=== PATIENT | female | born 1990 | race Caucasian/White ===

== ENCOUNTER → 2021-01-25 08:11 | Outpatient (CLI) | payer BC, SELFPAY ==
--- NOTE | 2021-01-25 08:16 | XR_ITS ---
PROCEDURE: XR WRIST RT MIN 3V CLINICAL INDICATION: RT wrist pain COMPARISON: No exams were available for comparison FINDINGS: No fracture or dislocation. The joint spaces are well preserved. There is a well-circumscribed 10 x 4 mm cyst within the mid aspect of the scaphoid. The margins are well-circumscribed and somewhat sclerotic. This has a benign appearance. The joint spaces are well-preserved. No significant degenerative/arthritic changes. No erosive changes evident. Other findings:None. IMPRESSION: Benign-appearing cystic lesion of the scaphoid otherwise negative. Dictated by: Inocencio Daugherty MD 01/25/2021 09:49 Inocencio Daugherty MD in [place] 01/25/2021 09:49
== END ==
PROVIDERS: PCP Internal Medicine Adolescent Medicine; Visit Provider Orthopaedic Surgery
DX: M25.531 Pain in right wrist (principal)
CPT/HCPCS: 73110

== ENCOUNTER → 2021-03-18 15:37 | Outpatient (CLI) | payer BC, SELFPAY ==
[2021-03-18 16:11] LABS: Basophils % 0.3 % (0.1-2.0); Eosinophils # 0.2 K/mm3 (0.0-0.4); Eosinophils % 1.9 % (0.1-12.0); Hematocrit 42.1 % (37.0-47.0); Hemoglobin 13.8 g/dL (12.2-16.2); Lymphocytes # 2.7 K/mm3 (0.7-4.5); Lymphocytes % 22.9 % (10-50); Mean Corpuscular HGB Conc 32.7 g/dL (31.8-35.4); Mean Corpuscular Hemoglobin 30.2 pg (27.0-31.2); Mean Corpuscular Volume 92.4 fl (81-99); Mean Platelet Volume 8.6 fl (7.4-10.4); Monocytes # 0.4 K/mm3 (0.1-1.0); Monocytes % 3.6 % (1.7-9.3); Neutrophils # 8.3 K/mm3 (1.8-7.8); Neutrophils % 71.4 % (37.0-80.0); Platelet Count 234 K/mm3 (142-424); Red Blood Count 4.56 M/mm3 (4.20-5.40); White Blood Count 11.7 K/mm3 (4.8-10.8)
[2021-03-18 17:18] LABS: Alanine Aminotransferase 16 U/L (12-78); Albumin Level 4.2 g/dl (3.5-5.0); Albumin/Globulin Ratio 1.6 (1.1-1.8); Alkaline Phosphatase 59 U/L (38-126); Anion Gap 12.3 mEq/L (5-15); Aspartate Amino Transferase 22 U/L (14-36); Bilirubin,Total 0.5 mg/dl (0.2-1.3); Blood Urea Nitrogen 15 mg/dl (7-17); Calcium 9.3 mg/dl (8.4-10.2); Carbon Dioxide 25 mmol/L (22.0-30.0); Chloride 104 mmol/L (98-107); Estimated Glomerular Filt Rate 73 ml/min (>60); GFR (African American) 88 ML/MIN (>60); Globulin 2.6 g/dL (1.3-3.2); Glucose 98 mg/dl (74-100); Potassium 4.3 mmoL/L (3.5-5.1); Sodium 137 mmol/L (136-145); Total Protein,Serum 6.8 g/dl (6.3-8.2)
[2021-03-18 17:20] LABS: HCG Qualitative, Serum Negative (Negative)
== END ==
PROVIDERS: Visit Provider Internal Medicine Adolescent Medicine
DX: R42 Dizziness and giddiness (principal); E03.9 Hypothyroidism, unspecified
CPT/HCPCS: 36415; 80053; 84443; 84703; 85025

== ENCOUNTER → 2021-05-24 10:23 | Outpatient (CLI) | payer BC, SELFPAY ==
[2021-05-24 10:40] LABS: Basophils # 0.1 K/mm3 (0-0.2); Basophils % 0.7 % (0.1-2.0); Eosinophils # 0.2 K/mm3 (0.0-0.4); Eosinophils % 2.4 % (0.1-12.0); Hematocrit 43.1 % (37.0-47.0); Hemoglobin 14.4 g/dL (12.2-16.2); Lymphocytes # 2.8 K/mm3 (0.7-4.5); Lymphocytes % 31.8 % (10-50); Mean Corpuscular HGB Conc 33.3 g/dL (31.8-35.4); Mean Corpuscular Hemoglobin 30.2 pg (27.0-31.2); Mean Corpuscular Volume 90.5 fl (81-99); Monocytes # 0.5 K/mm3 (0.1-1.0); Monocytes % 5.3 % (1.7-9.3); Neutrophils # 5.3 K/mm3 (1.8-7.8); Neutrophils % 59.7 % (37.0-80.0); Platelet Count 224 K/mm3 (142-424); Red Blood Count 4.77 M/mm3 (4.20-5.40); Red Cell Distribution Width 12.7 % (11.5-17.5); White Blood Count 8.8 K/mm3 (4.8-10.8)
[2021-05-24 11:33] LABS: Chloride 103 mmol/L (98-107); Sodium 137 mmol/L (136-145)
[2021-05-24 11:36] LABS: Alanine Aminotransferase 14 U/L (12-78); Albumin Level 4.2 g/dl (3.5-5.0); Albumin/Globulin Ratio 1.6 (1.1-1.8); Alkaline Phosphatase 60 U/L (38-126); Aspartate Amino Transferase 21 U/L (14-36); Bilirubin,Total 0.5 mg/dl (0.2-1.3); Blood Urea Nitrogen 18 mg/dl (7-17); Calcium 9.2 mg/dl (8.4-10.2); Carbon Dioxide 27 mmol/L (22.0-30.0); Estimated Glomerular Filt Rate 84 ml/min (>60); GFR (African American) 101 ML/MIN (>60); Globulin 2.7 g/dL (1.3-3.2); Glucose 102 mg/dl (74-100); Magnesium 1.8 mg/dl (1.6-2.3); Total Protein,Serum 6.9 g/dl (6.3-8.2)
[2021-05-24 12:06] LABS: Thyroid Stimulating Hormone 0.47 uIU/mL (0.465-4.68)
== END ==
PROVIDERS: Visit Provider Internal Medicine Adolescent Medicine
DX: R42 Dizziness and giddiness (principal); E03.9 Hypothyroidism, unspecified
CPT/HCPCS: 36415; 80053; 83735; 84443; 85025

== ENCOUNTER → 2021-10-04 15:10 | Outpatient (CLI) | payer BC, SELFPAY ==
[2021-10-04 16:08] LABS: 25-OH Vitamin D, Total 27.6 ng/mL (30-100)
[2021-10-04 16:43] LABS: Alanine Aminotransferase 21 U/L (12-78); Albumin Level 3.8 g/dl (3.5-5.0); Albumin/Globulin Ratio 1.5 (1.1-1.8); Alkaline Phosphatase 49 U/L (38-126); Anion Gap 10.6 mEq/L (5-15); Aspartate Amino Transferase 40 U/L (14-36); Bilirubin,Total 0.7 mg/dl (0.2-1.3); Blood Urea Nitrogen 9 mg/dl (7-17); Calcium 9.7 mg/dl (8.4-10.2); Carbon Dioxide 27 mmol/L (22.0-30.0); Chloride 100 mmol/L (98-107); Estimated Glomerular Filt Rate 98 ml/min (>60); GFR (African American) 118 ML/MIN (>60); Globulin 2.6 g/dL (1.3-3.2); Glucose 98 mg/dl (74-100); Potassium 4.6 mmoL/L (3.5-5.1); Sodium 133 mmol/L (136-145); Total Protein,Serum 6.4 g/dl (6.3-8.2)
[2021-10-04 17:03] LABS: Free T4 (Free Thyroxine) 1.45 ng/dl (0.78-2.19)
[2021-10-04 17:17] LABS: Thyroid Stimulating Hormone 1.48 uIU/mL (0.465-4.68)
[2021-10-04 17:36] LABS: Vitamin B12 759 pg/mL (239-931)
[2021-10-04 20:27] LABS: Hemoglobin A1C 5.5 % (4.0-6.0)
== END ==
PROVIDERS: Visit Provider Nurse Practitioner Family
DX: E03.9 Hypothyroidism, unspecified (principal); R73.9 Hyperglycemia, unspecified; R53.83 Other fatigue; E55.9 Vitamin D deficiency, unspecified
CPT/HCPCS: 36415; 80053; 82306; 82607; 83036; 84439; 84443

== ENCOUNTER → 2021-10-26 17:17 | Outpatient (CLI) | payer BC, SELFPAY | PROVIDERS: PCP Internal Medicine Adolescent Medicine; Visit Provider Nurse Practitioner | DX: Z20.822 Contact with and (suspected) exposure to COVID-19 (principal) | CPT/HCPCS: C9803; U0003; U0005 ==

== ENCOUNTER 2023-03-18 09:04 | Emergency (ER) | payer OTHER, SELFPAY ==
[2023-03-18] VITALS (9 sets, daily range): BP systolic 81–116; BP diastolic 55–83; PULSE 58–85; RESP 16–19; TEMP 36.7; O2SAT 91–99; BMI 23.8
--- NOTE | 2023-03-18 09:04 | PC.NURSE ---
at the bedside
--- NOTE | 2023-03-18 09:04 | PC.NURSE ---
fsbs on arrival- 84
--- NOTE | 2023-03-18 09:05 | XR_ITS ---
PROCEDURE INFORMATION: Exam: XR Chest Exam date and time: 03/18/2023 9:12 AM Age: 32 years old Clinical indication: Dyspnea and shortness of breath; Additional info: Dyspnea, covid+, cp TECHNIQUE: Imaging protocol: Radiologic exam of the chest. Views: 1 view. COMPARISON: No relevant prior studies available. FINDINGS: Lungs: Unremarkable. No consolidation. Pleural spaces: Unremarkable. No pleural effusion. No pneumothorax. Heart/Mediastinum: Unremarkable. No cardiomegaly. Bones/joints: Unremarkable. IMPRESSION: No acute findings.
--- NOTE | 2023-03-18 09:06 | HMH.EDAMS ---
Discharge Plan Disposition Patient Disposition: Home, Self-Care Prescriptions Prescriptions: No Action levothyroxine 50 mcg tablet 50 mcg PO DAILY 30 Days Qty: 30 bupropion HCl [Wellbutrin SR] 100 mg tablet extended release 12 hr 100 mg PO BID sertraline 50 mg tablet 50 mg PO DAILY Referrals Follow up/Referrals: Provider,Referral, [Primary Care Provider] - See instructions Activity Restrictions/Add. Instructions Additional Instructions/Restrictions: Your work-up in the emergency department today did not reveal any immediately life-threatening or dangerous conditions. Your thyroid level is low. However we just recently started thyroid medication so this result is expected. Your blood glucose is also a little bit on the low side. This can be seen if someone takes medicine to treat diabetes. This is not a sign of diabetes. Your urine drug screen tested positive for amphetamines. There are medications that could cross-react and give this result. However, if you do use street drugs such as amphetamines or if your prescribed medications for attention deficit disorder I would recommend that you stop taking them because today you may have had a seizure. You need to follow-up with your primary care doctor within about 4 to 5 days to have further testing done regarding your glucose and to figure out whether you may have a seizure disorder. Until you have been cleared by a doctor or neurologist to drive, you may not drive due to the possibility of you having seizures. This is state law. Please return to the emergency department immediately if you feel worse in any way. Eat high carbohydrate foods such as rice, bread, potatoes, pasta. Instructions Patient Instructions: DI for Altered Mental Status Discharge ED Provider: Val Brown Altered Mental Status HPI General Chief Complaint: Altered Mental Status Stated Complaint: AMS Time Seen by Provider: 03/18/23 09:04 Mode of Arrival: EMS Source of Information: Patient and Spouse History of Present Illness HPI narrative: The patient presents to the emergency department via ambulance. She is accompanied by her . Her found her in the bathroom unresponsive. She was naked with the bath running and she had defecated and vomited. The patient was initially unresponsive. She denies drug use. She denies a history of seizures. She denies diabetes. When paramedics arrived her blood glucose was 44. She was given D50 intravenously. She denies any injuries or pain. describes her mental status is returning slowly. No history of fevers or recent travel. Related Data Home Medications Medication Instructions Recorded Confirmed bupropion HCl 100 mg tablet,12 hr 100 mg PO BID mood 07/04/18 03/18/23 sustained-release (Wellbutrin SR) levothyroxine 50 mcg tablet 50 mcg PO DAILY thyroid 30 days 07/04/18 03/18/23 #30 tabs sertraline 50 mg tablet 50 mg PO DAILY mood 03/18/23 03/18/23 Allergies Allergy/AdvReac Type Severity Reaction Status Date / Time Penicillins Allergy Intermediate Verified 01/25/21 08:55 Cephalosporins AdvReac Mild Verified 01/25/21 08:55 PFSH [facility] Disclaimer: The information contained in this section may have been updated after the patient was seen, as this information can be updated by other users. Social History Smoking Status: Never smoker alcohol intake: never substance use type: denies use current occupational status: employed Travel in the last 8 weeks: None household members: significant other housing: house ROS Obtained: Yes All systems reviewed & no additional complaints except as documented Physical Exam General General appearance: alert Comment: The patient responds appropriately but slowly. Head Head exam: atraumatic Eye Eye exam: Present normal appearance ENT ENT exam: Present normal exam Neck Neck exam: Present normal inspection and full ROM; Absent tenderness or me
--- NOTE | 2023-03-18 09:08 | CT_ITS ---
PROCEDURE INFORMATION: Exam: CT Head Without Contrast Exam date and time: 03/18/2023 9:50 AM Age: 32 years old Clinical indication: Altered mental status/memory loss; Confusion or disorientation; Additional info: Probable new onset seizure TECHNIQUE: Imaging protocol: Computed tomography of the head without contrast. Radiation optimization: All CT scans at this facility use at least one of these dose optimization techniques: automated exposure control; mA and/or kV adjustment per patient size (includes targeted exams where dose is matched to clinical indication); or iterative reconstruction. REPORTING DATA: Count of CT and Cardiac NM exams in prior 12 months: This patient has received 0 known CTs and 0 known cardiac nuclear medicine studies in the 12 months prior to the current study. COMPARISON: No relevant prior studies available. FINDINGS: Brain: Normal. No hemorrhage. Unremarkable white matter. No mass effect. Cerebral ventricles: No ventriculomegaly. Paranasal sinuses: Visualized sinuses are unremarkable. No fluid levels. Mastoid air cells: Visualized mastoid air cells are well aerated. Bones/joints: Numerous foci of gas are evident at the skull base along the periphery of the foramen magnum, and extending inferiorly, surrounding the cervical canal at C1. Soft tissues: Unremarkable. Vasculature: Foci of gas also noted at the cavernous sinus. May be iatrogenic due to air bolus from IV placement, clinical correlation necessary. IMPRESSION: 1. No acute intracranial hemorrhage. 2. Numerous foci of gas are evident at the skull base along the periphery of the foramen magnum, and extending inferiorly, surrounding the cervical canal at C1. Foci of gas also noted at the cavernous sinus. May be iatrogenic due to air bolus from IV placement, clinical correlation necessary.
--- NOTE | 2023-03-18 09:11 | ECG_ITS ---
APPROVED REPORT Exam: Resting ECG HR:48 bpm ECG Measurements Heart Rate 48 AXES WY 157 P 36 QRSd 97 QRS 81 QT 459 T 30 QTc 427 Conclusion SINUS BRADYCARDIA LOW QRS VOLTAGE IN PRECORDIAL LEADS [QRS DEFLECTION < 1.0 mV IN CHEST LEADS] BORDERLINE ECG UNCONFIRMED REPORT Electronically signed by : Vincent Roberson MD 03/19/2023 09:00:31
[2023-03-18 09:20] LABS: Chloride 97 mmol/L (98-107); Sodium 133 mmol/L (136-145)
[2023-03-18 09:21] LABS: Basophils % 0.4 % (0.1-2.0); Eosinophils # 0.5 K/mm3 (0.0-0.4); Eosinophils % 7.3 % (0.1-12.0); Hematocrit 35.4 % (37.0-47.0); Hemoglobin 11.6 g/dL (12.2-16.2); Lymphocytes # 3.2 K/mm3 (0.7-4.5); Lymphocytes % 49.2 % (10-50); Mean Corpuscular HGB Conc 32.7 g/dL (31.8-35.4); Mean Corpuscular Hemoglobin 30.4 pg (27.0-31.2); Mean Corpuscular Volume 93.1 fl (81-99); Mean Platelet Volume 8.6 fl (7.4-10.4); Monocytes # 0.4 K/mm3 (0.1-1.0); Monocytes % 5.9 % (1.7-9.3); Neutrophils # 2.4 K/mm3 (1.8-7.8); Neutrophils % 37.2 % (37.0-80.0); Platelet Count 170 K/mm3 (142-424); Red Cell Distribution Width 12.6 % (11.5-17.5); White Blood Count 6.5 K/mm3 (4.8-10.8)
[2023-03-18 09:22] LABS: Blood Urea Nitrogen 8 mg/dl (7-17); Creatinine Clearance Estimated 93 mL/min (50-200); Estimated Glomerular Filt Rate 83 ml/min (>60); GFR (African American) 100 ML/MIN (>60)
[2023-03-18 09:23] LABS: Alanine Aminotransferase 20 U/L (12-78); Albumin/Globulin Ratio 1.2 (1.1-1.8); Alkaline Phosphatase 59 U/L (38-126); Anion Gap 14.3 mEq/L (5-15); Aspartate Amino Transferase 42 U/L (14-36); Bilirubin,Total 0.9 mg/dl (0.2-1.3); Calcium 9.5 mg/dl (8.4-10.2); Carbon Dioxide 25 mmol/L (22.0-30.0); Globulin 3.3 g/dL (1.3-3.2); Lipase 186 U/L (23-300); Potassium 3.3 mmoL/L (3.5-5.1); Total Protein,Serum 7.3 g/dl (6.3-8.2)
[2023-03-18 09:25] LABS: Glucose 33 mg/dl (74-100)
--- NOTE | 2023-03-18 09:38 | PC.NURSE ---
in and out cath unsuccessful, bladder scan revealed empty bladder. notified. will hydrate and re-cath
--- NOTE | 2023-03-18 09:43 | PC.NURSE ---
pt given orange juice to drink
[2023-03-18 09:44] LABS: HCG Qualitative, Serum Negative (Negative)
[2023-03-18 09:44] LABS: POC Glucose,Bedside 68 (70-110)
--- NOTE | 2023-03-18 09:44 | PC.NURSE ---
notified of critical glucose result
[2023-03-18 09:57] LABS: Glucose,Random 91 mg/dL (74-100)
[2023-03-18 10:15] LABS: Triiodothryronine (T3) Uptake 24 % (23.5-40.5)
--- NOTE | 2023-03-18 11:49 | PC.NURSE ---
bladder scan performed after 2L bolus, 136 mL
[2023-03-18 12:27] LABS: Microscopic, Urine URINE MICROSCOPIC (MICROSCOPIC)
[2023-03-18 12:28] LABS: Appearance,Urine CLEAR (Clear); Blood, Urine TRACE-I (Negative); Color,Urine YELLOW (Yellow); Glucose,Urine (UA) Negative (Negative); Ketones,Urine 2+ (Negative); Leukocyte Esterase,Urine 1+ (Negative); Nitrate,Urine Negative (Negative); PH,Urine 5.5 (5.0-8.5); Protein,Urine Negative (Negative); Specific Gravity, Urine 1.025 (1.005-1.030); Urobilinogen,Urine 0.2 EU/dl (0.2)
[2023-03-18 12:29] LABS: Bilirubin,Urine Negative (Negative)
[2023-03-18 12:40] LABS: Amphetamine/Metha Screen,Urine Positive ng/ml (<1000)
[2023-03-18 12:41] LABS: Barbiturates Screen,Urine Negative ng/ml (<200); Benzodiazepines Screen,Urine Negative ng/ml (<200)
[2023-03-18 12:42] LABS: Cannabinoid Screen,Urine Negative ng/ml (<50); Cocaine Screen,Urine Negative ng/ml (<300)
[2023-03-18 12:43] LABS: Methadone Screen,Urine Negative ng/ml (<300)
[2023-03-18 12:44] LABS: Opiate Screen,Urine Negative ng/ml (<300); Phencyclidine Screen,Urine Negative ng/ml (<25)
[2023-03-18 12:45] LABS: Bacteria,Urine Trace /lpf
[2023-03-18 13:08] LABS: POC Glucose,Bedside 56 (70-110)
--- NOTE | 2023-03-18 13:35 | PC.NURSE ---
rounded on pt nothing needed at this time, call light at bedside
--- NOTE | 2023-03-18 14:07 | PC.NURSE ---
er at bedside
[2023-03-18 14:09] LABS: POC Glucose,Bedside 74 (70-110)
--- NOTE | 2023-03-18 14:25 | PC.NURSE ---
patient and patients mother very concerned about pt being fired for possibly missing work tomorrow. pt was given work excuse from ED. instructed pt and her mother that pt was given work note for ED visit, advised pt take a few days off to recover. called apolinar with [employer] [facility] and notified her of pt being off tomorrow and of her concerns.
[2023-03-19 09:12] LABS: Free Thyroxine Index 1.5 ug/dL (5.93-13.13); T4 (Thyroxine) 6.4 ug/dl (5.53-11.0)
== END 2023-03-18 14:29 | disposition home or self-care (01) ==
PROVIDERS: Emergency Provider Emergency Medicine
DX: R41.82 Altered mental status, unspecified (principal); R00.1 Bradycardia, unspecified; E03.9 Hypothyroidism, unspecified
CPT/HCPCS: 70450; 71045; 80053; 80305; 81001; 82947; 82962; 83690; 84436; 84443; 84479; 84703; 85025; 87086; 93005; 96360; 96361; 99285

== ENCOUNTER → 2023-03-20 14:56 | Outpatient (CLI) | payer OTHER, SELFPAY | LOC: RT 14:57 | PROVIDERS: PCP Internal Medicine Adolescent Medicine; Visit Provider Internal Medicine Adolescent Medicine | DX: R55 Syncope and collapse (principal); R00.1 Bradycardia, unspecified | CPT/HCPCS: 93225; 93226 ==

== ENCOUNTER → 2023-03-21 09:19 | Outpatient (CLI) | payer OTHER, SELFPAY ==
[2023-03-21 10:20] LABS: Basophils % 0.5 % (0.1-2.0); Eosinophils # 0.3 K/mm3 (0.0-0.4); Eosinophils % 7.6 % (0.1-12.0); Hematocrit 32.7 % (37.0-47.0); Hemoglobin 10.6 g/dL (12.2-16.2); Lymphocytes # 1.8 K/mm3 (0.7-4.5); Lymphocytes % 40.2 % (10-50); Mean Corpuscular HGB Conc 32.4 g/dL (31.8-35.4); Mean Corpuscular Volume 95.7 fl (81-99); Mean Platelet Volume 9.3 fl (7.4-10.4); Monocytes # 0.3 K/mm3 (0.1-1.0); Monocytes % 5.5 % (1.7-9.3); Neutrophils # 2.1 K/mm3 (1.8-7.8); Neutrophils % 46.2 % (37.0-80.0); Platelet Count 178 K/mm3 (142-424); Red Blood Count 3.41 M/mm3 (4.20-5.40); Red Cell Distribution Width 12.6 % (11.5-17.5); White Blood Count 4.6 K/mm3 (4.8-10.8)
[2023-03-21 11:04] LABS: Alanine Aminotransferase 15 U/L (12-78); Albumin Level 3.3 g/dl (3.5-5.0); Albumin/Globulin Ratio 1.2 (1.1-1.8); Alkaline Phosphatase 44 U/L (38-126); Aspartate Amino Transferase 32 U/L (14-36); Bilirubin,Total 0.4 mg/dl (0.2-1.3); Blood Urea Nitrogen 7 mg/dl (7-17); Calcium 8.3 mg/dl (8.4-10.2); Carbon Dioxide 29 mmol/L (22.0-30.0); Chloride 102 mmol/L (98-107); Estimated Glomerular Filt Rate 115 ml/min (>60); GFR (African American) 139 ML/MIN (>60); Globulin 2.7 g/dL (1.3-3.2); Glucose 85 mg/dl (74-100); Magnesium 1.6 mg/dl (1.6-2.3); Sodium 140 mmol/L (136-145)
[2023-03-21 11:38] LABS: Vitamin B12 819 pg/mL (239-931)
[2023-03-22 11:17] LABS: Insulin Level Total 1.6 uIU/mL (2.6-24.9)
[2023-03-22 13:03] LABS: C-Peptide 1.4 ng/mL (1.1-4.4)
[2023-03-24 16:13] LABS: Vitamin C 0.5 mg/dL (0.4-2.0)
== END ==
LOC: LAB 09:21
PROVIDERS: PCP Internal Medicine Adolescent Medicine; Visit Provider Internal Medicine Adolescent Medicine
DX: R01.1 Cardiac murmur, unspecified (principal); R55 Syncope and collapse; R00.1 Bradycardia, unspecified; E16.2 Hypoglycemia, unspecified; E55.9 Vitamin D deficiency, unspecified
CPT/HCPCS: 36415; 80053; 82024; 82180; 82306; 82533; 82607; 83525; 83735; 84681; 85025

== ENCOUNTER → 2023-03-24 08:15 | Outpatient (CLI) | payer OTHER, SELFPAY ==
[2023-04-06 22:51] LABS: Renin Activity, Plasma 1.277 ng/mL/hr (0.167-5.380)
== END ==
LOC: LAB 08:17
PROVIDERS: PCP Internal Medicine Adolescent Medicine; Visit Provider Internal Medicine Adolescent Medicine
DX: E27.40 Unspecified adrenocortical insufficiency (principal)
CPT/HCPCS: 36415; 82024; 82088; 82533; 84244

== ENCOUNTER → 2023-03-28 09:25 | Outpatient (CLI) | payer OTHER, SELFPAY ==
--- NOTE | 2023-03-28 09:32 | MR_ITS ---
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 The midline structures appear intact. There is no evidence of Chiari malformation. On T2 and flair axial images the brain parenchyma is homogeneous. On diffusion-weighted images there is no evidence of restricted diffusion. The visualized paranasal sinuses demonstrate normal signal voids. The seventh and eighth nerve root complexes are intact. The previous CT on March 18 had mentioned intracranial air at the craniocervical junction and the parasellar region, which is no longer present on today's exam. IMPRESSION: Essentially unremarkable nonenhanced brain MRI. Reviewed, Interpreted and Dictated by Morteza Jay MD Transcribed by Fallon Salguero Authenticated and [facility]
== END ==
LOC: RAD 09:26
PROVIDERS: PCP Internal Medicine Adolescent Medicine; Visit Provider Internal Medicine Adolescent Medicine
DX: R55 Syncope and collapse (principal)
CPT/HCPCS: 70551

== ENCOUNTER → 2023-05-23 07:50 | Outpatient (CLI) | payer OTHER, SELFPAY ==
--- NOTE | 2023-05-23 07:56 | MR_ITS ---
FINAL REPORT CLINICAL HISTORY: PRIMARY ADRENAL INSUFFICIENCY. ANASTASIYA'S DISEASE. COMPARISON: None none none FINDINGS: Multiplanar MR imaging of the abdomen was performed without contrast. There are multiple well-circumscribed hepatic masses measuring up to 13 mm. These cannot be accurately characterized without contrast and likely represent cysts or hemangiomas. There is no evidence of biliary ductal dilatation. The gallbladder has an unremarkable appearance. Several small bilateral renal masses are noted. Two of these on the right and one on the left have increased signal on the T1-weighted images. These do not appear to be simple cysts but are favored to represent hemorrhagic cysts. The others likely represents simple cysts. Borderline splenomegaly at 12.8 cm. Right adrenal gland is not well visualized. Left adrenal gland appears small. No adrenal mass or nodule. IMPRESSION: No adrenal mass or nodule identified. Multiple hepatic masses likely represent cysts or hemangiomas. Several small bilateral renal masses, some of which demonstrate increased signal on T1-weighted images and favored to represent hemorrhagic cysts. Borderline splenomegaly. Reviewed, Interpreted and Dictated by Nuno Kaiser III, MD Transcribed by Brittney Rocha Authenticated and . [facility]
== END ==
LOC: RAD 07:51
PROVIDERS: PCP Internal Medicine Adolescent Medicine; Visit Provider Internal Medicine Adolescent Medicine
DX: E27.1 Primary adrenocortical insufficiency (principal)
CPT/HCPCS: 74181

== ENCOUNTER 2023-06-19 19:07 | Emergency (ER) | payer OTHER, SELFPAY ==
[2023-06-19 20:05] VITALS: BP 115/71; PULSE 109; RESP 20; TEMP 36.8; O2SAT 97; BMI 26.9
[2023-06-19 20:21] LABS: UTC Strep Screen (Rapid) Negative (Negative)
--- NOTE | 2023-06-19 20:21 | EXP.UTC ---
Discharge Plan Disposition Patient Disposition: Home, Self-Care Condition: Good Prescriptions Prescriptions: New azithromycin [Zithromax Z-Pepe] 250 mg tablet See Rx Instructions .ROUTE .COMPLEX 5 Days Qty: 6 0RF Rx Instructions: For 250 mg dose pack: take 500 mg today (day 1), then 250 mg for 4 days (days 2-5) No Action levothyroxine 50 mcg tablet 50 mcg PO DAILY 30 Days Qty: 30 bupropion HCl [Wellbutrin SR] 100 mg tablet extended release 12 hr 100 mg PO BID sertraline 50 mg tablet 50 mg PO DAILY Referrals Follow up/Referrals: Vincent Roberson MD [Primary Care Provider] - See instructions Activity Restrictions/Add. Instructions Additional Instructions/Restrictions: *Monitor Temp, Over the counter Motrin or Tylenol as directed/as needed Tylenol every 4 hours and Motrin every 6 hours (as long as your family doctor has told you that you can take it) for fever or pain. and straight to ER if unable to lower temp less than 101.0 after medication given *Warm salt water gargles may help to soothe the throat *Throat Lozenges? *Warm fluids like tea with honey may help to soothe the throat? *Sleep elevated *Humidifier/Vaporizer Your throat swab was sent for culture. Those results are typically sent to your primary care. Be sure to follow up in 2-3 days with your family doctor/primary care physician if no improvement so they can review those result and treat if necessary. If you don?t have a primary care doctor, I recommend you get one but in the mean time, you will have to return to a walk in clinic Follow up IMMEDIATELY for new or worsening symptoms or no Noticeable improvement over the next 48-72 hours. 911 for difficulty breathing or swallowing Clinical Impressions Clinical Impression: Otitis media Qualifiers: Otitis media type: unspecified Laterality: left Qualified Code(s): H66.92 - Otitis media, unspecified, left ear Instructions Patient Instructions: Sore Throat, Middle Ear Infection Discharge ED Provider: Annalee Oates [facility] General Stated complaint: sore throat Mode of Arrival: Ambulatory Source of Information: Patient Limitations: No Limitations Time Seen by Provider: 06/19/23 20:21 Description of Symptoms (Recalled from Triage Doc. by RN): PATIENT C/O SORE THROAT AND BILATERAL EAR PAIN THAT STARTED THIS MORNING HEENT Symptoms (Recalled from RN notes): Yes Resp Symptoms (Recalled from RN notes): No Skin Symptoms (Recalled from RN notes): No MS Symptoms (Recalled from RN notes): No Functional Status (Recalled from RN notes): WNL History of Present Illness Provider Complaint: Patient states that she started this morning with bilateral ear pain and sore throat State that he son recently tested positive for strep throat Related Data Home Medications Medication Instructions Recorded Confirmed bupropion HCl 100 mg tablet,12 hr 100 mg PO BID mood 07/04/18 03/18/23 sustained-release (Wellbutrin SR) levothyroxine 50 mcg tablet 50 mcg PO DAILY thyroid 30 days 07/04/18 03/18/23 #30 tabs sertraline 50 mg tablet 50 mg PO DAILY mood 03/18/23 03/18/23 Previous Rx's Medication Instructions Recorded azithromycin 250 mg tablet See Rx Instructions PO .COMPLEX 5 06/19/23 (Zithromax Z-Pepe) days #6 tabs Allergies Allergy/AdvReac Type Severity Reaction Status Date / Time Penicillins Allergy Intermediate Verified 01/25/21 08:55 amoxicillin Allergy Verified 06/19/23 20:18 Cephalosporins AdvReac Mild Verified 01/25/21 08:55 Worker's Comp Is this a Worker's Comp case?: No [facility] Disclaimer: The information contained in this section may have been updated after the patient was seen, as this information can be updated by other users. Medical History (Updated 06/19/23 @ 20:26 by Annalee Oates APRN) [place] disease Anxiety Asthma Depression History of gastroesophageal reflux (GERD) Thyroid disease Surgical His
[2023-06-19 20:28] VITALS: BP 115/71; PULSE 109; RESP 20; TEMP 36.8; O2SAT 97
== END 2023-06-19 20:33 | disposition home or self-care (01) ==
PROVIDERS: Emergency Provider Nurse Practitioner; PCP Internal Medicine Adolescent Medicine
DX: H66.93 Otitis media, unspecified, bilateral (principal); E27.1 Primary adrenocortical insufficiency; E03.9 Hypothyroidism, unspecified; J45.909 Unspecified asthma, uncomplicated; F41.9 Anxiety disorder, unspecified; F32.A Depression, unspecified
CPT/HCPCS: 87880; 99204; 99212; G0463

== ENCOUNTER 2023-09-02 21:38 | Observation (INO) | payer OTHER, SELFPAY ==
[2023-09-02 21:39] VITALS: BP 118/80; PULSE 130; RESP 18; TEMP 39.6; O2SAT 98; BMI 29.2
--- NOTE | 2023-09-02 21:54 | XR_ITS ---
PROCEDURE INFORMATION: Exam: XR Chest Exam date and time: 09/02/2023 9:59 PM Age: 32 years old Clinical indication: Dyspnea TECHNIQUE: Imaging protocol: Radiologic exam of the chest. Views: 1 view. COMPARISON: CR XR CHEST PORTABLE 03/18/2023 9:12 AM FINDINGS: Lungs: There is coarsening of the bronchovascular markings. Pleural spaces: No evidence of pleural effusion, pneumothorax, or pleural thickening in the visualized pleural spaces. Heart/Mediastinum: Stable cardiac and mediastinal contours. Diaphragm: There is elevation of the right hemidiaphragm. Bones/joints: No evidence of acute osseous abnormalities within the visualized portions of the thoracic spine and ribs. Osseous structures appear appropriate for patient age. IMPRESSION: No dense parenchymal consolidation, pleural effusion, or pneumothorax.
--- NOTE | 2023-09-02 22:00 | HMH.EDGENADL ---
Discharge Plan Disposition Patient Disposition: Admitted Prescriptions Prescriptions: No Action levothyroxine 50 mcg tablet 50 mcg PO DAILY 30 Days Qty: 30 bupropion HCl [Wellbutrin SR] 100 mg tablet extended release 12 hr 100 mg PO BID sertraline 50 mg tablet 50 mg PO DAILY azithromycin [Zithromax Z-Pepe] 250 mg tablet See Rx Instructions .ROUTE .COMPLEX 5 Days Qty: 6 0RF Rx Instructions: For 250 mg dose pack: take 500 mg today (day 1), then 250 mg for 4 days (days 2-5) Referrals Follow up/Referrals: Vincent Roberson MD [Primary Care Provider] - See instructions Clinical Impressions Clinical Impression: Addisonian crisis, Nausea vomiting and diarrhea, Fever Instructions Patient Instructions: DI for Diarrhea and Traveler's Diarrhea -- Adult, DI for Diarrhea and Traveler's Diarrhea -- Child, DI for Nausea -- Adult, DI for Nausea -- Child Discharge ED Provider: Pipe Tamayo General Adult HPI General Chief complaint: Nausea/Vomiting/Diarrhea Stated complaint: vomiting,diarrhea Time Seen by Provider: 09/02/23 21:49 Mode of Arrival: Ambulatory Source of Information: Patient Limitations: No Limitations Description of Symptoms (Recalled from ER Triage Doc. by RN): Patient had and N/V/D since around 6pm today. [place] has fever in ED. Patient states that she has Addisions and unable to keep down her steroids. Patient took 4 mg oral zofran at 7:30 PM. History of Present Illness HPI narrative: Patient is a 32-year-old female with a history of [place]'s disease who presents today with nausea vomiting diarrhea some abdominal discomfort and high fever. She states I feel like I have the bug is going around. She states she has body aches she has had positive contacts to COVID recently. She denies any blood in her vomit or stool. has had a mild cough. Also states that she recently ran out of her steroids and has not been able to take any of her steroids today nor she been able to take any antipyretic medications that she has been unable to keep anything down. Related Data Home Medications Medication Instructions Recorded Confirmed bupropion HCl 100 mg tablet,12 hr 100 mg PO BID mood 07/04/18 03/18/23 sustained-release (Wellbutrin SR) levothyroxine 50 mcg tablet 50 mcg PO DAILY thyroid 30 days 07/04/18 03/18/23 #30 tabs sertraline 50 mg tablet 50 mg PO DAILY mood 03/18/23 03/18/23 Previous Rx's Medication Instructions Recorded azithromycin 250 mg tablet See Rx Instructions PO .COMPLEX 5 06/19/23 (Zithromax Z-Pepe) days #6 tabs Allergies Allergy/AdvReac Type Severity Reaction Status Date / Time Penicillins Allergy Intermediate Verified 01/25/21 08:55 amoxicillin Allergy Verified 06/19/23 20:18 Cephalosporins AdvReac Mild Verified 01/25/21 08:55 PFSH [facility] Disclaimer: The information contained in this section may have been updated after the patient was seen, as this information can be updated by other users. Medical History (Updated 09/02/23 @ 22:57 by Pipe Tamayo MD) [place] disease Anxiety Asthma Depression History of gastroesophageal reflux (GERD) Thyroid disease Surgical History (Updated 06/19/23 @ 20:19 by Amirah Watson RN) History of section History of dilation and curettage History of tonsillectomy History of tympanostomy tube placement Social History Smoking Status: Never smoker alcohol intake: never substance use type: denies use current occupational status: employed Travel in the last 8 weeks: None household members: significant other housing: house ROS Obtained: Yes All systems reviewed & no additional complaints except as documented Physical Exam General General appearance: in distress (Actively vomiting) Respiratory Respiratory exam: Present normal lung sounds bilaterally; Absent respiratory distress, wheezes or stridor Cardiovascular Cardiovascular exam: Present normal rhythm, tachycardia and ot
[2023-09-02 22:10] LABS: Coronavirus 19, PCR Not Detected (NotDetected); Coronavirus 229E Not Detected (NotDetected); Coronavirus NL63 Not Detected (NotDetected); Coronavirus OC43 Not Detected (NotDetected); Coronovirus HKU1,PCR Not Detected (NotDetected); Human Metapneumovirus Not Detected (NotDetected); Influenza A, PCR Not Detected (NotDetected); Influenza AH1, 2009 Not Detected (NotDetected); Influenza AH1, PCR Not Detected (NotDetected); Influenza AH3,PCR Not Detected (NotDetected); Influenza B, PCR Not Detected (NotDetected); Parainfluenza 1, PCR Not Detected (NotDetected); Parainfluenza 2, PCR Not Detected (NotDetected); Parainfluenza 3, PCR Not Detected (NotDetected); Parainfluenza 4, PCR Not Detected (NotDetected); Respiratory Syncytial Virus Not Detected (NotDetected); Rhinovirus/Enterovirus Not Detected (NotDetected)
[2023-09-02 22:31] LABS: Basophils % 0.2 % (0.1-2.0); Eosinophils # 0.1 K/mm3 (0.0-0.4); Eosinophils % 1.9 % (0.1-12.0); Hematocrit 38.5 % (37.0-47.0); Hemoglobin 13.1 g/dL (12.2-16.2); Lymphocytes # 1.1 K/mm3 (0.7-4.5); Lymphocytes % 22.7 % (10-50); Mean Corpuscular HGB Conc 34.1 g/dL (31.8-35.4); Mean Corpuscular Hemoglobin 31.2 pg (27.0-31.2); Mean Corpuscular Volume 91.4 fl (81-99); Mean Platelet Volume 8.9 fl (7.4-10.4); Monocytes # 0.2 K/mm3 (0.1-1.0); Monocytes % 3.2 % (1.7-9.3); Neutrophils # 3.4 K/mm3 (1.8-7.8); Platelet Count 166 K/mm3 (142-424); Red Blood Count 4.21 M/mm3 (4.20-5.40); Red Cell Distribution Width 14.2 % (11.5-17.5); White Blood Count 4.7 K/mm3 (4.8-10.8)
[2023-09-02 22:33] LABS: Chloride 103 mmol/L (98-107); Sodium 140 mmol/L (136-145)
[2023-09-02 22:34] LABS: Potassium 3.6 mmoL/L (3.5-5.1)
[2023-09-02 22:36] LABS: Alanine Aminotransferase 18 U/L (12-78); Albumin Level 4.1 g/dl (3.5-5.0); Albumin/Globulin Ratio 1.3 (1.1-1.8); Alkaline Phosphatase 51 U/L (38-126); Anion Gap 9.6 mEq/L (5-15); Aspartate Amino Transferase 28 U/L (14-36); Bilirubin,Total 0.5 mg/dl (0.2-1.3); Blood Urea Nitrogen 16 mg/dl (7-17); Carbon Dioxide 31 mmol/L (22.0-30.0); Creatinine Clearance Estimated 102 mL/min (50-200); Estimated Glomerular Filt Rate 72 ml/min (>60); GFR (African American) 87 ML/MIN (>60); Globulin 3.2 g/dL (1.3-3.2); Glucose 100 mg/dl (74-100); Lipase 88 U/L (23-300); Total Protein,Serum 7.3 g/dl (6.3-8.2)
[2023-09-02 22:37] LABS: Lactic Acid 1.3 mmol/L (0.7-2.1)
--- NOTE | 2023-09-02 23:26 | PC.NURSE ---
Called report to Dulce TAYLOR
--- NOTE | 2023-09-02 23:27 | EXP.HP ---
History of Present Illness *Admission Date: 09/02/23 *Reason for visit:: nausea, vomiting, fatigue *History of present illness: Mrs. 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 Was at work today and missed her doses of steroids (hydrocortisone 10 mg in the morning and 5 mg in the afternoon). She began to feel bad this afternoon with nausea and upset stomach. Began to have vomiting and diarrhea at home. Took some Zofran at 730 but symptoms have persisted. She presented to the ER because of her abdominal discomfort and fever. Found to have a temperature of 103 on arrival to the ER. States she feels like she has a stomach bug has been going around. Sick contacts include recent exposure to COVID over the past week and a half. Has had minimal cough and congestion. No blood in vomit or stool. Workup in the ER meeting SIRS criteria. Tachycardic and febrile. Normal white cell count and electrolytes. ER initiated IV fluids and stress dose steroids. Comprehensive respiratory panel obtained. Consulted medicine for admission and further management. On evaluation, patient is feeling a little bit better since receiving fluids and steroids. Denies any chest pain or shortness of breath. [facility] Disclaimer: The information contained in this section may have been updated after the patient was seen, as this information can be updated by other users. Medical History (Updated 09/02/23 @ 23:37 by Geoffrey Bhatti MD) [place] disease Anxiety Asthma Depression History of gastroesophageal reflux (GERD) Thyroid disease Surgical History History of section History of dilation and curettage History of tonsillectomy History of tympanostomy tube placement Social History Smoking Status: Never smoker alcohol intake: never substance use type: denies use current occupational status: employed Travel in the last 8 weeks: None household members: significant other housing: house Review of Systems Review of Systems Review of systems (narrative): 14 point review of systems performed, pertinent positives and negatives as per HPI Meds Home Medications and Allergies Home Medications Medication Instructions Recorded Confirmed Type bupropion HCl 100 mg tablet,12 hr 100 mg PO BID mood 07/04/18 03/18/23 History sustained-release (Wellbutrin SR) levothyroxine 50 mcg tablet 50 mcg PO DAILY thyroid 30 days 07/04/18 03/18/23 History #30 tabs sertraline 50 mg tablet 50 mg PO DAILY mood 03/18/23 03/18/23 History azithromycin 250 mg tablet See Rx Instructions PO .COMPLEX 5 06/19/23 Rx (Zithromax Z-Pepe) days #6 tabs New Prescriptions to Start Prescriptions: Allergies Allergy/AdvReac Type Severity Reaction Status Date / Time Penicillins Allergy Intermediate Verified 01/25/21 08:55 amoxicillin Allergy Verified 06/19/23 20:18 Cephalosporins AdvReac Mild Verified 01/25/21 08:55 Exam Data for Last 24 hours Vital signs and Labs for Last 24 Hours: Temp Pulse Resp BP Pulse Ox O2 Del Method 103.2 F H 130 H 18 118/80 98 Room Air 09/02/23 21:39 09/02/23 21:39 09/02/23 21:39 09/02/23 21:39 09/02/23 21:39 09/02/23 21:39 Laboratory Results - last 24 hr 09/02/23 22:07: WBC 4.7 L, RBC 4.21, Hgb 13.1, Hct 38.5, MCV 91.4, MCH 31.2, MCHC 34.1, RDW 14.2, Plt Count 166, MPV 8.9, Neut % (Auto) 72.0, Lymph % (Auto) 22.7, Stone % (Auto) 3.2, Eos % (Auto) 1.9, Baso % (Auto) 0.2, Neut # (Auto) 3.4, Lymph # (Auto) 1.1, Stone # (Auto) 0.2, Eos # (Auto) 0.1, Baso # (Auto) 0.0, Sodium 140, Potassium 3.6, Chloride 103, Carbon Dioxide 31 H, Anion Gap 9.6, BUN 16, Creatinine 0.90, Estimated Creat Clear 102, Estimated GFR 72, Est GFR ( Amer) 87, Glucose 100, Lactate 1.3, Calcium 8.0 L, Total Bilirubin 0.5, AST 28, ALT 18, Alkaline Phosphatase 51, Total Protein 7.3, Albumin 4.1, Globulin 3.
[2023-09-02 23:28] VITALS: TEMP 38.6
[2023-09-02 23:31] VITALS: BP 118/80; PULSE 130; RESP 16; TEMP 38.6; O2SAT 98
--- NOTE | 2023-09-02 23:39 | PC.NURSE ---
5404 RECEIVED PHONE REPORT FROM SUZANNA bernard RN/ED NURSE. PATIENT IS A 32 YO FEMALE WITH ADDISONS CRISIS/N/V/D AND FEVER.
--- NOTE | 2023-09-02 23:40 | PC.NURSE ---
2340 PATIENTT ARRIVED TO THE FLOOR VIA W/C.
--- NOTE | 2023-09-02 23:41 | PC.NURSE ---
pt arrived to floor via wheelchair @3922
[2023-09-03 00:04] VITALS: BP 90/51; PULSE 117; RESP 14; TEMP 37; O2SAT 99; BMI 32.0
[2023-09-03 00:31] LABS: Adenovirus,PCR Detected (NotDetected)
--- NOTE | 2023-09-03 02:15 | PC.NURSE ---
U/A COLLECTED AND SENT TO LAB.
[2023-09-03 02:17] LABS: Microscopic, Urine URINE MICROSCOPIC (MICROSCOPIC)
[2023-09-03 02:19] LABS: Appearance,Urine SL CLOUDY (Clear); Bilirubin,Urine Negative (Negative); Blood, Urine Negative (Negative); Color,Urine YELLOW (Yellow); Glucose,Urine (UA) Negative (Negative); Ketones,Urine Negative (Negative); Leukocyte Esterase,Urine Negative (Negative); Nitrate,Urine Negative (Negative); PH,Urine 5.5 (5.0-8.5); Protein,Urine Negative (Negative); Specific Gravity, Urine 1.025 (1.005-1.030); Urobilinogen,Urine 0.2 EU/dl (0.2)
[2023-09-03 02:46] LABS: Bacteria,Urine 1+ /lpf; Mucus,Urine Trace /lpf
[2023-09-03 04:00] VITALS: BP 82/44; PULSE 109; RESP 16; TEMP 37.4; O2SAT 98; BMI 32.0
--- NOTE | 2023-09-03 04:55 | PC.NURSE ---
0445 PATIENT C/O INDIGESTION. RECEIVED TUMS CHEWABLE 500 MG X 2 TABS. BP 82/44 MANUAL, LR 1000ML INITIATED AND INFUSING AT 100 ML/HR/PUMP ORDERED.
[2023-09-03 06:16] LABS: POC Glucose,Bedside 130 (70-110)
[2023-09-03 07:59] VITALS: BP 105/59; PULSE 90; RESP 18; TEMP 36.9; O2SAT 99
[2023-09-03 08:12] LABS: Basophils % 0.2 % (0.1-2.0); Eosinophils % 0.4 % (0.1-12.0); Hematocrit 33.2 % (37.0-47.0); Lymphocytes # 0.6 K/mm3 (0.7-4.5); Lymphocytes % 8.2 % (10-50); Mean Corpuscular HGB Conc 33.1 g/dL (31.8-35.4); Mean Corpuscular Hemoglobin 30.9 pg (27.0-31.2); Mean Corpuscular Volume 93.2 fl (81-99); Mean Platelet Volume 9.2 fl (7.4-10.4); Monocytes # 0.4 K/mm3 (0.1-1.0); Monocytes % 5.1 % (1.7-9.3); Neutrophils % 86.2 % (37.0-80.0); Platelet Count 172 K/mm3 (142-424); Red Blood Count 3.56 M/mm3 (4.20-5.40); Red Cell Distribution Width 14.3 % (11.5-17.5); White Blood Count 6.9 K/mm3 (4.8-10.8)
[2023-09-03 08:26] LABS: Alanine Aminotransferase 17 U/L (12-78); Albumin/Globulin Ratio 1.1 (1.1-1.8); Alkaline Phosphatase 47 U/L (38-126); Anion Gap 7.6 mEq/L (5-15); Aspartate Amino Transferase 26 U/L (14-36); Bilirubin,Total 0.5 mg/dl (0.2-1.3); Blood Urea Nitrogen 16 mg/dl (7-17); Calcium 7.1 mg/dl (8.4-10.2); Carbon Dioxide 28 mmol/L (22.0-30.0); Chloride 100 mmol/L (98-107); Creatinine Clearance Estimated 111 mL/min (50-200); Estimated Glomerular Filt Rate 72 ml/min (>60); GFR (African American) 87 ML/MIN (>60); Globulin 2.7 g/dL (1.3-3.2); Glucose 113 mg/dl (74-100); Magnesium 1.4 mg/dl (1.6-2.3); Potassium 3.6 mmoL/L (3.5-5.1); Sodium 132 mmol/L (136-145); Total Protein,Serum 5.7 g/dl (6.3-8.2)
[2023-09-03 08:38] LABS: MANUAL DIFFERENTIAL MANUAL DIFFERENTIAL (MANUAL DIFF)
[2023-09-03 09:10] LABS: Hemoglobin 11.1 g/dL (12.2-16.2)
[2023-09-03 09:50] LABS: Eosinophils % 1 % (0-3); Lymphocytes % 11 % (10-50); Monocytes % 2 % (2-9); Neutrophils % 86 % (42-76); Total Cells Counted 100
[2023-09-03 09:51] LABS: Platelet Estimate Normal; RBC Morphology Normal
--- NOTE | 2023-09-03 10:26 | EXP.DC.SUM ---
General Admission date:: 09/02/23 Discharge date: 09/03/23 HPI HPI HPI: Mrs. 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 Was at work today and missed her doses of steroids (hydrocortisone 10 mg in the morning and 5 mg in the afternoon). She began to feel bad this afternoon with nausea and upset stomach. Began to have vomiting and diarrhea at home. Took some Zofran at 730 but symptoms have persisted. She presented to the ER because of her abdominal discomfort and fever. Found to have a temperature of 103 on arrival to the ER. States she feels like she has a stomach bug has been going around. Sick contacts include recent exposure to COVID over the past week and a half. Has had minimal cough and congestion. No blood in vomit or stool. Workup in the ER meeting SIRS criteria. Tachycardic and febrile. Normal white cell count and electrolytes. ER initiated IV fluids and stress dose steroids. Comprehensive respiratory panel obtained. Consulted medicine for admission and further management. On evaluation, patient is feeling a little bit better since receiving fluids and steroids. Denies any chest pain or shortness of breath. 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 Presented to the ER with nausea, vomiting, diarrhea. Discussed case with ER physician, request admission for treatment of addisonian crisis. Patient would benefit from inpatient management with stress to steroids and further monitoring. Medicine agreed to admit for further treatment. Treated with stress dose steroids. Held antibiotics. Patient's symptoms improved by morning with resolution of her diarrhea. Tolerating p.o. intake. White cell count 6.9 the following morning. Electrolytes stable. Meeting criteria for discharge home. Problems addressed as follows: Nacho's disease with crisis Nausea, vomiting, diarrhea -Patient found to be positive for adenovirus on admission. Symptoms consistent with addisonian crisis. Treated with 100 mg IV hydrocortisone x 1. Administered IV fluid bolus in the ER with Zofran and famotidine. Symptoms defervesced over the next few hours. Fever resolved and patient tolerating p.o. intake by morning. Improvement in white cell count. No indication for antibiotics. Patient's normal steroid course includes hydrocortisone 10 mg in the morning and 5 mg in the afternoon. Fludrocortisone 0.1 mg every other day, last dose taken on 09/01. She received fludrocortisone on day of discharge. Recommend stress dosing with triple dose hydrocortisone 30 mg in the morning and 15 mg in the afternoon for 3 days, double dose for 1 day (20 in the morning, 10 at night), followed by resumption of normal dose 10 mg in the morning and 5 in the afternoon thereafter. Stable to discharge home. Close follow-up with PCP for further evaluation. Hypothyroidism: Continue levothyroxine 200 mcg daily Anxiety: Continue home Zoloft 50 mg daily Spent 30 minutes in discharge counseling, documentation, chart review, and direct care with patient. Exam Data for Last 24 hours Vital signs and Labs for Last 24 Hours: Temp Pulse Resp BP Pulse Ox O2 Del Method 98.5 F 90 18 105/59 L 99 Room Air 09/03/23 07:59 09/03/23 07:59 09/03/23 07:59 09/03/23 07:59 09/03/23 07:59 09/03/23 09:00 Laboratory Results - last 24 hr 09/02/23 22:07: WBC 4.7 L, RBC 4.21, Hgb 13.1, Hct 38.5, MCV 91.4, MCH 31.2, MCHC 34.1, RDW 14.2, Plt Count 166, MPV 8.9, Neut % (Auto) 72.0, Lymph % (Auto) 22.7, [place] % (Auto) 3.2, Eos % (Auto) 1.9, Baso % (Auto) 0.2, Neut # (Auto) 3.4, Lymph # (Auto) 1.1, [place] # (Auto) 0.2, Eos # (Auto) 0.1, Baso # (Auto) 0.0, Sodium 140, Potassium 3.6, Chloride 103, Carbon Dioxide 31 H, Anion Gap 9.6, BUN 16, Creatinine 0.90, Estimated Creat Clear 102, Estimated GFR 72, Est GFR ( Amer) 87, Glucose 100, Lactate 1.3, Calcium 8.0 L, Total Bilirubin 0.5, AST 28, ALT 18
[2023-09-03 11:22] LABS: POC Glucose,Bedside 127 (70-110)
--- NOTE | 2023-09-03 14:04 | P.CONPHA_ITS ---
Pharmacy Intervention Comments: DISCHARGE MEDICATION COUNSELING PROVIDED. RELAYED THE STRESS DOSING FOR HER HYDROCORTISONE PER DR. VELIZ (TAKE 30 MG IN THE MORNING AND 15 MG IN THE EVENING FOR 3 DAYS, THEN 20 MG DAILY AND 10 MG IN THE EVENING FOR A DAY, THEN RESTART NORMAL REGIMEN OF 10 MG DAILY AND 5 MG IN THE EVENING THEREAFTER). P ATIENT VERBALIZED UNDERSTANDING AND NO QUESTIONS AT THIS TIME.
--- NOTE | 2023-09-04 17:05 | CARE MANAGER ---
Spoke with patient related to hospital discharge. She states she is feeling better. Denies any questions or concerns and plans on calling to make her follow up appointment tomorrow. CLAUDIA Cifuentes
== END 2023-09-03 14:30 | disposition home or self-care (01) ==
LOC: ER 22:57 → 2ND 23:55
PROVIDERS: Admitting Provider Internal Medicine Adolescent Medicine; Emergency Provider Student in an Organized Health Care Education/Training Program; PCP Internal Medicine Adolescent Medicine; Visit Provider Internal Medicine Adolescent Medicine
DX: E27.2 Addisonian crisis (principal); A08.2 Adenoviral enteritis; E03.9 Hypothyroidism, unspecified; F41.9 Anxiety disorder, unspecified; R11.2 Nausea with vomiting, unspecified; R19.7 Diarrhea, unspecified; Z79.899 Other long term (current) drug therapy
CPT/HCPCS: 71045; 80053; 81001; 82962; 83605; 83690; 83735; 85007; 85025; 87040; 87581; 87632; 87635; 87798; 99291; G0378; J0131; J2405; J3475

== ENCOUNTER 2024-03-16 09:54 | Emergency (ER) | payer OTHER, SELFPAY ==
[2024-03-16 10:10] VITALS: BP 104/70; PULSE 91; RESP 20; TEMP 36.9; O2SAT 97; BMI 29.9
--- NOTE | 2024-03-16 10:22 | EXP.UTC ---
Discharge Plan Disposition Patient Disposition: Home, Self-Care Condition: Good Prescriptions Prescriptions: New azithromycin 250 mg tablet 250 mg PO DIRECTED Qty: 6 0RF Rx Instructions: Take two (2) tablets on day #1, then one (1) tablet day #2 thru #5 No Action levothyroxine 50 mcg tablet 200 mcg PO DAILY 30 Days Qty: 30 sertraline 50 mg tablet 50 mg PO DAILY montelukast 10 mg tablet 10 mg PO DAILY Patient Comments: TAKE 1 TABLET BY MOUTH EVERY DAY fludrocortisone 0.1 mg tablet 0.1 mg PO QODHS Rx Instructions: DUE 09/03/23 hydrocortisone 5 mg tablet 5 mg PO DAILY 30 Days Qty: 40 0RF hydrocortisone 10 mg tablet 10 mg PO AM 30 Days Qty: 40 0RF dextroamphetamine-amphetamine 20 mg capsule,extended release 24hr 20 mg PO DAILY Patient Comments: TAKE 1 CAPSULE BY MOUTH DAILY IN THE MORNING esomeprazole magnesium 20 mg Capsule,Delayed Release(Dr/Ec) 20 mg PO DAILY Referrals Follow up/Referrals: Vincent Roberson MD [Primary Care Provider] - See instructions Activity Restrictions/Add. Instructions Additional Instructions/Restrictions: Start antibiotic patient to take as ordered for a full length of time even if you feel better. Sinus infections do not get better overnight. It may take 2-3 days to notice much improvement so be sure to use conservative measures as discussed for symptoms. Increase fluids Humidifier/vaporizer as needed Tylenol and ibuprofen as needed for fever or pain. If symptoms do not improve or get worse return or be seen in the ER Follow-up with primary care this week Clinical Impressions Clinical Impression: Sinusitis Instructions Patient Instructions: DI for Sinusitis Discharge ED Provider: Juarez ([facility] [facility] [place] General Stated complaint: sore thoat, congestion Mode of Arrival: Ambulatory Source of Information: Patient Limitations: No Limitations Time Seen by Provider: 03/16/24 10:26 Description of Symptoms (Recalled from Triage Doc. by RN): PATIENT C/O SINUS CONGESTION, DRAINAGE, HEADACHE, AND SORE THROAT X 2 WEEKS HEENT Symptoms (Recalled from RN notes): Yes Resp Symptoms (Recalled from RN notes): No Skin Symptoms (Recalled from RN notes): No MS Symptoms (Recalled from RN notes): No Functional Status (Recalled from RN notes): WNL History of Present Illness Provider Complaint: 34 YR OLD FEMALE PRESENTS FOR C/O SINUS CONGESTION,THICK DARK DRAINAGE, HEADACHE, AND SORE THROAT X 2 WEEKS Related Data Home Medications Medication Instructions Recorded Confirmed levothyroxine 50 mcg tablet 200 mcg PO DAILY thyroid 30 days 07/04/18 03/16/24 #30 tabs sertraline 50 mg tablet 50 mg PO DAILY mood 03/18/23 03/16/24 fludrocortisone 0.1 mg tablet 0.1 mg PO QODHS 09/03/23 03/16/24 montelukast 10 mg tablet 10 mg PO DAILY 09/03/23 03/16/24 dextroamphetamine-amphetamine ER 20 mg PO DAILY 03/16/24 03/16/24 20 mg 24hr capsule,extend release esomeprazole magnesium 20 mg 20 mg PO DAILY 03/16/24 03/16/24 capsule,delayed release Previous Rx's Medication Instructions Recorded hydrocortisone 10 mg tablet 10 mg PO AM 30 days #40 tabs 09/03/23 hydrocortisone 5 mg tablet 5 mg PO DAILY 30 days #40 tabs 09/03/23 azithromycin 250 mg tablet 250 mg PO DIRECTED #6 tabs 03/16/24 Allergies Allergy/AdvReac Type Severity Reaction Status Date / Time Penicillins Allergy Intermediate Verified 01/25/21 08:55 amoxicillin Allergy Verified 06/19/23 20:18 Cephalosporins AdvReac Mild Verified 01/25/21 08:55 Worker's Comp Is this a Worker's Comp case?: No [facility] Disclaimer: The information contained in this section may have been updated after the patient was seen, as this information can be updated by other users. Medical History , CARE CONNECTOR) PCOS (polycystic ovarian syndrome) ADHD [place] disease Thyroid disease Depression Anxiety History of gastroesophageal reflux (GERD) Asthma Surgical History , CARE CONNECTOR) History of dilation and curettage History of tympanostomy tube placement History of tonsillectomy History of section Social History , CARE CONNECTOR) Smoking Status: Never smoker alcohol intake: never substance use type: denies use current occupational status: employed Travel in the last 8 weeks: None household members: significant other housing: house ROS Obtained: Yes All systems reviewed & no additional complaints except as documented Constitutional Constitutional: Reports system reviewed and no additional complaints, except as documented Eyes Eyes: Reports system reviewed and no additional complaints, except as documented ENT Ears, Nose, Mouth, and Throat: Reports system reviewed and no additional complaints, except as documented, Reports as per HPI, Reports hoarseness, Reports nasal congestion, Reports nasal discharge, Reports post nasal drip, Reports sinus pain, Reports sinus pressure and Reports sore throat Cardiovascular Cardiovascular: Reports system reviewed and no additional complaints, except as documented Respiratory Respiratory: Reports system reviewed and no additional complaints, except as documented Gastrointestinal Gastrointestingal: Reports system reviewed and no additional complaints, except as documented Musculoskeletal Musculoskeletal: Reports system reviewed and no additional complaints, except as documented Integumentary/Breasts Skin/Breast: Reports system reviewed and no additional complaints, except as documented Neurologic Neurologic: Reports system reviewed and no additional complaints, except as documented Hematologic/Lymphatic Henatologic/Lymphatic: Reports system reviewed and no additional complaints, except as documented Allergic/Immunologic Allergic/Immunologic: Reports system reviewed and no additional complaints, except as documented Physical Exam General General appearance: alert and in no apparent distress Eye Eye exam: Present normal appearance ENT ENT exam: Present mucous membranes moist and TM's normal bilaterally Expanded ENT Exam Nose exam: Present sinus tenderness Respiratory Respiratory exam: Present normal lung sounds bilaterally Cardiovascular Cardiovascular exam: Present regular rate and normal rhythm Extremities Exam Extremities exam: Present normal inspection Neurological Exam Neurological exam: Present alert and oriented X3 Psychiatric Psychiatric exam: Present normal affect Skin Skin exam: Present warm and intact Lymphatic Lymphatic Findings: no adenopathy Medical Decision Making Medical Records Medical records reviewed: Yes I reviewed the patient's medical records. Alejandro Inquiry Pt receiving controlled substance: No Alejandro was queried for this patient: No Vital Signs: 03/16/24 10:10 Temperature 98.5 F Temperature Source Oral Pulse Rate [Left Brachial] 91 H Respiratory Rate 20 Blood Pressure [Left Arm] 104/70 L Blood Pressure Mean [Left Arm] 81 Blood Pressure Source [Left Arm] Automatic Cuff Blood Pressure Position [Left Arm] Sitting 02 Sat by Pulse Oximetry 97 Oxygen Delivery Method Room Air
[2024-03-16 10:34] VITALS: BP 104/70; PULSE 91; RESP 20; TEMP 36.9; O2SAT 97
== END 2024-03-16 10:36 | disposition home or self-care (01) ==
PROVIDERS: Emergency Provider Nurse Practitioner Family; PCP Internal Medicine Adolescent Medicine
DX: J01.90 Acute sinusitis, unspecified (principal); R51.9 Headache, unspecified; R07.0 Pain in throat; R09.81 Nasal congestion
CPT/HCPCS: 99212; 99214; G0463

== ENCOUNTER 2024-04-05 10:17 | Inpatient (IN) | payer OTHER, SELFPAY ==
[2024-04-05] VITALS (13 sets, daily range): BP systolic 81–105; BP diastolic 39–67; PULSE 64–109; RESP 16–18; TEMP 36.5–36.9; O2SAT 95–100; BMI 29.8; BMI 31.1
--- NOTE | 2024-04-05 10:26 | HMH.EDGENADL ---
Discharge Plan Disposition Patient Disposition: Admitted Clinical Impressions Clinical Impression: Mastitis, Fever, Hypotension, Chimacum's disease Discharge ED Provider: Anusha Sweeney General Adult HPI General Chief complaint: Dizziness Stated complaint: referred by Karol Time Seen by Provider: 04/05/24 10:20 History of Present Illness HPI narrative: This patient is a 33-year-old female with a history of hypothyroidism, Chimacum's disease, asthma, GERD, PCOS, and anxiety presenting to the emergency department for evaluation with concern for potential mastitis from outpatient clinic. I had an interactive discussion with the patient's primary care provider, Dr. Roberson, who advised that he thought the patient needed some IV fluids, stress dose steroids, and antibiotics for mastitis with fever, tachycardia, and slightly low blood pressure. He advised that he felt she would be able to be discharged home after a bolus of fluids, 100 mg of IV hydrocortisone, and clindamycin. Patient reports that she has had fever, breast pain and tenderness with red streaking, as well as nausea. No significant cough, congestion, abdominal pain, dysuria, or other concerns to suggest other source of infection. She does note that she has had some nausea as well on review of systems. Related Data Home Medications Medication Instructions Recorded Confirmed sertraline 50 mg tablet 50 mg PO DAILY mood 03/18/23 04/05/24 fludrocortisone 0.1 mg tablet 0.1 mg PO QODHS 09/03/23 04/05/24 dextroamphetamine-amphetamine ER 20 mg PO DAILY 03/16/24 04/05/24 20 mg 24hr capsule,extend release esomeprazole magnesium 20 mg 20 mg PO DAILY 03/16/24 04/05/24 capsule,delayed release levothyroxine 200 mcg tablet 200 mcg PO DAILY 04/05/24 04/05/24 Previous Rx's Medication Instructions Recorded hydrocortisone 10 mg tablet 10 mg PO AM 30 days #40 tabs 09/03/23 hydrocortisone 5 mg tablet 5 mg PO DAILY 30 days #40 tabs 09/03/23 Allergies Allergy/AdvReac Type Severity Reaction Status Date / Time Penicillins Allergy Intermediate Verified 01/25/21 08:55 amoxicillin Allergy Verified 06/19/23 20:18 Cephalosporins AdvReac Mild Verified 01/25/21 08:55 [facility] Disclaimer: The information contained in this section may have been updated after the patient was seen, as this information can be updated by other users. Medical History PCOS (polycystic ovarian syndrome) ADHD Nacho disease Thyroid disease Depression Anxiety History of gastroesophageal reflux (GERD) Asthma Surgical History History of dilation and curettage History of tympanostomy tube placement History of tonsillectomy History of section Social History (Updated 04/05/24 @ 14:53 by Huong Saldivar RN) Smoking Status: Never smoker alcohol intake: never substance use type: denies use current occupational status: employed Travel in the last 8 weeks: None household members: significant other housing: house ROS Obtained: Yes All systems reviewed & no additional complaints except as documented Physical Exam General General appearance: alert and in no apparent distress Head Head exam: atraumatic and normocephalic Eye Eye exam: Present normal appearance, PERRL and EOMI ENT ENT exam: Present normal exam, normal oropharynx, mucous membranes moist and normal external ear exam Neck Neck exam: Present normal inspection, full ROM and trachea midline; Absent tenderness Chest Chest inspection: Present symmetric chest wall rise and tenderness (Left breast erythema, warmth, streaking, and tenderness to palpation with no palpable abscesses or large areas of induration.) Respiratory Respiratory exam: Present normal lung sounds bilaterally; Absent respiratory distress, wheezes, stridor or accessory muscle use Cardiovascular Cardiovascular exam: Present normal rhythm and tachycardia Abdominal Exam Abdominal exam: Present soft; Absent distention, tenderness or guarding Extremities Exam Extremities exam: Present normal inspection, full ROM and normal capillary refill; Absent tenderness or edema Back Exam Back exam: Present normal inspection and full ROM; Absent tenderness Neurological Exam Neurological exam: Present alert, oriented X3, CN II-XII intact and normal gait; Absent motor sensory deficit Psychiatric Psychiatric exam: Present normal affect and normal mood Skin Skin exam: Present warm and dry Medical Decision Making Medical Records Medical records reviewed: Yes I reviewed the patient's medical records. Alejandro Inquiry Pt receiving controlled substance: No Vital Signs: 04/05/24 10:19 04/05/24 11:02 04/05/24 11:04 Temperature 98.4 F Temperature Source Oral Pulse Rate 75 78 Pulse Rate [Left Radial] 109 H Respiratory Rate 17 Blood Pressure 87/53 L 84/52 L Blood Pressure [Right Arm] 105/67 L Blood Pressure Mean Blood Pressure Mean [Right Arm] 79 Blood Pressure Source Blood Pressure Source [Right Arm] Blood Pressure Position Blood Pressure Position [Right Arm] 02 Sat by Pulse Oximetry 95 100 96 Oxygen Delivery Method Room Air Room Air Room Air 04/05/24 11:30 04/05/24 12:00 04/05/24 12:18 Temperature Temperature Source Pulse Rate 69 74 Pulse Rate [Left Radial] Respiratory Rate Blood Pressure 92/51 L 89/39 L 85/50 L Blood Pressure [Right Arm] Blood Pressure Mean 58 Blood Pressure Mean [Right Arm] Blood Pressure Source Manual Cuff/ Auscultation Blood Pressure Source [Right Arm] Blood Pressure Position Sitting Blood Pressure Position [Right Arm] 02 Sat by Pulse Oximetry 99 98 Oxygen Delivery Method Room Air Room Air 04/05/24 12:37 04/05/24 13:00 04/05/24 13:30 Temperature Temperature Source Pulse Rate 78 88 65 Pulse Rate [Left Radial] Respiratory Rate Blood Pressure 95/63 L 88/55 L 81/47 L Blood Pressure [Right Arm] Blood Pressure Mean 62 53 Blood Pressure Mean [Right Arm] Blood Pressure Source Blood Pressure Source [Right Arm] Blood Pressure Position Blood Pressure Position [Right Arm] 02 Sat by Pulse Oximetry 97 97 97 Oxygen Delivery Method Room Air Room Air Room Air 04/05/24 14:16 04/05/24 14:22 Temperature 98.1 F 97.7 F Temperature Source Oral Oral Pulse Rate 87 Pulse Rate [Left Radial] 67 Respiratory Rate 18 16 Blood Pressure 84/52 L Blood Pressure [Right Arm] 84/55 L Blood Pressure Mean Blood Pressure Mean [Right Arm] 64 Blood Pressure Source Automatic Cuff Blood Pressure Source [Right Arm] Automatic Cuff Blood Pressure Position Sitting Blood Pressure Position [Right Arm] Supine 02 Sat by Pulse Oximetry 100 Oxygen Delivery Method Room Air Room Air Lab Data Lab results reviewed: Yes I reviewed the patient's lab results. Lab Results 04/05/24 10:35: WBC 9.5, RBC 4.55, Hgb 13.9, Hct 40.6, MCV 89.3, MCH 30.5, MCHC 34.2, RDW 13.2, Plt Count 200, MPV 9.0, Neut % (Auto) 67.5, Lymph % (Auto) 21.5, [place] % (Auto) 6.3, Eos % (Auto) 3.2, Baso % (Auto) 1.4, Neut # (Auto) 6.4, Lymph # (Auto) 2.1, [place] # (Auto) 0.6, Eos # (Auto) 0.3, Baso # (Auto) 0.1, Sodium 134 L, Potassium 3.7, Chloride 99, Carbon Dioxide 26, Anion Gap 12.7, BUN 10, Creatinine 1.10 H, Estimated Creat Clear 84, Estimated GFR 57 L, Est GFR ( Amer) 69, Glucose 103 H, Lactate 2.0, Calcium 9.1, Total Bilirubin 0.6, AST 36, ALT 24, Alkaline Phosphatase 57, Total Protein 7.0, Albumin 4.0, Globulin 3.0, Albumin/Globulin Ratio 1.3, Procalcitonin 0.097 04/05/24 10:50: SARS-CoV-2 (PCR) Not detected, Influenza A Untype (PCR) Not detected, Influenza Type B (PCR) Not detected 04/05/24 12:15: Urine Color Yellow, Urine Appearance Clear, Urine pH 6.0, Ur Specific [place] 1.010, Urine Protein Negative, Urine Glucose (UA) Negative, Urine Ketones Negative, Urine Blood Negative, Urine Nitrate Negative, Urine Bilirubin Negative, Urine Urobilinogen 0.2, Ur Leukocyte Esterase Negative, Urine RBC None, Urine WBC Occasional, Ur Squamous Epith Cells 3-5, Urine Bacteria Trace 04/05/24 10:35 04/05/24 10:35 Orders (Tests/Meds): ED MEDICATIONS Generic Name Dose Route Start Last Admin Trade Name Freq PRN Reason Stop Dose Admin Acetaminophen 650 mg 04/05/24 13:55 Acetaminophen 325mg Tab PO 05/05/24 13:54 Q4HP PRN Fever or Mild Pain (1-3) Heparin Sodium (Porcine) 5,000 unit 04/05/24 14:00 04/05/24 14:38 Heparin Sodium 5,000 Unit/Ml Vial SQ 05/05/24 13:59 Not Given Q8H TIMUR Sodium Chloride 1,000 mls @ 100 mls/hr 04/05/24 14:00 04/05/24 14:38 Sod Chlor 0.9% 1000ml Bag IV 05/05/24 13:59 100 mls/hr .Q10H TIMUR Administration Ondansetron HCl 4 mg 04/05/24 13:55 Ondansetron 4mg/2ml Vial IV 05/05/24 13:54 Q8HP PRN Nausea Discontinued Medications Generic Name Dose Route Start Last Admin Trade Name Freq PRN Reason Stop Dose Admin Hydrocortisone Sodium Succinate 100 mg 04/05/24 10:20 04/05/24 10:44 Hydrocortisone Sod Succinate 100mg Vial IV 04/05/24 10:21 100 mg ONCE ONE Administration Lactated Ringer's 1,000 mls @ 999 mls/hr 04/05/24 10:20 04/05/24 10:43 Lactated Ringer's 1000 Ml Bag IV 04/05/24 11:20 999 mls/hr .Q1H1M ONE Administration Lactated Ringer's 1,000 mls @ 999 mls/hr 04/05/24 11:05 04/05/24 11:08 Lactated Ringer's 1000 Ml Bag IV 04/05/24 12:05 999 mls/hr .Q1H1M ONE Administration Clindamycin Phosphate 600 mg in 50 mls @ 100 mls/hr 04/05/24 12:00 04/05/24 11:57 Clindamycin 600mg/50ml D5w Premix IV 04/05/24 12:29 100 mls/hr ONCE ONE Administration Ketorolac Tromethamine 15 mg 04/05/24 10:47 04/05/24 10:56 Ketorolac 30mg/Ml Vial IV 04/05/24 10:48 15 mg ONCE ONE Administration ORDERS Category Date Time Status Basic Metabolic Panel AMLAB Lab 04/06/24 06:00 Ordered Basic Metabolic Panel AMLAB Lab 04/07/24 06:00 Ordered Basic Metabolic Panel AMLAB Lab 04/08/24 06:00 Ordered Complete Blood Count Auto Diff AMLAB Lab 04/06/24 06:00 Ordered Complete Blood Count Auto Diff AMLAB Lab 04/07/24 06:00 Ordered Complete Blood Count Auto Diff AMLAB Lab 04/08/24 06:00 Ordered Complete Blood Count Auto Diff Stat Lab 04/05/24 10:35 Completed Comprehensive Metabolic Panel Stat Lab 04/05/24 10:35 Completed Lactic Acid Stat Lab 04/05/24 10:35 Completed Procalcitonin Stat Lab 04/05/24 10:35 Completed Rapid PCR Covid and Flu A/B Stat Lab 06/28/24 10:50 Completed UA [Urinalysis and Microscopic] Stat Lab 04/05/24 12:15 Completed Blood Culture Stat Micro 04/05/24 10:41 Received Medical Decision Narrative: In summary, this patient is a 33-year-old female presenting to the Emergency Department for evaluation of fever, breast pain and tenderness. Differential diagnoses considered include but are not limited to mastitis, sepsis, addisonian crisis. Ruling out the most morbid conditions drove assessment. It should be noted patient's history includes Chim[place]um's disease, hypothyroidism, anxiety, GERD, asthma which may or may not be at goal therapy. This complicates all aspects of care by increasing patient's risk for morbidity. I reviewed patient's past medical records and noted previous diagnosis of adrenal cortical insufficiency as well as prior admission for addisonian crisis. On exam, the patient is sitting upright in bed in no acute distress. She is mildly tachycardic, but otherwise vitals are reassuring. No symptoms or findings on exam to suggest infectious etiology other than mastitis. Workup included CBC, CMP, procalcitonin, lactic acid, and blood culture. Patient was given a bolus of IV fluids as well as stress dose hydrocortisone. She was given IV Toradol for pain. Labs were obtained that demonstrated no significant leukocytosis, normal procalcitonin, and negative lactic acid. Urine is not concerning for infection. While labs are reassuring, her immunocompromised state can mask inflammatory response.. At 1200, patient was placed in ED observation status pending monitoring of her blood pressure after fluid resuscitation to determine whether or not the patient would be appropriate for discharge versus admission. The patient was provided serial reevaluations and cardiac monitoring while awaiting ultimate disposition. On multiple subsequent reassessments, the patient continues to have soft blood pressures with systolics in the 80s after administration of 2 L bolus of IV fluids as well as IV clindamycin. She states overall she feels very bad. She ambulated to the bathroom and had significant lightheadedness with exertion. Given her soft blood pressures and overall poor clinical exam, I feel that she would benefit from admission for close monitoring and stress to steroids as well as IV antibiotics. I had an interactive discussion with her primary care provider as well as the hospitalist. The patient was admitted to the hospitalist in stable condition. Critical Care Critical Care Time Critical Care Time: No
--- NOTE | 2024-04-05 10:42 | PC.NURSE ---
dr nieves at bedside
[2024-04-05] MEDS: LACTATED RINGERS 1000ML 1,000 ML 999 ML IV ×2 (10:43→11:08)
[2024-04-05] MEDS: HYDROCORTISONE SOD SUCCINATE 100MG VIAL 100 MG IV (10:44)
[2024-04-05 10:53] LABS: Coronavirus 19, PCR Not Detected (NotDetected); Influenza A, PCR Not Detected (NotDetected); Influenza B, PCR Not Detected (NotDetected)
[2024-04-05] MEDS: KETOROLAC 30MG/ML VIAL 15 MG IV (10:56)
[2024-04-05 11:03] LABS: Alanine Aminotransferase 24 U/L (12-78); Albumin/Globulin Ratio 1.3 (1.1-1.8); Alkaline Phosphatase 57 U/L (38-126); Anion Gap 12.7 mEq/L (5-15); Aspartate Amino Transferase 36 U/L (14-36); Bilirubin,Total 0.6 mg/dl (0.2-1.3); Blood Urea Nitrogen 10 mg/dl (7-17); Calcium 9.1 mg/dl (8.4-10.2); Carbon Dioxide 26 mmol/L (22.0-30.0); Chloride 99 mmol/L (98-107); Creatinine Clearance Estimated 84 mL/min (50-200); Estimated Glomerular Filt Rate 57 ml/min (>60); GFR (African American) 69 ML/MIN (>60); Glucose 103 mg/dl (74-100); Potassium 3.7 mmoL/L (3.5-5.1); Sodium 134 mmol/L (136-145)
[2024-04-05 11:20] LABS: Procalcitonin 0.097 ng/mL (0.0-2.0)
[2024-04-05 11:41] LABS: Basophils # 0.1 K/mm3 (0-0.2); Basophils % 1.4 % (0.1-2.0); Eosinophils # 0.3 K/mm3 (0.0-0.4); Eosinophils % 3.2 % (0.1-12.0); Hematocrit 40.6 % (37.0-47.0); Hemoglobin 13.9 g/dL (12.2-16.2); Lymphocytes # 2.1 K/mm3 (0.7-4.5); Lymphocytes % 21.5 % (10-50); Mean Corpuscular HGB Conc 34.2 g/dL (31.8-35.4); Mean Corpuscular Hemoglobin 30.5 pg (27.0-31.2); Mean Corpuscular Volume 89.3 fl (81-99); Monocytes # 0.6 K/mm3 (0.1-1.0); Monocytes % 6.3 % (1.7-9.3); Neutrophils # 6.4 K/mm3 (1.8-7.8); Neutrophils % 67.5 % (37.0-80.0); Platelet Count 200 K/mm3 (142-424); Red Blood Count 4.55 M/mm3 (4.20-5.40); Red Cell Distribution Width 13.2 % (11.5-17.5); White Blood Count 9.5 K/mm3 (4.8-10.8)
[2024-04-05] MEDS: CLINDAMYCIN PHOSPHATE/D5W 600 MG/50 ML PIGGYBACK 100 MG IV (11:57)
--- NOTE | 2024-04-05 12:07 | PC.NURSE ---
CONTACTED DR HOLDEN TO CALL ED
--- NOTE | 2024-04-05 12:09 | PC.NURSE ---
DR WOLF SPEAKING WITH DR HOLDEN
--- NOTE | 2024-04-05 12:15 | PC.NURSE ---
DR WOLF AT BEDSIDE TO UPDATE PT AND FAMILY
[2024-04-05 12:20] LABS: Microscopic, Urine URINE MICROSCOPIC (MICROSCOPIC)
[2024-04-05 12:21] LABS: Appearance,Urine CLEAR (Clear); Bilirubin,Urine Negative (Negative); Blood, Urine Negative (Negative); Color,Urine YELLOW (Yellow); Glucose,Urine (UA) Negative (Negative); Ketones,Urine Negative (Negative); Leukocyte Esterase,Urine Negative (Negative); Nitrate,Urine Negative (Negative); Protein,Urine Negative (Negative); Urobilinogen,Urine 0.2 EU/dl (0.2)
[2024-04-05 13:08] LABS: Bacteria,Urine Trace /lpf; WBC,Urine Occasional #/hpf (0-3)
--- NOTE | 2024-04-05 13:53 | PC.NURSE ---
ER ON PHONE WITH HOSPITALIST
--- NOTE | 2024-04-05 14:01 | PC.NURSE ---
ATTEMPTED TO CALL REPORT TO ANNA, PT IS NOT SWITCHED IN COMPUTER TO ROOM 209 OF YET, WILL ATTEMPT AGAIN LATER
--- NOTE | 2024-04-05 14:09 | PC.NURSE ---
Report called to Berna TAYLOR
--- NOTE | 2024-04-05 14:22 | PC.NURSE ---
arrived by w/c from ED
[2024-04-05] MEDS: 0.9 % SODIUM CHLORIDE 1000ML 1,000 ML 100 ML IV (14:38)
[2024-04-05] MEDS: HYDROCORTISONE SOD SUCCINATE 100MG VIAL 50 MG IV ×2 (16:58→22:24)
--- NOTE | 2024-04-05 17:27 | EXP.HP ---
History of Present Illness *Admission Date: 04/05/24 *Reason for visit:: low BP *History of present illness: Patient is a 33-year-old female with past medical history of [place]'s disease, hypothyroidism who presents to the hospital due to generalized weakness fatigue tiredness and low BP. Patient was seen by her primary care physician who recommended inpatient admission for [place]'s disease crisis. Patient mentions she has been having pain in her left breast, she is currently breast-feeding [id number]. Patient mentions she thinks she may have breast abscess, denies noticing purulence. She mentions she has noticed area of redness and pain on her left breast. Patient otherwise denied chest pain shortness of breath nausea vomiting. She has history of chronic diarrhea. [facility] Disclaimer: The information contained in this section may have been updated after the patient was seen, as this information can be updated by other users. Medical History PCOS (polycystic ovarian syndrome) ADHD [place] disease Thyroid disease Depression Anxiety History of gastroesophageal reflux (GERD) Asthma Surgical History History of dilation and curettage History of tympanostomy tube placement History of tonsillectomy History of section Social History (Updated 04/05/24 @ 14:53 by Huong Saldivar RN) Smoking Status: Never smoker alcohol intake: never substance use type: denies use current occupational status: employed Travel in the last 8 weeks: None household members: significant other housing: house Review of Systems Review of Systems Review of systems:: pertinent systems reviewed and negative unless documented below Meds Home Medications and Allergies Home Medications Medication Instructions Recorded Confirmed Type sertraline 50 mg tablet 50 mg PO DAILY mood 03/18/23 04/05/24 History fludrocortisone 0.1 mg tablet 0.1 mg PO QODHS 09/03/23 04/05/24 History hydrocortisone 10 mg tablet 10 mg PO AM 30 days #40 tabs 09/03/23 04/05/24 Rx hydrocortisone 5 mg tablet 5 mg PO DAILY 30 days #40 tabs 09/03/23 04/05/24 Rx dextroamphetamine-amphetamine ER 20 mg PO DAILY 03/16/24 04/05/24 History 20 mg 24hr capsule,extend release esomeprazole magnesium 20 mg 20 mg PO DAILY 03/16/24 04/05/24 History capsule,delayed release levothyroxine 200 mcg tablet 200 mcg PO DAILY 04/05/24 04/05/24 History New Prescriptions to Start Prescriptions: Allergies Allergy/AdvReac Type Severity Reaction Status Date / Time Penicillins Allergy Intermediate Verified 01/25/21 08:55 amoxicillin Allergy Verified 06/19/23 20:18 Cephalosporins AdvReac Mild Verified 01/25/21 08:55 Exam Data for Last 24 hours Vital signs and Labs for Last 24 Hours: Temp Pulse Resp BP Pulse Ox O2 Del Method 97.8 F 64 16 84/43 L 100 Room Air 04/05/24 16:00 04/05/24 16:00 04/05/24 16:00 04/05/24 16:00 04/05/24 16:00 04/05/24 17:17 Laboratory Results - last 24 hr 04/05/24 10:35: WBC 9.5, RBC 4.55, Hgb 13.9, Hct 40.6, MCV 89.3, MCH 30.5, MCHC 34.2, RDW 13.2, Plt Count 200, MPV 9.0, Neut % (Auto) 67.5, Lymph % (Auto) 21.5, [place] % (Auto) 6.3, Eos % (Auto) 3.2, Baso % (Auto) 1.4, Neut # (Auto) 6.4, Lymph # (Auto) 2.1, [place] # (Auto) 0.6, Eos # (Auto) 0.3, Baso # (Auto) 0.1, Sodium 134 L, Potassium 3.7, Chloride 99, Carbon Dioxide 26, Anion Gap 12.7, BUN 10, Creatinine 1.10 H, Estimated Creat Clear 84, Estimated GFR 57 L, Est GFR ( Amer) 69, Glucose 103 H, Lactate 2.0, Calcium 9.1, Total Bilirubin 0.6, AST 36, ALT 24, Alkaline Phosphatase 57, Total Protein 7.0, Albumin 4.0, Globulin 3.0, Albumin/Globulin Ratio 1.3, Procalcitonin 0.097 04/05/24 10:50: SARS-CoV-2 (PCR) Not detected, Influenza A Untype (PCR) Not detected, Influenza Type B (PCR) Not detected 04/05/24 12:15: Urine Color Yellow, Urine Appearance Clear, Urine pH 6.0, Ur Specific [place] 1.010, Urine Protein Negative, Urine Glucose (UA) Negative, Urine Ketones Negative, Urine Blood Negative, Urine Nitrate Negative, Urine Bilirubin Negative, Urine Urobilinogen 0.2, Ur Leukocyte Esterase Negative, Urine RBC None, Urine WBC Occasional, Ur Squamous Epith Cells 3-5, Urine Bacteria Trace I & O for Last 24 hours: Intake & Output 04/02/24 04/03/24 04/04/24 04/05/24 23:59 23:59 23:59 23:59 Weight 76.612 kg Constitutional Constitutional: no acute distress *Routine HEENT Exam Head: Present normocephalic Eye: Present EOMI and PERRL ENT: Present mucous membranes moist *Routine Neck Exam Neck: Present supple; Absent lymphadenopathy *Routine Respiratory Exam Respiratory: Present CTA bilaterally *Routine Cardiovascular Exam Cardiovascular: Present RRR *Routine Abdominal Exam Abdominal: Present soft and normoactive bowel sounds; Absent tenderness *Routine Rectal Exam Rectal:: deferred *Routine Genitalia Exam Genitalia:: deferred *Routine Extremities Exam Extremities: Absent cyanosis, clubbing or edema *Routine Skin Exam Skin: Present warm; Absent rash *Routine Neurological Exam Neurological: Present alert and oriented X3 Assessment and Plan *Assessment and plan (1) Hypotension: Status: Acute Category: Medical Code(s): I95.9 - Hypotension, unspecified (2) Fever: Status: Acute Category: Medical Code(s): R50.9 - Fever, unspecified (3) Mastitis: Status: Acute Category: Medical Code(s): N61.0 - Mastitis without abscess (4) Addisonian crisis: Status: Acute Category: Medical Code(s): E27.2 - Addisonian crisis (5) Hypothyroidism: Status: Chronic Category: Medical Code(s): E03.9 - Hypothyroidism, unspecified Plan Patient is a 33-year-old female with past medical history of Nacho's disease, hypothyroidism who presents to the hospital due to generalized weakness fatigue tiredness and low BP. Patient was seen by her primary care physician who recommended inpatient admission for [place]'s disease crisis. Patient mentions she has been having pain in her left breast, she is currently breast-feeding [id number]. Patient mentions she thinks she may have breast abscess, denies noticing purulence. She mentions she has noticed area of redness and pain on her left breast. Patient otherwise denied chest pain shortness of breath nausea vomiting. She has history of chronic diarrhea. Assessment and plan Hypotension, generalized weakness, fatigue likely secondary to [place]'s disease crisis Start 50 mg IV hydrocortisone every 6 hours, patient has been loaded up with 100 Mg IV hydrocortisone in the ED Continue home fludrocortisone According to patient her baseline BP is around 100s/60s. Monitor and replace electrolytes Mastitis left breast Ultrasound left breast to rule out underlying abscess Started on IV clindamycin History of hypothyroidism Resume home levothyroxine DVT prophylaxis-heparin
--- NOTE | 2024-04-05 17:44 | HMH.ITSTN ---
Spoke to Caity and explained US could not be done until Monday according to US callback form.
[2024-04-05] MEDS: CLINDAMYCIN PHOSPHATE 600 MG in 0.9 % SODIUM CHLORIDE 50 ML 100 MG IV (20:16)
[2024-04-05] MEDS: PANTOPRAZOLE 40MG TABLET 40 MG PO (20:55)
[2024-04-05] MEDS: FLUDROCORTISONE 0.1MG TABLET 0.100000000000000006 MG PO (20:56)
[2024-04-06] MEDS: 0.9 % SODIUM CHLORIDE 1000ML 1,000 ML 100 ML IV ×3 (00:40→20:59)
[2024-04-06 04:00] VITALS: BP 83/42; PULSE 60; RESP 16; TEMP 36.6; O2SAT 98; BMI 34.1
[2024-04-06] MEDS: CLINDAMYCIN PHOSPHATE 600 MG in 0.9 % SODIUM CHLORIDE 50 ML 100 MG IV ×3 (04:25→20:59)
[2024-04-06] MEDS: HYDROCORTISONE SOD SUCCINATE 100MG VIAL 50 MG IV ×4 (04:25→22:02)
--- NOTE | 2024-04-06 05:12 | PC.NURSE ---
PATIENTS BP THIS am IS 83/42. hr 60. ASYMPTOMATIC. YESTERDAY AT 1600 BP WAS 84/43. E FERNANDO LEAL NOTIFIED. NO NEW ORDERS AT THIS TIME. CURRENTLY RECEIVING IVFs NS AT 100 ML/HR/PUMP.
[2024-04-06] MEDS: LEVOTHYROXINE 100MCG (0.1MG) TAB 200 MCG PO (06:24)
[2024-04-06 06:57] LABS: Basophils % 0.4 % (0.1-2.0); Eosinophils % 0.2 % (0.1-12.0); Hematocrit 34.9 % (37.0-47.0); Lymphocytes # 1.7 K/mm3 (0.7-4.5); Mean Corpuscular HGB Conc 32.6 g/dL (31.8-35.4); Mean Corpuscular Hemoglobin 30.2 pg (27.0-31.2); Mean Corpuscular Volume 92.7 fl (81-99); Mean Platelet Volume 9.6 fl (7.4-10.4); Monocytes # 0.3 K/mm3 (0.1-1.0); Monocytes % 3.5 % (1.7-9.3); Neutrophils # 7.2 K/mm3 (1.8-7.8); Platelet Count 186 K/mm3 (142-424); Red Blood Count 3.77 M/mm3 (4.20-5.40); Red Cell Distribution Width 13.6 % (11.5-17.5); White Blood Count 9.2 K/mm3 (4.8-10.8)
[2024-04-06 06:59] LABS: Chloride 110 mmol/L (98-107); Potassium 3.9 mmoL/L (3.5-5.1); Sodium 138 mmol/L (136-145)
[2024-04-06 07:02] LABS: Anion Gap 8.9 mEq/L (5-15); Blood Urea Nitrogen 8 mg/dl (7-17); Calcium 8.2 mg/dl (8.4-10.2); Carbon Dioxide 23 mmol/L (22.0-30.0); Creatinine Clearance Estimated 150 mL/min (50-200); Estimated Glomerular Filt Rate 96 ml/min (>60); GFR (African American) 116 ML/MIN (>60); Glucose 130 mg/dl (74-100)
[2024-04-06 07:16] LABS: Hemoglobin 11.4 g/dL (12.2-16.2)
[2024-04-06 08:00] VITALS: BP 103/55; PULSE 71; RESP 20; TEMP 36.6; O2SAT 90
[2024-04-06] MEDS: SERTRALINE 50MG TABLET 50 MG PO (08:35)
[2024-04-06] MEDS: ACETAMINOPHEN 325MG TAB 650 MG PO (08:39)
--- NOTE | 2024-04-06 14:18 | EXP.PN ---
Subjective *Date: 04/06/24 *Time: 14:18 Interval history: patient is seen at bedside, denied CP, SOB, mentions she feels better, feels tired and exhausted Exam Data for Last 24 hours Vital signs and Labs for Last 24 Hours: Temp Pulse Resp BP Pulse Ox O2 Del Method 97.9 F 71 20 103/55 L 90 L Room Air 04/06/24 08:00 04/06/24 08:00 04/06/24 08:00 04/06/24 08:00 04/06/24 08:00 04/06/24 13:00 Laboratory Results - last 24 hr 04/06/24 06:20: WBC 9.2, RBC 3.77 L, Hgb 11.4 L D, Hct 34.9 L, MCV 92.7, MCH 30.2, MCHC 32.6, RDW 13.6, Plt Count 186, MPV 9.6, Neut % (Auto) 78.0, Lymph % (Auto) 18.0, [place] % (Auto) 3.5, Eos % (Auto) 0.2, Baso % (Auto) 0.4, Neut # (Auto) 7.2, Lymph # (Auto) 1.7, [place] # (Auto) 0.3, Eos # (Auto) 0.0, Baso # (Auto) 0.0, Sodium 138, Potassium 3.9, Chloride 110 H, Carbon Dioxide 23, Anion Gap 8.9, BUN 8, Creatinine 0.70 D, Estimated Creat Clear 150, Estimated GFR 96, Est GFR ( Amer) 116 D, Glucose 130 H D, Calcium 8.2 L I & O for Last 24 hours: Intake & Output 04/03/24 04/04/24 04/05/24 04/06/24 23:59 23:59 23:59 23:59 Intake Total 1230 / 1590 1613 / 1613 Output Total 0 / 0 0 / 0 Balance 1230 / 1590 1613 / 1613 Weight 76.612 kg 84.141 kg Microbiology Reports for the Last 24 Hours: Microbiology 04/05/24 10:41 Blood Blood Culture - Preliminary NO GROWTH AFTER 24 HOURS Constitutional Constitutional: no acute distress *Routine HEENT Exam Head: Present normocephalic Eye: Present EOMI and PERRL ENT: Present mucous membranes moist *Routine Neck Exam Neck: Present supple; Absent lymphadenopathy *Routine Respiratory Exam Respiratory: Present CTA bilaterally *Routine Cardiovascular Exam Cardiovascular: Present RRR *Routine Abdominal Exam Abdominal: Present soft and normoactive bowel sounds; Absent tenderness *Routine Extremities Exam Extremities: Absent cyanosis, clubbing or edema *Routine Skin Exam Skin: Present warm; Absent rash *Routine Neurological Exam Neurological: Present alert and oriented X3 Assessment and Plan *Assessment and plan (1) Hypotension: Status: Acute Category: Medical Code(s): I95.9 - Hypotension, unspecified (2) Fever: Status: Acute Category: Medical Code(s): R50.9 - Fever, unspecified (3) Mastitis: Status: Acute Category: Medical Code(s): N61.0 - Mastitis without abscess (4) Addisonian crisis: Status: Acute Category: Medical Code(s): E27.2 - Addisonian crisis (5) Hypothyroidism: Status: Chronic Category: Medical Code(s): E03.9 - Hypothyroidism, unspecified Plan Patient is a 33-year-old female with past medical history of [place]'s disease, hypothyroidism who presents to the hospital due to generalized weakness fatigue tiredness and low BP. Patient was seen by her primary care physician who recommended inpatient admission for [place]'s disease crisis. Patient mentions she has been having pain in her left breast, she is currently breast-feeding [id number]. Patient mentions she thinks she may have breast abscess, denies noticing purulence. She mentions she has noticed area of redness and pain on her left breast. Patient otherwise denied chest pain shortness of breath nausea vomiting. She has history of chronic diarrhea. Assessment and plan Hypotension, generalized weakness, fatigue likely secondary to [place]'s disease crisis - improving continue 50 mg IV hydrocortisone every 6 hours, was loaded up with 100 Mg IV hydrocortisone in the ED Continue home fludrocortisone According to patient her baseline BP is around 100s/60s. Monitor and replace electrolytes Mastitis left breast Ultrasound left breast to rule out underlying abscess Started on IV clindamycin History of hypothyroidism Resume home levothyroxine DVT prophylaxis-heparin continue IV steroids, likely DC 1-2 days pending clinical improvement
[2024-04-06] MEDS: KETOROLAC 30MG/ML VIAL 15 MG IV (14:27)
[2024-04-06 16:00] VITALS: BP 96/58; PULSE 57; RESP 20; TEMP 36.8; O2SAT 99
--- NOTE | 2024-04-06 17:16 | PC.NURSE ---
A&OX4. TOLERATING RA WELL. UP INDEPENDENTLY IN ROOM. HAS HAD VISITORS T/O SHIFT. PT HAS HAD INTERMITTENT SORENESS TO LEFT BREAST. TX PER MAR-EFFECTIVENESS NOTED. PT STATES SHE FEELS LIKE SHE IS JUST HAS NO ENERGY AND IS VERY TIRED AND RUN DOWN. OTHERWISE, NO NEEDS OR C/O NOTED THUS FAR THIS SHIFT. B/P SOFT, BUT OTHERWISE VSS.
[2024-04-06 20:00] VITALS: BP 102/65; PULSE 65; RESP 20; TEMP 36.9; O2SAT 97
[2024-04-06] MEDS: PANTOPRAZOLE 40MG TABLET 40 MG PO (21:05)
[2024-04-06] MEDS: MELATONIN 5MG TABLET 10 MG PO (22:03)
[2024-04-06] MEDS: TRAZODONE 50MG TABLET 50 MG PO (23:15)
--- NOTE | 2024-04-07 03:48 | PC.NURSE ---
Patient A&O x 4. BP systolic continues to be low. has received 2 rounds of antibiotics. Patient denies pain or discomfort. States that she is wide awake but continues to feel exhausted. Spoke with provider and received v.o. order for Melatonin 10mg - medication unsuccessful. Provider notified and received v.o. for Trazodone 50mg - medication effective. Call light within reach, bed at lowest level for safety.
[2024-04-07 04:00] VITALS: BP 105/55; PULSE 61; RESP 18; TEMP 36.6; O2SAT 98; BMI 34.1
[2024-04-07] MEDS: CLINDAMYCIN PHOSPHATE 600 MG in 0.9 % SODIUM CHLORIDE 50 ML 100 MG IV ×3 (04:06→20:50)
[2024-04-07] MEDS: HYDROCORTISONE SOD SUCCINATE 100MG VIAL 50 MG IV ×2 (05:50→11:14)
[2024-04-07] MEDS: 0.9 % SODIUM CHLORIDE 1000ML 1,000 ML 100 ML IV (06:09)
[2024-04-07] MEDS: LEVOTHYROXINE 100MCG (0.1MG) TAB 200 MCG PO (06:09)
[2024-04-07 07:26] LABS: Chloride 114 mmol/L (98-107); Sodium 141 mmol/L (136-145)
[2024-04-07 07:27] LABS: Potassium 3.4 mmoL/L (3.5-5.1)
[2024-04-07 07:29] LABS: Blood Urea Nitrogen 8 mg/dl (7-17); Creatinine Clearance Estimated 150 mL/min (50-200); Estimated Glomerular Filt Rate 96 ml/min (>60); GFR (African American) 116 ML/MIN (>60)
[2024-04-07 07:30] LABS: Anion Gap 8.4 mEq/L (5-15); Calcium 7.5 mg/dl (8.4-10.2); Carbon Dioxide 22 mmol/L (22.0-30.0); Glucose 104 mg/dl (74-100)
[2024-04-07 07:37] LABS: Basophils # 0.1 K/mm3 (0-0.2); Basophils % 0.7 % (0.1-2.0); Eosinophils # 0.1 K/mm3 (0.0-0.4); Hematocrit 30.3 % (37.0-47.0); Hemoglobin 10.1 g/dL (12.2-16.2); Lymphocytes # 2.3 K/mm3 (0.7-4.5); Lymphocytes % 35.1 % (10-50); Mean Corpuscular HGB Conc 33.4 g/dL (31.8-35.4); Mean Corpuscular Hemoglobin 30.4 pg (27.0-31.2); Mean Platelet Volume 9.5 fl (7.4-10.4); Monocytes # 0.3 K/mm3 (0.1-1.0); Monocytes % 4.2 % (1.7-9.3); Neutrophils # 3.9 K/mm3 (1.8-7.8); Neutrophils % 59.1 % (37.0-80.0); Platelet Count 187 K/mm3 (142-424); Red Blood Count 3.33 M/mm3 (4.20-5.40); Red Cell Distribution Width 13.8 % (11.5-17.5); White Blood Count 6.5 K/mm3 (4.8-10.8)
[2024-04-07 08:00] VITALS: BP 105/63; PULSE 66; RESP 18; TEMP 36.4; O2SAT 99
[2024-04-07] MEDS: SERTRALINE 50MG TABLET 50 MG PO (08:16)
[2024-04-07 14:16] VITALS: BP 112/67
--- NOTE | 2024-04-07 14:22 | P.PN_ITS ---
Subjective *Date: 04/07/24 *Time: 14:22 Interval history: patient is seen at bedside, mentions she feels dizzy while standing up, denied CP, SOB, fevers. no other complains today Exam Data for Last 24 hours Vital signs and Labs for Last 24 Hours: Temp Pulse Resp BP Pulse Ox O2 Del Method 97.5 F L 66 18 112/67 99 Room Air 04/07/24 08:00 04/07/24 08:00 04/07/24 08:00 04/07/24 14:16 04/07/24 08:00 04/07/24 12:49 Laboratory Results - last 24 hr 04/07/24 07:00: WBC 6.5 D, RBC 3.33 L, Hgb 10.1 L, Hct 30.3 L, MCV 91.0, MCH 30.4, MCHC 33.4, RDW 13.8, Plt Count 187, MPV 9.5, Neut % (Auto) 59.1, Lymph % (Auto) 35.1, [place] % (Auto) 4.2, Eos % (Auto) 1.0, Baso % (Auto) 0.7, Neut # (Auto) 3.9, Lymph # (Auto) 2.3, [place] # (Auto) 0.3, Eos # (Auto) 0.1, Baso # (Auto) 0.1, Sodium 141, Potassium 3.4 L, Chloride 114 H, Carbon Dioxide 22, Anion Gap 8.4, BUN 8, Creatinine 0.70, Estimated Creat Clear 150, Estimated GFR 96, Est GFR ( Amer) 116, Glucose 104 H, Calcium 7.5 L I & O for Last 24 hours: Intake & Output 04/04/24 04/05/24 04/06/24 04/07/24 23:59 23:59 23:59 23:59 Intake Total 1230 / 1590 2012 Output Total 0 / 0 0 / 0 0 / 0 Balance 123 1590 2012 Weight 76.612 kg 84.141 kg 84.113 kg Microbiology Reports for the Last 24 Hours: Microbiology 04/05/24 10:41 Blood Blood Culture - Preliminary NO GROWTH AFTER 48 HOURS Constitutional Constitutional: no acute distress *Routine HEENT Exam Head: Present normocephalic Eye: Present EOMI and PERRL ENT: Present mucous membranes moist *Routine Neck Exam Neck: Present supple; Absent lymphadenopathy *Routine Respiratory Exam Respiratory: Present CTA bilaterally *Routine Cardiovascular Exam Cardiovascular: Present RRR *Routine Abdominal Exam Abdominal: Present soft and normoactive bowel sounds; Absent tenderness *Routine Extremities Exam Extremities: Absent cyanosis, clubbing or edema *Routine Skin Exam Skin: Present warm; Absent rash *Routine Neurological Exam Neurological: Present alert and oriented X3 Assessment and Plan *Assessment and plan (1) Hypotension: Status: Acute Category: Medical Code(s): I95.9 - Hypotension, unspecified (2) Fever: Status: Acute Category: Medical Code(s): R50.9 - Fever, unspecified (3) Mastitis: Status: Acute Category: Medical Code(s): N61.0 - Mastitis without abscess (4) Addisonian crisis: Status: Acute Category: Medical Code(s): E27.2 - Addisonian crisis (5) Hypothyroidism: Status: Chronic Category: Medical Code(s): E03.9 - Hypothyroidism, unspecified Plan Patient is a 33-year-old female with past medical history of [place]'s disease, hypothyroidism who presents to the hospital due to generalized weakness fatigue tiredness and low BP. Patient was seen by her primary care physician who recommended inpatient admission for [place]'s disease crisis. Patient mentions she has been having pain in her left breast, she is currently breast-feeding [id number]. Patient mentions she thinks she may have breast abscess, denies noticing purulence. She mentions she has noticed area of redness and pain on her left breast. Patient otherwise denied chest pain shortness of breath nausea vomiting. She has history of chronic diarrhea. Assessment and plan Hypotension, generalized weakness, fatigue likely secondary to Nach[place]'s disease crisis - improving start weaning down IV 50 mg IV hydrocortisone q6hr to 25mg and then to oral likely tomorrow, was loaded up with 100 Mg IV hydrocortisone in the ED on admission Continue home fludrocortisone According to patient her baseline BP is around 100s/60s. patient is maintaining baseline BP Monitor and replace electrolytes Mastitis left breast Ultrasound left breast to rule out underlying abscess, likely to be completed on monday on IV clindamycin, ok to switch to oral at [place], History of hypothyroidism Resume home levothyroxine DVT prophylaxis-heparin continue IV steroids, likely DC tomorrow pending clinical improvement and wean off of IV steroids
[2024-04-07] MEDS: HYDROCORTISONE SOD SUCCINATE 100MG VIAL 25 MG IV ×2 (16:45→22:29)
[2024-04-07] MEDS: POTASSIUM CHLORIDE 20MEQ TAB 20 MEQ PO (16:45)
[2024-04-07 16:46] VITALS: BP 109/67
--- NOTE | 2024-04-07 17:05 | PC.NURSE ---
A&OX4. TOLERATING RA WELL. PT HAS HAD A GOOD DAY AND HAS OVERALL FELT BETTER THAN YESTERDAY. PT HAS BEEN SITTING UP IN BED DOING HOMEWORK, AMBULATING IN ROOM AND IN HALLWAYS. TOLERATES WELL. B/P HAS BEEN BETTER WELL, STEROIDS DECREASED THIS SHIFT. REPLACED POTASSIUM. FAMILY REMAINS AT BEDSIDE. NO OTHER NEEDS OR C/O NOTED THUS FAR THIS SHIFT. VSS.
[2024-04-07 20:00] VITALS: BP 118/78; PULSE 51; RESP 18; TEMP 36.7; O2SAT 100
[2024-04-07] MEDS: TRAZODONE 50MG TABLET 50 MG PO (20:51)
[2024-04-07] MEDS: MELATONIN 5MG TABLET 10 MG PO (20:51)
[2024-04-07] MEDS: PANTOPRAZOLE 40MG TABLET 40 MG PO (20:51)
[2024-04-07] MEDS: FLUDROCORTISONE 0.1MG TABLET 0.100000000000000006 MG PO (20:54)
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
--- NOTE | 2024-04-08 | US_ITS ---
PROCEDURE INFORMATION: Exam: US Left Breast, Complete Exam date and time: 04/08/2024 8:46 AM Age: 33 years old Clinical indication: Initially the patient felt a palpable lump behind the nipple which has now resolved. Currently, the patient describes nipple discharge, however I have no specific information regarding collar of discharge. Also, the patient is actively breast feeding. This examination was requested cystic the insertion abscess or retroareolar mass TECHNIQUE: Imaging protocol: Complete ultrasound of all four quadrants of the left breast and the retroareolar regions, including ultrasound of the axilla when performed. COMPARISON: No relevant prior studies available. FINDINGS: ULTRASOUND: Breast ultrasound findings: Left 4 quadrant and retroareolar ultrasound with left axilla ultrasound Mildly ectatic retroareolar ducts measure 5 mm maximally. No intraluminal mass or debris. This is to be expected with the clinical history of breast feeding Otherwise, only normal glandular structures are present in the left breast No suspicious solid or cystic mass is present. No benign-appearing solid or cystic mass is present. No architectural distortion or shadowing is present. No axillary adenopathy is present. IMPRESSION: No sonographic evidence of malignancy. Annual mammographic screening is recommended unless otherwise clinically indicated. If nipple discharge were to be bloody or clear or for from a single duct, then suspicion should be heightened regarding intraductal pathology including carcinoma. If clinically suspicious, diagnostic mammogram and enhanced breast MRI should be performed ASSESSMENT: BI-RADS category 2: Benign
[2024-04-08 04:00] VITALS: BP 107/72; PULSE 60; RESP 16; TEMP 36.6; O2SAT 97; BMI 34.9
[2024-04-08] MEDS: HYDROCORTISONE SOD SUCCINATE 100MG VIAL 25 MG IV (05:03)
[2024-04-08] MEDS: CLINDAMYCIN PHOSPHATE 600 MG in 0.9 % SODIUM CHLORIDE 50 ML 100 MG IV (05:04)
--- NOTE | 2024-04-08 06:04 | PC.NURSE ---
Patient is alert and oriented and tolerating room air. She has slept the majority of the shift. Patient has been ambulating self to the bathroom as needed. Family member has been at bedside throughout the night. Pt BP has been within normal limits. Patient has no complaints at this time, call light within reach.
[2024-04-08] MEDS: LEVOTHYROXINE 100MCG (0.1MG) TAB 200 MCG PO (06:52)
[2024-04-08 07:05] LABS: Basophils # 0.1 K/mm3 (0-0.2); Basophils % 0.8 % (0.1-2.0); Eosinophils # 0.3 K/mm3 (0.0-0.4); Eosinophils % 4.7 % (0.1-12.0); Hematocrit 32.5 % (37.0-47.0); Hemoglobin 10.5 g/dL (12.2-16.2); Lymphocytes # 2.3 K/mm3 (0.7-4.5); Mean Corpuscular HGB Conc 32.4 g/dL (31.8-35.4); Mean Corpuscular Hemoglobin 30.3 pg (27.0-31.2); Mean Corpuscular Volume 93.3 fl (81-99); Mean Platelet Volume 9.7 fl (7.4-10.4); Monocytes # 0.3 K/mm3 (0.1-1.0); Monocytes % 4.9 % (1.7-9.3); Neutrophils # 3.8 K/mm3 (1.8-7.8); Neutrophils % 55.7 % (37.0-80.0); Platelet Count 228 K/mm3 (142-424); Red Blood Count 3.48 M/mm3 (4.20-5.40); Red Cell Distribution Width 14.1 % (11.5-17.5); White Blood Count 6.9 K/mm3 (4.8-10.8)
[2024-04-08 07:10] LABS: Alanine Aminotransferase 30 U/L (12-78); Albumin Level 2.6 g/dl (3.5-5.0); Alkaline Phosphatase 48 U/L (38-126); Anion Gap 9.2 mEq/L (5-15); Aspartate Amino Transferase 35 U/L (14-36); Bilirubin,Total 0.2 mg/dl (0.2-1.3); Blood Urea Nitrogen 7 mg/dl (7-17); Calcium 7.9 mg/dl (8.4-10.2); Carbon Dioxide 23 mmol/L (22.0-30.0); Chloride 112 mmol/L (98-107); Creatinine Clearance Estimated 134 mL/min (50-200); Estimated Glomerular Filt Rate 82 ml/min (>60); GFR (African American) 99 ML/MIN (>60); Globulin 2.6 g/dL (1.3-3.2); Glucose 99 mg/dl (74-100); Magnesium 1.9 mg/dl (1.6-2.3); Potassium 3.2 mmoL/L (3.5-5.1); Sodium 141 mmol/L (136-145); Total Protein,Serum 5.2 g/dl (6.3-8.2)
[2024-04-08 08:00] VITALS: BP 109/63; PULSE 58; RESP 16; TEMP 36.7; O2SAT 100
[2024-04-08] MEDS: SERTRALINE 50MG TABLET 50 MG PO (08:17)
[2024-04-08 08:38] VITALS: BMI 33.0
--- NOTE | 2024-04-08 10:19 | P.DS_ITS ---
General Admission date:: 04/05/24 Discharge date: 04/08/24 HPI HPI HPI: Patient is a 33-year-old female with past medical history of Nacho's disease, hypothyroidism who presents to the hospital due to generalized weakness fatigue tiredness and low BP. Patient was seen by her primary care physician who recommended inpatient admission for [place]'s disease crisis. Patient mentions she has been having pain in her left breast, she is currently breast-feeding [id number]. Patient mentions she thinks she may have breast abscess, denies noticing purulence. She mentions she has noticed area of redness and pain on her left breast. Patient otherwise denied chest pain shortness of breath nausea vomiting. She has history of chronic diarrhea. Hospital Course Hospital Course Hospital Course: Patient is a 33-year-old female with past medical history of [place]'s disease, hypothyroidism who presents to the hospital due to generalized weakness fatigue tiredness and low BP. Patient was seen by her primary care physician who recommended inpatient admission for [place]'s disease crisis. Patient mentions she has been having pain in her left breast, she is currently breast-feeding her [id number] daughter. Patient mentions she thinks she may have breast abscess vs mastitis. Has been having purulent drainage from her nipple. Was also found to have redness and pain in her left breast. Admitted for IV antibiotics. Showed improvement with IV steroids and antibiotics. Symptoms defervescing. Meeting discharge criteria will transition to oral steroids and antibiotics. Will complete course as an outpatient. Problems addressed as follows: Addisonian crisis -Patient presented with low blood pressure, generalized weakness, fatigue. Denied nausea or vomiting. Bowel movements are normal baseline chronic diarrhea. Started on empiric antibiotics with clindamycin for breast abscess and stress dose steroids with IV hydrocortisone 200 mg daily. Symptoms defervesced and she was weaned on her steroids. Will continue weaning. Plan to continue 50 mg daily of hydrocortisone divided and 25 mg twice daily dosing for 3 days. Will wean thereafter to 15 mg in the morning, 10 mg in the evening for total of 25 mg daily. Up from her baseline 15 mg daily. Continue fludrocortisone 0.1 mg daily. Given patient's increased stress, she would benefit from higher baseline hydrocortisone dosing at this time. Plan for close follow-up with primary care for further monitoring and adjustment of steroid dosing. -Blood pressure returned to baseline. Blood cultures negative to date. Mastitis left breast -Initially having medical with redness and tenderness. Showed improvement with initiation of antibiotics. Was initiated on clindamycin IV. Showed gradual improvement. No tenderness on exam or discharge by day of discharge. Plan to transition to oral antibiotics to complete 7 days total of clindamycin with 450 mg 3 times a day. Ultrasound obtained, formal read still pending. No obvious abscess on preliminary review. History of hypothyroidism: Resume home levothyroxine regimen 200 mcg daily. Total time spent on discharge 35 minutes in counseling, documentation, chart review, and direct care with patient. Exam Data for Last 24 hours Vital signs and Labs for Last 24 Hours: Temp Pulse Resp BP Pulse Ox O2 Del Method 98.1 F 58 L 16 109/63 L 100 Room Air 04/08/24 08:00 04/08/24 08:00 04/08/24 08:00 04/08/24 08:00 04/08/24 08:00 04/08/24 09:00 Laboratory Results - last 24 hr 04/08/24 06:09: WBC 6.9, RBC 3.48 L, Hgb 10.5 L, Hct 32.5 L, MCV 93.3, MCH 30.3, MCHC 32.4, RDW 14.1, Plt Count 228, MPV 9.7, Neut % (Auto) 55.7, Lymph % (Auto) 34.0, [place] % (Auto) 4.9, Eos % (Auto) 4.7, Baso % (Auto) 0.8, Neut # (Auto) 3.8, Lymph # (Auto) 2.3, [place] # (Auto) 0.3, Eos # (Auto) 0.3, Baso # (Auto) 0.1, Sodium 141, Potassium 3.2 L, Chloride 112 H, Carbon Dioxide 23, Anion Gap 9.2, BUN 7, Creatinine 0.80, Estimated Creat Clear 134, Estimated GFR 82, Est GFR ( Amer) 99, Glucose 99, Calcium 7.9 L, Magnesium 1.9, Total Bilirubin 0.2, AST 35, ALT 30, Alkaline Phosphatase 48, Total Protein 5.2 L D, Albumin 2.6 L, Globulin 2.6, Albumin/Globulin Ratio 1.0 L I & O for Last 24 hours: Intake & Output 06/04/06/24 04/07/24 04/08/24 23:59 23:59 23:59 23:59 Intake Total 1230 / 1590 20120 / 2340 240 / 240 Output Total 0 / 0 0 / 0 0 / 0 0 / 0 Balance 1230 / 1590 20120 / 2340 240 / 240 Weight 76.612 kg 84.141 kg 84.113 kg 81.335 kg Microbiology Reports for the Last 24 Hours: Microbiology 04/05/24 10:41 Blood Blood Culture - Preliminary NO GROWTH AFTER 48 HOURS Constitutional Constitutional: no acute distress *Routine HEENT Exam Head: Present normocephalic Eye: Present EOMI and PERRL ENT: Present mucous membranes moist *Routine Neck Exam Neck: Present supple; Absent lymphadenopathy Routine Chest/Breast/Axilla Exam Chest wall: Absent tenderness Breast: Absent tenderness *Routine Respiratory Exam Respiratory: Present CTA bilaterally; Absent rhonchi, wheezes or crackles *Routine Cardiovascular Exam Cardiovascular: Present RRR *Routine Abdominal Exam Abdominal: Present soft and normoactive bowel sounds; Absent tenderness *Routine Rectal Exam Patient deferred: visual exam *Routine Exam Patient deferred: external exam *Routine Extremities Exam Extremities: Absent cyanosis, clubbing or edema *Routine Skin Exam Skin: Present intact and warm; Absent rash *Routine Neurological Exam Neurological: Present alert, oriented X3 and moving all extremities; Absent altered mental status Results Data Completed and Pending Labs on day of discharge: Labs from last 24 hours 04/08/24 06:09 WBC 6.9 RBC 3.48 L Hgb 10.5 L Hct 32.5 L MCV 93.3 MCH 30.3 MCHC 32.4 RDW 14.1 Plt Count 228 MPV 9.7 Neut % (Auto) 55.7 Lymph % (Auto) 34.0 [place] % (Auto) 4.9 Eos % (Auto) 4.7 Baso % (Auto) 0.8 Neut # (Auto) 3.8 Lymph # (Auto) 2.3 [place] # (Auto) 0.3 Eos # (Auto) 0.3 Baso # (Auto) 0.1 Sodium 141 Potassium 3.2 L Chloride 112 H Carbon Dioxide 23 Anion Gap 9.2 BUN 7 Creatinine 0.80 Estimated Creat Clear 134 Estimated GFR 82 Est GFR ( Amer) 99 Glucose 99 Calcium 7.9 L Magnesium 1.9 Total Bilirubin 0.2 AST 35 ALT 30 Alkaline Phosphatase 48 Total Protein 5.2 L D Albumin 2.6 L Globulin 2.6 Albumin/Globulin Ratio 1.0 L Preliminary micro results at discharge 04/05/24 10:41 Blood Culture - Preliminary Blood NO GROWTH AFTER 48 HOURS DS: Diagnosis Discharge Diagnosis (1) Addisonian crisis: Status: Acute Code(s): E27.2 - Addisonian crisis (2) Mastitis: Status: Acute Code(s): N61.0 - Mastitis without abscess (3) Hypotension: Status: Acute Code(s): I95.9 - Hypotension, unspecified (4) Fever: Status: Acute Code(s): R50.9 - Fever, unspecified (5) Hypothyroidism: Status: Chronic Code(s): E03.9 - Hypothyroidism, unspecified Meds Home Medications and Allergies Home Medications Medication Instructions Recorded Confirmed Type sertraline 50 mg tablet 50 mg PO DAILY 03/18/23 04/05/24 History fludrocortisone 0.1 mg tablet 0.1 mg PO QODHS 09/03/23 04/05/24 History hydrocortisone 10 mg tablet 10 mg PO AM 30 days #40 tabs 09/03/23 04/05/24 Rx hydrocortisone 5 mg tablet 5 mg PO DAILY 30 days #40 tabs 09/03/23 04/05/24 Rx dextroamphetamine-amphetamine ER 20 mg PO DAILY 03/16/24 04/05/24 History 20 mg 24hr capsule,extend release esomeprazole magnesium 20 mg 20 mg PO DAILY 03/16/24 04/06/24 History capsule,delayed release levothyroxine 200 mcg tablet 200 mcg PO DAILYDM 04/05/24 04/06/24 History clindamycin HCl 150 mg capsule 450 mg (3 x 150 mg) PO TID 4 days 04/08/24 Rx #30 caps hydrocortisone 10 mg tablet See Rx Instructions .Route 04/08/24 Rx .COMPLEX #83 tabs New Prescriptions to Start Prescriptions: clindamycin HCl Geoffrey Bhatti hydrocortisone Geoffrey Bhatti Allergies Allergy/AdvReac Type Severity Reaction Status Date / Time Penicillins Allergy Intermediate Verified 01/25/21 08:55 amoxicillin Allergy Verified 06/19/23 20:18 Cephalosporins AdvReac Mild Verified 01/25/21 08:55 Discharge Plan Disposition Patient Disposition: Home, Self-Care Condition: Fair Discharge Order Discharge Orders: Discharge Order (Routine); Ordered 04/08/24 Ordered By: Geoffrey Bhatti Follow up Plan Follow up with: Vincent Roberson MD [Primary Care Provider] - 04/15/24 2:45 pm Prescriptions/Medication Reconciliation: New hydrocortisone 10 mg tablet See Rx Instructions .ROUTE .COMPLEX Qty: 83 0RF Rx Instructions: 25 mg twice daily for 3 days then decrease to 25 mg daily divided 15 mg in the morning, 10 mg at night. clindamycin HCl 150 mg capsule 450 mg PO TID 4 Days Qty: 30 0RF Continued sertraline 50 mg tablet 50 mg PO DAILY levothyroxine 200 mcg Tablet 200 mcg PO DAILYDM fludrocortisone 0.1 mg tablet 0.1 mg PO QODHS dextroamphetamine-amphetamine 20 mg capsule,extended release 24hr 20 mg PO DAILY esomeprazole magnesium 20 mg Capsule,Delayed Release(Dr/Ec) 20 mg PO DAILY Held hydrocortisone 5 mg tablet 5 mg PO DAILY 30 Days Qty: 40 0RF Hold Instructions: Pending follow-up with PCP and dose adjustment hydrocortisone 10 mg tablet 10 mg PO AM 30 Days Qty: 40 0RF Hold Instructions: Pending follow-up with PCP and dose adjustment Problem Reconciliation Problems Reviewed?: Yes Patient Discharge Instructions ACTIVITY: Continue current activity DIET: continue same diet Stand Alone Forms: [facility] School Release Patient Instructions: DI for Hypotension Providers Primary Care Provider: Vincent Roberson Admit Provider: Aleksey Page Attending Provider: Aleksey Page
[2024-04-08] MEDS: POTASSIUM CHLORIDE 20MEQ TAB 40 MEQ PO (12:25)
--- NOTE | 2024-04-10 13:12 | CARE MANAGER ---
Spoke with patient related to hospital discharge. She is not feeling much better, but some better. She is aware of follow up appointment and medication changes. CLAUDIA Cifuentes
== END 2024-04-08 12:32 | disposition home or self-care (01) | DRG 645 ==
LOC: ER 10:36 → 2ND 14:11
PROVIDERS: Internal Medicine Adolescent Medicine; Admitting Provider Internal Medicine; Emergency Provider Emergency Medicine; PCP Internal Medicine Adolescent Medicine; Visit Provider Internal Medicine
DX: E27.1 Primary adrenocortical insufficiency (principal); I95.9 Hypotension, unspecified; N61.0 Mastitis without abscess; K21.9 Gastro-esophageal reflux disease without esophagitis; F41.9 Anxiety disorder, unspecified
CPT/HCPCS: 36415; 76641; 80048; 80053; 81001; 83605; 83735; 84145; 85025; 87040; 87636; 99285; J1885; J7120

== ENCOUNTER 2024-07-27 20:03 | Emergency (ER) | payer OTHER, SELFPAY ==
--- NOTE | 2024-07-27 20:10 | HMH.EDGENADL ---
Discharge Plan Disposition Patient Disposition: Home, Self-Care Condition: Good Prescriptions Prescriptions: No Action sertraline 50 mg tablet 50 mg PO DAILY levothyroxine 200 mcg Tablet 200 mcg PO DAILYDM hydrocortisone 10 mg tablet See Rx Instructions .ROUTE .COMPLEX Qty: 83 0RF Rx Instructions: 25 mg twice daily for 3 days then decrease to 25 mg daily divided 15 mg in the morning, 10 mg at night. clindamycin HCl 150 mg capsule 450 mg PO TID 4 Days Qty: 30 0RF fludrocortisone 0.1 mg tablet 0.1 mg PO QODHS hydrocortisone 5 mg tablet 5 mg PO DAILY 30 Days Qty: 40 0RF hydrocortisone 10 mg tablet 10 mg PO AM 30 Days Qty: 40 0RF dextroamphetamine-amphetamine 20 mg capsule,extended release 24hr 20 mg PO DAILY esomeprazole magnesium 20 mg Capsule,Delayed Release(Dr/Ec) 20 mg PO DAILY Referrals Follow up/Referrals: Vincent Roberson MD [Primary Care Provider] - See instructions Activity Restrictions/Add. Instructions Additional Instructions/Restrictions: Follow-up with your primary care physician at the beginning of next week. If you develop any new or worsening symptoms, or if you become concerned for your health for any reason, return to the emergency department for evaluation Clinical Impressions Clinical Impression: Fatigue, Headache, Back pain Print Language Print Language: Romanian Discharge ED Provider: Gene Aaron Adult HPI General Chief complaint: Headache Stated complaint: attitude crisis Time Seen by Provider: 07/27/24 20:10 History of Present Illness HPI narrative: Lindsay Ferrari is a 33F with a past medical history of Nacho's disease, thyroid disease, presenting to the emergency department for complaints of low blood pressure, back pain and fatigue. Patient states that she and multiple members of her family have been dealing with a viral illness that includes a cough over the past week. She states that today, her symptoms acutely worsened and she started to develop back pain and checked her blood pressure and was initially 108 systolic but then dropped into the 90s, which is low for her. She was reporting a mild headache as well. She reports that her temperature was 99.4 degrees at home, however this was 30 minutes after she took Tylenol and ibuprofen. 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 She states that she is follows with Dr. Roberson. She states that her cough is nonproductive and was evaluated for this at Dr. Roberson's office and was told she has bronchitis. She denies any chest pain, shortness of breath, abdominal pain, dysuria or hematuria. She has been taking stress dose hydrocortisone all week. Related Data Home Medications ?Medication ?Instructions ?Recorded ?Confirmed sertraline 50 mg tablet 50 mg PO DAILY 03/18/23 04/05/24 fludrocortisone 0.1 mg tablet 0.1 mg PO QODHS 09/03/23 04/05/24 dextroamphetamine-amphetamine ER 20 mg PO DAILY 03/16/24 04/05/24 20 mg 24hr capsule,extend release esomeprazole magnesium 20 mg 20 mg PO DAILY 03/16/24 04/06/24 capsule,delayed release levothyroxine 200 mcg tablet 200 mcg PO DAILYDM 04/05/24 04/06/24 Previous Rx's ?Medication ?Instructions ?Recorded hydrocortisone 10 mg tablet 10 mg PO AM 30 days #40 tabs 09/03/23 hydrocortisone 5 mg tablet 5 mg PO DAILY 30 days #40 tabs 09/03/23 clindamycin HCl 150 mg capsule 450 mg (3 x 150 mg) PO TID 4 days 04/08/24 #30 caps hydrocortisone 10 mg tablet See Rx Instructions .Route 04/08/24 .COMPLEX #83 tabs Allergies Allergy/AdvReac Type Severity Reaction Status Date / Time Penicillins Allergy Intermediate Verified 01/25/21 08:55 amoxicillin Allergy Verified 06/19/23 20:18 Cephalosporins AdvReac Mild Verified 01/25/21 08:55 [facility] Disclaimer: The information contained in this section may have been updated after the patient was seen, as this information can be updated by other users. Medical History PCOS (polycystic ovarian syndrome) ADHD [place] disease Thyroid disease Depression Anxiety History of gastroesophageal reflux (GERD) Asthma Surgical History History of dilation and curettage History of tympanostomy tube placement History of tonsillectomy History of section Social History (Updated 04/05/24 @ 14:53 by Huong Saldivar RN) Smoking Status: Never smoker alcohol intake: never substance use type: denies use current occupational status: employed Travel in the last 8 weeks: None household members: significant other housing: house Other Medical History Have you received the Flu Vaccine for this season: No Have you received the Pneumonia Vaccine: No ROS Obtained: Yes Systems reviewed as appropriate & no additional complaints except as documented Physical Exam General General appearance: alert and in no apparent distress Head Head exam: atraumatic Eye Eye exam: Present normal appearance ENT ENT exam: Present normal external ear exam Neck Neck exam: Present full ROM Chest Chest inspection: Present symmetric chest wall rise Respiratory Respiratory exam: Present normal lung sounds bilaterally; Absent respiratory distress, wheezes or stridor Cardiovascular Cardiovascular exam: Present regular rate and normal rhythm Abdominal Exam Abdominal exam: Present soft; Absent tenderness or guarding Extremities Exam Extremities exam: Present normal inspection Back Exam Back exam: Present normal inspection Neurological Exam Neurological exam: Present alert and oriented X3 Psychiatric Psychiatric exam: Present normal affect Skin Skin exam: Present warm and dry Medical Decision Making Medical Records Screening: Per USPSTF and CDC recommendations, given the prevalence of disease in our region, it is our hospital?s policy to screen for HIV and viral Hepatitis for all patients aged 18 and over and those with ongoing risk factors. Alejandro Inquiry Pt receiving controlled substance: No Vital Signs: 07/27/24 20:18 07/27/24 21:30 07/27/24 22:32 Temperature 98.2 F 98.2 F Temperature Source Oral Oral Pulse Rate 65 60 Pulse Rate [Left Radial] 99 H Respiratory Rate 18 18 Blood Pressure 102/65 L 99/65 L Blood Pressure [Right Arm] 110/78 Blood Pressure Mean 75 Blood Pressure Mean [Right Arm] 88 Blood Pressure Source Automatic Cuff Blood Pressure Source [Right Arm] Automatic Cuff Blood Pressure Position Sitting 02 Sat by Pulse Oximetry 97 100 Oxygen Delivery Method Room Air Room Air Lab Data Lab Results 07/27/24 20:27: WBC 12.1 H, RBC 4.68, Hgb 13.6, Hct 39.4, MCV 84.1, MCH 29.1, MCHC 34.6, RDW 13.9, Plt Count 250, MPV 9.3, Neut % (Auto) 67.2, Lymph % (Auto) 27.6, [place] % (Auto) 4.0, Eos % (Auto) 0.5, Baso % (Auto) 0.8, Neut # (Auto) 8.1 H, Lymph # (Auto) 3.3, [place] # (Auto) 0.5, Eos # (Auto) 0.1, Baso # (Auto) 0.1, Sodium 137, Potassium 4.3, Chloride 109 H, Carbon Dioxide 21 L, Anion Gap 11.3, BUN 13, Creatinine 0.70, Estimated Creat Clear 137, Estimated GFR 96, Est GFR ( Amer) 116, Glucose 106 H, Calcium 8.9, Procalcitonin 0.038, TSH < 0.02 L 07/27/24 20:38: Urine Color Yellow, Urine Appearance Clear, Urine pH 6.0, Ur Specific [place] 1.025, Urine Protein Negative, Urine Glucose (UA) Negative, Urine Ketones Negative, Urine Blood Negative, Urine Nitrate Negative, Urine Bilirubin Negative, Urine Urobilinogen 0.2, Ur Leukocyte Esterase 1+ A, Urine RBC Occasional, Urine WBC 3-5, Ur Squamous Epith Cells 5-10, Urine Bacteria Trace 07/27/24 20:27 07/27/24 20:27 Orders (Tests/Meds): ED MEDICATIONS Discontinued Medications Generic Name Dose Route Start Last Admin Trade Name Freq PRN Reason Stop Dose Admin Hydrocortisone Sodium Succinate 100 mg 07/27/24 20:24 07/27/24 20:32 Hydrocortisone Sod Succinate 100mg Vial IV 07/27/24 20:25 100 mg ONCE ONE Administration Lactated Ringer's 1,000 mls @ 999 mls/hr 07/27/24 20:24 07/27/24 20:33 Lactated Ringer's 1000 Ml Bag IV 07/27/24 21:24 999 mls/hr .Q1H1M ONE Administration ORDERS Category Date Time Status CXR 2 view (NOT portable) [XR chest 2V] Stat Exams 07/27/24 20:24 Completed BMP [Basic Metabolic Panel] Stat Lab 07/27/24 20:27 Completed CBC w/Auto Diff [Complete Blood Count Auto Diff] Stat Lab 07/27/24 20:27 Completed HIV (1&2) Antibody Rapid Stat Lab 07/27/24 20:27 Received Hep C Ab with Reflex to RNA Stat Lab 07/27/24 20:27 Received Procalcitonin Stat Lab 07/27/24 20:27 Completed TSH [Thyroid Stimulating Hormone] Stat Lab 07/27/24 20:27 Completed Urinalysis and Microscopic Stat Lab 07/27/24 20:38 Completed Blood Culture Stat Micro 07/27/24 20:29 Received Urine Culture Stat Micro 07/27/24 20:38 Received Medical Decision Narrative: Lindsay Ferrari is a 33 female with a past medical history of [place]'s disease, thyroid disease who presents to the emergency department for complaints of possible [place]'s crisis. Patient states that she has been dealing with a respiratory illness that includes cough over the past week and was told that she has bronchitis. She states that today, her symptoms acutely worsen with worsening fatigue, headache, back pain and hypotension at home and possible fever. She states that these are symptoms typical of her adrenal crises, so she came to the emergency department. She has been taking stress dose steroids over the past week. On arrival, patient blood pressure is 110/78, heart rate 99 bpm, breathing comfortably on room air no acute respiratory distress. She does have a mild cough. Afebrile. Physical exam, as stated above, revealed no abnormal lung sounds, abdomen soft, nontender nondistended. She appears well-hydrated. No other significant findings on physical exam. Differential diagnosis includes: Adrenal crisis, hypothyroidism, sepsis, UTI, pneumonia Workup included: CBC, BMP, procalcitonin, urinalysis, two-view chest x-ray, blood culture x 2. Patient was given 1 L of lactated ringer as well as 100 mg of IV hydrocortisone Patient's workup was interpreted by me personally. Mild leukocytosis of 12.1, BMP unremarkable and nonactionable, procalcitonin within normal limits, TSH low at 0.02, however patient states that this is expected for her and she is currently on levothyroxine. Urine without evidence of infection (only 1+ leukocyte Estrace, negative nitrate, 3-5 white blood cells, trace bacteria). Throughout the patient's ED visit, she reported no worsening of her symptoms. Her blood pressure remained stable. Given this, is felt that she is appropriate for discharge at this time with plan to follow-up with her primary care physician at the beginning of next week. Strict return precautions were given. All questions were answered. She demonstrated understanding and was in agreement with this plan. She was then discharged from the emergency department in stable condition. Critical Care Critical Care Time Critical Care Time: Yes Attestation: On 07/27/24, the high probability of a clinically significant, sudden or life threatening deterioration of the following system(s) required my full and direct attention, intervention and personal management. The time I documented below is in addition to time spent performing reported procedures but includes the following listed in this critical care notation. Total Time Total Critical Care Time: 35
[2024-07-27 20:18] VITALS: BP 110/78; PULSE 99; RESP 18; TEMP 36.8; O2SAT 97; BMI 30.9
--- NOTE | 2024-07-27 20:24 | XR_ITS ---
PROCEDURE INFORMATION: Exam: XR Chest Exam date and time: 07/27/2024 8:39 PM Age: 33 years old Clinical indication: Cough and shortness of breath; Additional info: Cough, possible pneumonia TECHNIQUE: Imaging protocol: Radiologic exam of the chest. Views: 2 views. COMPARISON: CR XR CHEST PORTABLE 09/02/2023 9:59 PM FINDINGS: Lungs: No evidence of acute pulmonary disease or infiltrates Pleural spaces: No large effusion or pneumothorax. Heart/Mediastinum: No evidence of mediastinal widening or cardiac silhouette enlargement; the mediastinum and heart appear within normal limits for contour and size. Bones/joints: No evidence of acute osseous abnormalities within the visualized portions of the thoracic spine and ribs. Osseous structures appear appropriate for patient age. IMPRESSION: No dense parenchymal consolidation, pleural effusion, or pneumothorax.
[2024-07-27] MEDS: HYDROCORTISONE SOD SUCCINATE 100MG VIAL 100 MG IV (20:32)
[2024-07-27] MEDS: LACTATED RINGERS 1000ML 1,000 ML 999 ML IV (20:33)
[2024-07-27 20:37] LABS: Basophils # 0.1 K/mm3 (0-0.2); Basophils % 0.8 % (0.1-2.0); Eosinophils # 0.1 K/mm3 (0.0-0.4); Eosinophils % 0.5 % (0.1-12.0); Hematocrit 39.4 % (37.0-47.0); Hemoglobin 13.6 g/dL (12.2-16.2); Lymphocytes # 3.3 K/mm3 (0.7-4.5); Lymphocytes % 27.6 % (10-50); Mean Corpuscular HGB Conc 34.6 g/dL (31.8-35.4); Mean Corpuscular Hemoglobin 29.1 pg (27.0-31.2); Mean Corpuscular Volume 84.1 fl (81-99); Mean Platelet Volume 9.3 fl (7.4-10.4); Monocytes # 0.5 K/mm3 (0.1-1.0); Neutrophils # 8.1 K/mm3 (1.8-7.8); Neutrophils % 67.2 % (37.0-80.0); Platelet Count 250 K/mm3 (142-424); Red Blood Count 4.68 M/mm3 (4.20-5.40); Red Cell Distribution Width 13.9 % (11.5-17.5); White Blood Count 12.1 K/mm3 (4.8-10.8)
[2024-07-27 20:41] LABS: Microscopic, Urine URINE MICROSCOPIC (MICROSCOPIC)
[2024-07-27 20:43] LABS: Appearance,Urine CLEAR (Clear); Bilirubin,Urine Negative (Negative); Blood, Urine Negative (Negative); Color,Urine YELLOW (Yellow); Glucose,Urine (UA) Negative (Negative); Ketones,Urine Negative (Negative); Leukocyte Esterase,Urine 1+ (Negative); Nitrate,Urine Negative (Negative); Protein,Urine Negative (Negative); Specific Gravity, Urine 1.025 (1.005-1.030); Urobilinogen,Urine 0.2 EU/dl (0.2)
[2024-07-27 20:44] LABS: Anion Gap 11.3 mEq/L (5-15); Blood Urea Nitrogen 13 mg/dl (7-17); Calcium 8.9 mg/dl (8.4-10.2); Carbon Dioxide 21 mmol/L (22.0-30.0); Chloride 109 mmol/L (98-107); Creatinine Clearance Estimated 137 mL/min (50-200); Estimated Glomerular Filt Rate 96 ml/min (>60); GFR (African American) 116 ML/MIN (>60); Glucose 106 mg/dl (74-100); Potassium 4.3 mmoL/L (3.5-5.1); Sodium 137 mmol/L (136-145)
[2024-07-27 20:49] LABS: Bacteria,Urine Trace /lpf; RBC,Urine Occasional #/hpf (0-3)
[2024-07-27 21:01] LABS: Procalcitonin 0.038 ng/mL (0.0-2.0)
[2024-07-27 21:15] LABS: Thyroid Stimulating Hormone < 0.02 uIU/mL (0.465-4.68)
[2024-07-27 21:30] VITALS: BP 102/65; PULSE 65; O2SAT 100
[2024-07-27 22:32] VITALS: BP 99/65; PULSE 60; RESP 18; TEMP 36.8; O2SAT 99
[2024-07-28 02:47] LABS: HIV (1&2) Antibody Rapid NONREACTIVE (NONREACTIVE)
[2024-07-30 05:16] LABS: HCV Ab Non Reactive (Non Reactive)
== END 2024-07-27 22:39 | disposition home or self-care (01) ==
PROVIDERS: Emergency Provider Student in an Organized Health Care Education/Training Program; PCP Internal Medicine Adolescent Medicine
DX: I95.9 Hypotension, unspecified (principal); M54.9 Dorsalgia, unspecified; R53.83 Other fatigue; R05.9 Cough, unspecified; R50.9 Fever, unspecified
CPT/HCPCS: 71046; 80048; 81001; 84145; 84443; 85025; 86803; 87040; 87086; 87389; 96361; 96374; 99291; J7120

== ENCOUNTER 2024-07-31 14:12 | Emergency (ER) | payer SELFPAY ==
[2024-07-31 14:14] VITALS: BP 111/78; PULSE 80; RESP 20; TEMP 36.9; O2SAT 98; BMI 30.2
--- NOTE | 2024-07-31 14:17 | ED_ITS ---
<Statement entered by Anusha Sweeney DO - 07/31/24 14:56> I was consulted by the CORY, and we discussed the complexity of the problems being addressed. I approved the treatment and management plan for this patient's care in the emergency department, thus performing a substantive portion of the medical decision making. Anusha Sweeney DO Discharge Plan Disposition Patient Disposition: Home, Self-Care Condition: Good Prescriptions Prescriptions: No Action sertraline 50 mg tablet 50 mg PO DAILY levothyroxine 200 mcg Tablet 200 mcg PO DAILYDM hydrocortisone 10 mg tablet See Rx Instructions .ROUTE .COMPLEX Qty: 83 0RF Rx Instructions: 25 mg twice daily for 3 days then decrease to 25 mg daily divided 15 mg in the morning, 10 mg at night. clindamycin HCl 150 mg capsule 450 mg PO TID 4 Days Qty: 30 0RF fludrocortisone 0.1 mg tablet 0.1 mg PO QODHS hydrocortisone 5 mg tablet 5 mg PO DAILY 30 Days Qty: 40 0RF hydrocortisone 10 mg tablet 10 mg PO AM 30 Days Qty: 40 0RF dextroamphetamine-amphetamine 20 mg capsule,extended release 24hr 20 mg PO DAILY esomeprazole magnesium 20 mg Capsule,Delayed Release(Dr/Ec) 20 mg PO DAILY Referrals Follow up/Referrals: Vincent Roberson MD [Primary Care Provider] - See instructions Activity Restrictions/Add. Instructions Additional Instructions/Restrictions: Follow-up with employee health per protocol Clinical Impressions Clinical Impression: Exposure to blood or body fluid Print Language Print Language: Algerian Discharge ED Provider: Anusha Sweeney General Adult HPI General Chief complaint: Recheck/Abnormal Lab/Rx Stated complaint: WC-Blood exp to eye Time Seen by Provider: 07/31/24 14:16 History of Present Illness HPI narrative: Patient presents for evaluation of body fluid exposure. Patient reports that she was discontinuing patient's IV and felt something hit her eye. She did not see any blood or body fluid. Patient immediately irrigated her eye with normal saline. She is up-to-date on all her vaccinations. Patient presents per protocol for evaluation Related Data Home Medications ?Medication ?Instructions ?Recorded ?Confirmed sertraline 50 mg tablet 50 mg PO DAILY 03/18/23 04/05/24 fludrocortisone 0.1 mg tablet 0.1 mg PO QODHS 09/03/23 04/05/24 dextroamphetamine-amphetamine ER 20 mg PO DAILY 03/16/24 04/05/24 20 mg 24hr capsule,extend release esomeprazole magnesium 20 mg 20 mg PO DAILY 03/16/24 04/06/24 capsule,delayed release levothyroxine 200 mcg tablet 200 mcg PO DAILYDM 04/05/24 04/06/24 Previous Rx's ?Medication ?Instructions ?Recorded hydrocortisone 10 mg tablet 10 mg PO AM 30 days #40 tabs 09/03/23 hydrocortisone 5 mg tablet 5 mg PO DAILY 30 days #40 tabs 09/03/23 clindamycin HCl 150 mg capsule 450 mg (3 x 150 mg) PO TID 4 days 04/08/24 #30 caps hydrocortisone 10 mg tablet See Rx Instructions .Route 04/08/24 .COMPLEX #83 tabs Allergies Allergy/AdvReac Type Severity Reaction Status Date / Time Penicillins Allergy Intermediate Verified 01/25/21 08:55 amoxicillin Allergy Verified 06/19/23 20:18 Cephalosporins AdvReac Mild Verified 01/25/21 08:55 [facility] Disclaimer: The information contained in this section may have been updated after the patient was seen, as this information can be updated by other users. Medical History PCOS (polycystic ovarian syndrome) ADHD [place] disease Thyroid disease Depression Anxiety History of gastroesophageal reflux (GERD) Asthma Surgical History History of dilation and curettage History of tympanostomy tube placement History of tonsillectomy History of section Social History (Updated 04/05/24 @ 14:53 by Huong Saldivar RN) Smoking Status: Never smoker alcohol intake: never substance use type: denies use current occupational status: employed Travel in the last 8 weeks: None household members: significant other housing: house Other Medical History Have you received the Flu Vaccine for this season: No Have you received the Pneumonia Vaccine: No ROS Obtained: Yes Systems reviewed as appropriate & no additional complaints except as documented Physical Exam General General appearance: alert and in no apparent distress Respiratory Respiratory exam: Present normal lung sounds bilaterally Cardiovascular Cardiovascular exam: Present regular rate Neurological Exam Neurological exam: Present alert and oriented X3 Medical Decision Making Medical Records Screening: Per USPSTF and CDC recommendations, given the prevalence of disease in our region, it is our hospital?s policy to screen for HIV and viral Hepatitis for all patients aged 18 and over and those with ongoing risk factors. Alejandro Inquiry Pt receiving controlled substance: No Vital Signs: 07/31/24 14:14 07/31/24 14:51 Temperature 98.5 F 98.2 F Temperature Source Oral Pulse Rate 78 Pulse Rate [Left Radial] 80 Respiratory Rate 20 20 Blood Pressure 128/80 Blood Pressure [Right Arm] 111/78 Blood Pressure Mean [Right Arm] 89 02 Sat by Pulse Oximetry 98 Oxygen Delivery Method Room Air Room Air Orders (Tests/Meds): ORDERS Category Date Time Status Complete Blood Count Auto Diff Stat Lab 07/31/24 14:45 Received HBsAg Screen Stat Lab 07/31/24 14:45 Received Hepatitis B Surf Ab Quant Stat Lab 07/31/24 14:45 Received Hepatitis C Antibody Stat Lab 07/31/24 14:45 Received Liver Panel Stat Lab 07/31/24 14:45 Received PT/PTT Stat Lab 07/31/24 14:45 Received Medical Decision Narrative: In summary patient is a 33-year-old female who presents to the emergency department for evaluation of body fluid exposure. Patient is hemodynamically stable upon arrival, afebrile. Physical exam is unremarkable and nonfocal including no evidence of body fluid on the patient currently no conjunctival erythema injection or drainage. Patient is a contact lens wear. Differential diagnosis includes body fluid exposure intact skin versus conjunctival. Initial workup will be conducted per postexposure protocol. Initial interventions were considered however patient has already performed irrigation with normal saline thus no further intervention is required. Given that patient is current on all vaccines postexposure prophylaxis will be driven by hospital policy though to be clear as she has had low risk exposure and not known if true blood-borne or body fluid I do not believe it is indicated. Patient is appropriate for discharge with follow-up per hospital policy. Critical Care Critical Care Time Critical Care Time: No
[2024-07-31 14:28] VITALS: BMI 24.5
[2024-07-31 14:51] VITALS: BP 128/80; PULSE 78; RESP 20; TEMP 36.8; O2SAT 99
[2024-07-31 14:57] LABS: Basophils # 0.1 K/mm3 (0-0.2); Eosinophils # 0.2 K/mm3 (0.0-0.4); Eosinophils % 2.4 % (0.1-12.0); Hematocrit 35.8 % (37.0-47.0); Hemoglobin 12.5 g/dL (12.2-16.2); Lymphocytes % 32.6 % (10-50); Mean Corpuscular HGB Conc 34.9 g/dL (31.8-35.4); Mean Corpuscular Hemoglobin 29.7 pg (27.0-31.2); Mean Corpuscular Volume 85.3 fl (81-99); Mean Platelet Volume 8.9 fl (7.4-10.4); Monocytes # 0.3 K/mm3 (0.1-1.0); Monocytes % 3.6 % (1.7-9.3); Neutrophils # 5.5 K/mm3 (1.8-7.8); Neutrophils % 60.5 % (37.0-80.0); Platelet Count 232 K/mm3 (142-424); Red Cell Distribution Width 13.6 % (11.5-17.5); White Blood Count 9.1 K/mm3 (4.8-10.8)
[2024-07-31 15:21] LABS: Activated Partial Thrombo Time 24.9 seconds (22.8-30.6); INR 0.91 (0.9-1.1); Prothrombin Time 10.3 seconds (10.1-12.5)
[2024-07-31 15:45] LABS: Alanine Aminotransferase 13 U/L (12-78); Albumin Level 3.4 g/dl (3.5-5.0); Alkaline Phosphatase 39 U/L (38-126); Aspartate Amino Transferase 23 U/L (14-36); Bilirubin,Direct 0.3 mg/dl (0.0-0.4); Bilirubin,Indirect 0.1 mg/dL (0.0-0.9); Bilirubin,Total 0.4 mg/dl (0.2-1.3); Bilirubin,Unconjugated 0.1 mg/dL (0.0-1.1); Total Protein,Serum 6.3 g/dl (6.3-8.2)
[2024-08-01 09:33] LABS: Hepatitis B Surface Antigen Negative (Negative)
== END 2024-07-31 14:54 | disposition home or self-care (01) ==
PROVIDERS: Emergency Provider Emergency Medicine; PCP Internal Medicine Adolescent Medicine
DX: Z77.21 Contact with and (suspected) exposure to potentially hazardous body fluids (principal)
CPT/HCPCS: 80076; 85025; 85610; 85730; 86706; 99282

== ENCOUNTER 2024-09-30 09:44 | Emergency (ER) | payer OTHER, SELFPAY ==
[2024-09-30] VITALS (11 sets, daily range): BP systolic 95–134; BP diastolic 67–81; PULSE 67–129; RESP 18; TEMP 36.4–36.7; O2SAT 95–100; BMI 30.2
[2024-09-30 10:30] LABS: Basophils # 0.1 K/mm3 (0-0.2); Basophils % 0.9 % (0.1-2.0); Eosinophils # 0.3 K/mm3 (0.0-0.4); Eosinophils % 2.9 % (0.1-12.0); Hematocrit 39.2 % (37.0-47.0); Hemoglobin 13.1 g/dL (12.2-16.2); Lymphocytes % 20.9 % (10-50); Mean Corpuscular HGB Conc 33.4 g/dL (31.8-35.4); Mean Corpuscular Hemoglobin 29.6 pg (27.0-31.2); Mean Corpuscular Volume 88.7 fl (81-99); Mean Platelet Volume 11.1 fl (7.4-10.4); Monocytes # 0.7 K/mm3 (0.1-1.0); Monocytes % 7.9 % (1.7-9.3); Neutrophils # 6.3 K/mm3 (1.8-7.8); Neutrophils % 67.2 % (37.0-80.0); Platelet Count 212 K/mm3 (142-424); Red Blood Count 4.42 M/mm3 (4.20-5.40); Red Cell Distribution Width 13.1 % (11.5-17.5); White Blood Count 9.3 K/mm3 (4.8-10.8)
[2024-09-30 10:41] LABS: Chloride 105 mmol/L (98-107); Potassium 3.7 mmoL/L (3.5-5.1); Sodium 134 mmol/L (136-145)
[2024-09-30 10:44] LABS: Alanine Aminotransferase 28 U/L (12-78); Albumin/Globulin Ratio 1.4 (1.1-1.8); Alkaline Phosphatase 44 U/L (38-126); Anion Gap 1.7 mEq/L (5-15); Aspartate Amino Transferase 37 U/L (14-36); Bilirubin,Total 0.7 mg/dl (0.2-1.3); Blood Urea Nitrogen 13 mg/dl (7-17); Carbon Dioxide 31 mmol/L (22.0-30.0); Creatinine Clearance Estimated 117 mL/min (50-200); Estimated Glomerular Filt Rate 82 ml/min (>60); GFR (African American) 99 ML/MIN (>60); Globulin 2.9 g/dL (1.3-3.2); Total Protein,Serum 6.9 g/dl (6.3-8.2)
[2024-09-30 10:45] LABS: Calcium 9.1 mg/dl (8.4-10.2); Glucose 104 mg/dl (74-100)
--- NOTE | 2024-09-30 11:26 | PC.NURSE ---
er at bedside
[2024-09-30] MEDS: LACTATED RINGERS 1000ML 1,000 ML 999 ML IV (11:43)
[2024-09-30] MEDS: HYDROCORTISONE SOD SUCCINATE 100MG VIAL 100 MG IV (11:43)
[2024-09-30] MEDS: KETOROLAC 30MG/ML VIAL 15 MG IV (11:43)
--- NOTE | 2024-09-30 12:16 | HMH.EDGENADL ---
Discharge Plan Disposition Patient Disposition: Home, Self-Care Condition: Fair Prescriptions Prescriptions: No Action sertraline 50 mg tablet 50 mg PO DAILY levothyroxine 200 mcg Tablet 200 mcg PO DAILYDM hydrocortisone 10 mg tablet See Rx Instructions .ROUTE .COMPLEX Qty: 83 0RF Rx Instructions: 25 mg twice daily for 3 days then decrease to 25 mg daily divided 15 mg in the morning, 10 mg at night. clindamycin HCl 150 mg capsule 450 mg PO TID 4 Days Qty: 30 0RF fludrocortisone 0.1 mg tablet 0.1 mg PO QODHS hydrocortisone 5 mg tablet 5 mg PO DAILY 30 Days Qty: 40 0RF hydrocortisone 10 mg tablet 10 mg PO AM 30 Days Qty: 40 0RF dextroamphetamine-amphetamine 20 mg capsule,extended release 24hr 20 mg PO DAILY esomeprazole magnesium 20 mg Capsule,Delayed Release(Dr/Ec) 20 mg PO DAILY Referrals Follow up/Referrals: Vincent Roberson MD [Primary Care Provider] - See instructions Activity Restrictions/Add. Instructions Additional Instructions/Restrictions: You were evaluated in the ER and are appropriate for discharge at this time. Continue your stress dose steroids and taper them as previously directed. Please make an appoint with your primary care doctor as well as with endocrinology for immediate reevaluation. Continue taking Zofran if needed for nausea and vomiting. Drink plenty of fluids, you can also drink electrolyte drinks such as Gatorade or Powerade to maintain good hydration. Return to the ER with new, worsening, or otherwise concerning symptoms Clinical Impressions Clinical Impression: [place] disease, Back pain Instructions Patient Instructions: DI for Nausea -- Adult Print Language Print Language: Syriac Discharge ED Provider: Rosalina Hayes Adult [facility] General Chief complaint: Nausea/Vomiting/Diarrhea Stated complaint: addisons crisis Time Seen by Provider: 09/30/24 10:51 Mode of Arrival: Ambulatory Source of Information: Patient Limitations: No Limitations Description of Symptoms (Recalled from ER Triage Doc. by RN): pt presents to the er for nausea, vomiting, and diarrhea since yesterday, states she has vomited 5 times since 8:30am, and has had diarrhea 3-4 times since last night, took 4 of zofran prior to arrival, also reports lower abd pain since this am, she has been sick since monday with congestion, runny nose, hx ben's disease, increased stress lately with the holidays History of Present Illness HPI narrative: 33-year-old female with a history of Ben disease that was triggered by presents to the ER for concerns of possible [place]'s crisis in the setting of recent cold/flulike symptoms and development of nausea, vomiting, diarrhea. Patient reports she has been self dosing with stress dose steroids, she typically takes 15 mg daily and had increased to 20 mg, today when she developed the nausea, vomiting, diarrhea she increased to 30 mg. She states her symptoms concerning for [place] crisis and are back pain and just generally feeling unwell. She states the last time she had to be admitted in the setting of an Ben crisis was March. She states she was able to get IV steroids and be discharged in July. She does not have a fevers, chills, headache, dizziness, she has generalized malaise, no chest pain or difficulty breathing but she does have cough and congestion, she developed nausea, vomiting, diarrhea today stating that illnesses of both upper respiratory and GI symptoms have been going through her house. She believes increase stress of being ill and the holidays is pushing her into a crisis. Related Data Home Medications ?Medication ?Instructions ?Recorded ?Confirmed sertraline 50 mg tablet 50 mg PO DAILY 03/18/23 04/05/24 fludrocortisone 0.1 mg tablet 0.1 mg PO QODHS 09/03/23 04/05/24 dextroamphetamine-amphetamine ER 20 mg PO DAILY 03/16/24 04/05/24 20 mg 24hr capsule,extend release esomeprazole magnesium 20 mg 20 mg PO DAILY 03/16/24 04/06/24 capsule,delayed release levothyroxine 200 mcg tablet 200 mcg PO DAILYDM 04/05/24 04/06/24 Previous Rx's ?Medication ?Instructions ?Recorded hydrocortisone 10 mg tablet 10 mg PO AM 30 days #40 tabs 09/03/23 hydrocortisone 5 mg tablet 5 mg PO DAILY 30 days #40 tabs 09/03/23 clindamycin HCl 150 mg capsule 450 mg (3 x 150 mg) PO TID 4 days 04/08/24 #30 caps hydrocortisone 10 mg tablet See Rx Instructions .Route 04/08/24 .COMPLEX #83 tabs Allergies Allergy/AdvReac Type Severity Reaction Status Date / Time Penicillins Allergy Intermediate Other Verified 09/30/24 10:10 amoxicillin Allergy Other Verified 09/30/24 10:10 Cephalosporins AdvReac Mild Other Verified 09/30/24 10:10 [facility] Disclaimer: The information contained in this section may have been updated after the patient was seen, as this information can be updated by other users. Medical History PCOS (polycystic ovarian syndrome) ADHD [place] disease Thyroid disease Depression Anxiety History of gastroesophageal reflux (GERD) Asthma Surgical History History of dilation and curettage History of tympanostomy tube placement History of tonsillectomy History of section Social History (Updated 04/05/24 @ 14:53 by Huong Saldivar RN) Smoking Status: Never smoker alcohol intake: never substance use type: denies use current occupational status: employed Travel in the last 8 weeks: None household members: significant other housing: house Have you lived/traveled outside [place] in past 30 days?: No Contact w/someone who lives/traveled outside US past 30 days?: No Exposure to someone with infectious disease in past 14 days?: No Do you have a fever (greater than 100.4 F or 38 C)?: No Have you tested positive for COVID-19: No Exposed to someone with COVID-19 in past 14 days?: No Do you have a sore throat?: No Do you have a cough?: No Do you have any weakness?: No Do you have any diarrhea?: No Are you experiencing any unusual bleeding?: No Do you have any muscle aches/pain?: No Do you have any abdominal pain?: No Are you experiencing loss of taste or smell?: No Other Medical History Have you received the Flu Vaccine for this season: No Have you received the Pneumonia Vaccine: No ROS Obtained: Yes Systems reviewed as appropriate & no additional complaints except as documented Per HPI Physical Exam General General appearance: alert and in no apparent distress Head Head exam: atraumatic and normocephalic Eye Eye exam: Present PERRL and EOMI ENT ENT exam: Present mucous membranes moist Neck Neck exam: Present normal inspection and full ROM Chest Chest inspection: Present symmetric chest wall rise Respiratory Respiratory exam: Absent respiratory distress or stridor Cardiovascular Cardiovascular exam: Present regular rate and normal rhythm Abdominal Exam Abdominal exam: Present soft; Absent distention, tenderness, guarding or rebound Extremities Exam Extremities exam: Present full ROM; Absent edema Back Exam Back exam: Absent tenderness, CVA tenderness (R) or CVA tenderness (L) Neurological Exam Neurological exam: Present alert and oriented X3; Absent motor sensory deficit Psychiatric Psychiatric exam: Present normal affect and normal mood Skin Skin exam: Present warm and dry Medical Decision Making Medical Records Medical records reviewed: Yes I reviewed the patient's medical records. Screening: Per USPSTF and CDC recommendations, given the prevalence of disease in our region, it is our hospital?s policy to screen for HIV and viral Hepatitis for all patients aged 18 and over and those with ongoing risk factors. MR Comment: Admission in March was for concern of [place] crisis in the setting of hypotension, mastitis, concerns of sepsis. Alejandro Inquiry Pt receiving controlled substance: No Vital Signs: 09/30/24 09:44 09/30/24 09:47 09/30/24 10:00 Temperature 98.1 F Temperature Source Oral Pulse Rate 112 H 111 H Pulse Rate [Left Radial] 129 H Respiratory Rate 18 Blood Pressure 134/81 131/81 Blood Pressure [Right Arm] 134/81 Blood Pressure Mean 102 97 Blood Pressure Mean [Right Arm] 98 Blood Pressure Source [Right Arm] Automatic Cuff Blood Pressure Position [Right Arm] Sitting 02 Sat by Pulse Oximetry 99 100 100 Oxygen Delivery Method Room Air 09/30/24 10:13 09/30/24 10:30 09/30/24 11:00 Temperature Temperature Source Pulse Rate 115 H 106 H 101 H Pulse Rate [Left Radial] Respiratory Rate Blood Pressure 99/75 L 108/69 L 106/69 L Blood Pressure [Right Arm] Blood Pressure Mean 83 Blood Pressure Mean [Right Arm] Blood Pressure Source [Right Arm] Blood Pressure Position [Right Arm] 02 Sat by Pulse Oximetry 95 99 98 Oxygen Delivery Method Room Air Room Air 09/30/24 11:30 09/30/24 11:53 09/30/24 12:00 Temperature Temperature Source Pulse Rate 101 H 67 91 H Pulse Rate [Left Radial] Respiratory Rate Blood Pressure 120/70 103/70 L 95/69 L Blood Pressure [Right Arm] Blood Pressure Mean Blood Pressure Mean [Right Arm] Blood Pressure Source [Right Arm] Blood Pressure Position [Right Arm] 02 Sat by Pulse Oximetry 100 98 99 Oxygen Delivery Method Room Air Room Air Room Air 09/30/24 12:25 Temperature Temperature Source Pulse Rate 91 H Pulse Rate [Left Radial] Respiratory Rate Blood Pressure 114/67 Blood Pressure [Right Arm] Blood Pressure Mean Blood Pressure Mean [Right Arm] Blood Pressure Source [Right Arm] Blood Pressure Position [Right Arm] 02 Sat by Pulse Oximetry 99 Oxygen Delivery Method Room Air Lab Data Lab Results 09/30/24 10:11: WBC 9.3, RBC 4.42, Hgb 13.1, Hct 39.2, MCV 88.7, MCH 29.6, MCHC 33.4, RDW 13.1, Plt Count 212, MPV 11.1 H, Neut % (Auto) 67.2, Lymph % (Auto) 20.9, [place] % (Auto) 7.9, Eos % (Auto) 2.9, Baso % (Auto) 0.9, Neut # (Auto) 6.3, Lymph # (Auto) 2.0, [place] # (Auto) 0.7, Eos # (Auto) 0.3, Baso # (Auto) 0.1, Sodium 134 L, Potassium 3.7, Chloride 105, Carbon Dioxide 31 H, Anion Gap 1.7 L, BUN 13, Creatinine 0.80, Estimated Creat Clear 117, Estimated GFR 82, Est GFR ( Amer) 99, Glucose 104 H, Calcium 9.1, Total Bilirubin 0.7, AST 37 H, ALT 28, Alkaline Phosphatase 44, Total Protein 6.9, Albumin 4.0, Globulin 2.9, Albumin/Globulin Ratio 1.4, TSH 0.12 L 09/30/24 10:11 09/30/24 10:11 Orders (Tests/Meds): ED MEDICATIONS Discontinued Medications Generic Name Dose Route Start Last Admin Trade Name Freq PRN Reason Stop Dose Admin Hydrocortisone Sodium Succinate 100 mg 09/30/24 11:35 09/30/24 11:43 Hydrocortisone Sod Succinate 100mg Vial IV 09/30/24 11:36 100 mg ONCE ONE Administration Lactated Ringer's 1,000 mls @ 999 mls/hr 09/30/24 11:35 09/30/24 11:43 Lactated Ringer's 1000 Ml Bag IV 09/30/24 12:35 999 mls/hr .Q1H1M ONE Administration Ketorolac Tromethamine 15 mg 09/30/24 11:35 09/30/24 11:43 Ketorolac 30mg/Ml Vial IV 09/30/24 11:36 15 mg ONCE ONE Administration ORDERS Category Date Time Status CMP [Comprehensive Metabolic Panel] Stat Lab 09/30/24 10:11 Completed Complete Blood Count Auto Diff Stat Lab 09/30/24 10:11 Completed Thyroid Stimulating Hormone Stat Lab 09/30/24 10:11 Completed Medical Decision Narrative: In summary, this 33-year-old female with comorbidities described in HPI presents to the emergency department today with nausea, vomiting, diarrhea, concern of Ben crisis. On initial evaluation patient is hemodynamically stable, afebrile, she is borderline tachycardic, however she is normotensive with systolic 120s during my exam. She is resting more comfortably after she reports taking Zofran at home. Differential diagnosis includes but is not limited to [place] crisis, electrolyte abnormality, thyroid abnormality, viral syndrome, dehydration, among others. Based on these concerns, I ordered basic serum labs. Patient received IV fluids, IV hydrocortisone for treatment. Labs personally reviewed demonstrate unremarkable CBC which could be due to patient's baseline immunosuppression potentially masking findings of inflammation/infection, CMP with trace hyponatremia, otherwise overall unremarkable, slight elevation in AST is nonspecific and nonactionable at this time. TSH low at 0.12, patient already takes levothyroxine, this is not abnormal for her. Patient does not require any imaging at this time. On reassessment she continues to be stable, tolerating oral intake, and I believe appropriate for discharge at this time. I gave her instructions to continue stress dosing steroids at home and to taper her steroids as well as have close follow-up with her primary care doctor. She also follows with endocrinology but their appointments are quite a ways out. Patient was given instructions on symptomatic management, follow up instructions, and return precautions for the emergency department. Patient indicated understanding and was discharged in stable condition. Critical Care Critical Care Time Critical Care Time: No
[2024-09-30 12:22] LABS: Thyroid Stimulating Hormone 0.12 uIU/mL (0.465-4.68)
== END 2024-09-30 13:14 | disposition home or self-care (01) ==
PROVIDERS: Emergency Provider Emergency Medicine; PCP Internal Medicine Adolescent Medicine
DX: E27.1 Primary adrenocortical insufficiency (principal); M54.9 Dorsalgia, unspecified; R11.2 Nausea with vomiting, unspecified; R19.7 Diarrhea, unspecified; R10.30 Lower abdominal pain, unspecified; R53.81 Other malaise; R05.9 Cough, unspecified; R09.81 Nasal congestion
CPT/HCPCS: 80050; 80053; 84443; 85025; 96361; 96374; 96375; 99283; J1885; J7120

== ENCOUNTER 2024-10-13 11:56 | Emergency (ER) | payer OTHER, SELFPAY ==
[2024-10-13 12:25] VITALS: BP 113/74; PULSE 92; RESP 18; TEMP 37.3; O2SAT 96; BMI 31.1
--- NOTE | 2024-10-13 12:35 | ED_ITS ---
Discharge Plan Disposition Patient Disposition: Home, Self-Care Condition: Good Prescriptions Prescriptions: New oseltamivir [Tamiflu] 75 mg capsule 75 mg PO BID 5 Days Qty: 10 0RF ondansetron 4 mg tablet,disintegrating 4 mg PO Q8H PRN (Reason: nausea and vomiting) Qty: 10 0RF No Action levothyroxine 200 mcg Tablet 200 mcg PO DAILYDM levocetirizine [Xyzal] 5 mg Tablet 5 mg PO DAILY fludrocortisone 0.1 mg tablet 0.1 mg PO QODHS hydrocortisone 5 mg tablet 5 mg PO DAILY 30 Days Qty: 40 0RF hydrocortisone 10 mg tablet 10 mg PO AM 30 Days Qty: 40 0RF dextroamphetamine-amphetamine 20 mg capsule,extended release 24hr 20 mg PO DAILY esomeprazole magnesium 20 mg Capsule,Delayed Release(Dr/Ec) 20 mg PO DAILY Referrals Follow up/Referrals: Vincent Roberson MD [Primary Care Provider] - See instructions Activity Restrictions/Add. Instructions Additional Instructions/Restrictions: * Lots of rest * Increase Fluids water, Gatorade, powerade, pedialyte,if /toddler/child * Alternate Tylenol and / or ibuprofen as discussed for fever, aches, chills Follow up IMMEDIATELY with your family doctor for new or worsening Symptoms OR no noticeable improvement over the next 48-72 hours, 911 for difficulty or breathing * You or your child area contagious until no fever, aches, chills for 24 hours with medication for symptoms * Help Prevent the spread of influenza: * ?Wash your hands often. Use soap and water. Wash your hands after you use the bathroom, change a child's diapers, or sneeze. Wash your hands before you prepare or eat food. Use gel hand cleanser that has 60% alcohol, when soap and water are not available. Do not touch your eyes, nose, or mouth unless you have washed your hands first. * Cover your mouth when you sneeze or cough. Cough into a tissue or the bend of your arm. If you use a tissue, throw it away immediately and wash your hands. * Clean shared items with a germ-killing septic cleaner. Clean table surfaces, doorknobs, and light switches. Do not share towels, silverware, and dishes with people who are sick. Wash bed sheets, towels, silverware, and dishes with soap and water. * Wear a mask over your mouth and nose if you are sick. The face mask may help protect others from becoming infected with the flu. Wear the mask when in common areas of your home or if you seek care with a healthcare provider. * Stay away from others if you are sick. Stay at home until 24 hours after your fever and symptoms are gone. Clinical Impressions Clinical Impression: Flu-like symptoms, Exposure to influenza Instructions Patient Instructions: DI for Influenza -- Adult, Oseltamivir Print Language Print Language: Kosovan Discharge ED Provider: Annalee Oates [facility] General Stated complaint: cough, headache, nausea Mode of Arrival: Ambulatory Source of Information: Patient Limitations: No Limitations Time Seen by Provider: 10/13/24 12:35 Description of Symptoms (Recalled from Triage Doc. by RN): PATIENT C/O CONGESTION, COUGH AND BODY ACHES SINCE YESTERDAY HEENT Symptoms (Recalled from RN notes): Yes Resp Symptoms (Recalled from RN notes): Yes Skin Symptoms (Recalled from RN notes): No MS Symptoms (Recalled from RN notes): No Functional Status (Recalled from RN notes): WNL History of Present Illness Provider Complaint: Patient states that she thinks she may have the flu States that she started yesterday with body aches, chills, cough and nasal congestion States that she came in wanting to get checked for the flu Related Data Home Medications ?Medication ?Instructions ?Recorded ?Confirmed fludrocortisone 0.1 mg tablet 0.1 mg PO QODHS 09/03/23 10/13/24 dextroamphetamine-amphetamine ER 20 mg PO DAILY 03/16/24 10/13/24 20 mg 24hr capsule,extend release esomeprazole magnesium 20 mg 20 mg PO DAILY 03/16/24 10/13/24 capsule,delayed release levothyroxine 200 mcg tablet 200 mcg PO DAILYDM 04/05/24 10/13/24 levocetirizine 5 mg tablet (Xyzal) 5 mg PO DAILY 10/13/24 10/13/24 Previous Rx's ?Medication ?Instructions ?Recorded hydrocortisone 10 mg tablet 10 mg PO AM 30 days #40 tabs 09/03/23 hydrocortisone 5 mg tablet 5 mg PO DAILY 30 days #40 tabs 09/03/23 ondansetron 4 mg disintegrating 4 mg PO Q8H PRN nausea and 10/13/24 tablet vomiting #10 tabs oseltamivir 75 mg capsule (Tamiflu) 75 mg PO BID 5 days #10 caps 10/13/24 Allergies Allergy/AdvReac Type Severity Reaction Status Date / Time Penicillins Allergy Intermediate Rash Verified 10/13/24 12:35 amoxicillin Allergy Rash Verified 10/13/24 12:35 Cephalosporins AdvReac Mild Rash Verified 10/13/24 12:35 Worker's Comp Is this a Worker's Comp case?: No [facility] Disclaimer: The information contained in this section may have been updated after the patient was seen, as this information can be updated by other users. Medical History PCOS (polycystic ovarian syndrome) ADHD Nacho disease Thyroid disease Depression Anxiety History of gastroesophageal reflux (GERD) Asthma Surgical History History of dilation and curettage History of tympanostomy tube placement History of tonsillectomy History of section Social History (Updated 04/05/24 @ 14:53 by Huong Saldivar RN) Smoking Status: Never smoker alcohol intake: never substance use type: denies use current occupational status: employed Travel in the last 8 weeks: None household members: significant other housing: house Have you lived/traveled outside US in past 30 days?: No Contact w/someone who lives/traveled outside US past 30 days?: No Exposure to someone with infectious disease in past 14 days?: No Do you have a fever (greater than 100.4 F or 38 C)?: No Have you tested positive for COVID-19: No Exposed to someone with COVID-19 in past 14 days?: No Do you have a sore throat?: No Do you have a cough?: No Do you have any weakness?: Yes Do you have any diarrhea?: Yes Are you experiencing any unusual bleeding?: No Do you have any muscle aches/pain?: No Do you have any abdominal pain?: No Are you experiencing loss of taste or smell?: No ROS Obtained: Yes All systems reviewed & no additional complaints except as documented and Yes Systems reviewed as appropriate & no additional complaints except as documented Constitutional Constitutional: Reports system reviewed and no additional complaints, except as documented, Reports as per HPI, Reports body ache, Reports chills, Reports fever(s) and Reports headache(s) ENT Ears, Nose, Mouth, and Throat: Reports system reviewed and no additional complaints, except as documented, Reports as per HPI, Reports headache(s), Reports nasal congestion and Reports nasal discharge Cardiovascular Cardiovascular: Reports system reviewed and no additional complaints, except as documented and Reports as per HPI Respiratory Respiratory: Reports system reviewed and no additional complaints, except as documented, Reports as per HPI, Denies shortness of breath, Denies chest congestion and Reports cough Gastrointestinal Gastrointestingal: Reports system reviewed and no additional complaints, except as documented, as per HPI and nausea Neurologic Neurologic: Reports headache(s) Physical Exam General General appearance: alert and in no apparent distress ENT ENT exam: Present normal exam, normal oropharynx, mucous membranes moist and TM's normal bilaterally Expanded ENT Exam Nose exam: Present other (clear drainage from nose); Absent sinus tenderness Throat exam: Present normal inspection Respiratory Respiratory exam: Present normal lung sounds bilaterally; Absent respiratory distress or wheezes Cardiovascular Cardiovascular exam: Present regular rate, normal rhythm and normal heart sounds Abdominal Exam Abdominal exam: Present soft and normal bowel sounds; Absent distention or tenderness Neurological Exam Neurological exam: Present alert, oriented X3 and normal gait Medical Decision Making Medical Records Screening: Per USPSTF and CDC recommendations, given the prevalence of disease in our region, it is our hospital?s policy to screen for HIV and viral Hepatitis for all patients aged 18 and over and those with ongoing risk factors. Alejandro Inquiry Pt receiving controlled substance: No Alejandro was queried for this patient: No Vital Signs: 10/13/24 12:25 Temperature 99.2 F Temperature Source Oral Pulse Rate [Left Brachial] 92 H Respiratory Rate 18 Blood Pressure [Left Arm] 113/74 Blood Pressure Mean [Left Arm] 87 Blood Pressure Source [Left Arm] Automatic Cuff Blood Pressure Position [Left Arm] Sitting 02 Sat by Pulse Oximetry 96 Oxygen Delivery Method Room Air Lab Data Lab results reviewed: Yes I reviewed the patient's lab results.
[2024-10-13 12:46] LABS: UTC Influenza A Antigen Negative (Negative); UTC Influenza B Antigen Negative (Negative)
[2024-10-13 12:55] VITALS: BP 113/74; PULSE 92; RESP 18; TEMP 37.3; O2SAT 96
== END 2024-10-13 13:03 | disposition home or self-care (01) ==
PROVIDERS: Emergency Provider Nurse Practitioner; PCP Internal Medicine Adolescent Medicine
DX: J10.1 Influenza due to other identified influenza virus with other respiratory manifestations (principal)
CPT/HCPCS: 87804; 99213; G0381

== ENCOUNTER 2024-11-25 08:23 | Emergency (ER) | payer OTHER, SELFPAY ==
[2024-11-25 08:24] VITALS: BP 120/90; PULSE 84; RESP 14; TEMP 36.8; O2SAT 99; BMI 32.9
--- NOTE | 2024-11-25 08:56 | ECG_ITS ---
APPROVED REPORT Exam: Resting ECG HR:52 bpm ECG Measurements Heart Rate 52 AXES VA 155 P 49 QRSd 77 QRS 72 QT 402 T 60 QTc 383 Conclusion SINUS BRADYCARDIA No STEMI Electronically signed by : KAREN WOLF, 11/25/2024 15:10:41
[2024-11-25 09:00] VITALS: BP 131/97; PULSE 81; RESP 12; O2SAT 99
--- NOTE | 2024-11-25 09:00 | PC.NURSE ---
DR WOLF AT BEDSIDE
--- NOTE | 2024-11-25 09:08 | HMH.EDGENADL ---
Discharge Plan Disposition Patient Disposition: Home, Self-Care Condition: Good Prescriptions Prescriptions: New metoclopramide HCl [Reglan] 10 mg tablet 10 mg PO Q6H PRN (Reason: nausea and vomiting) Qty: 10 0RF No Action lisdexamfetamine [Vyvanse] 40 mg capsule 40 mg PO DAILY Qty: 30 0RF methylphenidate HCl [Concerta] 27 mg tablet extended release 24hr 27 mg PO DAILY Qty: 30 0RF levothyroxine 200 mcg Tablet 200 mcg PO DAILYDM levocetirizine [Xyzal] 5 mg Tablet 5 mg PO DAILY ondansetron 4 mg tablet,disintegrating 4 mg PO Q8H PRN (Reason: nausea and vomiting) Qty: 10 0RF fludrocortisone 0.1 mg tablet 0.1 mg PO QODHS hydrocortisone 5 mg tablet 5 mg PO DAILY 30 Days Qty: 40 0RF hydrocortisone 10 mg tablet 10 mg PO AM 30 Days Qty: 40 0RF esomeprazole magnesium 20 mg Capsule,Delayed Release(Dr/Ec) 20 mg PO DAILY Referrals Follow up/Referrals: Vincent Roberson MD [Primary Care Provider] - See instructions Activity Restrictions/Add. Instructions Additional Instructions/Restrictions: You were evaluated in the emergency department today. Continue with increased stress dose steroids for 48 hours or until symptoms have resolved. 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 Return to the emergency department for new or worsening symptoms. Clinical Impressions Clinical Impression: Nausea & vomiting, [place] disease Stand Alone Forms Stand Alone Forms: Work/School Release Instructions Patient Instructions: DI for Addisons Disease, DI for Nausea -- Adult Print Language Print Language: Icelandic Discharge ED Provider: Anusha Sweeney General Adult HPI General Chief complaint: Abdominal Pain Stated complaint: ben's crisis, GI upset Time Seen by Provider: 11/25/24 08:27 Mode of Arrival: Ambulatory Source of Information: Patient and Parent(s) Limitations: No Limitations Description of Symptoms (Recalled from ER Triage Doc. by RN): pt is here bc she has had gi upset since yesterday, n/v/d, took zofran and has helped, pt has adddisons disease, pt is concerned that she has gastroperiese bc she started ozempic a week ago History of Present Illness HPI narrative: This patient is a 34-year-old female with a history of [place]'s disease presenting to the emergency department for evaluation with concern for nausea, vomiting, and generally feeling unwell. Patient states that she started Ozempic 6 days ago to lose weight, and initially done okay until yesterday she developed nausea and vomiting. She states that she took Zofran with some improvement, but she continues to have significant nausea. This morning, she felt very lightheaded, so she was concerned that she could be in an [place]'s crisis. She also complains of heartburn. No localizable abdominal pain, changes in bowel movements, or other concerns. She did triple her hydrocortisone dose this morning, but is still feeling very bad. Regimen: 10mg hydrocortisone AM, 5 mg hydrocortisone PM fludricortisone: 0.1 mg daily Related Data Home Medications ?Medication ?Instructions ?Recorded ?Confirmed fludrocortisone 0.1 mg tablet 0.1 mg PO QODHS 09/03/23 10/13/24 esomeprazole magnesium 20 mg 20 mg PO DAILY 03/16/24 10/13/24 capsule,delayed release levothyroxine 200 mcg tablet 200 mcg PO DAILYDM 04/05/24 10/13/24 levocetirizine 5 mg tablet (Xyzal) 5 mg PO DAILY 10/13/24 10/13/24 Previous Rx's ?Medication ?Instructions ?Recorded hydrocortisone 10 mg tablet 10 mg PO AM 30 days #40 tabs 09/03/23 hydrocortisone 5 mg tablet 5 mg PO DAILY 30 days #40 tabs 09/03/23 ondansetron 4 mg disintegrating 4 mg PO Q8H PRN nausea and 10/13/24 tablet vomiting #10 tabs lisdexamfetamine 40 mg capsule 40 mg PO DAILY #30 caps 11/20/24 (Vyvanse) methylphenidate HCl 27 mg 27 mg PO DAILY #30 tabs 11/21/24 tablet,extended release 24 hr (Concerta) metoclopramide HCl 10 mg tablet 10 mg PO Q6H PRN nausea and 11/25/24 (Reglan) vomiting #10 tabs Allergies Allergy/AdvReac Type Severity Reaction Status Date / Time Penicillins Allergy Intermediate Rash Verified 10/13/24 12:35 amoxicillin Allergy Rash Verified 10/13/24 12:35 Cephalosporins AdvReac Mild Rash Verified 10/13/24 12:35 PFSH PFS Disclaimer: The information contained in this section may have been updated after the patient was seen, as this information can be updated by other users. Medical History PCOS (polycystic ovarian syndrome) ADHD Ben disease Thyroid disease Depression Anxiety History of gastroesophageal reflux (GERD) Asthma Surgical History History of dilation and curettage History of tympanostomy tube placement History of tonsillectomy History of section Social History Smoking Status: Never smoker alcohol intake: never substance use type: denies use current occupational status: employed Travel in the last 8 weeks: None household members: significant other housing: house Have you lived/traveled outside US in past 30 days?: No Contact w/someone who lives/traveled outside US past 30 days?: No Exposure to someone with infectious disease in past 14 days?: No Do you have a fever (greater than 100.4 F or 38 C)?: No Have you tested positive for COVID-19: No Exposed to someone with COVID-19 in past 14 days?: No Do you have a sore throat?: No Do you have a cough?: No Do you have any weakness?: No Do you have any diarrhea?: No Are you experiencing any unusual bleeding?: No Do you have any muscle aches/pain?: No Do you have any abdominal pain?: No Are you experiencing loss of taste or smell?: No Other Medical History Have you received the Flu Vaccine for this season: No Have you received the Pneumonia Vaccine: No ROS Obtained: Yes All systems reviewed & no additional complaints except as documented Physical Exam General General appearance: alert and in no apparent distress Head Head exam: atraumatic and normocephalic Eye Eye exam: Present normal appearance, PERRL and EOMI ENT ENT exam: Present normal exam, normal oropharynx, mucous membranes moist and normal external ear exam Neck Neck exam: Present normal inspection, full ROM and trachea midline; Absent tenderness Chest Chest inspection: Present normal inspection and symmetric chest wall rise; Absent tenderness Respiratory Respiratory exam: Present normal lung sounds bilaterally; Absent respiratory distress, wheezes, stridor or accessory muscle use Cardiovascular Cardiovascular exam: Present regular rate and normal rhythm Abdominal Exam Abdominal exam: Present soft; Absent distention, tenderness or guarding Extremities Exam Extremities exam: Present normal inspection, full ROM and normal capillary refill; Absent tenderness or edema Back Exam Back exam: Present normal inspection and full ROM; Absent tenderness Neurological Exam Neurological exam: Present alert, oriented X3, CN II-XII intact and normal gait; Absent motor sensory deficit Psychiatric Psychiatric exam: Present normal affect and normal mood Skin Skin exam: Present warm and dry Medical Decision Making Medical Records Medical records reviewed: Yes I reviewed the patient's medical records. Screening: Per USPSTF and CDC recommendations, given the prevalence of disease in our region, it is our hospital?s policy to screen for HIV and viral Hepatitis for all patients aged 18 and over and those with ongoing risk factors. Alejandro Inquiry Pt receiving controlled substance: No Vital Signs: 11/25/24 08:24 11/25/24 09:00 11/25/24 10:01 Temperature 98.2 F Temperature Source Oral Pulse Rate 81 74 Pulse Rate [Right Radial] 84 Respiratory Rate 14 12 13 Blood Pressure 131/97 H 95/61 L Blood Pressure [Right Arm] 120/90 Blood Pressure Mean [Right Arm] 100 Blood Pressure Source 02 Sat by Pulse Oximetry 99 99 100 Oxygen Delivery Method Room Air Room Air Room Air 11/25/24 11:26 Temperature 98.2 F Temperature Source Oral Pulse Rate 80 Pulse Rate [Right Radial] Respiratory Rate 16 Blood Pressure 131/80 Blood Pressure [Right Arm] Blood Pressure Mean [Right Arm] Blood Pressure Source Automatic Cuff 02 Sat by Pulse Oximetry Oxygen Delivery Method Room Air Lab Data Lab results reviewed: Yes I reviewed the patient's lab results. Lab Results 11/25/24 09:04: WBC 12.1 H, RBC 4.64, Hgb 14.0, Hct 41.0, MCV 88.4, MCH 30.2, MCHC 34.1, RDW 12.1, Plt Count 257, MPV 11.4 H, Neut % (Auto) 68.4, Lymph % (Auto) 23.4, Greene % (Auto) 4.8, Eos % (Auto) 2.5, Baso % (Auto) 0.7, Neut # (Auto) 8.3 H, Lymph # (Auto) 2.8, Greene # (Auto) 0.6, Eos # (Auto) 0.3, Baso # (Auto) 0.1, Sodium 135 L, Potassium 4.1, Chloride 98, Carbon Dioxide 30, Anion Gap 11.1, BUN 17, Creatinine 0.90, Estimated Creat Clear 112, Estimated GFR 71, Est GFR ( Amer) 86, Glucose 94, Calcium 9.8, Total Bilirubin 0.6, AST 27, ALT 19, Alkaline Phosphatase 53, Total Protein 7.8, Albumin 4.7, Globulin 3.1, Albumin/Globulin Ratio 1.5, Lipase 68, Serum HCG, Qual Negative 11/25/24 09:08: SARS-CoV-2 (PCR) Not detected, Influenza A Untype (PCR) Not detected, Influenza Type B (PCR) Not detected 11/25/24 10:30: Urine Color Yellow, Urine Appearance Clear, Urine pH 6.0, Ur Specific [place] 1.015, Urine Protein Negative, Urine Glucose (UA) Negative, Urine Ketones Negative, Urine Blood Negative, Urine Nitrate Negative, Urine Bilirubin Negative, Urine Urobilinogen 0.2, Ur Leukocyte Esterase Negative, Urine RBC None, Urine WBC None, Ur Squamous Epith Cells 3-5, Urine Bacteria Trace 11/25/24 09:04 11/25/24 09:04 Orders (Tests/Meds): ED MEDICATIONS Discontinued Medications Generic Name Dose Route Start Last Admin Trade Name Freq PRN Reason Stop Dose Admin Famotidine 20 mg 11/25/24 09:06 11/25/24 09:25 Famotidine 20mg/2ml Vial IV 11/25/24 09:07 20 mg ONCE ONE Administration Hydrocortisone Sodium Succinate 100 mg 11/25/24 09:06 11/25/24 09:25 Hydrocortisone Sod Succinate 100mg Vial IV 11/25/24 09:07 100 mg ONCE ONE Administration Lactated Ringer's 1,000 mls @ 999 mls/hr 11/25/24 09:06 11/25/24 09:26 Lactated Ringer's 1000 Ml Bag IV 11/25/24 10:06 999 mls/hr .Q1H1M ONE Administration Ondansetron HCl 4 mg 11/25/24 09:06 11/25/24 09:26 Ondansetron 4mg/2ml Vial IV 11/25/24 09:07 4 mg ONCE ONE Administration Sodium Chloride 8 ml 11/25/24 09:06 Sodium Chloride 0.9% 10ml Vial IV 12/25/24 09:05 NEEDED PRN dilute pepcid ORDERS Category Date Time Status Complete Blood Count Auto Diff Stat Lab 11/25/24 09:04 Completed Comprehensive Metabolic Panel Stat Lab 11/25/24 09:04 Completed Lipase Stat Lab 11/25/24 09:04 Completed Rapid PCR Covid and Flu A/B Stat Lab 11/25/24 09:08 Completed Serum [HCG Qualitative, Serum] Stat Lab 11/25/24 09:04 Completed UA [Urinalysis and Microscopic] Stat Lab 11/25/24 10:30 Completed ECG Data Tracing #1: I reviewed this ECG and interpreted as documented below: Sinus bradycardia with a ventricular to [address] changes concerning for ischemia. Normal intervals. QTc 383 ms ECG initial impression date: 11/25/24 ECG initial impression time: 09:07 Medical Decision Narrative: In summary, this patient is a 34-year-old female presenting to the Emergency Department for evaluation of nausea, vomiting, lightheadedness. Differential diagnoses considered include but are not limited to gastroparesis, pancreatitis, dehydration, electrolyte derangements, adrenal crisis. Ruling out the most morbid conditions drove assessment. It should be noted patient's history includes [place]'s disease which may or may not be at goal therapy. This complicates all aspects of care by increasing patient's risk for morbidity. On exam, the patient is lying in bed in no acute distress with normal vital signs and cardiac telemetry. Abdominal exam is benign, and she has no localizable abdominal pain. Workup included CBC, CMP, magnesium, lipase, urinalysis. Patient was given a bolus of IV fluids, IV hydrocortisone, IV Zofran, and IV Pepcid for symptomatic improvement. I considered obtaining abdominal imaging such as CT scan of the abdomen and pelvis, however based on reassuring exam and history, I do not feel that imaging is indicated as I do not feel the patient likely has surgical intra-abdominal pathology. EKG obtained is reassuring with sinus bradycardia. On reassessment, the patient had improvement after administration of IV fluids and Zofran and is feeling better. Vitals are normal on cardiac telemetry, abdominal exam is benign. Labs demonstrate very mild leukocytosis. Sodium is at the lower end of normal at 135, but labs are not consistent with adrenal crisis. Overall, I feel she has a benign cause of nausea and vomiting and is appropriate for discharge back home with prescription for Reglan to have as needed on hand if Zofran is not helping, and instructions for stress dose steroids until her symptoms have resolved. I also advised that she follow-up very closely with primary care as well as with her sas programmer. Very strict return precautions were given and she was discharged after all questions were answered. Critical Care Critical Care Time Critical Care Time: No
[2024-11-25 09:15] LABS: Coronavirus 19, PCR Not Detected (NotDetected); Influenza A, PCR Not Detected (NotDetected); Influenza B, PCR Not Detected (NotDetected)
[2024-11-25 09:16] LABS: Basophils # 0.1 K/mm3 (0-0.2); Basophils % 0.7 % (0.1-2.0); Eosinophils # 0.3 K/mm3 (0.0-0.4); Eosinophils % 2.5 % (0.1-12.0); Lymphocytes # 2.8 K/mm3 (0.7-4.5); Lymphocytes % 23.4 % (10-50); Mean Corpuscular HGB Conc 34.1 g/dL (31.8-35.4); Mean Corpuscular Hemoglobin 30.2 pg (27.0-31.2); Mean Corpuscular Volume 88.4 fl (81-99); Mean Platelet Volume 11.4 fl (7.4-10.4); Monocytes # 0.6 K/mm3 (0.1-1.0); Monocytes % 4.8 % (1.7-9.3); Neutrophils # 8.3 K/mm3 (1.8-7.8); Neutrophils % 68.4 % (37.0-80.0); Platelet Count 257 K/mm3 (142-424); Red Blood Count 4.64 M/mm3 (4.20-5.40); Red Cell Distribution Width 12.1 % (11.5-17.5); White Blood Count 12.1 K/mm3 (4.8-10.8)
[2024-11-25 09:25] LABS: Albumin Level 4.7 g/dl (3.5-5.0); Chloride 98 mmol/L (98-107); Potassium 4.1 mmoL/L (3.5-5.1); Sodium 135 mmol/L (136-145)
[2024-11-25] MEDS: FAMOTIDINE 20MG/2ML VIAL 20 MG IV (09:25)
[2024-11-25] MEDS: HYDROCORTISONE SOD SUCCINATE 100MG VIAL 100 MG IV (09:25)
[2024-11-25] MEDS: ONDANSETRON 4MG/2ML VIAL 4 MG IV (09:26)
[2024-11-25] MEDS: LACTATED RINGERS 1000ML 1,000 ML 999 ML IV (09:26)
[2024-11-25 09:28] LABS: Alanine Aminotransferase 19 U/L (12-78); Albumin/Globulin Ratio 1.5 (1.1-1.8); Alkaline Phosphatase 53 U/L (38-126); Anion Gap 11.1 mEq/L (5-15); Aspartate Amino Transferase 27 U/L (14-36); Bilirubin,Total 0.6 mg/dl (0.2-1.3); Blood Urea Nitrogen 17 mg/dl (7-17); Calcium 9.8 mg/dl (8.4-10.2); Carbon Dioxide 30 mmol/L (22.0-30.0); Creatinine Clearance Estimated 112 mL/min (50-200); Estimated Glomerular Filt Rate 71 ml/min (>60); GFR (African American) 86 ML/MIN (>60); Globulin 3.1 g/dL (1.3-3.2); Glucose 94 mg/dl (74-100); Lipase 68 U/L (23-300); Total Protein,Serum 7.8 g/dl (6.3-8.2)
[2024-11-25 09:42] LABS: HCG Qualitative, Serum Negative (Negative)
[2024-11-25 10:01] VITALS: BP 95/61; PULSE 74; RESP 13; O2SAT 100
--- NOTE | 2024-11-25 10:34 | PC.NURSE ---
pt drinking for her PO challenge. Urine sent to lab
[2024-11-25 10:36] LABS: Microscopic, Urine URINE MICROSCOPIC (MICROSCOPIC)
[2024-11-25 10:39] LABS: Appearance,Urine CLEAR (Clear); Bilirubin,Urine Negative (Negative); Blood, Urine Negative (Negative); Color,Urine YELLOW (Yellow); Glucose,Urine (UA) Negative (Negative); Ketones,Urine Negative (Negative); Leukocyte Esterase,Urine Negative (Negative); Nitrate,Urine Negative (Negative); Protein,Urine Negative (Negative); Specific Gravity, Urine 1.015 (1.005-1.030); Urobilinogen,Urine 0.2 EU/dl (0.2)
[2024-11-25 11:08] LABS: Bacteria,Urine Trace /lpf
[2024-11-25 11:26] VITALS: BP 131/80; PULSE 80; RESP 16; TEMP 36.8; O2SAT 98
== END 2024-11-25 11:29 | disposition home or self-care (01) ==
PROVIDERS: Emergency Provider Emergency Medicine; PCP Internal Medicine Adolescent Medicine
DX: R11.2 Nausea with vomiting, unspecified (principal); R19.7 Diarrhea, unspecified; E27.1 Primary adrenocortical insufficiency
CPT/HCPCS: 80053; 81001; 83690; 84703; 85025; 87636; 93005; 96365; 96374; 96375; 99283; J2405; J7120; S0028

== ENCOUNTER 2024-12-15 06:10 | Emergency (ER) | payer OTHER, SELFPAY ==
[2024-12-15] VITALS (13 sets, daily range): BP systolic 86–153; BP diastolic 57–93; PULSE 75–105; RESP 16–18; TEMP 36.9; O2SAT 98–100; BMI 31.1
--- NOTE | 2024-12-15 06:23 | XR_ITS ---
PROCEDURE INFORMATION: Exam: XR Chest Exam date and time: 12/15/2024 6:39 AM Age: 34 years old Clinical indication: Fever TECHNIQUE: Imaging protocol: Radiologic exam of the chest. Views: 1 view. COMPARISON: CR XR CHEST 2V 07/27/2024 8:39 PM FINDINGS: Lungs: Unremarkable. No consolidation. Pleural spaces: Unremarkable. No pleural effusion. No pneumothorax. Heart/Mediastinum: Unremarkable. No cardiomegaly. Bones/joints: Unremarkable. IMPRESSION: No acute findings.
--- NOTE | 2024-12-15 06:25 | HMH.EDGENADL ---
Discharge Plan Disposition Patient Disposition: Home, Self-Care Condition: Good Prescriptions Prescriptions: No Action lisdexamfetamine [Vyvanse] 40 mg capsule 40 mg PO DAILY Qty: 30 0RF methylphenidate HCl [Concerta] 27 mg tablet extended release 24hr 27 mg PO DAILY Qty: 30 0RF levothyroxine 200 mcg Tablet 200 mcg PO DAILYDM levocetirizine [Xyzal] 5 mg Tablet 5 mg PO DAILY ondansetron 4 mg tablet,disintegrating 4 mg PO Q8H PRN (Reason: nausea and vomiting) Qty: 10 0RF metoclopramide HCl [Reglan] 10 mg tablet 10 mg PO Q6H PRN (Reason: nausea and vomiting) Qty: 10 0RF fludrocortisone 0.1 mg tablet 0.1 mg PO QODHS hydrocortisone 5 mg tablet 5 mg PO DAILY 30 Days Qty: 40 0RF hydrocortisone 10 mg tablet 10 mg PO AM 30 Days Qty: 40 0RF esomeprazole magnesium 20 mg Capsule,Delayed Release(Dr/Ec) 20 mg PO DAILY Referrals Follow up/Referrals: Vincent Roberson MD [Primary Care Provider] - See instructions Activity Restrictions/Add. Instructions Additional Instructions/Restrictions: You were evaluated in the emergency department today. Please take stress dose steroids at home per your protocol. Take Tylenol and ibuprofen as needed for pain/fever. Follow-up closely with your primary care provider. Return to the emergency department for new or worsening symptoms. Clinical Impressions Clinical Impression: Influenza A, Izard's disease Stand Alone Forms Stand Alone Forms: Work/School Release Instructions Patient Instructions: DI for Viral Syndrome Print Language Print Language: [place] Discharge ED Provider: Anusha Sweeney General Adult HPI <Jamarcus Charles MD - Last Filed: 12/15/24 07:08> General Chief complaint: Recheck/Abnormal Lab/Rx Stated complaint: LBP Time Seen by Provider: 12/15/24 06:15 Mode of Arrival: Ambulatory Source of Information: Patient Description of Symptoms (Recalled from ER Triage Doc. by RN): Patient reports low blood pressure at home, and feeling unwell. States she has addisons disease and being sick puts her at a higher risk of addisonian crisis. States she was diagnosed with strep on monday. 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 She reports she was diagnosed with strep 2 days ago and is on clindamycin for treatment. Despite this she continues to have a fever and tachycardia at home. She felt dizzy and had some back pain (these are red flag signs for her of being in a crisis). When she checked her blood pressure at home her blood pressure was too low to read so she came into the ER. On initial arrival patient's blood pressure is normotensive. She denies any urinary symptoms, significant shortness of breath or other infectious symptoms. Related Data Home Medications ?Medication ?Instructions ?Recorded ?Confirmed fludrocortisone 0.1 mg tablet 0.1 mg PO QODHS 09/03/23 12/15/24 esomeprazole magnesium 20 mg 20 mg PO DAILY 03/16/24 12/15/24 capsule,delayed release levothyroxine 200 mcg tablet 200 mcg PO DAILYDM 04/05/24 12/15/24 levocetirizine 5 mg tablet (Xyzal) 5 mg PO DAILY 10/13/24 12/15/24 Previous Rx's ?Medication ?Instructions ?Recorded hydrocortisone 10 mg tablet 10 mg PO AM 30 days #40 tabs 09/03/23 hydrocortisone 5 mg tablet 5 mg PO DAILY 30 days #40 tabs 09/03/23 ondansetron 4 mg disintegrating 4 mg PO Q8H PRN nausea and 10/13/24 tablet vomiting #10 tabs lisdexamfetamine 40 mg capsule 40 mg PO DAILY #30 caps 11/20/24 (Vyvanse) methylphenidate HCl 27 mg 27 mg PO DAILY #30 tabs 11/21/24 tablet,extended release 24 hr (Concerta) metoclopramide HCl 10 mg tablet 10 mg PO Q6H PRN nausea and 11/25/24 (Reglan) vomiting #10 tabs Allergies Allergy/AdvReac Type Severity Reaction Status Date / Time Penicillins Allergy Intermediate Rash Verified 10/13/24 12:35 amoxicillin Allergy Rash Verified 10/13/24 12:35 Cephalosporins AdvReac Mild Rash Verified 10/13/24 12:35 COUNT INCLUDES THE [facility] <Jamarcus Charles MD - Last Filed: 12/15/24 07:08> COUNT INCLUDES THE [facility] Disclaimer: The information contained in this section may have been updated after the patient was seen, as this information can be updated by other users. Medical History PCOS (polycystic ovarian syndrome) ADHD Nacho disease Thyroid disease Depression Anxiety History of gastroesophageal reflux (GERD) Asthma Surgical History History of dilation and curettage History of tympanostomy tube placement History of tonsillectomy History of section Social History (Updated 12/12/24 @ 08:53 by Annika Ortega APRN) Smoking Status: Never smoker second hand exposure: No alcohol intake: never counseling given: No substance use type: denies use counseling given: No current occupational status: employed Travel in the last 8 weeks: None adopted: No caregiver/support person: Yes foster care: No household members: spouse housing: house lives independently: Yes marital status: number of children: 2 education level: master's degree Hx Recent Travel: No sexually active: Yes caffeine: Yes physical activity: none tangela/jain: Confucianism special tangela needs: No working smoke detector in home: Yes fire extinguisher in home: Yes carbon monox detector in home: Yes firearms in home: Yes firearms unloaded and locked: Yes do you feel safe at home: Yes victim of physical abuse: No victim of emotional abuse: No victim of sexual abuse: No would you like helpful sources: No Have you lived/traveled outside [place] in past 30 days?: No Contact w/someone who lives/traveled outside [place] past 30 days?: No Exposure to someone with infectious disease in past 14 days?: No Do you have a fever (greater than 100.4 F or 38 C)?: No Have you tested positive for COVID-19: No Exposed to someone with COVID-19 in past 14 days?: No Do you have a sore throat?: No Do you have a cough?: No Do you have any weakness?: No Do you have any diarrhea?: No Are you experiencing any unusual bleeding?: No Do you have any muscle aches/pain?: No Do you have any abdominal pain?: No Are you experiencing loss of taste or smell?: No Other Medical History Have you received the Flu Vaccine for this season: No Have you received the Pneumonia Vaccine: No <Jamarcus Charles MD - Last Filed: 12/15/24 07:08> ROS Obtained: Yes All systems reviewed & no additional complaints except as documented Physical Exam <Jamarcus Charles MD - Last Filed: 12/15/24 07:08> General General appearance: alert and in no apparent distress Head Head exam: atraumatic and normocephalic Eye Eye exam: Present normal appearance, PERRL and EOMI ENT ENT exam: Present normal oropharynx and normal external ear exam Neck Neck exam: Present normal inspection and full ROM Chest Chest inspection: Present normal inspection and symmetric chest wall rise; Absent tenderness Respiratory Respiratory exam: Present normal lung sounds bilaterally; Absent respiratory distress Cardiovascular Cardiovascular exam: Present normal rhythm and tachycardia Abdominal Exam Abdominal exam: Present soft; Absent distention, tenderness or guarding Extremities Exam Extremities exam: Present normal inspection; Absent edema or joint swelling Back Exam Back exam: Present normal inspection; Absent tenderness Neurological Exam Neurological exam: Present alert and oriented X3; Absent motor sensory deficit Psychiatric Psychiatric exam: Present normal affect and normal mood Skin Skin exam: Present warm, dry and normal color Lymphatic Lymphatic Findings: no adenopathy Medical Decision Making <Jamarcus Charles MD - Last Filed: 12/15/24 07:08> Medical Records Medical records reviewed: Yes I reviewed the patient's medical records. Screening: Per USPSTF and CDC recommendations, given the prevalence of disease in our region, it is our hospital?s policy to screen for HIV and viral Hepatitis for all patients aged 18 and over and those with ongoing risk factors. Alejandro Inquiry Pt receiving controlled substance: No Alejandro was queried for this patient: No Vital Signs: 12/15/24 06:22 12/15/24 06:30 12/15/24 07:00 Temperature 98.5 F Temperature Source Temporal Artery Scan Pulse Rate 105 H 89 Pulse Rate [Right Radial] 105 H Respiratory Rate 18 Blood Pressure 110/71 118/75 Blood Pressure [Right Arm] 153/93 H Blood Pressure Mean [Right Arm] 113 Blood Pressure Source Blood Pressure Source [Right Arm] Automatic Cuff Blood Pressure Position Blood Pressure Position [Right Arm] Supine 02 Sat by Pulse Oximetry 100 99 100 Oxygen Delivery Method Room Air Room Air 12/15/24 07:13 12/15/24 07:15 12/15/24 07:30 Temperature Temperature Source Pulse Rate 80 99 H 85 Pulse Rate [Right Radial] Respiratory Rate Blood Pressure 96/62 L 99/72 L 98/62 L Blood Pressure [Right Arm] Blood Pressure Mean [Right Arm] Blood Pressure Source Blood Pressure Source [Right Arm] Blood Pressure Position Blood Pressure Position [Right Arm] 02 Sat by Pulse Oximetry 98 98 98 Oxygen Delivery Method Room Air Room Air Room Air 12/15/24 07:54 12/15/24 07:55 12/15/24 08:00 Temperature Temperature Source Pulse Rate 85 82 75 Pulse Rate [Right Radial] Respiratory Rate Blood Pressure 86/57 L 95/58 L 88/59 L Blood Pressure [Right Arm] Blood Pressure Mean [Right Arm] Blood Pressure Source Blood Pressure Source [Right Arm] Blood Pressure Position Blood Pressure Position [Right Arm] 02 Sat by Pulse Oximetry 99 100 100 Oxygen Delivery Method Room Air Room Air Room Air 12/15/24 08:02 12/15/24 08:15 12/15/24 08:30 Temperature Temperature Source Pulse Rate 83 84 81 Pulse Rate [Right Radial] Respiratory Rate Blood Pressure 94/58 L 96/57 L Blood Pressure [Right Arm] Blood Pressure Mean [Right Arm] Blood Pressure Source Blood Pressure Source [Right Arm] Blood Pressure Position Blood Pressure Position [Right Arm] 02 Sat by Pulse Oximetry 99 100 100 Oxygen Delivery Method Room Air Room Air 12/15/24 08:45 Temperature 98.5 F Temperature Source Oral Pulse Rate 78 Pulse Rate [Right Radial] Respiratory Rate 16 Blood Pressure 96/57 L Blood Pressure [Right Arm] Blood Pressure Mean [Right Arm] Blood Pressure Source Automatic Cuff Blood Pressure Source [Right Arm] Blood Pressure Position Sitting Blood Pressure Position [Right Arm] 02 Sat by Pulse Oximetry Oxygen Delivery Method Room Air Lab Data Lab results reviewed: Yes I reviewed the patient's lab results. Lab Results 12/15/24 06:33: WBC 5.2, RBC 4.32, Hgb 13.0, Hct 37.7, MCV 87.3, MCH 30.1, MCHC 34.5, RDW 11.7, Plt Count 194, MPV 11.8 H, Neut % (Auto) 54.9, Lymph % (Auto) 33.7, Sullivan % (Auto) 9.1, Eos % (Auto) 1.5, Baso % (Auto) 0.6, Neut # (Auto) 2.8, Lymph # (Auto) 1.7, Sullivan # (Auto) 0.5, Eos # (Auto) 0.1, Baso # (Auto) 0.0, Sodium 135 L, Potassium 3.6, Chloride 104, Carbon Dioxide 24, Anion Gap 10.6, BUN 9, Creatinine 0.80, Estimated Creat Clear 119, Estimated GFR 82, Est GFR ( Amer) 99, Glucose 92, Calcium 8.8, Magnesium 1.6, Total Bilirubin 0.2, AST 27, ALT 17, Alkaline Phosphatase 49, Total Protein 7.0, Albumin 4.2, Globulin 2.8, Albumin/Globulin Ratio 1.5 12/15/24 06:38: SARS-CoV-2 (PCR) Not detected, Influenza A Untype (PCR) Detected A, Influenza Type B (PCR) Not detected 12/15/24 07:17: Urine Color Yellow, Urine Appearance Clear, Urine pH 6.0, Ur Specific Wister 1.025, Urine Protein Negative, Urine Glucose (UA) Negative, Urine Ketones Negative, Urine Blood Negative, Urine Nitrate Negative, Urine Bilirubin Negative, Urine Urobilinogen 0.2, Ur Leukocyte Esterase Negative, Urine RBC None, Urine WBC Occasional, Ur Squamous Epith Cells 20-50, Urine Bacteria Trace 12/15/24 06:33 12/15/24 06:33 Orders (Tests/Meds): ED MEDICATIONS Discontinued Medications Generic Name Dose Route Start Last Admin Trade Name Russellq PRN Reason Stop Dose Admin Hydrocortisone Sodium Succinate 100 mg 12/15/24 07:47 12/15/24 08:01 Hydrocortisone Sod Succinate 100mg Vial IV 12/15/24 07:48 100 mg ONCE ONE Administration Sodium Chloride 1,000 mls @ 999 mls/hr 12/15/24 07:48 12/15/24 08:02 Sod Chlor 0.9% 1000ml Bag IV 12/15/24 08:48 999 mls/hr .Q1H1M ONE Administration ORDERS Category Date Time Status CXR --portable [XR chest portable] Stat Exams 12/15/24 06:23 Completed CBC w/Auto Diff [Complete Blood Count Auto Diff] Stat Lab 12/15/24 06:33 Completed CMP [Comprehensive Metabolic Panel] Stat Lab 12/15/24 06:33 Completed Magnesium Stat Lab 12/15/24 06:33 Completed Rapid PCR Covid and Flu A/B Stat Lab 12/15/24 06:38 Completed UA [Urinalysis and Microscopic] Stat Lab 12/15/24 07:17 Completed Blood Culture Stat Micro 12/15/24 06:39 Received Medical Decision Narrative: 34-year-old female with history of of Izard's disease presents with concern for crisis, currently being treated for strep throat with clindamycin but continues to be febrile, more tachycardic than normal, concern for low blood pressure at home. History was obtained via interactive discussion with patient, chart review. On arrival, patient is [afebrile, hemodynamically stable, satting appropriately, alert, oriented x4, GCS 15], moving all extremities spontaneously. Full physical exam performed and significant for clear lungs bilaterally, clear oropharynx, no abdominal tenderness Differential includes but is not limited to strep throat, URI, pneumonia, UTI, bacteremia, Nacho's crisis. Workup initiated including CBC CMP UA blood cultures COVID flu swab chest x-ray. On my independent interpretation, chest x-ray is clear without focal opacity. On my independent interpretation, laboratories all show no significant electrolyte derangement or leukocytosis. At this time care handed off to oncoming physician pending urinalysis and COVID flu swab. <Anusha Sweeney, DO - Last Filed: 12/15/24 15:40> Vital Signs: 12/15/24 06:22 12/15/24 06:30 12/15/24 07:00 Temperature 98.5 F Temperature Source Temporal Artery Scan Pulse Rate 105 H 89 Pulse Rate [Right Radial] 105 H Respiratory Rate 18 Blood Pressure 110/71 118/75 Blood Pressure [Right Arm] 153/93 H Blood Pressure Mean [Right Arm] 113 Blood Pressure Source Blood Pressure Source [Right Arm] Automatic Cuff Blood Pressure Position Blood Pressure Position [Right Arm] Supine 02 Sat by Pulse Oximetry 100 99 100 Oxygen Delivery Method Room Air Room Air 12/15/24 07:13 12/15/24 07:15 12/15/24 07:30 Temperature Temperature Source Pulse Rate 80 99 H 85 Pulse Rate [Right Radial] Respiratory Rate Blood Pressure 96/62 L 99/72 L 98/62 L Blood Pressure [Right Arm] Blood Pressure Mean [Right Arm] Blood Pressure Source Blood Pressure Source [Right Arm] Blood Pressure Position Blood Pressure Position [Right Arm] 02 Sat by Pulse Oximetry 98 98 98 Oxygen Delivery Method Room Air Room Air Room Air 12/15/24 07:54 12/15/24 07:55 12/15/24 08:00 Temperature Temperature Source Pulse Rate 85 82 75 Pulse Rate [Right Radial] Respiratory Rate Blood Pressure 86/57 L 95/58 L 88/59 L Blood Pressure [Right Arm] Blood Pressure Mean [Right Arm] Blood Pressure Source Blood Pressure Source [Right Arm] Blood Pressure Position Blood Pressure Position [Right Arm] 02 Sat by Pulse Oximetry 99 100 100 Oxygen Delivery Method Room Air Room Air Room Air 12/15/24 08:02 12/15/24 08:15 12/15/24 08:30 Temperature Temperature Source Pulse Rate 83 84 81 Pulse Rate [Right Radial] Respiratory Rate Blood Pressure 94/58 L 96/57 L Blood Pressure [Right Arm] Blood Pressure Mean [Right Arm] Blood Pressure Source Blood Pressure Source [Right Arm] Blood Pressure Position Blood Pressure Position [Right Arm] 02 Sat by Pulse Oximetry 99 100 100 Oxygen Delivery Method Room Air Room Air 12/15/24 08:45 Temperature 98.5 F Temperature Source Oral Pulse Rate 78 Pulse Rate [Right Radial] Respiratory Rate 16 Blood Pressure 96/57 L Blood Pressure [Right Arm] Blood Pressure Mean [Right Arm] Blood Pressure Source Automatic Cuff Blood Pressure Source [Right Arm] Blood Pressure Position Sitting Blood Pressure Position [Right Arm] 02 Sat by Pulse Oximetry Oxygen Delivery Method Room Air Lab Data Lab Results 12/15/24 06:33: WBC 5.2, RBC 4.32, Hgb 13.0, Hct 37.7, MCV 87.3, MCH 30.1, MCHC 34.5, RDW 11.7, Plt Count 194, MPV 11.8 H, Neut % (Auto) 54.9, Lymph % (Auto) 33.7, Sullivan % (Auto) 9.1, Eos % (Auto) 1.5, Baso % (Auto) 0.6, Neut # (Auto) 2.8, Lymph # (Auto) 1.7, Sullivan # (Auto) 0.5, Eos # (Auto) 0.1, Baso # (Auto) 0.0, Sodium 135 L, Potassium 3.6, Chloride 104, Carbon Dioxide 24, Anion Gap 10.6, BUN 9, Creatinine 0.80, Estimated Creat Clear 119, Estimated GFR 82, Est GFR ( Amer) 99, Glucose 92, Calcium 8.8, Magnesium 1.6, Total Bilirubin 0.2, AST 27, ALT 17, Alkaline Phosphatase 49, Total Protein 7.0, Albumin 4.2, Globulin 2.8, Albumin/Globulin Ratio 1.5 12/15/24 06:38: SARS-CoV-2 (PCR) Not detected, Influenza A Untype (PCR) Detected A, Influenza Type B (PCR) Not detected 12/15/24 07:17: Urine Color Yellow, Urine Appearance Clear, Urine pH 6.0, Ur Specific Wister 1.025, Urine Protein Negative, Urine Glucose (UA) Negative, Urine Ketones Negative, Urine Blood Negative, Urine Nitrate Negative, Urine Bilirubin Negative, Urine Urobilinogen 0.2, Ur Leukocyte Esterase Negative, Urine RBC None, Urine WBC Occasional, Ur Squamous Epith Cells 20-50, Urine Bacteria Trace Orders (Tests/Meds): ED MEDICATIONS Discontinued Medications Generic Name Dose Route Start Last Admin Trade Name Freq PRN Reason Stop Dose Admin Hydrocortisone Sodium Succinate 100 mg 12/15/24 07:47 12/15/24 08:01 Hydrocortisone Sod Succinate 100mg Vial IV 12/15/24 07:48 100 mg ONCE ONE Administration Sodium Chloride 1,000 mls @ 999 mls/hr 12/15/24 07:48 12/15/24 08:02 Sod Chlor 0.9% 1000ml Bag IV 12/15/24 08:48 999 mls/hr .Q1H1M ONE Administration ORDERS Category Date Time Status CXR --portable [XR chest portable] Stat Exams 12/15/24 06:23 Completed CBC w/Auto Diff [Complete Blood Count Auto Diff] Stat Lab 12/15/24 06:33 Completed CMP [Comprehensive Metabolic Panel] Stat Lab 12/15/24 06:33 Completed Magnesium Stat Lab 12/15/24 06:33 Completed Rapid PCR Covid and Flu A/B Stat Lab 12/15/24 06:38 Completed UA [Urinalysis and Microscopic] Stat Lab 12/15/24 07:17 Completed Blood Culture Stat Micro 12/15/24 06:39 Received Medical Decision Narrative: 34-year-old female with history of of Izard's disease presents with concern for crisis, currently being treated for strep throat with clindamycin but continues to be febrile, more tachycardic than normal, concern for low blood pressure at home. History was obtained via interactive discussion with patient, chart review. On arrival, patient is [afebrile, hemodynamically stable, satting appropriately, alert, oriented x4, GCS 15], moving all extremities spontaneously. Full physical exam performed and significant for clear lungs bilaterally, clear oropharynx, no abdominal tenderness Differential includes but is not limited to strep throat, URI, pneumonia, UTI, bacteremia, Nacho's crisis. Workup initiated including CBC CMP UA blood cultures COVID flu swab chest x-ray. On my independent interpretation, chest x-ray is clear without focal opacity. On my independent interpretation, laboratories all show no significant electrolyte derangement or leukocytosis. At this time care handed off to oncoming physician pending urinalysis and COVID flu swab. DO Patel: I assumed care of the patient at 7 AM. On my assessment, she is lying comfortably in bed in no acute distress. She did test positive for the flu. Labs otherwise reassuring without significant electrolyte derangements. She was given a bolus of IV fluids here and was also given stress dose IV steroids. At this time, feel she is appropriate for discharge home with instructions to increase steroids per her stress to steroid protocol. Strict return precautions given as well as instructions for close outpatient follow-up. Procedures <Jamarcus Charles MD - Last Filed: 12/15/24 07:08> Risk/Benefits of Procedure(s) Were Explained: Yes Critical Care <Jamarcus Charles MD - Last Filed: 12/15/24 07:08> Critical Care Time Critical Care Time: No
[2024-12-15 06:43] LABS: Basophils % 0.6 % (0.1-2.0); Eosinophils # 0.1 K/mm3 (0.0-0.4); Eosinophils % 1.5 % (0.1-12.0); Hematocrit 37.7 % (37.0-47.0); Lymphocytes # 1.7 K/mm3 (0.7-4.5); Lymphocytes % 33.7 % (10-50); Mean Corpuscular HGB Conc 34.5 g/dL (31.8-35.4); Mean Corpuscular Hemoglobin 30.1 pg (27.0-31.2); Mean Corpuscular Volume 87.3 fl (81-99); Mean Platelet Volume 11.8 fl (7.4-10.4); Monocytes # 0.5 K/mm3 (0.1-1.0); Monocytes % 9.1 % (1.7-9.3); Neutrophils # 2.8 K/mm3 (1.8-7.8); Neutrophils % 54.9 % (37.0-80.0); Platelet Count 194 K/mm3 (142-424); Red Blood Count 4.32 M/mm3 (4.20-5.40); Red Cell Distribution Width 11.7 % (11.5-17.5); White Blood Count 5.2 K/mm3 (4.8-10.8)
[2024-12-15 06:47] LABS: Coronavirus 19, PCR Not Detected (NotDetected); Influenza B, PCR Not Detected (NotDetected)
[2024-12-15 06:58] LABS: Alanine Aminotransferase 17 U/L (12-78); Albumin Level 4.2 g/dl (3.5-5.0); Albumin/Globulin Ratio 1.5 (1.1-1.8); Alkaline Phosphatase 49 U/L (38-126); Anion Gap 10.6 mEq/L (5-15); Aspartate Amino Transferase 27 U/L (14-36); Bilirubin,Total 0.2 mg/dl (0.2-1.3); Blood Urea Nitrogen 9 mg/dl (7-17); Calcium 8.8 mg/dl (8.4-10.2); Carbon Dioxide 24 mmol/L (22.0-30.0); Chloride 104 mmol/L (98-107); Creatinine Clearance Estimated 119 mL/min (50-200); Estimated Glomerular Filt Rate 82 ml/min (>60); GFR (African American) 99 ML/MIN (>60); Globulin 2.8 g/dL (1.3-3.2); Glucose 92 mg/dl (74-100); Magnesium 1.6 mg/dl (1.6-2.3); Potassium 3.6 mmoL/L (3.5-5.1); Sodium 135 mmol/L (136-145)
--- NOTE | 2024-12-15 07:17 | PC.NURSE ---
Rounded on pt. Walked her to bathroom to give urine sample
[2024-12-15 07:18] LABS: Influenza A, PCR Detected (NotDetected)
[2024-12-15 07:25] LABS: Microscopic, Urine URINE MICROSCOPIC (MICROSCOPIC)
[2024-12-15 07:44] LABS: Appearance,Urine Clear (Clear); Color,Urine Yellow (Yellow)
[2024-12-15 07:45] LABS: Bilirubin,Urine Negative (Negative); Blood, Urine Negative (Negative); Glucose,Urine (UA) Negative (Negative); Ketones,Urine Negative (Negative); Leukocyte Esterase,Urine Negative (Negative); Nitrate,Urine Negative (Negative); Protein,Urine Negative (Negative); Specific Gravity, Urine 1.025 (1.005-1.030); Urobilinogen,Urine 0.2 EU/dl (0.2)
[2024-12-15 07:47] LABS: Squamous Epithelial Cell,Urine 20-50 #/hpf (0-5); WBC,Urine Occasional #/hpf (0-3)
[2024-12-15 07:48] LABS: Bacteria,Urine Trace /lpf
[2024-12-15] MEDS: HYDROCORTISONE SOD SUCCINATE 100MG VIAL 100 MG IV (08:01)
[2024-12-15] MEDS: 0.9 % SODIUM CHLORIDE 1000ML 1,000 ML 999 ML IV (08:02)
--- NOTE | 2024-12-15 08:10 | PC.NURSE ---
dr nieves at bedside
== END 2024-12-15 08:51 | disposition home or self-care (01) ==
PROVIDERS: Emergency Medicine; Emergency Provider Emergency Medicine; PCP Internal Medicine Adolescent Medicine
DX: J10.1 Influenza due to other identified influenza virus with other respiratory manifestations (principal); E27.1 Primary adrenocortical insufficiency; R50.9 Fever, unspecified; R03.1 Nonspecific low blood-pressure reading; R42 Dizziness and giddiness; M54.9 Dorsalgia, unspecified; R00.0 Tachycardia, unspecified
CPT/HCPCS: 71045; 80053; 81001; 83735; 85025; 87040; 87636; 96360; 96361; 96374; 99283; J7030

== ENCOUNTER 2024-12-22 19:21 | Observation (INO) | payer OTHER, SELFPAY ==
[2024-12-22 19:29] VITALS: BP 121/86; PULSE 125; RESP 18; TEMP 37.1; O2SAT 100; BMI 31.1
--- NOTE | 2024-12-22 20:00 | HMH.EDGENADL ---
Discharge Plan Disposition Patient Disposition: Admitted Prescriptions Prescriptions: No Action semaglutide (weight loss) 0.5 mg/0.5 mL pen injector 0.5 mg SQ WEEKLY Qty: 2 0RF Rx Instructions: administer weeks 5 through 8 of therapy methylphenidate HCl [Concerta] 27 mg tablet extended release 24hr 27 mg PO DAILY Qty: 30 0RF levothyroxine 200 mcg Tablet 200 mcg PO DAILYDM levocetirizine [Xyzal] 5 mg Tablet 5 mg PO DAILY ondansetron 4 mg tablet,disintegrating 4 mg PO Q8H PRN (Reason: nausea and vomiting) Qty: 10 0RF fludrocortisone 0.1 mg tablet 0.1 mg PO QODHS hydrocortisone 5 mg tablet 5 mg PO DAILY 30 Days Qty: 40 0RF hydrocortisone 10 mg tablet 10 mg PO AM 30 Days Qty: 40 0RF esomeprazole magnesium 20 mg Capsule,Delayed Release(Dr/Ec) 20 mg PO DAILY Referrals Follow up/Referrals: Vincent Roberson MD [Primary Care Provider] - See instructions Clinical Impressions Clinical Impression: Nausea & vomiting, Addisonian crisis, Acute hypokalemia Instructions Patient Instructions: DI for Diarrhea and Traveler's Diarrhea -- Adult, DI for Diarrhea and Traveler's Diarrhea -- Child, DI for Nausea -- Adult, DI for Nausea -- Child Print Language Print Language: Colombian Discharge ED Provider: Pipe Tamayo General Adult HPI General Chief complaint: Nausea/Vomiting/Diarrhea Stated complaint: V/D Time Seen by Provider: 12/22/24 19:46 Mode of Arrival: Ambulatory Source of Information: Patient Description of Symptoms (Recalled from ER Triage Doc. by RN): Pt present for evaluation of vomiting and diarrhea that started today. Started semaglutide at home 1 month ago, recent increase. Pt has taken a total of 12mg zofran.+Flu A and Strep 1 week ago History of Present Illness HPI narrative: Patient is a 34-year-old well-known to our emergency department he frequently presents with addisonian crisis type symptoms. Recently started semaglutide 5 weeks ago and has had 3 ED visits 1 including a visit for influenza and also another ED visit with nausea vomiting. She presents today with worsening of her symptoms. She has some mild epigastric discomfort associated with this. She was able to keep some hydrocortisone down earlier today but ran out of Zofran and has had some persistent nausea and vomiting which is the main reason why she is coming in today. Related Data Home Medications ?Medication ?Instructions ?Recorded ?Confirmed fludrocortisone 0.1 mg tablet 0.1 mg PO QODHS 09/03/23 12/22/24 esomeprazole magnesium 20 mg 20 mg PO DAILY 03/16/24 12/22/24 capsule,delayed release levothyroxine 200 mcg tablet 200 mcg PO DAILYDM 04/05/24 12/22/24 levocetirizine 5 mg tablet (Xyzal) 5 mg PO DAILY 10/13/24 12/22/24 Previous Rx's ?Medication ?Instructions ?Recorded hydrocortisone 10 mg tablet 10 mg PO AM 30 days #40 tabs 09/03/23 hydrocortisone 5 mg tablet 5 mg PO DAILY 30 days #40 tabs 09/03/23 ondansetron 4 mg disintegrating 4 mg PO Q8H PRN nausea and 10/13/24 tablet vomiting #10 tabs methylphenidate HCl 27 mg 27 mg PO DAILY #30 tabs 11/21/24 tablet,extended release 24 hr (Concerta) semaglutide (weight loss) 0.5 0.5 mg (0.5 mL) SQ WEEKLY #2 mL 12/20/24 mg/0.5 mL subcutaneous pen injector Allergies Allergy/AdvReac Type Severity Reaction Status Date / Time Penicillins Allergy Intermediate Rash Verified 12/22/24 19:34 amoxicillin Allergy Rash Verified 12/22/24 19:34 Cephalosporins AdvReac Mild Rash Verified 12/22/24 19:34 avocadoes AdvReac Intermediate Rash Uncoded 12/22/24 19:34 [facility] Disclaimer: The information contained in this section may have been updated after the patient was seen, as this information can be updated by other users. Medical History PCOS (polycystic ovarian syndrome) ADHD Nacho disease Thyroid disease Depression Anxiety History of gastroesophageal reflux (GERD) Asthma Surgical History History of dilation and curettage History of tympanostomy tube placement History of tonsillectomy History of section Social History Smoking Status: Never smoker second hand exposure: No alcohol intake: never counseling given: No substance use type: denies use counseling given: No current occupational status: employed Travel in the last 8 weeks: None adopted: No caregiver/support person: Yes foster care: No household members: spouse housing: house lives independently: Yes marital status: number of children: 2 education level: master's degree Hx Recent Travel: No sexually active: Yes caffeine: Yes physical activity: none tangela/hoahaoism: Hindu special tangela needs: No working smoke detector in home: Yes fire extinguisher in home: Yes carbon monox detector in home: Yes firearms in home: Yes firearms unloaded and locked: Yes do you feel safe at home: Yes victim of physical abuse: No victim of emotional abuse: No victim of sexual abuse: No would you like helpful sources: No Have you lived/traveled outside US in past 30 days?: No Contact w/someone who lives/traveled outside US past 30 days?: No Exposure to someone with infectious disease in past 14 days?: No Do you have a fever (greater than 100.4 F or 38 C)?: No Have you tested positive for COVID-19: No Exposed to someone with COVID-19 in past 14 days?: No Do you have a sore throat?: No Do you have a cough?: No Do you have any weakness?: Yes Do you have any diarrhea?: Yes Are you experiencing any unusual bleeding?: No Do you have any muscle aches/pain?: Yes Do you have any abdominal pain?: Yes Are you experiencing loss of taste or smell?: No Other Medical History Have you received the Flu Vaccine for this season: No Have you received the Pneumonia Vaccine: No ROS Obtained: Yes All systems reviewed & no additional complaints except as documented Physical Exam General General appearance: alert and in no apparent distress Respiratory Respiratory exam: Present normal lung sounds bilaterally; Absent respiratory distress Cardiovascular Cardiovascular exam: Present regular rate and normal rhythm Abdominal Exam Abdominal exam: Present soft and tenderness (Mild epigastric tenderness with the palpation); Absent distention Neurological Exam Neurological exam: Present alert and oriented X3 Medical Decision Making Medical Records Screening: Per USPSTF and CDC recommendations, given the prevalence of disease in our region, it is our hospital?s policy to screen for HIV and viral Hepatitis for all patients aged 18 and over and those with ongoing risk factors. Alejandro Inquiry Pt receiving controlled substance: No Vital Signs: 12/22/24 19:29 Temperature 98.8 F Temperature Source Oral Pulse Rate [Right] 125 H Respiratory Rate 18 Blood Pressure [Right Arm] 121/86 Blood Pressure Mean [Right Arm] 97 Blood Pressure Source [Right Arm] Automatic Cuff Blood Pressure Position [Right Arm] Sitting 02 Sat by Pulse Oximetry 100 Oxygen Delivery Method Room Air Lab Data Lab results reviewed: Yes I reviewed the patient's lab results. Lab Results 12/22/24 20:29: WBC 8.3, RBC 4.63, Hgb 13.7, Hct 40.4, MCV 87.3, MCH 29.6, MCHC 33.9, RDW 11.8, Plt Count 196, MPV 10.9 H, Neut % (Auto) 85.8 H, Lymph % (Auto) 11.0, [place] % (Auto) 2.8, Eos % (Auto) 0.2, Baso % (Auto) 0.1, Neut # (Auto) 7.1, Lymph # (Auto) 0.9, [place] # (Auto) 0.2, Eos # (Auto) 0.0, Baso # (Auto) 0.0, Sodium 139, Potassium 3.3 L, Chloride 107, Carbon Dioxide 26, Anion Gap 9.3, BUN 9, Creatinine 0.70, Estimated Creat Clear 137, Estimated GFR 95, Est GFR ( Amer) 115, Glucose 101 H, Calcium 9.0, Total Bilirubin 0.6, AST 25, ALT 15, Alkaline Phosphatase 49, Total Protein 7.0, Albumin 4.3, Globulin 2.7, Albumin/Globulin Ratio 1.6, Lipase 184 12/22/24 20:29 12/22/24 20:29 Orders (Tests/Meds): ED MEDICATIONS Discontinued Medications Generic Name Dose Route Start Last Admin Trade Name Freq PRN Reason Stop Dose Admin Lactated Ringer's 1,000 mls @ 999 mls/hr 12/22/24 20:00 12/22/24 20:11 Lactated Ringer's 1000 Ml Bag IV 12/22/24 21:00 999 mls/hr .Q1H1M TIMUR Administration Ketorolac Tromethamine 15 mg 12/22/24 20:00 12/22/24 20:12 Ketorolac 30mg/Ml Vial IV 12/22/24 20:01 15 mg ONCE ONE Administration Potassium Chloride 40 meq 03/16/25 21:43 Potassium Chloride 20meq Tab PO 12/22/24 21:44 ONCE ONE Promethazine HCl 12.5 mg 12/22/24 19:59 12/22/24 20:12 Promethazine Hcl 25mg/Ml 1ml Vial IV 12/22/24 20:00 12.5 mg ONCE ONE Administration Sodium Chloride 25 ml 12/22/24 19:59 12/22/24 20:12 Sodium Chloride 0.9% 25ml Bag IV 12/22/24 20:00 25 ml ONCE ONE Administration ORDERS Category Date Time Status CBC w/Auto Diff [Complete Blood Count Auto Diff] Stat Lab 12/22/24 20:29 Completed CMP [Comprehensive Metabolic Panel] Stat Lab 12/22/24 20:29 Completed Lipase Stat Lab 12/22/24 20:29 Completed Medical Decision Narrative: Nontoxic 34-year-old presenting today with nausea and vomiting and epigastric discomfort. Possible this is associated with her recent initiation of semaglutide but cannot definitively prove that. Does not look severely dehydrated on my evaluation we will give her IV fluids and IV Phenergan. Given the fact that she is already had hydrocortisone earlier this morning was able to keep that down I do not feel strongly about giving her another stress dose of steroids however we will reassess and see how the patient is feeling after symptomatic medications and IV fluids. Also will get basic electrolytes and a lipase but pancreatitis is low on my differential at this point. Reassessments 952 patient continuing to throw up states she does not feel any better she is persistently tachycardic to 1 20-1 30. IV Ativan was added on in addition to hydrocortisone. Patient states she feels she needs to be admitted for continued steroids and IV fluids. Therefore spoke to hospital medicine who agreed to admit the patient. Patient does have a potassium of 3.3 which was replaced orally. Working diagnosis addisonian crisis. It is possible the semaglutide was a contributing factor but likely not causative. Critical Care Critical Care Time Critical Care Time: Yes Attestation: On 12/22/24, the high probability of a clinically significant, sudden or life threatening deterioration of the following system(s) required my full and direct attention, intervention and personal management. The time I documented below is in addition to time spent performing reported procedures but includes the following listed in this critical care notation. Total Time Total Critical Care Time: 35
[2024-12-22] MEDS: LACTATED RINGERS 1000ML 1,000 ML 999 ML IV ×2 (20:11→21:56)
[2024-12-22] MEDS: SODIUM CHLORIDE 0.9% 25ML BAG 25 ML IV (20:12)
[2024-12-22] MEDS: KETOROLAC 30MG/ML VIAL 15 MG IV (20:12)
[2024-12-22] MEDS: PROMETHAZINE HCL 25MG/ML 1ML VIAL 12.5 MG IV (20:12)
[2024-12-22 20:37] LABS: Basophils % 0.1 % (0.1-2.0); Eosinophils % 0.2 % (0.1-12.0); Hematocrit 40.4 % (37.0-47.0); Hemoglobin 13.7 g/dL (12.2-16.2); Lymphocytes # 0.9 K/mm3 (0.7-4.5); Mean Corpuscular HGB Conc 33.9 g/dL (31.8-35.4); Mean Corpuscular Hemoglobin 29.6 pg (27.0-31.2); Mean Corpuscular Volume 87.3 fl (81-99); Mean Platelet Volume 10.9 fl (7.4-10.4); Monocytes # 0.2 K/mm3 (0.1-1.0); Monocytes % 2.8 % (1.7-9.3); Neutrophils # 7.1 K/mm3 (1.8-7.8); Neutrophils % 85.8 % (37.0-80.0); Platelet Count 196 K/mm3 (142-424); Red Blood Count 4.63 M/mm3 (4.20-5.40); Red Cell Distribution Width 11.8 % (11.5-17.5); White Blood Count 8.3 K/mm3 (4.8-10.8)
[2024-12-22 20:47] LABS: Albumin Level 4.3 g/dl (3.5-5.0); Chloride 107 mmol/L (98-107)
[2024-12-22 20:48] LABS: Potassium 3.3 mmoL/L (3.5-5.1); Sodium 139 mmol/L (136-145)
[2024-12-22 20:50] LABS: Alanine Aminotransferase 15 U/L (12-78); Alkaline Phosphatase 49 U/L (38-126); Anion Gap 9.3 mEq/L (5-15); Aspartate Amino Transferase 25 U/L (14-36); Bilirubin,Total 0.6 mg/dl (0.2-1.3); Blood Urea Nitrogen 9 mg/dl (7-17); Carbon Dioxide 26 mmol/L (22.0-30.0); Creatinine Clearance Estimated 137 mL/min (50-200); Estimated Glomerular Filt Rate 95 ml/min (>60); GFR (African American) 115 ML/MIN (>60)
[2024-12-22 20:51] LABS: Albumin/Globulin Ratio 1.6 (1.1-1.8); Globulin 2.7 g/dL (1.3-3.2); Glucose 101 mg/dl (74-100); Lipase 184 U/L (23-300)
[2024-12-22] MEDS: HYDROCORTISONE SOD SUCCINATE 100MG VIAL 100 MG IV (21:55)
[2024-12-22] MEDS: LORazepam 2MG/ML VIAL 1 MG IV (21:55)
[2024-12-22] MEDS: ONDANSETRON 4MG/2ML VIAL 4 MG IV (22:15)
[2024-12-22 22:17] VITALS: BP 133/67; PULSE 122; RESP 16; TEMP 37.1; O2SAT 99
[2024-12-22 22:53] VITALS: BP 109/63; PULSE 116; RESP 17; TEMP 39.4; O2SAT 95; BMI 32.4
[2024-12-22] MEDS: SODIUM CHLORIDE 0.9% 10ML FLUSH SYRINGE 10 ML IV (23:08)
[2024-12-22] MEDS: LACTATED RINGERS 1000ML 1,000 ML 100 ML IV (23:08)
[2024-12-22] MEDS: FAMOTIDINE 20MG/2ML VIAL 20 MG IV (23:08)
[2024-12-22] MEDS: ACETAMINOPHEN 1,000MG/100ML VIAL 1000 MG IV (23:09)
--- NOTE | 2024-12-22 23:39 | PC.NURSE ---
Patient arrived to floor via stretcher from ED at 22:26.
[2024-12-22] MEDS: KCl 10mEq/100ml 100 ML 100 MEQ IV (23:46)
[2024-12-23] VITALS: BP 100/61; PULSE 118; RESP 17; TEMP 38.6; O2SAT 94
--- NOTE | 2024-12-23 00:17 | P.HP_ITS ---
<Statement entered by Oscar Mccurdy MD - 12/23/24 19:51> Personally evaluated patient and agree with plan of care as outlined by the SET UP / OPERATOR. 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 She was positive for flu approximately 1 week ago also positive for strep. Her children and have also been ill in the past but was feeling better and her and her actually went out for dinner and move me just a couple days ago. Patient became nauseated with with fever over the last 24 hours. She had Zofran been taking it but ran out and due to her Nacho's disease was unable to keep her hydrocortisone down. She thinks she did keep some of it down.. She has come to the emergency room with a fever nausea vomiting feeling very ill. Patient also has a cough. Having reviewed the patient's record with the ER physician, and despite the cough chest x-ray showed no nothing acute. Do feel that with her Nacho's disease we will need to admit her just steroids appropriately due to her illness. Still presently having a blood pressure of 100 heart rate tachycardia at about 120 and fever of 101.3 after treatment. Do believe that the patient needs to be admitted which has been done. Plan will continue to monitor labs. Adjust oral medications as needed depending on how she is able to take them., Treat for fever maintain hydration. At this time feel Tamiflu would be of no use since she has had the flu recently she did have strep but said that she was able to be treated for this and was able to take her antibiotics appropriately. Patient will be admitted to the floor. [facility] Disclaimer: The information contained in this section may have been updated after the patient was seen, as this information can be updated by other users. Medical History (Updated 12/23/24 @ 00:32 by Bulmaro Lock APRN) Addisonian crisis Mastitis [facility]'s disease Nausea & vomiting PCOS (polycystic ovarian syndrome) ADHD [facility] disease Thyroid disease Depression Anxiety History of gastroesophageal reflux (GERD) Asthma Surgical History History of dilation and curettage History of tympanostomy tube placement History of tonsillectomy History of section Social History Smoking Status: Never smoker second hand exposure: No alcohol intake: never counseling given: No substance use type: denies use counseling given: No current occupational status: employed Travel in the last 8 weeks: None adopted: No caregiver/support person: Yes foster care: No household members: spouse housing: house lives independently: Yes marital status: number of children: 2 education level: master's degree Hx Recent Travel: No sexually active: Yes caffeine: Yes physical activity: none tangela/adventist: Latter-Day special tangela needs: No working smoke detector in home: Yes fire extinguisher in home: Yes carbon monox detector in home: Yes firearms in home: Yes firearms unloaded and locked: Yes do you feel safe at home: Yes victim of physical abuse: No victim of emotional abuse: No victim of sexual abuse: No would you like helpful sources: No Have you lived/traveled outside US in past 30 days?: No Contact w/someone who lives/traveled outside US past 30 days?: No Exposure to someone with infectious disease in past 14 days?: No Do you have a fever (greater than 100.4 F or 38 C)?: No Have you tested positive for COVID-19: No Exposed to someone with COVID-19 in past 14 days?: No Do you have a sore throat?: No Do you have a cough?: No Do you have any weakness?: Yes Do you have any diarrhea?: Yes Are you experiencing any unusual bleeding?: No Do you have any muscle aches/pain?: Yes Do you have any abdominal pain?: Yes Are you experiencing loss of taste or smell?: No Other Medical History Have you received the Flu Vaccine for this season: Yes Have you received the Pneumonia Vaccine: Yes Review of Systems Review of Systems Review of systems:: pertinent systems reviewed and negative unless documented below Review of systems (narrative): Patient appears ill lying still on stretcher covered in personal blanket Constitutional Constitutional: Reports as per HPI, Reports body ache(s) and Reports headache(s) Eyes Eyes: Reports as per HPI ENT Ears, Nose, Mouth, and Throat: Reports as per HPI and Reports headache(s) Comments: Denies throat pain *Cardiovascular Cardiovascular: Reports as per HPI and Reports palpitations *Respiratory Respiratory: Reports as per HPI and Reports cough *Gastrointestinal Gastrointestinal: Reports as per HPI, Reports dyspepsia, Reports nausea and Reports vomiting *Genitourinary Genitourinary: Reports as per HPI *Musculoskeletal Musculoskeletal: Reports as per HPI Integumentary/Breasts Skin/Breast: Reports as per HPI *Neurologic Neurologic: Reports headache(s) Psychiatric Psychiatric: Reports as per HPI Comments: The patient is ill at this time but psychiatric past normal Endocrine Endocrine: Reports as per HPI and Reports palpitations Hematologic/Lymphatic Hematologic/Lymphatic: Reports as per HPI Allergic/Immunologic Allergic/Immunologic: Reports as per HPI Comments: Chronic Nacho's disease, on thyroid replacement medication Meds Home Medications and Allergies Home Medications ?Medication ?Instructions ?Recorded ?Confirmed ?Type fludrocortisone 0.1 mg tablet 0.1 mg PO QODHS 09/03/23 12/22/24 History hydrocortisone 10 mg tablet 10 mg PO AM 30 days #40 tabs 09/03/23 12/22/24 Rx hydrocortisone 5 mg tablet 5 mg PO DAILY 30 days #40 tabs 09/03/23 12/22/24 Rx esomeprazole magnesium 20 mg 20 mg PO DAILY 03/16/24 12/22/24 History capsule,delayed release levothyroxine 200 mcg tablet 200 mcg PO DAILYDM 04/05/24 12/22/24 History levocetirizine 5 mg tablet (Xyzal) 5 mg PO DAILY 10/13/24 12/22/24 History ondansetron 4 mg disintegrating 4 mg PO Q8H PRN nausea and 10/13/24 12/22/24 Rx tablet vomiting #10 tabs methylphenidate HCl 27 mg 27 mg PO DAILY #30 tabs 11/21/24 12/22/24 Rx tablet,extended release 24 hr (Concerta) New Prescriptions to Start Prescriptions: Allergies Allergy/AdvReac Type Severity Reaction Status Date / Time Penicillins Allergy Intermediate Rash Verified 12/22/24 19:34 amoxicillin Allergy Rash Verified 12/22/24 19:34 Cephalosporins AdvReac Mild Rash Verified 12/22/24 19:34 avocadoes AdvReac Intermediate Rash Uncoded 12/22/24 19:34 Exam Data for Last 24 hours Vital signs and Labs for Last 24 Hours: Temp Pulse Resp BP Pulse Ox O2 Del Method 102.9 F H 116 H 17 109/63 L 95 Room Air 03/16/25 22:53 12/22/24 22:53 12/22/24 22:53 12/22/24 22:53 12/22/24 22:53 12/22/24 22:53 Laboratory Results - last 24 hr 12/22/24 20:29: WBC 8.3, RBC 4.63, Hgb 13.7, Hct 40.4, MCV 87.3, MCH 29.6, MCHC 33.9, RDW 11.8, Plt Count 196, MPV 10.9 H, Neut % (Auto) 85.8 H, Lymph % (Auto) 11.0, [place] % (Auto) 2.8, Eos % (Auto) 0.2, Baso % (Auto) 0.1, Neut # (Auto) 7.1, Lymph # (Auto) 0.9, [place] # (Auto) 0.2, Eos # (Auto) 0.0, Baso # (Auto) 0.0, Sodium 139, Potassium 3.3 L, Chloride 107, Carbon Dioxide 26, Anion Gap 9.3, BUN 9, Creatinine 0.70, Estimated Creat Clear 137, Estimated GFR 95, Est GFR ( Amer) 115, Glucose 101 H, Calcium 9.0, Total Bilirubin 0.6, AST 25, ALT 15, Alkaline Phosphatase 49, Total Protein 7.0, Albumin 4.3, Globulin 2.7, Albumin/Globulin Ratio 1.6, Lipase 184 I & O for Last 24 hours: Intake & Output 12/20/24 12/21/24 12/22/24 12/23/24 05:59 05:59 05:59 05:59 Weight 176 lb 4.8 oz Radiology Reports for the Last 24 Hours: Chest film no acute findings Constitutional Constitutional: moderate distress, obese, cooperative and obtunded *Routine HEENT Exam Head: Present normocephalic and atraumatic Eye: Present EOMI, PERRL and normal accommodation ENT: Present mucous membranes moist *Routine Neck Exam Neck: Present supple and full ROM Routine Chest/Breast/Axilla Exam Comments: Patient able to move and lie in the bed turn to the side during exam found no chest wall tenderness *Routine Respiratory Exam Respiratory: Present normal respiratory effort, able to speak in complete sentences and symmetric chest movement Comments: Slight harsh sounds to the right lung on deep inspiration rest of exam totally normal *Routine Cardiovascular Exam Cardiovascular: Present Normal S1, Normal S2 and tachycardia *Routine Abdominal Exam Abdominal: Present soft Comments: Due to the patient's nausea and vomiting did not palpate abdomen *Routine Rectal Exam Rectal:: deferred *Routine Genitalia Exam Genitalia:: deferred *Routine Extremities Exam Extremities: Present full ROM Comments: Moves all extremities well no signs of edema Routine Back/Spine/Pelvis Exam Back/Spine: Present full ROM Comments: No signs of deficit to the back or pain or injury *Routine Skin Exam Skin: Present intact, dry, warm and normal turgor *Routine Neurological Exam Neurological: Present alert, oriented X3, vision grossly intact and hearing grossly intact Comments: No signs of neurological deficit. Exam not completed well due to the patient's illness Routine Psychiatric Exam Psychiatric: Present normal thought process, cooperative, good insight and good judgment Comments: Patient very cooperative for being as ill as she is H&P: Result Impressions 1. Viral syndrome with nausea and vomiting, fever 2. Illness complicating [facility] disease treatment Imaging and Cardiology Chest x-ray: Additional comments: Do agree no acute changes Assessment and Plan *Assessment and plan (1) Influenza A: Status: Acute Category: Medical Code(s): J10.1 - Influenza due to other identified influenza virus with other respiratory manifestations (2) Fever: Status: Acute Qualifiers: Fever type: due to other condition Qualified Code(s): R50.81 - Fever presenting with conditions classified elsewhere Category: Medical Code(s): R50.9 - Fever, unspecified (3) Flu-like symptoms: Status: Acute Category: Medical Code(s): R68.89 - Other general symptoms and signs (4) Nausea & vomiting: Status: Acute Qualifiers: Vomiting type: unspecified Qualified Code(s): R11.2 - Nausea with vomiting, unspecified Category: Medical Code(s): R11.2 - Nausea with vomiting, unspecified (5) Acute hypokalemia: Status: Acute Category: Medical Code(s): E87.6 - Hypokalemia (6) [facility] disease: Status: Acute Category: Medical Code(s): E27.1 - Primary adrenocortical insufficiency (7) Hypothyroidism: Status: Chronic Qualifiers: Hypothyroidism type: unspecified Qualified Code(s): E03.9 - Hypothyroidism, unspecified Category: Medical Code(s): E03.9 - Hypothyroidism, unspecified Plan 1. Patient will be admitted to the floor. Continue IV fluids slow rehydration, fever control, nausea control, 2. Continue to try to resolve electrolyte disturbances, continue to give medication for Nacho's disease and hypothyroidism. 3. Continue to monitor as the patient has been ill with flulike symptoms, and the family has been ill for several weeks. But there is not some underlying complication that we have not discovered at this time
[2024-12-23] MEDS: KCl 10mEq/100ml 100 ML 100 MEQ IV (00:48)
[2024-12-23] MEDS: KCl 20mEq/100ml 100 ML 50 MEQ IV ×2 (01:47→04:00)
[2024-12-23 04:00] VITALS: BP 98/46; PULSE 110; RESP 18; TEMP 37.9; O2SAT 97; BMI 32.4
[2024-12-23] MEDS: PROMETHAZINE HCL 25MG/ML 1ML VIAL 12.5 MG IV (04:44)
[2024-12-23] MEDS: SODIUM CHLORIDE 0.9% 25ML BAG 25 ML IV (04:45)
--- NOTE | 2024-12-23 05:12 | PC.NURSE ---
Pt. was admitted overnight for Nacho Crisis, and Flu like symptoms. Pt. is alert and orientated x 4. Pt. on room air. Pt. has been febrile, and nauseated. IV fluids infusing. Pt. medicated for fever, nausea and potassium level was low. IV potassium given to replace potassium. Pt's mother at bedside. VSS. Personal items and call grant in reach.
[2024-12-23] MEDS: HYDROCORTISONE SOD SUCCINATE 100MG VIAL 100 MG IV (06:07)
[2024-12-23 07:00] LABS: Basophils % 0.2 % (0.1-2.0); Hematocrit 33.9 % (37.0-47.0); Lymphocytes # 0.7 K/mm3 (0.7-4.5); Lymphocytes % 11.6 % (10-50); Mean Corpuscular HGB Conc 33.3 g/dL (31.8-35.4); Mean Corpuscular Hemoglobin 29.4 pg (27.0-31.2); Mean Corpuscular Volume 88.1 fl (81-99); Mean Platelet Volume 11.5 fl (7.4-10.4); Monocytes # 0.2 K/mm3 (0.1-1.0); Monocytes % 4.2 % (1.7-9.3); Neutrophils # 4.8 K/mm3 (1.8-7.8); Neutrophils % 83.7 % (37.0-80.0); Platelet Count 150 K/mm3 (142-424); Red Blood Count 3.85 M/mm3 (4.20-5.40); Red Cell Distribution Width 11.9 % (11.5-17.5); White Blood Count 5.8 K/mm3 (4.8-10.8)
[2024-12-23 07:11] LABS: Hemoglobin 11.4 g/dL (12.2-16.2)
[2024-12-23 07:17] LABS: Alanine Aminotransferase 17 U/L (12-78); Albumin/Globulin Ratio 1.3 (1.1-1.8); Alkaline Phosphatase 32 U/L (38-126); Anion Gap 8.8 mEq/L (5-15); Aspartate Amino Transferase 21 U/L (14-36); Bilirubin,Total 0.4 mg/dl (0.2-1.3); Blood Urea Nitrogen 12 mg/dl (7-17); Calcium 7.8 mg/dl (8.4-10.2); Carbon Dioxide 23 mmol/L (22.0-30.0); Chloride 109 mmol/L (98-107); Creatinine Clearance Estimated 142 mL/min (50-200); Estimated Glomerular Filt Rate 95 ml/min (>60); GFR (African American) 115 ML/MIN (>60); Globulin 2.4 g/dL (1.3-3.2); Glucose 110 mg/dl (74-100); Magnesium 1.5 mg/dl (1.6-2.3); Potassium 3.8 mmoL/L (3.5-5.1); Sodium 137 mmol/L (136-145); Total Protein,Serum 5.4 g/dl (6.3-8.2)
[2024-12-23 08:00] VITALS: BP 114/78; PULSE 103; RESP 18; TEMP 36.7; O2SAT 100
[2024-12-23] MEDS: LACTATED RINGERS 1000ML 1,000 ML 125 ML IV (08:37)
[2024-12-23] MEDS: FAMOTIDINE 20MG/2ML VIAL 20 MG IV ×2 (08:38→20:05)
[2024-12-23] MEDS: SODIUM CHLORIDE 0.9% 10ML VIAL 8 ML IV ×2 (08:38→20:05)
[2024-12-23 08:57] LABS: Thyroid Stimulating Hormone 2.84 uIU/mL (0.465-4.68)
[2024-12-23 08:59] LABS: Microscopic, Urine URINE MICROSCOPIC (MICROSCOPIC)
[2024-12-23 09:01] LABS: Adenovirus,PCR Not Detected (NotDetected); Bordetella Pertussis Not Detected (NotDetected); Chlamydophila Pneumoniae, PCR Not Detected (NotDetected); Coronavirus 19, PCR Not Detected (NotDetected); Coronavirus 229E Not Detected (NotDetected); Coronavirus NL63 Not Detected (NotDetected); Coronavirus OC43 Not Detected (NotDetected); Coronovirus HKU1,PCR Not Detected (NotDetected); Human Metapneumovirus Not Detected (NotDetected); Influenza A, PCR Not Detected (NotDetected); Influenza AH1, 2009 Not Detected (NotDetected); Influenza AH1, PCR Not Detected (NotDetected); Influenza AH3,PCR Not Detected (NotDetected); Influenza B, PCR Not Detected (NotDetected); Mycoplasma Pneumoniae, PCR Not Detected (NotDetected); Parainfluenza 1, PCR Not Detected (NotDetected); Parainfluenza 2, PCR Not Detected (NotDetected); Parainfluenza 3, PCR Not Detected (NotDetected); Parainfluenza 4, PCR Not Detected (NotDetected); Respiratory Syncytial Virus Not Detected (NotDetected); Rhinovirus/Enterovirus Not Detected (NotDetected)
--- NOTE | 2024-12-23 09:17 | XR_ITS ---
FINAL REPORT TECHNIQUE: Chest single view CLINICAL HISTORY: recent flu, productive sputum COMPARISON: 12/15/2024 FINDINGS: No acute pulmonary opacity is present. There is no evidence of effusion or pneumothorax. Mediastinum is unremarkable. Heart size is normal. IMPRESSION: No acute abnormality. Reviewed, Interpreted and Dictated by Kavita Matson MD Transcribed by Fallon Salguero Authenticated and [facility]
[2024-12-23 09:19] LABS: Free T4 (Free Thyroxine) 0.96 ng/dl (0.78-2.19)
[2024-12-23 09:53] LABS: Appearance,Urine Clear (Clear); Color,Urine Yellow (Yellow); Glucose,Urine (UA) Negative (Negative); Ketones,Urine Negative (Negative); Protein,Urine Negative (Negative); Specific Gravity, Urine 1.025 (1.005-1.030)
[2024-12-23 09:54] LABS: Bacteria,Urine Trace /lpf; Bilirubin,Urine Negative (Negative); Blood, Urine Negative (Negative); Leukocyte Esterase,Urine Negative (Negative); Mucus,Urine Trace /lpf; Nitrate,Urine Negative (Negative); Urobilinogen,Urine 0.2 EU/dl (0.2)
[2024-12-23] MEDS: MAGNESIUM SULFATE IN WATER 2 GM/50 ML PIGGYBACK IV ×2 (10:27→11:49)
[2024-12-23 12:00] VITALS: BP 108/55; PULSE 105; RESP 17; TEMP 36.6; O2SAT 99
--- NOTE | 2024-12-23 12:35 | HMH.PHAINT1 ---
Pharmacy Intervention Comments: MEDICATION RECONCILIATION COMPLETED ON PATIENT USING EXTERNAL FILL HISTORY FROM PHARMACY, LIST FROM PCP OFFICE, AND PATIENT INTERVIEW REGARDING FLUDROCORTISONE. -ALEX KANG, ZANDERD
[2024-12-23] MEDS: ACETAMINOPHEN 325MG TAB 650 MG PO (14:39)
[2024-12-23 16:00] VITALS: BP 111/68; PULSE 84; RESP 17; TEMP 36.9; O2SAT 99
--- NOTE | 2024-12-23 17:19 | EXP.PN ---
Subjective *Date: 12/23/24 *Time: 18:08 Interval history: Patient's symptoms have improved today, continues to have intermittent nausea and abdominal pain. Will monitor overnight in light of [place]'s disease. Exam Data for Last 24 hours Vital signs and Labs for Last 24 Hours: Temp Pulse Resp BP Pulse Ox O2 Del Method 98.4 F 84 17 111/68 99 Room Air 12/23/24 16:00 12/23/24 16:00 12/23/24 16:00 12/23/24 16:00 12/23/24 16:00 12/23/24 16:00 Laboratory Results - last 24 hr 12/22/24 20:29: WBC 8.3, RBC 4.63, Hgb 13.7, Hct 40.4, MCV 87.3, MCH 29.6, MCHC 33.9, RDW 11.8, Plt Count 196, MPV 10.9 H, Neut % (Auto) 85.8 H, Lymph % (Auto) 11.0, Humphreys % (Auto) 2.8, Eos % (Auto) 0.2, Baso % (Auto) 0.1, Neut # (Auto) 7.1, Lymph # (Auto) 0.9, Humphreys # (Auto) 0.2, Eos # (Auto) 0.0, Baso # (Auto) 0.0, Sodium 139, Potassium 3.3 L, Chloride 107, Carbon Dioxide 26, Anion Gap 9.3, BUN 9, Creatinine 0.70, Estimated Creat Clear 137, Estimated GFR 95, Est GFR ( Amer) 115, Glucose 101 H, Calcium 9.0, Total Bilirubin 0.6, AST 25, ALT 15, Alkaline Phosphatase 49, Total Protein 7.0, Albumin 4.3, Globulin 2.7, Albumin/Globulin Ratio 1.6, Lipase 184 12/23/24 06:40: WBC 5.8 D, RBC 3.85 L, Hgb 11.4 L D, Hct 33.9 L, MCV 88.1, MCH 29.4, MCHC 33.3, RDW 11.9, Plt Count 150, MPV 11.5 H, Neut % (Auto) 83.7 H, Lymph % (Auto) 11.6, Humphreys % (Auto) 4.2, Eos % (Auto) 0.0 L, Baso % (Auto) 0.2, Neut # (Auto) 4.8, Lymph # (Auto) 0.7, Humphreys # (Auto) 0.2, Eos # (Auto) 0.0, Baso # (Auto) 0.0, Sodium 137, Potassium 3.8, Chloride 109 H, Carbon Dioxide 23, Anion Gap 8.8, BUN 12 D, Creatinine 0.70, Estimated Creat Clear 142, Estimated GFR 95, Est GFR ( Amer) 115, Glucose 110 H, Lactate 2.0, Calcium 7.8 L, Magnesium 1.5 L, Total Bilirubin 0.4, AST 21, ALT 17, Alkaline Phosphatase 32 L, Total Protein 5.4 L, Albumin 3.0 L D, Globulin 2.4, Albumin/Globulin Ratio 1.3, TSH 2.84, Free T4 0.96 12/23/24 08:54: Urine Color Yellow, Urine Appearance Clear, Urine pH 7.0, Ur Specific [place] 1.025, Urine Protein Negative, Urine Glucose (UA) Negative, Urine Ketones Negative, Urine Blood Negative, Urine Nitrate Negative, Urine Bilirubin Negative, Urine Urobilinogen 0.2, Ur Leukocyte Esterase Negative, Urine RBC None, Urine WBC None, Ur Squamous Epith Cells 3-5, Urine Bacteria Trace, Urine Mucus Trace, Chlamy pneumoniae PCR Not detected, Adenovirus (PCR) Not detected, B. pertussis DNA (PCR) Not detected, Coronavirus OC43 (PCR) Not detected, Coronavirus HKU1 (PCR) Not detected, Coronavirus 229E (PCR) Not detected, SARS-CoV-2 (PCR) Not detected, Coronavirus NL63 (PCR) Not detected, Human Metapneumovir PCR Not detected, Influenza A (H1) PCR Not detected, Influ A (H1N1/09) PCR Not detected, Influenza A (H3) PCR Not detected, Influenza Type A (PCR) Not detected, Influenza Type B (PCR) Not detected, M. pneumoniae (PCR) Not detected, Parainfluenza 1 (PCR) Not detected, Parainfluenza 2 (PCR) Not detected, Parainfluenza 3 (PCR) Not detected, Parainfluenza 4 (PCR) Not detected, RSV (PCR) Not detected, Entero/Rhino (PCR) Not detected I & O for Last 24 hours: Intake & Output 12/20/24 12/21/24 12/22/24 03/17/25 23:59 23:59 23:59 23:59 Intake Total 2560 / 2560 Output Total 200 / 200 Balance 2360 / 2360 Weight 79.968 kg 79.968 kg Constitutional Constitutional: no acute distress *Routine HEENT Exam Head: Present normocephalic Eye: Present EOMI and PERRL ENT: Present mucous membranes moist *Routine Neck Exam Neck: Present supple; Absent lymphadenopathy *Routine Respiratory Exam Respiratory: Present CTA bilaterally *Routine Cardiovascular Exam Cardiovascular: Present RRR *Routine Abdominal Exam Abdominal: Present soft and normoactive bowel sounds; Absent tenderness *Routine Extremities Exam Extremities: Absent cyanosis, clubbing or edema *Routine Skin Exam Skin: Present warm; Absent rash *Routine Neurological Exam Neurological: Present alert and oriented X3 Assessment and Plan *Assessment and plan (1) Influenza A: Status: Acute Category: Medical Code(s): J10.1 - Influenza due to other identified influenza virus with other respiratory manifestations (2) Fever: Status: Acute Qualifiers: Fever type: due to other condition Qualified Code(s): R50.81 - Fever presenting with conditions classified elsewhere Category: Medical Code(s): R50.9 - Fever, unspecified (3) Flu-like symptoms: Status: Acute Category: Medical Code(s): R68.89 - Other general symptoms and signs (4) Nausea & vomiting: Status: Acute Qualifiers: Vomiting type: unspecified Qualified Code(s): R11.2 - Nausea with vomiting, unspecified Category: Medical Code(s): R11.2 - Nausea with vomiting, unspecified (5) Acute hypokalemia: Status: Acute Category: Medical Code(s): E87.6 - Hypokalemia (6) [place] disease: Status: Acute Category: Medical Code(s): E27.1 - Primary adrenocortical insufficiency (7) Hypothyroidism: Status: Chronic Qualifiers: Hypothyroidism type: unspecified Qualified Code(s): E03.9 - Hypothyroidism, unspecified Category: Medical Code(s): E03.9 - Hypothyroidism, unspecified Plan Lindsay Ferrari is a 34-year-old female with a medical history significant for [place]'s disease, hypothyroidism, anxiety who presented for progressive nausea/vomiting, inability to tolerate p.o. intake, abdominal pain for the past few days and was admitted for the same in the setting of [place]'s disease. #Intractable nausea/vomiting #Abdominal pain #Hypomagnesemia ? Diagnosed and treated for strep and flu a little over a week ago. Has started semaglutide 5 weeks ago with the recent dose increase to 0.5 mg this past week. ? Comprehensive respiratory panel, UA negative. Magnesium 1.5, repleted with IV magnesium. Other electrolytes, renal function stable. ? Patient's symptoms have significantly improved today, but continues to have intermittent nausea. In light of [place]'s disease, will monitor overnight. ? Continue LR at 75 L/h. Zofran as needed. Recommended discontinuing semaglutide. ? Will consider CT abdomen/pelvis if abdominal pain returns or worsens. Did have fever overnight, but was diagnosed with the flu this past week. ? Follow-up morning CBC, CMP. #[place]'s disease ? Does not seem to be in crisis at this time. Blood sugar and vitals stable, alert and oriented. ? Received a total of hydrocortisone 200 mg overnight. ? Will continue with prophylactic treat with hydrocortisone 50 mg every 6 hours to prevent Nacho's crisis. Continue home fludrocortisone. ? Takes hydrocortisone 10 mg in the morning, 5 mg in the evening, fludrocortisone 0.1 mg every other day. #Hypothyroidism ? Continue home levothyroxine 20 mcg. TFTs normal. #GERD ? Continue home PPI. Full code DVT prophylaxis: Lovenox 40 mg
[2024-12-23 19:58] VITALS: BP 101/56; PULSE 71; RESP 16; TEMP 36.8; O2SAT 99
[2024-12-23] MEDS: FLUDROCORTISONE 0.1MG TABLET 0.1 MG PO (20:04)
[2024-12-23] MEDS: PANTOPRAZOLE 40MG TABLET 40 MG PO (20:04)
[2024-12-23] MEDS: HYDROCORTISONE SOD SUCCINATE 100MG VIAL 50 MG IV (20:05)
[2024-12-23] MEDS: LACTATED RINGERS 1000ML 1,000 ML 75 ML IV (20:15)
[2024-12-24] VITALS: BP 106/57; PULSE 67; RESP 16; TEMP 36.8; O2SAT 95
[2024-12-24] MEDS: HYDROCORTISONE SOD SUCCINATE 100MG VIAL 50 MG IV ×2 (02:47→08:39)
[2024-12-24 04:00] VITALS: BP 104/70; PULSE 60; RESP 16; TEMP 36.8; O2SAT 98; BMI 32.4
--- NOTE | 2024-12-24 05:43 | PC.NURSE ---
Alert and oriented. Slept throughout night. No complaints. IV fluids. Ambulatory in room. Call light in reach.
[2024-12-24 06:33] LABS: Alanine Aminotransferase 13 U/L (12-78); Albumin Level 2.9 g/dl (3.5-5.0); Albumin/Globulin Ratio 1.2 (1.1-1.8); Alkaline Phosphatase 37 U/L (38-126); Anion Gap 5.9 mEq/L (5-15); Aspartate Amino Transferase 22 U/L (14-36); Bilirubin,Total 0.3 mg/dl (0.2-1.3); Blood Urea Nitrogen 6 mg/dl (7-17); Carbon Dioxide 26 mmol/L (22.0-30.0); Chloride 109 mmol/L (98-107); Creatinine Clearance Estimated 165 mL/min (50-200); Estimated Glomerular Filt Rate 114 ml/min (>60); GFR (African American) 138 ML/MIN (>60); Globulin 2.5 g/dL (1.3-3.2); Glucose 109 mg/dl (74-100); Magnesium 2.4 mg/dl (1.6-2.3); Potassium 3.9 mmoL/L (3.5-5.1); Sodium 137 mmol/L (136-145); Total Protein,Serum 5.4 g/dl (6.3-8.2)
[2024-12-24 06:49] LABS: Procalcitonin 0.061 ng/mL (0.0-2.0)
[2024-12-24 07:07] LABS: Basophils % 0.2 % (0.1-2.0); Hematocrit 34.4 % (37.0-47.0); Hemoglobin 11.2 g/dL (12.2-16.2); Lymphocytes # 1.3 K/mm3 (0.7-4.5); Lymphocytes % 21.4 % (10-50); Mean Corpuscular HGB Conc 32.6 g/dL (31.8-35.4); Mean Corpuscular Hemoglobin 29.2 pg (27.0-31.2); Mean Corpuscular Volume 89.6 fl (81-99); Mean Platelet Volume 11.9 fl (7.4-10.4); Monocytes # 0.2 K/mm3 (0.1-1.0); Monocytes % 3.8 % (1.7-9.3); Neutrophils # 4.3 K/mm3 (1.8-7.8); Neutrophils % 74.3 % (37.0-80.0); Platelet Count 158 K/mm3 (142-424); Red Blood Count 3.84 M/mm3 (4.20-5.40); White Blood Count 5.8 K/mm3 (4.8-10.8)
[2024-12-24 08:00] VITALS: BP 96/64; PULSE 80; RESP 16; TEMP 36.8; O2SAT 100
[2024-12-24] MEDS: LEVOTHYROXINE 100MCG (0.1MG) TAB 200 MCG PO (08:38)
[2024-12-24] MEDS: FAMOTIDINE 20MG/2ML VIAL 20 MG IV (08:38)
[2024-12-24] MEDS: SODIUM CHLORIDE 0.9% 10ML VIAL 8 ML IV (08:38)
[2024-12-24 12:00] VITALS: BP 105/56; PULSE 59; RESP 16; TEMP 36.7; O2SAT 100
--- NOTE | 2024-12-24 13:38 | EXP.DC.SUM ---
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 She was positive for flu approximately 1 week ago also positive for strep. Her children and have also been ill in the past but was feeling better and her and her actually went out for dinner and move me just a couple days ago. Patient became nauseated with with fever over the last 24 hours. She had Zofran been taking it but ran out and due to her Nacho's disease was unable to keep her hydrocortisone down. She thinks she did keep some of it down.. She has come to the emergency room with a fever nausea vomiting feeling very ill. Patient also has a cough. Having reviewed the patient's record with the ER physician, and despite the cough chest x-ray showed no nothing acute. Do feel that with her [place]'s disease we will need to admit her just steroids appropriately due to her illness. Still presently having a blood pressure of 100 heart rate tachycardia at about 120 and fever of 101.3 after treatment. Do believe that the patient needs to be admitted which has been done. Plan will continue to monitor labs. Adjust oral medications as needed depending on how she is able to take them., Treat for fever maintain hydration. At this time feel Tamiflu would be of no use since she has had the flu recently she did have strep but said that she was able to be treated for this and was able to take her antibiotics appropriately. Patient will be admitted to the floor. Hospital Course Hospital Course Hospital Course: Lindsay Ferrari is a 34-year-old female with a medical history significant for [place]'s disease, hypothyroidism, anxiety who presented for progressive nausea/vomiting, inability to tolerate p.o. intake, abdominal pain for the past few days and was admitted for the same in the setting of [place]'s disease. Return to baseline level of function. Tolerating p.o. intake. Abdominal discomfort improving. Stable discharge home. Problems addressed as follows: #Intractable nausea/vomiting #Abdominal pain #Hypomagnesemia ? Diagnosed and treated for strep and flu a little over a week ago. Has started semaglutide 5 weeks ago with the recent dose increase to 0.5 mg this past week. Comprehensive respiratory panel, UA negative. Electrolytes by day of discharge back to normal with magnesium 2.4, potassium 3.9, sodium 137. White count normal at 5.8. Kidney function normal with BUN 6, creatinine 0.6. Tolerating p.o. intake. No further emesis. Patient symptoms significantly improved with stress dose steroids and fluids. Recommend holding her semaglutide as it is likely an underlying factor in her abdominal pain and discomfort. Discharged with Zofran for nausea. Back to baseline GI function. #Nacho's disease ? Does not seem to be in crisis at this time. Blood sugar and vitals stable, alert and oriented. Received stress dose steroids initially. Tolerated well. Transition back to home fludrocortisone and hydrocortisone dosing. Will do 1 day of higher dose then normal to transition back from stress dosing steroids inpatient to normal home regimen. See med rec for details. #Hypothyroidism: Continue home levothyroxine 200 mcg. TFTs normal. #GERD: Continue home PPI. Exam Data for Last 24 hours Vital signs and Labs for Last 24 Hours: Temp Pulse Resp BP Pulse Ox O2 Del Method 98.1 F 59 L 16 105/56 L 100 Room Air 12/24/24 12:00 12/24/24 12:00 12/24/24 12:00 12/24/24 12:00 12/24/24 12:00 12/24/24 09:00 Laboratory Results - last 24 hr 12/24/24 05:55: WBC 5.8, RBC 3.84 L, Hgb 11.2 L, Hct 34.4 L, MCV 89.6, MCH 29.2, MCHC 32.6, RDW 12.0, Plt Count 158, MPV 11.9 H, Neut % (Auto) 74.3, Lymph % (Auto) 21.4, Crawford % (Auto) 3.8, Eos % (Auto) 0.0 L, Baso % (Auto) 0.2, Neut # (Auto) 4.3, Lymph # (Auto) 1.3, Crawford # (Auto) 0.2, Eos # (Auto) 0.0, Baso # (Auto) 0.0, Sodium 137, Potassium 3.9, Chloride 109 H, Carbon Dioxide 26, Anion Gap 5.9, BUN 6 L D, Creatinine 0.60, Estimated Creat Clear 165, Estimated GFR 114, Est GFR ( Amer) 138, Glucose 109 H, Calcium 8.0 L, Magnesium 2.4 H D, Total Bilirubin 0.3, AST 22, ALT 13, Alkaline Phosphatase 37 L, Total Protein 5.4 L, Albumin 2.9 L, Globulin 2.5, Albumin/Globulin Ratio 1.2, Procalcitonin 0.061 I & O for Last 24 hours: Intake & Output 12/21/24 12/22/24 12/23/24 12/24/24 23:59 23:59 23:59 23:59 Intake Total 2800 / 2800 Output Total 200 / 200 Balance 2600 / 2600 Weight 79.968 kg 79.968 kg 79.968 kg Constitutional Constitutional: no acute distress *Routine HEENT Exam Head: Present normocephalic Eye: Present EOMI and PERRL ENT: Present mucous membranes moist *Routine Neck Exam Neck: Present supple; Absent lymphadenopathy Routine Chest/Breast/Axilla Exam Chest wall: Absent tenderness Breast: Absent tenderness *Routine Respiratory Exam Respiratory: Present CTA bilaterally; Absent rhonchi, wheezes or crackles *Routine Cardiovascular Exam Cardiovascular: Present RRR *Routine Abdominal Exam Abdominal: Present soft and normoactive bowel sounds; Absent tenderness *Routine Rectal Exam Patient deferred: visual exam *Routine Exam Patient deferred: external exam *Routine Extremities Exam Extremities: Absent cyanosis, clubbing or edema *Routine Skin Exam Skin: Present intact and warm; Absent rash *Routine Neurological Exam Neurological: Present alert, oriented X3 and moving all extremities; Absent altered mental status Results Data Completed and Pending Labs on day of discharge: Labs from last 24 hours 12/24/24 05:55 WBC 5.8 RBC 3.84 L Hgb 11.2 L Hct 34.4 L MCV 89.6 MCH 29.2 MCHC 32.6 RDW 12.0 Plt Count 158 MPV 11.9 H Neut % (Auto) 74.3 Lymph % (Auto) 21.4 Crawford % (Auto) 3.8 Eos % (Auto) 0.0 L Baso % (Auto) 0.2 Neut # (Auto) 4.3 Lymph # (Auto) 1.3 Crawford # (Auto) 0.2 Eos # (Auto) 0.0 Baso # (Auto) 0.0 Sodium 137 Potassium 3.9 Chloride 109 H Carbon Dioxide 26 Anion Gap 5.9 BUN 6 L D Creatinine 0.60 Estimated Creat Clear 165 Estimated GFR 114 Est GFR ( Amer) 138 Glucose 109 H Calcium 8.0 L Magnesium 2.4 H D Total Bilirubin 0.3 AST 22 ALT 13 Alkaline Phosphatase 37 L Total Protein 5.4 L Albumin 2.9 L Globulin 2.5 Albumin/Globulin Ratio 1.2 Procalcitonin 0.061 DS: Diagnosis Discharge Diagnosis (1) Influenza A: Status: Acute Code(s): J10.1 - Influenza due to other identified influenza virus with other respiratory manifestations (2) Fever: Status: Acute Code(s): R50.9 - Fever, unspecified Qualifiers: Fever type: due to other condition Qualified Code(s): R50.81 - Fever presenting with conditions classified elsewhere (3) Flu-like symptoms: Status: Resolved Code(s): R68.89 - Other general symptoms and signs (4) Nausea & vomiting: Status: Acute Code(s): R11.2 - Nausea with vomiting, unspecified Qualifiers: Vomiting type: unspecified Qualified Code(s): R11.2 - Nausea with vomiting, unspecified (5) Acute hypokalemia: Status: Acute Code(s): E87.6 - Hypokalemia (6) [place] disease: Status: Acute Code(s): E27.1 - Primary adrenocortical insufficiency (7) Hypothyroidism: Status: Chronic Code(s): E03.9 - Hypothyroidism, unspecified Qualifiers: Hypothyroidism type: unspecified Qualified Code(s): E03.9 - Hypothyroidism, unspecified Meds Home Medications and Allergies Home Medications ?Medication ?Instructions ?Recorded ?Confirmed ?Type fludrocortisone 0.1 mg tablet 0.1 mg PO QODHS 09/03/23 12/22/24 History esomeprazole magnesium 20 mg 20 mg PO DAILY 03/16/24 12/22/24 History capsule,delayed release levothyroxine 200 mcg tablet 200 mcg PO DAILY 04/05/24 12/23/24 History levocetirizine 5 mg tablet (Xyzal) 5 mg PO DAILY 10/13/24 12/22/24 History methylphenidate HCl 27 mg 27 mg PO DAILY #30 tabs 11/21/24 12/22/24 Rx tablet,extended release 24 hr (Concerta) hydrocortisone 10 mg tablet 15 - 20 mg PO DAILY 12/23/24 12/23/24 History hydrocortisone 5 mg tablet 10 mg PO 1500 12/23/24 12/23/24 History ondansetron 4 mg disintegrating 4 mg PO Q6H PRN nausea and 12/24/24 Rx tablet vomiting #20 tabs New Prescriptions to Start Prescriptions: ondansetron Geoffrey Bhatti Allergies Allergy/AdvReac Type Severity Reaction Status Date / Time Penicillins Allergy Intermediate Rash Verified 12/22/24 19:34 amoxicillin Allergy Rash Verified 12/22/24 19:34 Cephalosporins AdvReac Mild Rash Verified 12/22/24 19:34 avocado AdvReac Rash Verified 12/27/24 10:10 Discharge Plan Disposition Patient Disposition: Home, Self-Care Condition: Fair Follow up Plan Follow up with: Vincent Roberson MD [Primary Care Provider] - 12/27/24 9:15 am Prescriptions/Medication Reconciliation: New ondansetron 4 mg tablet,disintegrating 4 mg PO Q6H PRN (Reason: nausea and vomiting) Qty: 20 0RF Continued methylphenidate HCl [Concerta] 27 mg tablet extended release 24hr 27 mg PO DAILY Qty: 30 0RF levothyroxine 200 mcg Tablet 200 mcg PO DAILY levocetirizine [Xyzal] 5 mg Tablet 5 mg PO DAILY fludrocortisone 0.1 mg tablet 0.1 mg PO QODHS esomeprazole magnesium 20 mg Capsule,Delayed Release(Dr/Ec) 20 mg PO DAILY hydrocortisone 5 mg tablet 10 mg PO 1500 Patient Comments: TAKE TWO TABLETS BY MOUTH EVERY DAY AT 300pm hydrocortisone 10 mg tablet 15 - 20 mg PO DAILY Patient Comments: take 1 AND 1/2 TO 2 tablets BY MOUTH EVERY MORNING Problem Reconciliation Problems Reviewed?: Yes Patient Discharge Instructions ACTIVITY: Continue current activity DIET: continue same diet Additional Instructions: take 10 mg Hydrocortisone tonight, 20 mg in the morning, resume home regimen thereafter Patient Instructions: DI for Nausea -- Adult, DI for Vomiting -- Adult Print Language: Somali Providers Primary Care Provider: Vincent Roberson Admit Provider: Oscar Mccurdy Attending Provider: Oscar Mccurdy
--- NOTE | 2024-12-25 10:06 | SW/DCPLANNER ---
Spoke with patient on the phone. Patient stated that she is doing very well. Patient stated that she is aware of her appointment and that she had the date changed to a Monday appointment. Patient stated that she was able to get her medicine picked up from clinic pharmacy. Patient stated that she has no concerns or questions at this time. Magaly Moya
== END 2024-12-24 14:17 | disposition home or self-care (01) ==
LOC: ER 21:50 → 2ND 22:20
PROVIDERS: Nurse Practitioner Family; Admitting Provider Student in an Organized Health Care Education/Training Program; Emergency Provider Student in an Organized Health Care Education/Training Program; PCP Internal Medicine Adolescent Medicine; Visit Provider Student in an Organized Health Care Education/Training Program
DX: J10.1 Influenza due to other identified influenza virus with other respiratory manifestations (principal); E27.1 Primary adrenocortical insufficiency; R11.2 Nausea with vomiting, unspecified; E87.6 Hypokalemia; E03.9 Hypothyroidism, unspecified; Z91.018 Allergy to other foods; Z79.899 Other long term (current) drug therapy; Z88.1 Allergy status to other antibiotic agents; Z88.0 Allergy status to penicillin; E83.42 Hypomagnesemia; K21.9 Gastro-esophageal reflux disease without esophagitis; R10.84 Generalized abdominal pain
CPT/HCPCS: 36415; 71045; 80053; 81001; 83605; 83690; 83735; 84145; 84439; 84443; 85025; 87633; 99291; G0378; J0131; J1885; J2060; J2405; J2550; J3475; J3480; J7120; S0028

== ENCOUNTER 2025-01-26 10:24 | Emergency (ER) | payer OTHER, SELFPAY ==
[2025-01-26 10:33] VITALS: BP 111/83; PULSE 102; RESP 14; TEMP 36.6; O2SAT 98; BMI 31.1
[2025-01-26 10:35] LABS: Microscopic, Urine URINE MICROSCOPIC (MICROSCOPIC)
[2025-01-26 10:37] LABS: Appearance,Urine CLEAR (Clear); Bilirubin,Urine Negative (Negative); Blood, Urine Negative (Negative); Color,Urine YELLOW (Yellow); Glucose,Urine (UA) Negative (Negative); Ketones,Urine Negative (Negative); Leukocyte Esterase,Urine Negative (Negative); Nitrate,Urine Negative (Negative); Protein,Urine Negative (Negative); Specific Gravity, Urine >= 1.030 (1.005-1.030); Urobilinogen,Urine 0.2 EU/dl (0.2)
--- NOTE | 2025-01-26 10:42 | PC.NURSE ---
Dr Tamayo at bedside
[2025-01-26 10:44] LABS: Bacteria,Urine Trace /lpf; Mucus,Urine Trace /lpf; WBC,Urine Occasional #/hpf (0-3)
--- NOTE | 2025-01-26 10:46 | HMH.EDGENADL ---
Discharge Plan Disposition Patient Disposition: Home, Self-Care Prescriptions Prescriptions: New hydrocortisone 10 mg tablet 10 mg PO DAILY 7 Days Qty: 7 0RF No Action methylphenidate HCl [Concerta] 36 mg tablet extended release 24hr 36 mg PO DAILY Qty: 30 0RF fluconazole 150 mg tablet 150 mg PO Q3D Qty: 2 0RF Rx Instructions: take one tablet, take the second tablet 72 hours later. levothyroxine 200 mcg Tablet 200 mcg PO DAILY levocetirizine [Xyzal] 5 mg Tablet 5 mg PO DAILY fludrocortisone 0.1 mg tablet 0.1 mg PO QODHS esomeprazole magnesium 20 mg Capsule,Delayed Release(Dr/Ec) 20 mg PO DAILY hydrocortisone 5 mg tablet 10 mg PO 1500 Patient Comments: TAKE TWO TABLETS BY MOUTH EVERY DAY AT 300pm hydrocortisone 10 mg tablet 15 - 20 mg PO DAILY Patient Comments: take 1 AND 1/2 TO 2 tablets BY MOUTH EVERY MORNING ondansetron 4 mg tablet,disintegrating 4 mg PO Q6H PRN (Reason: nausea and vomiting) Qty: 20 0RF Referrals Follow up/Referrals: Vincent Roberson MD [Primary Care Provider] - See instructions Activity Restrictions/Add. Instructions Additional Instructions/Restrictions: Please escalate your hydrocortisone dose at home as discussed and closely follow-up with Dr. Alfonso and your uppers edge burnisher and return with any significant worsening of your symptoms. Clinical Impressions Clinical Impression: Nausea vomiting and diarrhea, Adrenal insufficiency Instructions Patient Instructions: DI for Diarrhea and Traveler's Diarrhea -- Adult, DI for Diarrhea and Traveler's Diarrhea -- Child, DI for Nausea -- Adult, DI for Nausea -- Child Print Language Print Language: Macedonian Discharge ED Provider: Pipe Tamayo General Adult HPI General Chief complaint: Nausea/Vomiting/Diarrhea Stated complaint: Vomiting diarrhea Time Seen by Provider: 01/26/25 10:41 Mode of Arrival: Ambulatory Source of Information: Patient Description of Symptoms (Recalled from ER Triage Doc. by RN): patient states has had nausea vomiting and diarrhea since lastnight. she took 8mg of zofran at 8 am today. reports a history of addisons disease and couldnt hold her steroids down this morning History of Present Illness HPI narrative: Patient is a 34-year-old female with a history of [place]'s disease who presents today with what she believes to be an addisonian crisis. Had a coworker that had a GI bug and she believes that she had similar symptoms. She has had nausea vomiting and diarrhea no significant abdominal pain no significant lightheadedness or headache. Takes fludrocortisone as well as hydrocortisone at home. She takes 15 mg daily of hydrocortisone. She typically escalates her own medication doses at home when she is feeling well enough however she has not been able to tolerate p.o. therefore is come to the emergency department for IV fluids and IV hydrocortisone. She states she is not as sick as last time she was hospitalized. She follows closely with Dr. Alfonso and has outpatient follow-up with endocrinology at [facility]. Related Data Home Medications ?Medication ?Instructions ?Recorded ?Confirmed fludrocortisone 0.1 mg tablet 0.1 mg PO QODHS 09/03/23 01/26/25 esomeprazole magnesium 20 mg 20 mg PO DAILY 03/16/24 01/26/25 capsule,delayed release levothyroxine 200 mcg tablet 200 mcg PO DAILY 04/05/24 01/26/25 levocetirizine 5 mg tablet (Xyzal) 5 mg PO DAILY 10/13/24 01/26/25 hydrocortisone 10 mg tablet 15 - 20 mg PO DAILY 12/23/24 01/26/25 hydrocortisone 5 mg tablet 10 mg PO 1500 12/23/24 01/26/25 Previous Rx's ?Medication ?Instructions ?Recorded ondansetron 4 mg disintegrating 4 mg PO Q6H PRN nausea and 12/24/24 tablet vomiting #20 tabs methylphenidate HCl 36 mg 36 mg PO DAILY #30 tabs 01/01/25 tablet,extended release 24 hr (Concerta) fluconazole 150 mg tablet 150 mg PO Q3D 2 doses #2 tabs 01/20/25 hydrocortisone 10 mg tablet 10 mg PO DAILY 7 days #7 tabs 01/26/25 Allergies Allergy/AdvReac Type Severity Reaction Status Date / Time Penicillins Allergy Intermediate Rash Verified 01/26/25 10:40 amoxicillin Allergy Rash Verified 01/26/25 10:40 Cephalosporins AdvReac Mild Rash Verified 01/26/25 10:40 avocado AdvReac Rash Verified 01/26/25 10:40 PFSH PFSH Disclaimer: The information contained in this section may have been updated after the patient was seen, as this information can be updated by other users. Medical History Addisonian crisis Mastitis Nacho's disease Nausea & vomiting PCOS (polycystic ovarian syndrome) ADHD [place] disease Thyroid disease Depression Anxiety History of gastroesophageal reflux (GERD) Asthma Surgical History History of dilation and curettage History of tympanostomy tube placement History of tonsillectomy History of section Social History Smoking Status: Never smoker second hand exposure: No alcohol intake: never counseling given: No substance use type: denies use counseling given: No current occupational status: employed Travel in the last 8 weeks: None adopted: No caregiver/support person: Yes foster care: No household members: spouse housing: house lives independently: Yes marital status: number of children: 2 education level: master's degree Hx Recent Travel: No sexually active: Yes caffeine: Yes physical activity: none tangela/mosque: Worship special tangela needs: No working smoke detector in home: Yes fire extinguisher in home: Yes carbon monox detector in home: Yes firearms in home: Yes firearms unloaded and locked: Yes do you feel safe at home: Yes victim of physical abuse: No victim of emotional abuse: No victim of sexual abuse: No would you like helpful sources: No Have you lived/traveled outside [place] in past 30 days?: No Contact w/someone who lives/traveled outside US past 30 days?: No Exposure to someone with infectious disease in past 14 days?: No Do you have a fever (greater than 100.4 F or 38 C)?: No Have you tested positive for COVID-19: No Exposed to someone with COVID-19 in past 14 days?: No Do you have a sore throat?: No Do you have a cough?: No Do you have any weakness?: No Do you have any diarrhea?: Yes Are you experiencing any unusual bleeding?: No Do you have any muscle aches/pain?: No Do you have any abdominal pain?: No Are you experiencing loss of taste or smell?: No Other Medical History Have you received the Flu Vaccine for this season: No Have you received the Pneumonia Vaccine: No ROS Obtained: Yes All systems reviewed & no additional complaints except as documented Physical Exam General General appearance: alert and in no apparent distress Respiratory Respiratory exam: Present normal lung sounds bilaterally Cardiovascular Cardiovascular exam: Present regular rate Abdominal Exam Abdominal exam: Present soft; Absent distention or tenderness Neurological Exam Neurological exam: Present alert and oriented X3 Medical Decision Making Medical Records Screening: Per USPSTF and CDC recommendations, given the prevalence of disease in our region, it is our hospital?s policy to screen for HIV and viral Hepatitis for all patients aged 18 and over and those with ongoing risk factors. Alejandro Inquiry Pt receiving controlled substance: No Vital Signs: 01/26/25 10:33 01/26/25 11:01 01/26/25 11:27 Temperature 97.8 F Temperature Source Oral Pulse Rate 79 71 Pulse Rate [Left Radial] 102 H Respiratory Rate 14 Blood Pressure 97/61 L 93/63 L Blood Pressure [Left Arm] 111/83 Blood Pressure Mean [Left Arm] 92 Blood Pressure Source [Left Arm] Automatic Cuff Blood Pressure Position [Left Arm] Supine 02 Sat by Pulse Oximetry 98 100 100 Oxygen Delivery Method Room Air Room Air Room Air 01/26/25 11:30 01/26/25 11:37 Temperature Temperature Source Pulse Rate 71 75 Pulse Rate [Left Radial] Respiratory Rate Blood Pressure 91/63 L 107/72 L Blood Pressure [Left Arm] Blood Pressure Mean [Left Arm] Blood Pressure Source [Left Arm] Blood Pressure Position [Left Arm] 02 Sat by Pulse Oximetry 100 100 Oxygen Delivery Method Lab Data Lab results reviewed: Yes I reviewed the patient's lab results. Lab Results 01/26/25 10:26: Urine Color Yellow, Urine Appearance Clear, Urine pH 6.0, Ur Specific [place] >= 1.030, Urine Protein Negative, Urine Glucose (UA) Negative, Urine Ketones Negative, Urine Blood Negative, Urine Nitrate Negative, Urine Bilirubin Negative, Urine Urobilinogen 0.2, Ur Leukocyte Esterase Negative, Urine RBC None, Urine WBC Occasional, Ur Squamous Epith Cells 3-5, Urine Bacteria Trace, Urine Mucus Trace 01/26/25 10:37: WBC 15.5 H, RBC 5.07, Hgb 15.1, Hct 44.0, MCV 86.8, MCH 29.8, MCHC 34.3, RDW 12.4, Plt Count 294, MPV 11.4 H, Neut % (Auto) 70.4, Lymph % (Auto) 22.4, [place] % (Auto) 4.5, Eos % (Auto) 1.8, Baso % (Auto) 0.6, Neut # (Auto) 10.9 H, Lymph # (Auto) 3.5, [place] # (Auto) 0.7, Eos # (Auto) 0.3, Baso # (Auto) 0.1, Sodium 137, Potassium 4.0, Chloride 104, Carbon Dioxide 23, Anion Gap 14.0, BUN 14, Creatinine 0.90, Estimated Creat Clear 106, Estimated GFR 71, Est GFR ( Amer) 86, Glucose 97, Calcium 9.3, Total Bilirubin 0.7, AST 28, ALT 14, Alkaline Phosphatase 51, Total Protein 8.3 H D, Albumin 4.7, Globulin 3.6 H, Albumin/Globulin Ratio 1.3, Lipase 115, Serum HCG, Qual Negative 01/26/25 10:37 01/26/25 10:37 Orders (Tests/Meds): ED MEDICATIONS Discontinued Medications Generic Name Dose Route Start Last Admin Trade Name Freq PRN Reason Stop Dose Admin Hydrocortisone Sodium Succinate 100 mg 01/26/25 10:45 01/26/25 10:49 Hydrocortisone Sod Succinate 100mg Vial IV 01/26/25 10:46 100 mg ONCE ONE Administration Lactated Ringer's 1,000 mls @ 999 mls/hr 01/26/25 10:45 01/26/25 10:50 Lactated Ringer's 1000 Ml Bag IV 01/26/25 11:45 999 mls/hr .Q1H1M TIMUR Administration Ondansetron HCl 4 mg 01/26/25 10:45 01/26/25 10:50 Ondansetron 4mg/2ml Vial IV 01/26/25 10:46 4 mg ONCE ONE Administration ORDERS Category Date Time Status CBC w/Auto Diff [Complete Blood Count Auto Diff] Stat Lab 01/26/25 10:37 Completed CMP [Comprehensive Metabolic Panel] Stat Lab 01/26/25 10:37 Completed HCG Qualitative, Serum Stat Lab 01/26/25 10:37 Completed Lipase Stat Lab 01/26/25 10:37 Completed UA [Urinalysis and Microscopic] Stat Lab 01/26/25 10:26 Completed Medical Decision Narrative: Patient presents today with nausea vomiting diarrhea who has a known history of primary adrenal insufficiency/Nacho's disease. Will give her IV fluids and IV hydrocortisone. If the patient can tolerate p.o. I am comfortable with her following up outpatient as hydrocortisone is 100% bioavailable she has close outpatient follow-up with Dr. Alfonso and her uppers edge burnisher. Will reassess after the initial workup IV fluids hydrocortisone has been administered and labs have been done. Reassessment 12:25 PM patient feeling much better clinically and serial exams are benign. Labs unremarkable. She does have enough Zofran to go home with we will closely follow-up with Dr. Alfonso and her uppers edge burnisher she did request a prescription of 10 mg of hydrocortisone tablets for the next week to make sure she does not run out of what she has at home. This has been sent to her pharmacy. Patient was discharged in improved and stable condition. Critical Care Critical Care Time Critical Care Time: No
[2025-01-26 10:49] LABS: Basophils # 0.1 K/mm3 (0-0.2); Basophils % 0.6 % (0.1-2.0); Eosinophils # 0.3 Kmm3 (0.0-0.4); Eosinophils % 1.8 % (0.1-12.0); Hemoglobin 15.1 g/dL (12.2-16.2); Lymphocytes # 3.5 K/mm3 (0.7-4.5); Lymphocytes % 22.4 % (10-50); Mean Corpuscular HGB Conc 34.3 g/dL (31.8-35.4); Mean Corpuscular Hemoglobin 29.8 pg (27.0-31.2); Mean Corpuscular Volume 86.8 fl (81-99); Mean Platelet Volume 11.4 fl (7.4-10.4); Monocytes # 0.7 K/mm3 (0.1-1.0); Monocytes % 4.5 % (1.7-9.3); Neutrophils # 10.9 K/mm3 (1.8-7.8); Neutrophils % 70.4 % (37.0-80.0); Nucleated Red Blood Cells # 0 10^3/uL; Nucleated Red Blood Cells % 0 %; Platelet Count 294 K/mm3 (142-424); Red Blood Count 5.07 M/mm3 (4.20-5.40); Red Cell Distribution Width 12.4 % (11.5-17.5); Red Cell Distribution Width-SD 39.4 fL; White Blood Count 15.5 K/mm3 (4.8-10.8)
[2025-01-26] MEDS: HYDROCORTISONE SOD SUCCINATE 100MG VIAL 100 MG IV (10:49)
[2025-01-26] MEDS: ONDANSETRON 4MG/2ML VIAL 4 MG IV (10:50)
[2025-01-26] MEDS: LACTATED RINGERS 1000ML 1,000 ML 999 ML IV (10:50)
[2025-01-26 10:51] LABS: Albumin Level 4.7 g/dl (3.5-5.0); Chloride 104 mmol/L (98-107)
[2025-01-26 10:52] LABS: Sodium 137 mmol/L (136-145)
[2025-01-26 10:54] LABS: Alanine Aminotransferase 14 U/L (12-78); Aspartate Amino Transferase 28 U/L (14-36); Blood Urea Nitrogen 14 mg/dl (7-17); Creatinine Clearance Estimated 106 mL/min (50-200); Estimated Glomerular Filt Rate 71 ml/min (>60); GFR (African American) 86 ML/MIN (>60)
[2025-01-26 10:55] LABS: Albumin/Globulin Ratio 1.3 (1.1-1.8); Alkaline Phosphatase 51 U/L (38-126); Bilirubin,Total 0.7 mg/dl (0.2-1.3); Calcium 9.3 mg/dl (8.4-10.2); Carbon Dioxide 23 mmol/L (22.0-30.0); Globulin 3.6 g/dL (1.3-3.2); Glucose 97 mg/dl (74-100); Lipase 115 U/L (23-300); Total Protein,Serum 8.3 g/dl (6.3-8.2)
[2025-01-26 10:58] LABS: HCG Qualitative, Serum Negative (Negative)
[2025-01-26 11:01] VITALS: BP 97/61; PULSE 79; O2SAT 100
[2025-01-26 11:27] VITALS: BP 93/63; PULSE 71; O2SAT 100
[2025-01-26 11:30] VITALS: BP 91/63; PULSE 71; O2SAT 100
[2025-01-26 11:37] VITALS: BP 107/72; PULSE 75; O2SAT 100
[2025-01-26 12:25] VITALS: BP 107/72; PULSE 75; RESP 15; TEMP 36.6; O2SAT 100
== END 2025-01-26 12:27 | disposition home or self-care (01) ==
PROVIDERS: Emergency Provider Student in an Organized Health Care Education/Training Program; PCP Internal Medicine Adolescent Medicine
DX: R11.2 Nausea with vomiting, unspecified (principal); R19.7 Diarrhea, unspecified; E27.1 Primary adrenocortical insufficiency
CPT/HCPCS: 80053; 81001; 83690; 84703; 85025; 96361; 96374; 96375; 99284; J2405; J7120

== ENCOUNTER 2025-02-28 11:49 | Outpatient (CLI) | payer OTHER, SELFPAY ==
[2025-02-28 11:52] VITALS: BMI 32.9
[2025-02-28 12:17] LABS: Basophils # 0.1 K/mm3 (0-0.2); Basophils % 0.4 % (0.1-2.0); Eosinophils # 0.2 Kmm3 (0.0-0.4); Eosinophils % 1.6 % (0.1-12.0); Hemoglobin 12.8 g/dL (12.2-16.2); Immature Granulocytes # 0.03 10^3uL; Immature Granulocytes % 0.3 %; Lymphocytes # 2.1 K/mm3 (0.7-4.5); Lymphocytes % 19.1 % (10-50); Mean Corpuscular HGB Conc 32.8 g/dL (31.8-35.4); Mean Corpuscular Hemoglobin 29.3 pg (27.0-31.2); Mean Corpuscular Volume 89.2 fl (81-99); Mean Platelet Volume 11.2 fl (7.4-10.4); Monocytes # 0.7 K/mm3 (0.1-1.0); Monocytes % 6.1 % (1.7-9.3); Neutrophils # 8.1 K/mm3 (1.8-7.8); Neutrophils % 72.5 % (37.0-80.0); Nucleated Red Blood Cells # 0 10^3/uL; Nucleated Red Blood Cells % 0 %; Platelet Count 234 K/mm3 (142-424); Red Blood Count 4.37 M/mm3 (4.20-5.40); Red Cell Distribution Width 12.6 % (11.5-17.5); Red Cell Distribution Width-SD 41.1 fL; White Blood Count 11.2 K/mm3 (4.8-10.8)
[2025-02-28 12:23] LABS: HCG Qualitative, Serum Negative (Negative)
[2025-02-28 12:28] LABS: Albumin Level 4.3 g/dl (3.5-5.0); Chloride 102 mmol/L (98-107)
[2025-02-28 12:31] LABS: Alanine Aminotransferase 22 U/L (12-78); Albumin/Globulin Ratio 1.4 (1.1-1.8); Alkaline Phosphatase 60 U/L (38-126); Aspartate Amino Transferase 37 U/L (14-36); Bilirubin,Total 0.5 mg/dl (0.2-1.3); Blood Urea Nitrogen 15 mg/dl (7-17); Carbon Dioxide 28 mmol/L (22.0-30.0); Creatinine Clearance Estimated 112 mL/min (50-200); Estimated Glomerular Filt Rate 71 ml/min (>60); GFR (African American) 86 ML/MIN (>60); Sodium 134 mmol/L (136-145); Total Protein,Serum 7.3 g/dl (6.3-8.2)
[2025-02-28 12:32] LABS: Calcium 9.4 mg/dl (8.4-10.2); Glucose 110 mg/dl (74-100)
== END 2025-02-28 23:59 | disposition home or self-care (01) ==
LOC: PREOP 11:50
PROVIDERS: PCP Internal Medicine Adolescent Medicine; Visit Provider Obstetrics & Gynecology
DX: Z01.812 Encounter for preprocedural laboratory examination (principal)
CPT/HCPCS: 80053; 84703; 85025

== ENCOUNTER 2025-03-05 23:58 | Emergency (ER) | payer OTHER, SELFPAY ==
--- NOTE | 2025-03-06 00:02 | HMH.EDGENADL ---
Discharge Plan Disposition Patient Disposition: Home, Self-Care Prescriptions Prescriptions: No Action doxycycline hyclate 100 mg capsule 100 mg PO BID 7 Days Qty: 14 0RF guaifenesin 400 mg tablet 400 mg PO Q4H PRN (Reason: cough) Qty: 30 0RF lisdexamfetamine [Vyvanse] 40 mg capsule 40 mg PO DAILY Qty: 30 0RF levothyroxine 200 mcg Tablet 200 mcg PO DAILY levocetirizine [Xyzal] 5 mg Tablet 5 mg PO DAILY fludrocortisone 0.1 mg tablet 0.1 mg PO QODHS esomeprazole magnesium 20 mg Capsule,Delayed Release(Dr/Ec) 20 mg PO DAILY hydrocortisone 5 mg tablet 10 mg PO 1500 Patient Comments: TAKE TWO TABLETS BY MOUTH EVERY DAY AT 300pm hydrocortisone 10 mg tablet 15 - 20 mg PO DAILY Patient Comments: take 1 AND 1/2 TO 2 tablets BY MOUTH EVERY MORNING Referrals Follow up/Referrals: Vincent Roberson MD [Primary Care Provider, Internal Medicine] - See instructions Activity Restrictions/Add. Instructions Additional Instructions/Restrictions: Please follow up with your primary care provider. Please return to the emergency department if you develop any new or worsening symptoms or you become concerned for your health. 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 She reports that she has been dealing with bronchitis for the last 2 weeks and is on doxycycline. She reports that she has been dizzy and weak and her blood pressure was low at home so for further assessment. She reports back pain that is consistent with her adrenal disease. She reports she has been dealing with symptoms for the last couple of days and has been taking steroids at home without significant improvement. Related Data Home Medications ?Medication ?Instructions ?Recorded ?Confirmed fludrocortisone 0.1 mg tablet 0.1 mg PO QODHS 09/03/23 03/02/25 esomeprazole magnesium 20 mg 20 mg PO DAILY 03/16/24 03/02/25 capsule,delayed release levothyroxine 200 mcg tablet 200 mcg PO DAILY 04/05/24 03/02/25 levocetirizine 5 mg tablet (Xyzal) 5 mg PO DAILY 10/13/24 03/02/25 hydrocortisone 10 mg tablet 15 - 20 mg PO DAILY 12/23/24 03/02/25 hydrocortisone 5 mg tablet 10 mg PO 1500 12/23/24 03/02/25 Previous Rx's ?Medication ?Instructions ?Recorded doxycycline hyclate 100 mg capsule 100 mg PO BID 7 days #14 caps 03/02/25 guaifenesin 400 mg tablet 400 mg PO Q4H PRN cough #30 tabs 03/02/25 lisdexamfetamine 40 mg capsule 40 mg PO DAILY #30 caps 03/04/25 (Vyvanse) Allergies Allergy/AdvReac Type Severity Reaction Status Date / Time Penicillins Allergy Intermediate Rash Verified 03/02/25 10:59 amoxicillin Allergy Rash Verified 03/02/25 10:59 Cephalosporins AdvReac Mild Rash Verified 03/02/25 10:59 avocado AdvReac Rash Verified 03/02/25 10:59 PFSH PFS Disclaimer: The information contained in this section may have been updated after the patient was seen, as this information can be updated by other users. Medical History Addisonian crisis Mastitis Harris's disease Nausea & vomiting PCOS (polycystic ovarian syndrome) ADHD Harris disease Thyroid disease Depression Anxiety History of gastroesophageal reflux (GERD) Asthma Surgical History History of dilation and curettage History of tympanostomy tube placement History of tonsillectomy History of section Family History Other Family history of cancer Family history of diabetes mellitus Family history of heart disease Family history of kidney disease Social History Smoking Status: Never smoker second hand exposure: No alcohol intake: never counseling given: No substance use type: denies use counseling given: No current occupational status: employed Travel in the last 8 weeks?: None adopted: No caregiver/support person: Yes foster care: No household members: spouse housing: house lives independently: Yes marital status: number of children: 2 education level: master's degree Hx Recent Travel: No sexually active: Yes caffeine: Yes physical activity: none tangela/pentecostalism: Yazidism special tangela needs: No working smoke detector in home: Yes fire extinguisher in home: Yes carbon monox detector in home: Yes firearms in home: Yes firearms unloaded and locked: Yes do you feel safe at home: Yes victim of physical abuse: No victim of emotional abuse: No victim of sexual abuse: No would you like helpful sources: No Have you lived/traveled outside [place] in past 30 days?: No Contact w/someone who lives/traveled outside US past 30 days?: No Exposure to someone with infectious disease in past 14 days?: No Do you have a fever (greater than 100.4 F or 38 C)?: No Have you tested positive for COVID-19?: No Exposed to someone with COVID-19 in past 14 days?: No Do you have a sore throat?: No Do you have a cough?: No Do you have any weakness?: No Do you have any diarrhea?: No Are you experiencing any unusual bleeding?: No Do you have any muscle aches/pain?: No Do you have any abdominal pain?: No Are you experiencing loss of taste or smell?: No Other Medical History Have you received the Flu Vaccine for this season: No Have you received the Pneumonia Vaccine: No ROS Obtained: Yes All systems reviewed & no additional complaints except as documented Physical Exam General General appearance: alert and in no apparent distress Head Head exam: atraumatic and normocephalic Eye Eye exam: Present normal appearance, PERRL and EOMI ENT ENT exam: Present normal oropharynx and normal external ear exam Neck Neck exam: Present normal inspection and full ROM Chest Chest inspection: Present normal inspection and symmetric chest wall rise; Absent tenderness Respiratory Respiratory exam: Present normal lung sounds bilaterally; Absent respiratory distress Cardiovascular Cardiovascular exam: Present regular rate and normal rhythm Abdominal Exam Abdominal exam: Present soft; Absent distention, tenderness or guarding Extremities Exam Extremities exam: Present normal inspection; Absent edema or joint swelling Back Exam Back exam: Present normal inspection; Absent tenderness Neurological Exam Neurological exam: Present alert and oriented X3; Absent motor sensory deficit Psychiatric Psychiatric exam: Present normal affect and normal mood Skin Skin exam: Present warm, dry and normal color Lymphatic Lymphatic Findings: no adenopathy Medical Decision Making Medical Records Medical records reviewed: Yes I reviewed the patient's medical records. Screening: Per USPSTF and CDC recommendations, given the prevalence of disease in our region, it is our hospital?s policy to screen for HIV and viral Hepatitis for all patients aged 18 and over and those with ongoing risk factors. Alejandro Inquiry Pt receiving controlled substance: No Alejandro was queried for this patient: No Vital Signs: 03/06/25 00:14 03/06/25 00:30 03/06/25 00:44 Temperature 98.0 F Temperature Source Oral Pulse Rate 61 64 Pulse Rate [Right Brachial] 80 Respiratory Rate 20 15 18 Blood Pressure 105/71 L 99/66 L Blood Pressure [Right Arm] 117/74 Blood Pressure Mean [Right Arm] 88 Blood Pressure Source Blood Pressure Source [Right Arm] Automatic Cuff Blood Pressure Position Blood Pressure Position [Right Arm] Supine 02 Sat by Pulse Oximetry 95 96 99 Oxygen Delivery Method Room Air Room Air Room Air 03/06/25 00:52 03/06/25 01:00 03/06/25 01:23 Temperature 97.8 F Temperature Source Oral Pulse Rate 64 60 82 Pulse Rate [Right Brachial] Respiratory Rate 16 16 14 Blood Pressure 99/66 L 101/65 L 99/63 L Blood Pressure [Right Arm] Blood Pressure Mean [Right Arm] Blood Pressure Source Automatic Cuff Automatic Cuff Blood Pressure Source [Right Arm] Blood Pressure Position Supine Blood Pressure Position [Right Arm] 02 Sat by Pulse Oximetry 99 100 Oxygen Delivery Method Room Air Room Air Room Air Lab Data Lab results reviewed: Yes I reviewed the patient's lab results. Lab Results 03/06/25 00:25: WBC 14.2 H, RBC 4.48, Hgb 13.4, Hct 38.9, MCV 86.8, MCH 29.9, MCHC 34.4, RDW 12.3, Plt Count 271, MPV 11.6 H, Neut % (Auto) 76.4, Lymph % (Auto) 18.5, [place] % (Auto) 3.5, Eos % (Auto) 0.8, Baso % (Auto) 0.4, Neut # (Auto) 10.9 H, Lymph # (Auto) 2.6, [place] # (Auto) 0.5, Eos # (Auto) 0.1, Baso # (Auto) 0.1, Sodium 136, Potassium 4.4, Chloride 102, Carbon Dioxide 27, Anion Gap 11.4, BUN 17, Creatinine 1.00, Estimated Creat Clear 98, Estimated GFR 63, Est GFR ( Amer) 76, Glucose 122 H, Calcium 10.0, Magnesium 1.8, Total Bilirubin 0.4, AST 31, ALT 23, Alkaline Phosphatase 53, Total Protein 7.6, Albumin 4.4, Globulin 3.2, Albumin/Globulin Ratio 1.4, Serum HCG, Qual Negative 03/06/25 00:25 03/06/25 00:25 Orders (Tests/Meds): ED MEDICATIONS Discontinued Medications Generic Name Dose Route Start Last Admin Trade Name Freq PRN Reason Stop Dose Admin Hydrocortisone Sodium Succinate 100 mg 03/06/25 00:14 03/06/25 00:30 Hydrocortisone Sod Succinate 100mg Vial IV 03/06/25 00:15 100 mg ONCE ONE Administration Sodium Chloride 1,000 mls @ 999 mls/hr 03/06/25 00:15 03/06/25 00:30 Sod Chlor 0.9% 1000ml Bag IV 03/06/25 01:15 999 mls/hr .Q1H1M TIMUR Administration ORDERS Category Date Time Status CXR --portable [XR chest portable] Stat Exams 03/06/25 00:29 Taken CBC w/Auto Diff [Complete Blood Count Auto Diff] Stat Lab 03/06/25 00:25 Completed CMP [Comprehensive Metabolic Panel] Stat Lab 03/06/25 00:25 Completed HCG Qualitative, Serum Stat Lab 03/06/25 00:25 Completed Magnesium Stat Lab 03/06/25 00:25 Completed Medical Decision Narrative: 34-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 History was obtained via interactive discussion with patient, chart review. On arrival, patient is [afebrile, hemodynamically stable, satting appropriately, alert, oriented x4, GCS 15], moving all extremities spontaneously. Full physical exam performed and significant for no significant physical exam abnormalities. Differential includes but is not limited to adrenal crisis, electrolyte derangement, dehydration Patient was given 1 L of IV fluids and 100 of hydrocortisone for symptomatic management and correction of underlying abnormalities. Workup initiated including CBC CMP mag chest x-ray. On re-evaluation, patient [remains afebrile, HD stable.] Laboratory workup independently interpreted by me and significant for no significant electrolyte derangement, mild leukocytosis with white count of 14,. Imaging independently interpreted by me and significant for clear lungs bilaterally without focal opacity. See radiology read for full review of final results. Given patient history, exam and workup, patient's presentation most likely represents no significant concern for adrenal crisis at this time. These findings were communicated to patient and she was discharged in stable condition with return precaution. Procedures Risk/Benefits of Procedure(s) Were Explained: Yes Critical Care Critical Care Time Critical Care Time: No
[2025-03-06 00:14] VITALS: BP 117/74; PULSE 80; RESP 20; TEMP 36.7; O2SAT 95; BMI 32.0
[2025-03-06 00:29] LABS: Basophils # 0.1 K/mm3 (0-0.2); Basophils % 0.4 % (0.1-2.0); Eosinophils # 0.1 Kmm3 (0.0-0.4); Eosinophils % 0.8 % (0.1-12.0); Hematocrit 38.9 % (37.0-47.0); Hemoglobin 13.4 g/dL (12.2-16.2); Immature Granulocytes # 0.05 10^3uL; Immature Granulocytes % 0.4 %; Lymphocytes # 2.6 K/mm3 (0.7-4.5); Lymphocytes % 18.5 % (10-50); Mean Corpuscular HGB Conc 34.4 g/dL (31.8-35.4); Mean Corpuscular Hemoglobin 29.9 pg (27.0-31.2); Mean Corpuscular Volume 86.8 fl (81-99); Mean Platelet Volume 11.6 fl (7.4-10.4); Monocytes # 0.5 K/mm3 (0.1-1.0); Monocytes % 3.5 % (1.7-9.3); Neutrophils # 10.9 K/mm3 (1.8-7.8); Neutrophils % 76.4 % (37.0-80.0); Nucleated Red Blood Cells # 0 10^3/uL; Nucleated Red Blood Cells % 0 %; Platelet Count 271 K/mm3 (142-424); Red Blood Count 4.48 M/mm3 (4.20-5.40); Red Cell Distribution Width 12.3 % (11.5-17.5); Red Cell Distribution Width-SD 39.2 fL; White Blood Count 14.2 K/mm3 (4.8-10.8)
--- NOTE | 2025-03-06 00:29 | XR_ITS ---
PROCEDURE INFORMATION: Exam: XR Chest Exam date and time: 03/06/2025 12:56 AM Age: 34 years old Clinical indication: Cough; Additional info: Cough, SOA TECHNIQUE: Imaging protocol: Radiologic exam of the chest. Views: 1 view. COMPARISON: CR XR CHEST PORTABLE 23/12/2024 09:25 FINDINGS: Lungs: Unremarkable. No consolidation. Pleural spaces: Unremarkable. No pleural effusion. No pneumothorax. Heart/Mediastinum: Unremarkable. No cardiomegaly. Bones/joints: Unremarkable. IMPRESSION: No acute findings.
[2025-03-06 00:30] VITALS: BP 105/71; PULSE 61; RESP 15; O2SAT 96
[2025-03-06] MEDS: HYDROCORTISONE SOD SUCCINATE 100MG VIAL 100 MG IV (00:30)
[2025-03-06] MEDS: 0.9 % SODIUM CHLORIDE 1000ML 1,000 ML 999 ML IV (00:30)
[2025-03-06 00:36] LABS: Chloride 102 mmol/L (98-107)
[2025-03-06 00:37] LABS: Albumin Level 4.4 g/dl (3.5-5.0); Potassium 4.4 mmoL/L (3.5-5.1); Sodium 136 mmol/L (136-145)
[2025-03-06 00:39] LABS: Blood Urea Nitrogen 17 mg/dl (7-17); Magnesium 1.8 mg/dl (1.6-2.3)
[2025-03-06 00:40] LABS: Alanine Aminotransferase 23 U/L (12-78); Albumin/Globulin Ratio 1.4 (1.1-1.8); Alkaline Phosphatase 53 U/L (38-126); Anion Gap 11.4 mEq/L (5-15); Aspartate Amino Transferase 31 U/L (14-36); Bilirubin,Total 0.4 mg/dl (0.2-1.3); Carbon Dioxide 27 mmol/L (22.0-30.0); Creatinine Clearance Estimated 98 mL/min (50-200); Estimated Glomerular Filt Rate 63 ml/min (>60); GFR (African American) 76 ML/MIN (>60); Globulin 3.2 g/dL (1.3-3.2); Glucose 122 mg/dl (74-100); Total Protein,Serum 7.6 g/dl (6.3-8.2)
[2025-03-06 00:44] VITALS: BP 99/66; PULSE 64; RESP 18; O2SAT 99
[2025-03-06 00:44] LABS: HCG Qualitative, Serum Negative (Negative)
[2025-03-06 00:52] VITALS: BP 99/66; PULSE 64; RESP 16; O2SAT 99
[2025-03-06 01:00] VITALS: BP 101/65; PULSE 60; RESP 16; O2SAT 100
[2025-03-06 01:23] VITALS: BP 99/63; PULSE 82; RESP 14; TEMP 36.6; O2SAT 96
== END 2025-03-06 01:29 | disposition home or self-care (01) ==
PROVIDERS: Emergency Provider Emergency Medicine; PCP Internal Medicine Adolescent Medicine
DX: E27.1 Primary adrenocortical insufficiency (principal)
CPT/HCPCS: 71045; 80053; 83735; 84703; 85025; 96361; 96374; 99284; J1720; J7030

== ENCOUNTER 2025-03-07 06:07 | Day surgery (SDC) | payer OTHER, SELFPAY ==
[2025-02-28 12:45] VITALS: BMI 32.0
[2025-03-07 06:22] VITALS: BP 99/64; PULSE 83; RESP 18; TEMP 36.7; O2SAT 95
[2025-03-07] MEDS: LACTATED RINGERS 1000ML 1,000 ML 25 ML IV (06:58)
--- NOTE | 2025-03-07 07:04 | P.PNANES_ITS ---
[facility] Disclaimer: The information contained in this section may have been updated after the patient was seen, as this information can be updated by other users. Medical History Addisonian crisis Mastitis Butts's disease Nausea & vomiting PCOS (polycystic ovarian syndrome) ADHD Nacho disease Thyroid disease Depression Anxiety History of gastroesophageal reflux (GERD) Asthma Surgical History History of dilation and curettage History of tympanostomy tube placement History of tonsillectomy History of section Family History Other Family history of cancer Family history of diabetes mellitus Family history of heart disease Family history of kidney disease Social History (Updated 03/07/25 @ 06:24 by Aurea Pizarro RN) Smoking Status: Never smoker second hand exposure: No alcohol intake: never counseling given: No substance use type: denies use counseling given: No current occupational status: employed Travel in the last 8 weeks?: None adopted: No caregiver/support person: Yes foster care: No household members: spouse housing: house lives independently: Yes marital status: number of children: 2 education level: master's degree Hx Recent Travel: No sexually active: Yes caffeine: Yes physical activity: none tangela/denominational: Confucianist special tangela needs: No working smoke detector in home: Yes fire extinguisher in home: Yes carbon monox detector in home: Yes firearms in home: Yes firearms unloaded and locked: Yes do you feel safe at home: Yes victim of physical abuse: No victim of emotional abuse: No victim of sexual abuse: No would you like helpful sources: No Have you lived/traveled outside US in past 30 days?: No Contact w/someone who lives/traveled outside US past 30 days?: No Exposure to someone with infectious disease in past 14 days?: No Do you have a fever (greater than 100.4 F or 38 C)?: No Have you tested positive for COVID-19?: No Exposed to someone with COVID-19 in past 14 days?: No Do you have a sore throat?: No Do you have a cough?: No Do you have any weakness?: No Do you have any diarrhea?: No Are you experiencing any unusual bleeding?: No Do you have any muscle aches/pain?: No Do you have any abdominal pain?: No Are you experiencing loss of taste or smell?: No [facility] Anesthesia Checklist Patient Identification Patient Identification: Arm Band and Verbal (Name & ) Structural Data Admitted From: Home Planned Operative Procedure/s: Hysteroscopy, D&C, myosure Consent for Planned Operative Procedure(s) Verified: Yes Verified Documents: Surgical Consent NPO Status Verified Time NPO: 00:00 Chart Verification Results Verified: CBC Additional verifications Patient : No Anesthesia Reactions: No Hx Blood Transfusions: No Blood Transfusion Reaction: No Airway Assessment Mallampati Score:: Class II Dentition: Good Dentition Neurological Assessment Level of Consciousness: Awake, Alert and Appropriate Hx Seizures: No Numbness or tingling in extremities: No Anesthesia Plan ASA Class: II Anesthesia Type: General
[2025-03-07] MEDS: LIDOCAINE 1% W/EPI 1:100,000 20ML VIAL 20 ML (08:00)
[2025-03-07] MEDS: SODIUM CHLORIDE IRRIG SOLUTION 3,000 ML 25 ML IR (08:00)
[2025-03-07 08:40] VITALS: BP 126/73; PULSE 88; RESP 18; TEMP 36.7; O2SAT 100
--- NOTE | 2025-03-07 08:49 | EXP.OP.NOTE ---
Date of procedure: 03/07/25 Pre-op Diagnosis:: 1. Heavy uterine bleeding new 2. Stokes's disease Post-op Diagnosis:: 1. Heavy uterine bleeding new 2. Nacho's disease Procedure performed:: 1. Hysteroscopy, dilation and curettage 2. NovaSure endometrial ablation Surgeon:: Renetta Easton DO FORESTRY AID TECHNICIAN:: Other (Hector Guerra) Anesthesia: MAC Estimated blood loss (mL): 10 Operative findings:: EUA revealed an anteverted uterus with normal size, shape and contour. No gross adnexal masses noted. Operative note:: Anesthesia: MAC Surgeon: Renetta Easton DO Procedure: Hysteroscopy, D&C with NovaSure ablation Summary: The patient was taken back to the OR where general anesthesia was obtained. She was placed in the dorsal lithotomy position using yellow fin stirrups and sterilely prepped and draped in the usual fashion. An in and out catheter was used to drain her bladder. A timeout was performed. A weighted speculum was used to visualize this cervix, a single-tooth tenaculum was applied to the anterior lip of the cervix and the uterus sounded to 8cm. The cervix was dilated with Rodney dilators to accommodate a 7mm Hysteroscope. The hysterscope was inserted to the fundus, thin endometrium was noted. Access to the endometrium was difficult secondary to a sharp curve and anteverted uterus. Images were obtained of the cavity and each tubal ostia. The hysteroscope was removed with careful attention to note the cervical length, 4cm. #3 sharp curette was used to collect endometrial curettings on Telfa pad and passed off the operative field for further evaluation. The Novasure device was opened, deployed, and noted to be functioning properly. The device was inserted to the fundus, set to a length of 4cm, and deployed to a width of 2.5cm. Cavity integrity was assessed and adequate. The ablation was started and a power of 55W was noted. Total ablation time was 2:00 minutes. The Novasure device was removed from the cervical os and the hysterscope was reinserted. The endometrium was noted to be successfully ablated and an image was obtained. All instruments were removed from the vagina. Hemostasis was noted at the tenaculum sites. All counts were correct, per nursing. This concluded the procedure, the pt was awakened from anesthesia and transferred to the PACU in stable condition. The patient will not be given Toradol postoperatively secondary to a creatinine of 1.0, discussed this with the patient preoperatively. Patient will follow-up with her PCP Condition: stable Disposition: same day Specimens:: Endometrial curettings Complications:: None
[2025-03-07 08:55] VITALS: BP 121/72; PULSE 74; RESP 16; TEMP 36.7; O2SAT 100
[2025-03-07 09:10] VITALS: BP 111/74; PULSE 66; RESP 16; TEMP 36.7; O2SAT 99
== END 2025-03-07 09:20 | disposition home or self-care (01) ==
PROVIDERS: PCP Internal Medicine Adolescent Medicine; Visit Provider Obstetrics & Gynecology
PROC: (CPT 58558; principal; 2025-03-07 07:30)
DX: N80.00 Endometriosis of the uterus, unspecified (principal); N93.9 Abnormal uterine and vaginal bleeding, unspecified; E27.1 Primary adrenocortical insufficiency; K21.9 Gastro-esophageal reflux disease without esophagitis; E07.9 Disorder of thyroid, unspecified; J45.909 Unspecified asthma, uncomplicated; Z79.899 Other long term (current) drug therapy; Z79.890 Hormone replacement therapy; Z88.0 Allergy status to penicillin; Z88.1 Allergy status to other antibiotic agents; Z91.048 Other nonmedicinal substance allergy status; Z80.9 Family history of malignant neoplasm, unspecified
CPT/HCPCS: 58563; J1100; J2250; J2405; J3010; J7120

== ENCOUNTER 2025-06-08 10:35 | Outpatient (CLI) | payer OTHER, SELFPAY ==
--- OUTSIDE RECORDS SUMMARY | 2024-12-28 04:15 | XMS_ITS ---
Author Organization [facility] Address [address] [place], [place] [address] Care Team Providers Care Mailing Jogger Name Role Phone Vincent Roberson Primary Care Provider Vincent Roberson Unavailable Unavailable Lilly Mueller [phone] REASON FOR VISIT Discharged from [facility] on 12/24/24 Encounters Encounter Location Date Provider Diagnosis [facility] [address] [place], [place] [address] 12/28/2024 Lilly Mueller Plan Of Treatment Next Appt Details Provider Name:Vincent Roberson, 06/18/2025 04:45:00 PM, [address], [address], [place], [place], [address], Progress Notes * Lindsay FERRARIDOB:1990 ( 34 yo F)Acc No.[id number]:12/28/2024 HOSP F/U Patient: Lindsay BARON Provider: ENEDINA Rahman :1990 A ge:34 Y S ex:Female Date:12/28/2024 Address:[address], [id number] Pcp:Vincent Roberson Subjective: * Chief Complaints: * 1 . Discharged from [facility] on 12/24/24. * Medical History: Objective: * Vitals: Assessment: Plan: * Treatment: * * Electronic signature of Cha Mueller APRN on 06/09/2025 at 10:37 AM EDT Sign off status: Pending * Provider: ENEDINA Rahman Date: 0 12/28/2024 Generated for Juan Pablo martínez/Nito/Maco on: 0 06/09/2025 10:37 AM EDT
--- OUTSIDE RECORDS SUMMARY | 2025-01-11 17:30 | XMS_ITS ---
Author Organization [facility] Address [address] [place] [address] Care Team Providers Care Tools Developer Name Role Phone Vincent Roberson Primary Care Provider Vincent Roberson Unavailable Unavailable Migration, Provider Unavailable Unavailable Allergies Allergen (clinical drug ingredient) Drug/Non Drug Allergy documented on EMR Reaction Allergy Type Onset Date Status AVACADO (uncoded) rash Allergy Ac tive Cephalosporin CEPHALOSPORIN (uncoded) rash Allergy Active diclofenac Pennsaid rash Drug Allergy Active Penicillin rash Drug Allergy Active [facility] Conversion Encounter Medications Medication SIG (Take, Route, Frequency, Duration) Notes Start Date End Date Status Famotidine 20 MG 1 tab(s) orally once a day Active Flonase Allergy Relief 50MCG PER SPRAY 2 SPRAY EACH NOSTRIL QD *Please review and pick correct [facility]ulati [facility]. If intended option is not shown, discontinue and re-order from Quick Search* Active ZyrTEC Allergy 10 MG 1 tab(s) orally once a day Active Multivitamin VITAMIN A, D AND C 1 ML ORALLY ONCE A DAY *Please review and pick correct strength-formulati [facility] options. If intended option is not shown, [...] Active Encounters Encounter Location Date Provider Diagnosis [facility] [address] [place] [facility] [address] [facility] [address] [place] [address] 01/11/2025 Provider Migration Strep throat J02.0 Assessments Encounter Date Diagnosis (ICD Code) Assessment Notes Treatment Notes Treatment Clinical Notes Section Notes 01/11/2025 Strep throat (ICD-10 - J02.0) Plan Of Treatment Medication Medication Name Sig Start Date Stop Date Notes Clindamycin HCl 300 MG 1 cap(s) orally t hree times daily; Duration: 7 days 12/13/2024 Next Appt Details Provider Name:Vincent Roberson, 06/18/2025 04:45:00 PM, [address] [facility], [address], [place], [address], Progress Notes * Lindsay FERRARIDOB:1990 ( 34 yo F)Acc No.[id number]:01/11/2025 Patient: Annie SANCHES Lindsay Provider: Aminta Pritchard :1990 A ge:34 Y S ex:Female Date:01/11/2025 Address:[address], [id number] Pcp:Vincent Roberson Subjective: * Chief Complaints: * 1 . Multum To Medispan Conversion Encounter. * Medical History: * Medications: T aking Multivitamin VITAMIN A, D AND C LIQUID 1 ML ORALLY ONCE A DAY , Notes to Pharmacist: *Please review and pick correct strength-formulation from [employer] options. If intended option is not shown, discontinue and re-order from Quick Search*, Taking ZyrTEC Allergy 10 MG Tablet 1 tab(s) orally once a day , Taking Flonase Allergy Relief 50MCG PER SPRAY 2 SPRAY EACH NOSTRIL QD , Notes to Pharmacist: *Please review and pick correct strength-formulation from [employer] options. If intended option is not shown, [...] Electronic signature of Prov ider Migration on 06/09/2025 at 10:36 AM EDT Sign off status: Pending * Provider: Aminta loredo Migration Date: 01/11/2025 Generated for Juan Pablo martínez/Nito/Maco on: 06/09/2025 10:36 AM EDT
--- OUTSIDE RECORDS SUMMARY | 2025-02-22 05:00 | XMS_ITS ---
Author Organization [facility] Address [address] [facility] [address] [place] [address] Care Team Providers Care Manager Documentation Name Role Phone Vincent Roberson Primary Care Provider Vincent Roberson Unavailable Unavailable REASON FOR VISIT sinus pain Encounters Encounter Location Date Provider Diagnosis [facility] [address] [place] [address] 02/22/2025 Vincent Roberson Plan Of Treatment Next Appt Details Provider Name:Vincent Roberson, 06/18/2025 04:45:00 PM, [address], [place], [address], Progress Notes * Lindsay FERRARIDOB:1990 ( 34 yo F)Acc No.[id number]:02/22/2025 Progress Notes Patient: Lindsay BARON Provider: Emmie Roberson MD :1990 A ge:34 Y S ex:Female Date:02/22/2025 Address:[address], [id number] Subjective: * Chief Complaints: * 1 . Sinus pain. * Medical History: Objective: * Vitals: Assessment: Plan: * Treatment: * * Electronic signature of Angel Roberson MD FAAP on 06/09/2025 at 10:36 AM EDT Sign off status: Pending * Provider: Emmie Roberson MD Date: 0 02/22/2025 Generated for Juan Pablo martínez/Nito/Maco on: 0 06/09/2025 10:36 AM EDT
--- OUTSIDE RECORDS SUMMARY | 2025-04-16 12:30 | XMS_ITS ---
Author Organization [facility] Address [address] [place] [address] Care Team Providers Care Warehouse Traffic Supervisor Name Role Phone Vincent Roberson Primary Care Provider Vincent Roberson Unavailable Unavailable Allergies Allergen (clinical drug ingredient) Drug/Non Drug Allergy documented on EMR Reaction Allergy Type Onset Date Status AVACADO (uncoded) rash Allergy Ac tive Cephalosporin CEPHALOSPORIN (uncoded) rash Allergy Active diclofenac Pennsaid rash Drug Allergy Active Penicillin rash Drug Allergy Active REASON FOR VISIT 1 month follow up Medications Medication SIG (Take, Route, Frequency, Duration) Notes Start Date End Date Status Symbicort 160-4.5 MCG/ACT 2 puff(s) inhaled 2 times a day; Duration: 30 days Active AERO CHAMBER DIRECTED INHALED DIRECTED; Duration: 1 DAY *Please review for potential replacement for e-prescription and drug interaction check* 02/16/2021 Active Hydrocortisone 10 MG 1.5 or two tabs orally every morning; Duration: 90 days Active Vyvanse 40 MG 1 cap(s) orally once a day (in the morning); Duration: 30 day(s) 10/10/2024 Active Albuterol Sulfate HFA 108 (90 Base) MCG/ACT 2 puff(s) inhaled 4 times a day prn; Duration: 30 days Active hydrOXYzine HCl 25 MG 1 tab(s) orally 4 times a day as needed; Duration: 30 days 11/06/2020 Active Famotidine 20 MG 1 tab(s) orally once a day Active ZyrTEC Allergy 10 MG 1 tab(s) orally once a day Active Multivitamin VITAMIN A, D AND C 1 ML ORALLY ONCE A DAY *Please review and pick correct strength-formulati on from Complex Mediaspan options. If intended option is not shown, discontinue and re-order from Quick Search* Active Flonase Allergy Relief 50MCG PER SPRAY 2 SPRAY EACH NOSTRIL QD *Please review and pick correct strength-formulati on from ECS Tuningan options. If intended option is not shown, discontinue and re-order from Quick Search* Active Pristiq 25 MG 1 tablet Orally Once a day Active Hydrocortisone 5 MG 2 tab orally at 3 PM; Duration: 30 days Active Synthroid 200 MCG 1 tab(s) orally once a day; Duration: 90 days Active Fludrocortisone Acetate 0.1 MG 1 tablet Orally Once a day; Duration: 90 days 03/17/2025 Active Social History Tobacco Use: Social History Observation Description Date Details (start date - stop date) Never Smoker NA - NA Smoking: Question Answer Notes Are you a: nonsmoker Vital Signs Temperature 98.1 degrees Fahrenheit 04/16/20 25 Blood pressure systolic 108 mm Hg 04/16/20 25 Blood pressure diastolic 80 mm Hg 025 Heart Rate 80 /min 04/16/2025 Height 5 ft 2 in in 04/16/2025 Weight 184 lbs 04/16/2025 BMI 33.65 kg/m2 04/16/2025 Encounters Encounter Location Date Provider Diagnosis [facility] [address] [facility] [address] [place] [address] 04/16/2025 Vincent Roberson Acquired hypothyroid ism E03.9 ; Adrenal insufficiency E27.40 ; Moderate persistent asthma without complication J45.40 and Weight gain R63.5 Assessments Encounter Date Diagnosis (ICD Code) Assessment Notes Treatment Notes Treatment Clinical Notes Section Notes 04/16/2025 Acquired hypothyroidism (ICD-10 - E03.9) I have ordered labs. Will follow. Needs endocrine referral, will be working on this. 04/16/2025 Adrenal insufficiency (ICD-10 - E27.40) 04/16/2025 Moderate persistent asthma without complication (ICD-10 - J45.40) Asthma is been stable. On inhalers 04/16/2025 Weight gain (ICD-10 - R63.5) Discussed getting cortisol, get endocrine involved, hopefully been able to back down on cortisol levels would be reasonable Plan Of Treatment Treatment Notes Assessment Notes Acquired hypothyroidism I have ordered labs. Will follow. Needs endocrine referral, will be working on this. Moderate persistent asthma w ithout complication Asthma is been stable. On inhalers Weight gain Discussed getting co rtisol, get endocrine involved, hopefully been able to back down on cortisol levels would be reasonable Pending Test Test Name Order Date M-Complete Blood Count Auto Diff 025 M-Comprehensive Metabolic Panel 04/16/20 25 M-Hemoglobin A1C 04/16/2025 M-Magnesium 04/16/2025 M-Lipid Panel 04/16/2025 M-Thyroid Panel 04/16/2025 M-Cortisol 04/16/2025 Next Appt Details Follow Up: 2 Months, Reason: Provider Name:Vincent Roberson, 06/18/2025 04:45:00 PM, [address] [facility] [address] [facility], [address], [place], [address], Progress Notes * Lindsay FERRARIDOB:1990 ( 34 yo F)Acc No.[id number]:04/16/2025 Progress Notes Patient: Lindsay BARON Provider: Emmie Roberson MD :1990 A ge:34 Y S ex:Female Date:04/16/2025 Address:[address] [place] [address] , [facility], [id number] Subjective: * Chief Complaints: * 1 . 1 month follow up. * HPI: g en: Overall feels better. Work is somewhat better. Has not had any kind of need for extra steroids. Has not seen endocrinology in quite a while. * Medical History: A sthma, ADHD, Hypotyhroidism, Anxiety, Allergies, Attention deficit. * Surgical History: T &A , T&A , PE tubes , [place] teeth extracted , 2 chemical pregnancies , C- Section 07/2020, ablation 02/2025. * Hospitalization/Major Diagno stic Procedure: [facility]-Childbirth 07/2020, [facility] -04/2024. * Family History: F ather: alive, CAD, diabetes, stroke right optic nerve, hypothyroidism, ND, basal cell and squamous cell carcinoma, cataracts, HLD. M other: alive, HTN, HLD, pre-diabetes, OP. P aternal Grand Father: . P aternal Grand Mother: , ND. M aternal Grand Father: . M aternal Grand Mother: , ND. P aternal aunt: alive, dementia. M aternal uncle: alive, CAD- ND, anxiety, recovering alcoholic. M aternal aunt: alive, anxiety, CAD- ND.?Siblings: alive. C hildren: alive. 1 sister(s) - healthy. 1 son(s) , 1 daughter(s) - healthy. . Father: History of CAD, stroke, CHF, T2DM Mother: T2DM. * Social History: S moking A re you a: n onsmoker. R ecreational drug use: no. Exercise: yes. Home smoke detector use: yes. Caffeine: yes, frequency: 1-2 cup coffee daily. Living Will: No. Alcohol: socially. Sexually active: yes. Travel outside [place]: no. 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 * Medications: T aking Pristiq 25 MG Tablet Extended Release 24 Hour 1 tablet Orally Once a day , Taking Multivitamin VITAMIN A, D AND C LIQUID 1 ML ORALLY ONCE A DAY , Notes to Pharmacist: *Please review and pick correct strength-formulation from ECS Tuningan options. If intended option is not shown, discontinue and re-order from Quick Search*, Taking ZyrTEC Allergy 10 MG Tablet 1 tab(s) orally once a day , Taking Flonase Allergy Relief 50MCG PER SPRAY 2 SPRAY EACH NOSTRIL QD , Notes to Pharmacist: *Please review and pick correct strength-formulation from ECS Tuningan options. If intended option is not shown, [...] 4 times a day prn , Taking Vyvanse 40 MG Capsule 1 cap(s) orally once a day (in the morning) , Taking Hydrocortisone 10 MG Tablet 1.5 or two tabs orally every morning , Taking Hydrocortisone 5 MG Tablet 2 tab orally at 3 PM , Taking Synthroid 200 MCG Tablet 1 tab(s) orally once a day , Taking Fludrocortisone Acetate 0.1 MG Tablet 1 tablet Orally Once a day , Medication List reviewed and reconciled with the patient * Allergies: P enicillin: rash, CEPHALOSPORIN: rash, AVACADO: rash, Pennsaid: rash. Objective: * Vitals: N urse: KJ, Pain: 0, Temp: 98.1, RR: 16, HR: 80, BP: 108/80, Ht: 5 ft 2 in, Wt: 184, BMI:33.65. * Examination: G eneral Examination: General P leasant and Cooperative, NAD on RA. Heart: R RR, No m/r/g/h, Nl S1S2. Extremities: N o clubbing, no edema. Psych N ormal Mood/Affect. Assessment: * Assessment: 1. A cquired hypothyroidism - E03.9 (Primary) 2 . A drenal insufficiency - E27.40 3 . M oderate persistent asthma without complication - J45.40 ?4. W eight gain - R63.5 Plan: * Treatment: 2. A drenal insufficiency L AB: M-Complete Blood Count Auto Diff L AB: M-Comprehensive Metabolic Panel L AB: M-Hemoglobin A1C L AB: M-Magnesium L AB: M-Lipid Panel L AB: M-Thyroid Panel L AB: M-Cortisol 3. M oderate persistent asthma without complication Notes: Asthma is been stable. On inhalers 4. W eight gain L AB: M-Lipid Panel Notes: Discussed getting cortisol, get endocrine involved, hopefully been able to back down on cortisol levels would be reasonable * Follow Up: 2 Months * * Sign off status: Completed true * Provider: Emmie Roberson MD Date: 0 04/16/2025 Generated for Angeli tanya/Nito/eTransmitting on: 0 06/09/2025 10:36 AM EDT History and Physical Notes * HPI (History of Present Illness) Category Sub-Category Detail Notes Category Not es gen Overall feels better. Work is somewhat better. Has not had any kind of need for extra steroids. Has not seen endocrinology in quite a while Examination Category Sub-Category Detail Notes Category Not es General Examination Heart: RRR, No m/r/g/h, Nl S 1S2 Extremities: No clubbing, no lm a General Pleasant and Coopera tive, NAD on RA Psych Normal Mood/Affect
--- OUTSIDE RECORDS SUMMARY | 2025-06-09 10:37 | XMS_ITS | Clinical Summary ---
Author Organization [facility] Address [address] [place] [address] Care Team Providers Care Surgical Coordinator Name Role Phone Unavailable Primary Care Provider Unavailabl e Allergies Active Allergy Reactions Criticality Noted Date Comments Amoxicillin-Pot Clavulanate 04/25/20 16 Cephalosporins 04/25/2016 Penicillins 04/25/2016 Medications Cetirizine HCl (ZYRTEC ALLERGY) 10 MG capsule Take by mouth. Active fluticasone (FLONASE) 50 MCG/ACT nasal spray 2 sprays into each nostril Daily. 1 bottle 5 7 Active albuterol (PROAIR HFA) 108 (90 Base) MCG/ACT inhalerIndication s:Mild persistent asthma with acute exacerbation Inhale 2 puffs Every 6 (Six) Hours As Needed for Wheezing. 1 inhaler 2 7 Active montelukast (SINGULAIR) 10 MG tabletIndications :Mild persistent asthma with acute exacerbation Take 1 tablet by mouth every night at bedtime. 30 tablet 5 8 Active buPROPion SR (WELLBUTRIN SR) 100 MG 12 hr tabletIndications :Reactive depression Take 1 tablet by mouth 2 (Two) Times a Day. 60 tablet 5 8 Active pseudoephedrine (SUDOGEST 12 HOUR) 120 MG 12 hr tabletIndications :Acute seasonal allergic rhinitis due to pollen Take 1 tablet by mouth Every 12 (Twelve) Hours. 30 tablet 8 Active SYMBICORT 160-4.5 MCG/ACT inhalerIndication s:Mild persistent asthma with acute exacerbation,SOB (shortness of breath) inhale 2 puffs by mouth twice a day 10.2 g 9 Active raNITIdine (ZANTAC) 300 MG tabletIndications :Gastroesophageal reflux disease without esophagitis Take 1 tablet by mouth Every Night. 30 tablet 2 9 Active EPINEPHrine (EPIPEN 2-IDALIA) 0.3 MG/0.3ML solution auto-injector injectionIndicati ons:Allergy, initial encounter Inject 0.3 mL under the skin 1 (one) time for 1 dose. 1 each 6 Active Problems Problem Noted Date Diagnosed Date ADHD (attention deficit hyperactivity disorder) 09/14/2016 GERD (gastroesophageal reflux disease) 6 Seasonal allergies 09/14/2016 Asthma 05/02/2016 Immunizations Immunization Administration Dates Next Due Rabies 06/01/2018,05/25/2018 Family History Medical History Relation Name Comments Diabetes Father Heart disease Father Diabetes Mother Relation Name Status Comments Father Mother Social History Tobacco Use Types Packs/Day Years Used Date Smoking Tobacco: Never Smokeless Tobacco: Never Alcohol Use Standard Drinks/Week Comments No 0 (1 standard drink = 0.6 oz pur e alcohol) Abuse Screen Answer Date Recorded Unsafe at Home or Work/School Not on file Feels Threatened by Someone? Not on file 06/2023 Does Anyone Keep You from Co ntacting Others or Doint Things Outside the Home? Not on file 07/17/2023 Physical Sign of Abuse Present Not on file 1 Housing Stability Answer Date Recorded Current Living Arrangements Not on file 06/2023 Potentially Unsafe Housing Conditions Not on karen e 07/17/2023 Family and Community Support Answer Micah e Recorded Help with Day-to-Day Activities Not on file 07/17/2023 Lonely or Isolated Not on file 07/17/2023 Employment Answer Date Recorded Do you want help finding or keeping work or a steve b? Not on file 07/17/2023 Disabilities Answer Date Recorded Concentrating, Remembering, or Making Decisions Difficulty Not on file 07/17/2023 Doing Errands Independently Difficulty Not on fi le 07/17/2023 Education Answer Date Recorded Help with school or training? Not on file Preferred Language Not on file 07/17/2023 Comments No Sex and Gender Information Value Date Recorded Sex Assigned at Not on file Legal Sex Female 10:29 AM EDT Gender Identity Not on file Sexual Orientation Not on file Last Filed Vital Signs Vital Sign Reading Time Taken Comments Blood Pressure 100/64 02/08/2018 9:46 AM EDT Pulse 75 02/08/2018 9:46 AM EDT Temperature 36.8 C (98.2 F) 02/08/2018 9:46 AM EDT Respiratory Rate 16 02/08/2018 9:46 AM EDT Oxygen Saturation 98% 02/08/2018 9:46 AM EDT Inhaled Oxygen Concentration - - Weight 83 kg (183 lb) 02/08/2018 9:46 AM EDT Height 157.5 cm (5' 2.01 ) 09/13/2017 11:[address] Body Mass Index 33.46 09/13/2017 11:57 AM EST Plan of Treatment Health Maintenance Due Date Last Done Comments Annual Gynecologic Pelvic an d Breast Exam 1990 Pneumococcal Vaccine 0-49 (1 of 2 - PCV) 2008 ANNUAL PHYSICAL 03/21/2016 COVID-19 Vaccine (2023-2 5 season) 2024 10/22/2020, 09/30/2020 INFLUENZA VACCINE 07/09/2025 08/15/2022, , 07/09/2020, Additional history exists TDAP/TD VACCINES (4 - Td or Tdap) 08/15/2032 08/15/2022, 05/22/2020, 06/19/2009 HEPATITIS C SCREENING Completed 03/23/2022, 022 Insurance [facility]
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
--- OUTSIDE RECORDS SUMMARY | 2025-06-09 10:37 | XMS_ITS | Encounter Summary ---
Author Organization [facility] Address [address] [place] [address] Care Team Providers Care Travel Attendants Name Role Phone Geoffrey Bhatti MD Primary Care Provider [phone] Reason for Referral * Consultation (Routine) - Closed Specialty Diagnoses / Procedures Referred By Contac t Referred To Contact Endocrinology Diagnoses Primary adrenal deficiency (CMS/HCC) Vincent Roberson MD [address] [place] [address] Phone: tel: fax: [facility] [address] [place] [address] Phone: tel: fax: Referral ID Status Reason Start Date Expiration Date V isits Requested Visits Authorized [id number] Closed Specialty Services Required 04/07/2023 10/06/2024 1 1 Encounter Details Date Type Department Care Team (Late st Contact Info) Description 04/07/2023 Community [facility] [address] [place] [address] Vincent Roberson MD [facility] [place] [address] Primary adrenal deficiency (CMS/HCC) (Primary Dx) Social History Tobacco Use Types Packs/Day Years Used Date Smoking Tobacco: Never Smokeless Tobacco: Never Alcohol Use Standard Drinks/Week Comments Not Currently 0 (1 standard drink = 0.6 oz pure alcohol) possibly in early before pos UPT [place] Depression Scale Answer Date Recorded [place] Depression Scale Total 5 11/02/2022 The thought of harming myself has occurred to me . Never 11/02/2022 CAGE ASSESSMENT Answer Date Recorded Cage unable to access Not on file 09/19/2022 Cage max number of drinks Not on file 2021 Cage Beverages a week Not on file 09/19/2022 Have you ever felt you should CUT down on your d rinking? 0 09/19/2022 Have you been ANNOYED by people criticizing your drinking? 0 09/19/2022 Have you felt GUILTY about your drinking? 0 09/19/2022 Have you had a drink first t toya in the morning ([employer]) to steady your nerves or to get rid of a hangover? 0 09/19/2022 CAGE Questionnaire Score 0 022 Comments No Sex and Gender Information Value Date Recorded Sex Assigned at Not on file Legal Sex Female 6:30 PM EDT Gender Identity Not on file Sexual Orientation Not on file documented as of this encounter Functional Status * Are you deaf or do you have serious difficulty hearing? Answer Date of Assessment Author No 06/29/2022 6:37 PM EDT Angi Astorga RN * Are you blind or do you have serious difficulty seeing, even when wearing glasses? Answer Date of Assessment Author No 06/29/2022 6:37 PM EDT Angi Astorga RN * Do you have serious difficulty walking or climbing stairs? Answer Date of Assessment Author No 06/29/2022 6:37 PM EDT Angi Astorga RN * Do you have serious difficulty dressing or bathing? Answer Date of Assessment Author No 06/29/2022 6:37 PM EDT Angi Astorga RN * Because of a physical, mental, or emotional condition, do you have serious difficulty doing errandsalone such as visiting the doctor? Answer Date of Assessment Author No 06/29/2022 6:37 PM EDT Angi Astorga RN documented as of this encounter Mental Status * Because of a physical, mental, or emotional condition, do you have serious difficulty concentrating, remembering, or making decisions? (5 years old or older) Answer Entry Date Author No 06/29/2022 6:37 PM EDT Angi Astorga RN documented in this encounter Plan of Treatment Scheduled Referrals Name Type Priority Associated Diagnoses Order Schedule Ambulatory referral to Endocrinology Outpatient Referral Routine Primary adrenal deficiency (CMS/HCC) Expected: 04/07/2023 (Approximate), Expires: 10/07/2024 documented as of this encounter Goals Goal Patient Goal Type Associated Problems Recent Progress Patient-Stated? Author Delayed Delivery Care Plan CPM S[facility]OR (OBSTETRICS) No Open Scheduling, Background documented as of this encounter Visit Diagnoses Diagnosis Primary adrenal deficiency (CMS/HCC)- Primary Glucocorticoid deficiency documented in this encounter Additional Health Concerns Active Problems Noted Date Diagnosed Date CPM S20 [facility]OR (OBSTETRICS) 05/14/2022 Infection Onset Date Last Indicated Resolved Time MRSA Comment:Patient needs MRSA protocol 08/22/2020 03/02/2021 documented as of this encounter Care Teams Travel Attendants Relationship Specialty Start Date End Date Geoffrey Bhatti MD [address] [place] [address] PCP - General 02/19/21 documented as of this encounter
--- OUTSIDE RECORDS SUMMARY | 2025-06-09 10:37 | XMS_ITS | Clinical Summary ---
Author Organization [facility] Address [address] [place] [address] Care Team Providers Care Program Technician Name Role Phone Geoffrey Bhatti MD Primary Care Provider [phone] Allergies Active Allergy Reactions Criticality Noted Date Comments Amoxicillin-Pot Clavulanate Rash Low 04/25/2016 Nausea Avocado Rash Low 05/27/2019 Cephalosporins Rash,Unknown - Patient states they do not know rxn details Low 12/13/2013 Cephalosporins -- told by her physician that she is also allergic to this, however has not ever had this class of ABX to her knowledge. Diclofenac Sodium Unknown - Patient states they do not know rxn details Low 03/31/2022 Red and itchy with pinpoint rash Fine with aspirin and ibuprofen Penicillins Hives,Other - please document in the comment field,Rash Medium 12/13/2013 Penicillins Medications * This document contains information received from the source organization and may not represent a complete record from that organization. albuterol 108 (90 Base) MCG/ACT inhaler Inhale 2 puffs every 6 (six) hours if needed for wheezing or shortness of breath. 0 Active Symbicort 160-4.5 MCG/ACT inhaler Inhale 2 puffs 1 (one) time each day. 1 Active buPROPion XL (Wellbutrin XL) 300 MG 24 hr tablet TAKE 1 TABLET BY MOUTH EVERY 24 HOURS 1 Active cetirizine (ZyrTEC) 10 MG tablet Take 10 mg by mouth 1 (one) time each day. 6 Active fluticasone (Flonase) 50 MCG/ACT nasal spray Administer 1 spray into each nostril if needed for allergies. 7 Active montelukast (Singulair) 10 MG tablet Take 10 mg by mouth 1 (one) time each day. 1 Active levothyroxine (Synthroid) 150 MCG tabletIndication s:Hypothyroidism , unspecified type Take 1 tablet (150 mcg total) by mouth 1 (one) time each day before breakfast. 30 tablet 11 2 Active fludrocortisone (Florinef) 0.1 MG tablet Take 1 tablet (0.1 mg) by mouth 1 (one) time each day. 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 06/13/2019 ADHD (attention deficit hyperactivity disorder) 09/14/2016 Seasonal allergies 09/14/2016 Asthma 05/02/2016 Resolved Problems Problem Noted Date Diagnosed Date Resolved Date Shortness of breath 06/27/2022 06/28/20 22 Immunizations Immunization Administration Dates Next Due Hep A, Unspecified 11/07/2019,08/16/2018 Hep B, adult 11/18/1998,05/12/1998,04/16/1998 Influenza, Unspecified 07/09/2020,2018,06/24/2018,07/18,07/17/2016,07/22/2015,08/20/2014 Influenza, injectable, quadr ivalent, preservative free 08/15/2022,07/15/2021 MMR 04/08/1998,02/16/1991 Pfizer-BioNTech COVID-19 Vac cine (Purple Cap) 12+ 10/22/2020,09/30/2020 Rabies Immune Globulin 05/18/2018 Rabies, intramuscular 05/21/2018,05/18/2018 Tdap 08/15/2022,05/22/2020,06/19/2009 Family History Medical History Relation Name Comments Arthritis Father Jhonatan Basal cell carcinoma Father Jhonatan Cardiac disorder Father Jhonatan Diabetes Father Jhonatan ANDREI disease Father Jhonatan Hyperlipidemia Father Jhonatan Hypertension Father Jhonatan Joint pain/problems Father Jhonatan Obesity Father Jhonatan Thyroid disease Father Jhonatan Arthritis Mother Shanelle Asthma Mother Shanelle Diabetes Mother Shanelle Diabetes type II Mother Shanelle ANDREI disease Mother Shanelle Hyperlipidemia Mother Shanelle Hypertension Mother Shanelle Joint pain/problems Mother Shanelle Mental illness Mother Shanelle Migraines Mother Shanelle Obesity Mother Shanelle Stomach problems Mother Shanelle Anxiety disorder Sister 1 Renetta Asthma Sister 1 Renetta Mental illness Sister 2 Renetta Relation Name Status Comments Father Jhonatan Mother Shanelle Sister 1 Renetta Sister 2 Renetta Social History Tobacco Use Types Packs/Day Years Used Date Smoking Tobacco: Never Smokeless Tobacco: Never Tobacco Cessation:Counseling Given: Not Answered Alcohol Use Standard Drinks/Week Comments Not Currently 0 (1 standard drink = 0.6 oz pure alcohol) possibly in early before pos UPT [place] Depression Scale Answer Date Recorded [place] Depression Scale Total 5 11/02/2022 The thought [...] drink first t toya in the morning (EYE-WALL TAPER HELPER) to steady your nerves or to get rid of a hangover? 0 09/19/2022 CAGE Questionnaire Score 0 022 Comments Unknown Sex and Gender Information Value Date Recorded Sex Assigned at Not on file Legal Sex Female 6:30 PM EDT Gender Identity Not on file Sexual Orientation Not on file Last Filed Vital Signs Vital Sign Reading Time Taken Comments Blood Pressure 96/59 07/24/2023 3:29 PM EDT Pulse 64 07/24/2023 3:29 PM EDT Temperature 36.6 C (97.8 F) 09/21/2022 8:08 AM EST Respiratory Rate 18 09/21/2022 8:08 AM EST Oxygen Saturation 99% 09/21/2022 8:08 AM EST Inhaled Oxygen Concentration - - Weight 71.3 kg (157 lb 3 oz) 07/24/2023 3:29 PM EDT Height 157.5 cm (5' 2 ) 07/24/2023 3:29 PM EDT Body Mass Index 28.75 07/24/2023 3:29 PM EDT Plan of Treatment Health Maintenance Due Date Last Done Comments Dental X-Ray: Full Mouth 1989 [facility]-/Child/Adol SDOH Screenings 1989 [facility]-Varicella Vaccines (1 of 2 - 13+ 2-dose series) 2002 [facility]- SDOH Screenings 2007 [facility]-Adult SDOH Screenings 2007 [facility]-Pneumococcal Vaccine: Pediatrics (0 to 5 Years) and At-Risk Patients (6 to 49 Years) (1 of 2 - PCV) 2008 HPV Vaccines (1 - 3-dose SCDM series) 2016 Dental Prophylaxis 01/23/2019 07/24/2018 [facility]-Pap Smear 10/31/2021 10/31/2018, 07/04/2016 Dental Oral Exam 05/03/2022 11/02/2021 Dental X-Ray: Bitewings 11/03/2022 11/02/2021, 07/24 [facility]-Cervical Cancer Screening 10/31/2023 [facility]-HPV/Cotest 10/31/2023 10/31/2018, 07/04/2016 [facility]-Depression Screening 11/02/2023 11/02/2022 ZPF-HBVGL-93 Vaccine ( - season) 2024 10/26/2022, 08/18/2021, 10/22/2020, Additional history exists [facility]-Influenza Vaccine (#1) 06/09/202508/15, 07/15/2021, 07/09/2020, Additional history exists [facility]-DTaP,Tdap,and Td Vaccines (4 - Td or Tdap) 08/15/2032 08/15/2022, 05/22/2020, 06/19/2009 [facility]-Zoster Vaccines (1 of 2) 2039 [facility]-Hepatitis A Vaccines Aged Out 11/07/2019, 05/2018 No longer eligible based on patient's age to complete this topic [facility]-HIV Screening Completed 12/11/2019 [facility]-Hepatitis B Vaccines Completed 022, 11/18/1998, 05/12/1998, Additional history exists [facility]-Hepatitis C Screening Completed 03/23/2022, 01/2020 [facility]-Obesity Intervention Completed 07/24/2023 [facility]-HIB Vaccines Aged Out No longer e ligible based on patient's age to complete this topic [facility]-IPV Vaccines Aged Out No longer e ligible based on patient's age to complete this topic [facility]-Rotavirus Vaccines Aged Out No lo nger eligible based on patient's age to complete this topic Goals Goal Patient Goal Type Associated Problems Recent Progress Patient-Stated? Author Delayed Delivery Care Plan CPM S20 PP LABOR (OBSTETRICS) No Open Scheduling, Background Procedures Procedure Name Priority Date/Time Associated Diagnosis Comments HEPATITIS C ANTIBODY W/REFLEX TO HCV QUANT PCR Routine 03/23/2022 10:44 AM EDT care, antepartum BITEWINGS - 4 RADIOGRAPHIC IMAGES Routine 11/02/2021 1:00 PM EST Encounter for dental examination and cleaning with abnormal findings COMPREHENSIVE ORAL EVALUATION - NEW OR ESTABLISHED PATIENT Routine 11/02/2021 1:00 PM EST Encounter for dental examination and cleaning with abnormal findings HIV 1/2 ANTIBODY/ANTIGEN SCREEN WITH REFLEX TO HIV I/II DIFFERENTIATION Routine 12/11/2019 11:56 AM EST CYTO DATA CONVERSION Routine 10/31/2018 12:00 AM EST PROPHYLAXIS - ADULT Routine 07/24/2018 1 2:00 AM EDT from Last 3 Months or Most Recently Relevant to Health Maintenance Results * Hepatitis C Antibody (03/23/2022 10:44 AM EDT) Hepatitis C Antibody Negative Negative 03/23/2022 4:35 PM EDT [facility] Blood Venous blood specimen / Unknown Venipuncture / Unknown 03/23/2022 10:44 AM EDT 03/23/2022 10:44 AM EDT Kamla Zuñiga CRITICAL CARE CNS, DNP LAB BLOOD ORDERABLES Final Result [facility] [address] [place] [address] * HIV 1 & 2 Antibody/Antigen Screen (12/11/2019 11:56 AM EST) HIV 1 Result NONREACTIVE Screening for HIV 1 and 2 antibodies is NONREACTIVE. No confirmatory testing is required. SUNQUEST 12/11/2019 11:5 6 AM EST 12/11/2019 3:52 PM EST Disha Patel MD LAB BLOOD ORDERABLES Final R esult SUNQUEST * Cytology (10/31/2018 12:00 AM EST) 10/31/2018 11/01/2018 8:3 4 AM EST Narrative SUNQUEST - 11/06/2018 3:28 PM EST [facility] MR #: [id number] [facility] [place] [address] 1990 (Age: 28) FW Collect Date: 10/31/2018 00:00 Receipt Date: 11/01/2018 08:34 Page 1 DEPARTMENT OF PATHOLOGY AND LABORATORY MEDICINE CYTOPATHOLOGY REPORT Email: [email or web address] ATTENDING MD/Practitioner: Mary Patel M.D. Service: OBE Location: [facility] Reported: 11/06/2018 15:28 Collected: 10/31/2018 00:00 INTERPRETATION A. THIN PREP (CERVICAL/VAGINAL): NEGATIVE FOR INTRAEPITHELIAL LESION OR MALIGNANCY. SATISFACTORY FOR EVALUATION; ENDOCERVICAL/ TRANSFORMATION ZONE COMPONENT PRESENT. Slide examined with Novast ThinPrep Imaging System but manually screened for technical reasons. Electronically Signed Out By JENNIE Pierre (ASCP) JENNIE Pierre (ASCP) Cervical cytology is a screening test primarily for squamous cancers and precursors and has associated false negative and positive results. New technologies such as liquid based sampling may decrease but will not eliminate all false negative results. Regular screening and follow-up of unexplained clinical signs and symptoms are recommended to minimize false negative results. Please see the ASCCP website (www.asccp.org) for followup recommendations. If HPV testing was requested, correlation with the results is suggested (please call Microbiology at [phone] for results). CLINICAL INFORMATION: Menstrual History: Cyclic Date of Last Menstrual Period: 18Oct2018 Other Clinical Conditions: If ASCUS and > 24 years of age, HPV/DNA testing requested. SPECIMEN DESCRIPTION: A: THIN PREP (CERVICAL/VAGINAL) THIN PREP PROCESS CELLULAR ENHANCEMENT ICD: F: A; RT IMAGE [id number] SNOMED CODES: A; [id number] In cases where a pathologist has signed out the report, the service has been rendered in part by a resident. The signing pathologist has performed and is responsible for the reported pathologic evaluation. Disha Patel MD LAB PATHOLOGY ORDERABLES [facility] Result SUNQUEST from Last 3 Months or Most Recently Relevant to Health Maintenance Additional Health Concerns Active Problems Noted Date Diagnosed Date CPM S20 PP LABOR (OBSTETRICS) 05/14/2022 Infection Onset Date Last Indicated MRSA Comment:Patient needs MRSA protocol 08/22/2020 03/02/2021 Insurance [facility] [id number] [place] [address] Advance Directives * Full Code (Latest Code Status on File) Date Activated Date Inactivated Comments 09/19/2022 2:05 PM 09/21/2022 6:01 PM Question Answer Comments Patient has decision-making capacity? Yes * Full Code Date Activated Date Inactivated Comments 09/16/2022 8:47 AM 09/18/2022 7:07 PM Question Answer Comments Patient has decision-making capacity? Yes * Full Code Date Activated Date Inactivated Comments 06/27/2022 8:03 PM 06/29/2022 9:14 PM Question Answer Comments Patient has decision-making capacity? Yes Care Teams Program Technician Relationship Specialty Start Date End Date Geoffrey Bhatti MD [address] [place] [address] [phone] PCP - General 02/19/21
== END 2025-06-08 23:59 | disposition home or self-care (01) ==
LOC: LAB.DROPOF 06-09 10:35
PROVIDERS: PCP Nurse Practitioner; Visit Provider Nurse Practitioner
DX: R39.15 Urgency of urination (principal)
CPT/HCPCS: 87086; 87088

== ENCOUNTER 2025-06-18 16:51 | Outpatient (CLI) | payer OTHER, SELFPAY ==
--- OUTSIDE RECORDS SUMMARY | 2025-01-11 17:30 | XMS_ITS ---
Author Organization [facility] Address [address] [place] [address] Care Team Providers Care Director Of Federal Sales Name Role Phone Vincent Roberson Primary Care Provider [phone] Vincent Roberson Unavailable Unavailable Migration, Provider Unavailable Unavailable Allergies Allergen (clinical drug ingredient) Drug/Non Drug Allergy documented on EMR Reaction Allergy Type Onset Date Status AVACADO (uncoded) rash Allergy Ac tive Cephalosporin CEPHALOSPORIN (uncoded) rash Allergy Active diclofenac Pennsaid rash Drug Allergy Active Penicillin rash Drug Allergy [facility] Encounter Medications Medication SIG (Take, Route, Frequency, Duration) Notes Start Date End Date Status Famotidine 20 MG 1 tab(s) orally once a day Active Flonase Allergy Relief 50MCG PER SPRAY 2 SPRAY EACH NOSTRIL QD *Please review and pick correct strength[facility]ulati [facility]. If intended option is not shown, discontinue and re-order from Quick Search* Active ZyrTEC Allergy 10 MG 1 tab(s) orally once a day Active Multivitamin VITAMIN A, D AND C 1 ML ORALLY ONCE A DAY *Please review and pick correct strength-formulati [facility] options. If intended option is not shown, discontinue and re-order from Quick Search* Active Clindamycin HCl 300 MG 1 cap(s) orally three times daily; Duration: 7 days 12/13/2024 Active Hydrocortisone 10 MG 1.5 or two tabs orally every morning; Duration: 90 days Active Vyvanse 40 MG 1 cap(s) orally once a day (in the morning); Duration: 30 day(s) 10/10/2024 Active Hydrocortisone 5 MG 2 tab orally at 3 PM; Duration: 30 days Active Synthroid 200 MCG 1 tab(s) orally once a day; Duration: 90 days Active Albuterol Sulfate HFA 108 (90 Base) MCG/ACT 2 puff(s) inhaled 4 times a day prn; Duration: 30 days Active AERO CHAMBER DIRECTED INHALED DIRECTED; Duration: 1 DAY *Please review for potential replacement for e-prescription and drug interaction check* 02/16/2021 Active hydrOXYzine HCl 25 MG 1 tab(s) orally 4 times a day as needed; Duration: 30 days 11/06/2020 Active Symbicort 160-4.5 MCG/ACT 2 puff(s) inhaled 2 times a day; Duration: 30 days Active Encounters Encounter Location Date Provider Diagnosis [facility] [address] [place] [address] 01/11/2025 Provider Migration Strep throat J02.0 Assessments Encounter Date Diagnosis (ICD Code) Assessment Notes Treatment Notes Treatment Clinical Notes Section Notes 01/11/2025 Strep throat (ICD-10 - J02.0) Plan Of Treatment Medication Medication Name Sig Start Date Stop Date Notes Clindamycin HCl 300 MG 1 cap(s) orally t hree times daily; Duration: 7 days 12/13/2024 Progress Notes * Lindsya FERRARIDOB:1990 ( 34 yo F)Acc No.[id number]:01/11/2025 Patient: Lindsay BARON Provider: Aminta loredo Migration :1990 A ge:34 Y S ex:Female Date:01/11/2025 Address:[facility] [address], [address], [id number] Pcp:Vincent Roberson Subjective: * Chief Complaints: * 1 . Multum To [facility] Conversion Encounter. * Medical History: * Medications: T aking Multivitamin VITAMIN A, D AND C LIQUID 1 ML ORALLY ONCE A DAY , Notes to Pharmacist: *Please review and pick correct strength-formulation from [facility] options. If intended option is not shown, discontinue and re-order from Quick Search*, Taking ZyrTEC Allergy 10 MG Tablet 1 tab(s) orally once a day , Taking Flonase Allergy Relief 50MCG PER SPRAY 2 SPRAY EACH NOSTRIL QD , Notes to Pharmacist: *Please review and pick correct strength-formulation from [facility] options. If intended option is not shown, discontinue and re-order from Quick Search*, Taking Famotidine 20 MG Tablet 1 tab(s) orally once a day , Taking hydrOXYzine HCl 25 MG Tablet 1 tab(s) orally 4 times a day as needed , Taking AERO CHAMBER DIRECTED INHALED DIRECTED , Notes to Pharmacist: *Please review for potential replacement for e-prescription and drug interaction check*, Taking Symbicort 160-4.5 MCG/ACT Aerosol 2 puff(s) inhaled 2 times a day , Taking Albuterol Sulfate HFA 108 (90 Base) MCG/ACT Aerosol Solution 2 puff(s) inhaled 4 times a day prn , Taking Synthroid 200 MCG Tablet 1 tab(s) orally once a day , Taking Vyvanse 40 MG Capsule 1 cap(s) orally once a day (in the morning) , Taking Hydrocortisone 10 MG Tablet 1.5 or two tabs orally every morning , Taking Hydrocortisone 5 MG Tablet 2 tab orally at 3 PM * Allergies: P enicillin: rash, CEPHALOSPORIN: rash, AVACADO: rash, Pennsaid: rash. Objective: * Vitals: Assessment: * Assessment: 1. S trep throat - J02.0 (Primary) Plan: * Treatment: * * Electronic signature of Prov ider Migration on 06/18/2025 at 04:53 PM EDT Sign off status: Pending * Provider: Aminta loredo Migration Date: 0 01/11/2025 Generated for Juan Pablo martínez/Nito/Maco on: 0 06/18/2025 04:53 PM EDT
--- OUTSIDE RECORDS SUMMARY | 2025-02-22 05:00 | XMS_ITS ---
Author Organization [facility] Address [address] [place] [address] Care Team Providers Care Recovery Advocate Name Role Phone Vincent Roberson Primary Care Provider Vincent Roberson Unavailable Unavailable REASON FOR VISIT sinus pain Encounters Encounter Location Date Provider Diagnosis [facility] [address] [place], [place] [address] 02/22/2025 Vincent Roberson Plan Of Treatment No Information Progress Notes * Lindsay FERRARIDOB:1990 ( 34 yo F)Acc No.[id number]:02/22/2025 Progress Notes Patient: Lindsay BARON Provider: Emmie Roberson MD :1990 A ge:34 Y S ex:Female Date:02/22/2025 Address:[facility] [address], [id number] Subjective: * Chief Complaints: * 1 . Sinus pain. * Medical History: Objective: * Vitals: Assessment: Plan: * Treatment: * * Electronic signature of Angel Roberson MD FAAP on 06/18/2025 at 04:53 PM EDT Sign off status: Pending * Provider: Emmie Roberson MD Date: 0 02/22/2025 Generated for Printi ng/Faxing/eTransmitting on: 0 06/18/2025 04:53 PM EDT
--- OUTSIDE RECORDS SUMMARY | 2025-06-18 16:54 | XMS_ITS | Encounter Summary ---
Author Organization [facility] Address [address] [place] [address] Care Team Providers Care Soap Maker Name Role Phone Geoffrey Bhatti MD Primary Care Provider [phone] Reason for Referral * Consultation (Routine) - Closed Specialty Diagnoses / Procedures Referred By Contac t Referred To Contact Endocrinology Diagnoses Primary adrenal deficiency (CMS/HCC) Vincent Roberson MD [address] [place] [address] Phone: tel: fax: [facility] Endocrinology [address] [place] [phone] Phone: tel: fax: Referral ID Status Reason Start Date Expiration Date V isits Requested Visits Authorized [id number] Closed Specialty Services Required 04/07/2023 10/06/2024 1 1 Encounter Details Date Type Department Care Team (Late st Contact Info) Description 04/07/2023 Community [facility] [address] [place] [address] Vincent Roberson MD [facility] [place] [address] Primary adrenal deficiency (CMS/HCC) (Primary Dx) Social History Tobacco Use Types Packs/Day Years Used Date Smoking Tobacco: Never Smokeless Tobacco: Never Alcohol Use Standard Drinks/Week Comments Not Currently 0 (1 standard drink = 0.6 oz pure alcohol) possibly in early before pos UPT [place] Depression Scale Answer Date Recorded [place] Depression Scale Total 5 11/02/2022 The thought [...] drink first t toya in the morning (EYE-FBI INVESTIGATOR) to steady your nerves or to get [...] documented as of this encounter Care Teams Soap Maker Relationship Specialty Start Date End Date Geoffrey Bhatti MD [address] [place] [address] PCP - General 02/19/21 documented as of this encounter
--- OUTSIDE RECORDS SUMMARY | 2025-06-18 16:54 | XMS_ITS | Clinical Summary ---
Author Organization [facility] Address [address] [place] [address] Care Team Providers Care Horticulture Worker Name Role Phone Unavailable Primary Care Provider [...] PCV) 2008 ANNUAL PHYSICAL 03/21/2016 COVID-19 Vaccine (2024-2 6 season) 2025 10/22/2020, 09/30/2020 INFLUENZA VACCINE 07/09/2025 08/15/2022, , 07/09/2020, Additional history exists TDAP/TD VACCINES (4 - Td or Tdap) 08/15/2032 08/15/2022, 05/22/2020, 06/19/2009 HEPATITIS C SCREENING Completed 03/23/2022, 022 Insurance [facility]
--- OUTSIDE RECORDS SUMMARY | 2025-06-18 16:54 | XMS_ITS | Clinical Summary ---
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 Hypothyroidism during [...] alcohol) possibly in early before pos UPT [place] Depression Scale Answer Date Recorded [place] Depression Scale Total 5 11/02/2022 The thought [...] drink first t toya in the morning (EYE-LEGAL DEPARTMENT MANAGER) to steady your nerves or to get [...] 10/31/2023 10/31/2018, 07/04/2016 [facility]-Depression Screening 11/02/2023 11/02/2022 MRI-PASJA-12 Vaccine ( - season) 2025 10/26/2022, 08/18/2021, 10/22/2020, Additional history exists [facility]-Influenza [...] Antibody Negative Negative 03/23/2022 4:35 PM EDT [facility] Blood Venous blood specimen / Unknown Venipuncture / Unknown 03/23/2022 10:44 AM EDT 03/23/2022 10:44 AM EDT Kamla Zuñiga GENERAL CLAIMS AGENT, DNP LAB BLOOD ORDERABLES Final Result [facility] [address] [place] [address] * HIV 1 & 2 Antibody/Antigen Screen [...] Narrative SUNQUEST - 11/06/2018 3:28 PM EST [facility] MR #: [id number] [facility] [place] [address] 1990 (Age: 28) FW Collect Date: 10/31/2018 00:00 Receipt Date: 11/01/2018 08:34 Page 1 DEPARTMENT OF PATHOLOGY AND LABORATORY MEDICINE CYTOPATHOLOGY REPORT Email: [email or web address] [id number] ATTENDING MD/Practitioner: Mary Patel M.D. Service: OBE Location: [facility] Reported: 11/06/2018 15:28 Collected: 10/31/2018 00:00 INTERPRETATION A. THIN PREP (CERVICAL/VAGINAL): NEGATIVE FOR INTRAEPITHELIAL LESION OR MALIGNANCY. SATISFACTORY FOR EVALUATION; ENDOCERVICAL/ TRANSFORMATION ZONE COMPONENT PRESENT. Slide examined with [employer] ThinPrep Imaging System but manually screened for [...] results is suggested (please call Microbiology at [phone] for results). CLINICAL INFORMATION: Menstrual History: Cyclic Date of Last Menstrual Period: 18Oct2018 Other Clinical Conditions: If ASCUS and > 24 years of age, HPV/DNA testing requested. SPECIMEN DESCRIPTION: A: THIN PREP (CERVICAL/VAGINAL) THIN PREP PROCESS CELLULAR ENHANCEMENT ICD: F: A; RT IMAGE 76221 SNOMED CODES: A; P4C615 T84010 [id number] M-[id number] In cases where a pathologist has signed out the report, the service has been rendered in part by a resident. The signing pathologist has performed and is responsible for the reported pathologic evaluation. Disha Patel MD LAB PATHOLOGY ORDERABLES [facility] Result SUNQUEST from Last 3 Months or Most Recently Relevant to Health Maintenance Additional Health Concerns Active Problems Noted Date Diagnosed Date CPM S20 PP LABOR (OBSTETRICS) 05/14/2022 Infection Onset Date Last Indicated MRSA Comment:Patient needs MRSA protocol 08/22/2020 03/02/2021 Insurance DENTAL CARE [id number] [place] [address] Advance Directives * Full Code (Latest Code [...] Patient has decision-making capacity? Yes Care Teams Botany Teacher Relationship Specialty Start Date End Date Geoffrey Bhatti MD [address] [place] [address] [phone] PCP - General 02/19/21
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
[2025-06-18 17:25] LABS: Hematocrit 40.3 % (37.0-47.0); Hemoglobin 13.3 g/dL (12.2-16.2); Immature Granulocytes % 0.2 %; Mean Corpuscular HGB Conc 33.0 g/dL (31.8-35.4); Mean Corpuscular Hemoglobin 28.2 pg (27.0-31.2); Mean Corpuscular Volume 85.4 fl (81-99); Nucleated Red Blood Cells % 0 %; Platelet Count 271 K/mm3 (142-424); Red Blood Count 4.72 M/mm3 (4.20-5.40); Red Cell Distribution Width-SD 37.2 fL; White Blood Count 8.8 K/mm3 (4.8-10.8)
[2025-06-18 18:24] LABS: Albumin Level 3.9 g/dl (3.5-5.0); Chloride 102 mmol/L (98-107)
[2025-06-18 18:25] LABS: Potassium 4.6 mmoL/L (3.5-5.1); Sodium 135 mmol/L (136-145)
[2025-06-18 18:27] LABS: Alanine Aminotransferase 24 U/L (12-78); Albumin/Globulin Ratio 1.4 (1.1-1.8); Anion Gap 10.6 mEq/L (5-15); Aspartate Amino Transferase 33 U/L (14-36); Blood Urea Nitrogen 19 mg/dl (7-17); Carbon Dioxide 27 mmol/L (22.0-30.0); Creatinine,Serum 0.80 mg/dl (0.52-1.04); Estimated Glomerular Filt Rate 82 ml/min (>60); GFR (African American) 99 ML/MIN (>60); Globulin 2.7 g/dL (1.3-3.2); Total Protein,Serum 6.6 g/dl (6.3-8.2)
[2025-06-18 18:28] LABS: Alkaline Phosphatase 43 U/L (38-126); Bilirubin,Total 0.3 mg/dl (0.2-1.3); Calcium 9.6 mg/dl (8.4-10.2); Cholesterol 188 mg/dl (140-200); Glucose 118 mg/dl (74-100); HDL Cholesterol 39 mg/dl (40-60); Magnesium 1.6 mg/dl (1.6-2.3); Triglycerides 166 mg/dl (30-150)
[2025-06-18 18:48] LABS: Free Thyroxine Index 4.8 ug/dL (5.93-13.13); T4 (Thyroxine) 13.0 ug/dl (5.53-11.0); Triiodothryronine (T3) Uptake 37 % (23.5-40.5)
[2025-06-18 19:01] LABS: Thyroid Stimulating Hormone < 0.02 uIU/mL (0.465-4.68)
[2025-06-18 20:22] LABS: Hemoglobin A1C 5.8 % (4.0-6.0)
== END 2025-06-18 23:59 | disposition home or self-care (01) ==
LOC: LAB 16:51
PROVIDERS: PCP Internal Medicine Adolescent Medicine; Visit Provider Internal Medicine Adolescent Medicine
DX: E03.9 Hypothyroidism, unspecified (principal); E27.40 Unspecified adrenocortical insufficiency
CPT/HCPCS: 36415; 80053; 80061; 82533; 83036; 83735; 84436; 84443; 84479; 85025

== ENCOUNTER 2025-06-19 10:45 | Observation (INO) | payer OTHER, SELFPAY ==
--- OUTSIDE RECORDS SUMMARY | 2025-01-11 17:30 | XMS_ITS ---
Author Organization [facility] Address [address] [place] [address] Care Team Providers Care Fmd Teacher Name Role Phone Vincent Roberson Primary Care Provider Vincent Roberson Unavailable Unavailable Migration, Provider Unavailable Unavailable Allergies Allergen (clinical drug ingredient) Drug/Non Drug Allergy documented on EMR Reaction Allergy Type Onset Date Status AVACADO (uncoded) rash Allergy Ac tive Cephalosporin CEPHALOSPORIN (uncoded) rash Allergy Active diclofenac Pennsaid rash Drug Allergy Active Penicillin rash Drug Allergy Active [facility] Conversion Encounter Medications Medication SIG (Take, Route, Frequency, Duration) Notes Start Date End Date Status Famotidine 20 MG 1 tab(s) orally once a day Active Flonase Allergy Relief 50MCG PER SPRAY 2 SPRAY EACH NOSTRIL QD *Please review and pick correct strength-formulati on from [facility] options. If intended option is not shown, discontinue and re-order from Quick Search* Active ZyrTEC Allergy 10 MG 1 tab(s) orally once a day Active Multivitamin VITAMIN A, D AND C 1 ML ORALLY ONCE A DAY *Please review and pick correct strength-formulati on from [facility] options. If intended option is not shown, [...] Active Encounters Encounter Location Date Provider Diagnosis [facility] [address] [place] [facility] [address] [facility] [address] [place] [address] 01/11/2025 Provider Migration Strep throat J02.0 Assessments Encounter Date Diagnosis (ICD Code) Assessment Notes Treatment Notes Treatment Clinical Notes Section Notes 01/11/2025 Strep throat (ICD-10 - J02.0) Plan Of Treatment Medication Medication Name Sig Start Date Stop Date Notes Clindamycin HCl 300 MG 1 cap(s) orally t hree times daily; Duration: 7 days 12/13/2024 Next Appt Details Provider Name:Vincent Roberson, 10/15/2025 04:45:00 PM, [address] [facility], [address], [place], [address], Progress Notes * Lindsay FERRARIDOB:1990 ( 34 yo F)Acc No.[id number]:01/11/2025 Patient: Annie SANCHES Lindsay Provider: Aminta Pritchard :1990 A ge:34 Y S ex:Female Date:01/11/2025 Address:[address], [id number] Pcp:Vincent Roberson Subjective: * Chief Complaints: * 1 . Multum To Medispan Conversion Encounter. * Medical History: * Medications: T aking Multivitamin VITAMIN A, D AND C LIQUID 1 ML ORALLY ONCE A DAY , Notes to Pharmacist: *Please review and pick correct strength-formulation from [employer] options. If intended option is not shown, discontinue and re-order from Quick Search*, Taking ZyrTEC Allergy 10 MG Tablet 1 tab(s) orally once a day , Taking Flonase Allergy Relief 50MCG PER SPRAY 2 SPRAY EACH NOSTRIL QD , Notes to Pharmacist: *Please review and pick correct strength-formulation from [employer] options. If intended option is not shown, [...] Electronic signature of Prov ider Migration on 06/19/2025 at 10:59 AM EDT Sign off status: Pending * Provider: Aminta loredo Migration Date: 0 01/11/2025 Generated for Juan Pablo martínez/Nito/Maco on: 06/19/2025 10:59 AM EDT
--- OUTSIDE RECORDS SUMMARY | 2025-02-22 05:00 | XMS_ITS ---
Author Organization [facility] Address [address] [facility] [address] [place] [address] Care Team Providers Care Binitrotoluene Operator Name Role Phone Vincent Roberson Primary Care Provider Vincent Roberson Unavailable Unavailable REASON FOR VISIT sinus pain Encounters Encounter Location Date Provider Diagnosis [facility] [address] [facility] [address] [place] [address] 02/22/2025 Vincent Roberson Plan Of Treatment Next Appt Details Provider Name:Vincent Roberson, 10/15/2025 04:45:00 PM, [address], [place], [address], Progress Notes * Lindsay FERRARIDOB:1990 ( 34 yo F)Acc No.[id number]:02/22/2025 Progress Notes Patient: Lindsay BARON Provider: Emmie Roberson MD :1990 A ge:34 Y S ex:Female Date:02/22/2025 Address:[address], [id number] Subjective: * Chief Complaints: * 1 . Sinus pain. * Medical History: Objective: * Vitals: Assessment: Plan: * Treatment: * * Electronic signature of Angel Roberson MD FAAP on 06/19/2025 at 10:59 AM EDT Sign off status: Pending * Provider: Emmie Roberson MD Date: 0 02/22/2025 Generated for Juan Pablo martínez/Nito/Maco on: 0 06/19/2025 10:59 AM EDT
--- OUTSIDE RECORDS SUMMARY | 2025-06-18 12:45 | XMS_ITS ---
Author Organization [facility] Address [address] [place] [address] Care Team Providers Care Gasoline Engine Assembler Name Role Phone Vincent Roberson Primary Care Provider [phone] Vincent Roberson Unavailable Unavailable Allergies Allergen (clinical drug ingredient) Drug/Non Drug Allergy documented on EMR Reaction Allergy Type Onset Date Status AVACADO (uncoded) rash Allergy Ac tive Cephalosporin CEPHALOSPORIN (uncoded) rash Allergy Active diclofenac Pennsaid rash Drug Allergy Active Penicillin rash Drug Allergy Active REASON FOR VISIT 2 month F/U Medications Medication SIG (Take, Route, Frequency, Duration) Notes Start Date End Date Status Ondansetron 8 MG 1 tablet on the tongue and allow to dissolve as needed Orally 3 times a day; Duration: 5 days As needed 04/30/2025 Active Fludrocortisone Acetate 0.1 MG 1 tablet Orally Once a day; Duration: 90 days 03/17/2025 Active Hydrocortisone 5 MG 2 tab orally at 3 PM ; Duration: 30 days Active Synthroid 200 MCG 1 tab(s) orally once a day; Duration: 90 days Active Hydrocortisone 10 MG 1.5 or two tabs ora lly every morning; Duration: 90 days Active Symbicort 160-4.5 MCG/ACT 2 puff(s) inha led 2 times a day; Duration: 30 days Active Albuterol Sulfate HFA 108 (9 0 Base) MCG/ACT 2 puff(s) inhaled 4 times a day prn; Duration: 30 days Active hydrOXYzine HCl 25 MG 1 tab(s) orally 4 times a day as needed; Duration: 30 days 11/06/2020 Active AERO CHAMBER DIRECTED INHALED DIRECTED; Duration: 1 DAY 02/16/2021 Active Vyvanse 40 MG 1 cap(s) orally once a day (in the morning); Duration: 30 day(s) 10/10/2024 Active Famotidine 20 MG 1 tab(s) orally once a day Active ZyrTEC Allergy 10 MG 1 tab(s) orally onc e a day Active Flonase Allergy Relief 50MCG PER SPRAY 2 SPRAY EACH NOSTRIL QD Acti ve Pristiq 25 MG 1 tablet Orally Once a day Active Multivitamin VITAMIN A, D AN D C 1 ML ORALLY ONCE A DAY Activ e Amitriptyline HCl 25 MG 1 tablet at bedt mike Orally Once a day Active Social History Tobacco Use: Social History Observation Description Date Details (start date - stop date) Never Smoker NA - NA Smoking: Question Answer Notes Are you a: nonsmoker Vital Signs Temperature 97.6 degrees Fahrenheit 06/18/20 25 Blood pressure systolic 104 mm Hg 06/18/20 25 Blood pressure diastolic 76 mm Hg 025 Heart Rate 104 /min 06/18/2025 Height 5 ft 2 in in 06/18/2025 Weight 181.6 lbs 06/18/2025 BMI 33.21 kg/m2 06/18/2025 Encounters Encounter Location Date Provider Diagnosis [facility] [address] [facility] [address] [place] [address] 06/18/2025 Vincent Roberson Acquired hypothyroid ism E03.9 ; Moderate persistent asthma without complication J45.40 and Adult ADHD F90.9 Assessments Encounter Date Diagnosis (ICD Code) Assessment Notes Treatment Notes Treatment Clinical Notes Section Notes 06/18/2025 Acquired hypothyroidism (ICD-10 - E03.9) Stable on meds. No changes in plan 06/18/2025 Moderate persistent asthma without complication (ICD-10 - J45.40) No wheezing. No change in plan 06/18/2025 Adult ADHD (ICD-10 - F90.9) Stable on medication. Follow-up 3 months Plan Of Treatment Treatment Notes Assessment Notes Acquired hypothyroidism Stable on meds. No changes in plan Moderate persistent asthma w ithout complication No wheezing. No change in plan Adult ADHD Stable on medication . Follow-up 3 months Next Appt Details Follow Up: prn, Reason: Provider Name:Vincent Poloavelino Roberson, 10/15/2025 04:45:00 PM, [address], [place], [address], Progress Notes * Lindsay FERRARIDOB:1990 ( 34 yo F)Acc No.[id number]:06/18/2025 Progress Notes Patient: Lindsay BARON Provider: Emmie Roberson MD :1990 A ge:34 Y S ex:Female Date:06/18/2025 Address:[facility] [address], [place], [id number] Subjective: * Chief Complaints: * 1 . 2 month F/U. * HPI: C ardiology: Denies : chest pain. D enies : shortness of breath. D enies : dizziness. Overall feels good, work is more stable. Saw endocrinology at [facility]. Labs are pending from this visit that I had ordered because of some issues with licensing. * Medical History: A sthma, ADHD, Hypotyhroidism, Anxiety, Allergies, Attention deficit. * Surgical History: T &A , T&A , PE tubes , [place] teeth extracted , 2 chemical pregnancies , C- Section 07/2020, ablation 02/2025. * Hospitalization/Major Diagno stic Procedure: K-Childbirth 07/2020, [facility] -04/2024. * Family History: F ather: alive, CAD, diabetes, stroke right optic nerve, hypothyroidism, [place], basal cell and squamous cell carcinoma, cataracts, HLD. M other: alive, HTN, HLD, pre-diabetes, OP. P aternal Grand Father: . P aternal Grand Mother: , [place]. M aternal Grand Father: . M aternal Grand Mother: , [place]. P aternal aunt: alive, dementia. M aternal uncle: alive, CAD- [place], anxiety, recovering alcoholic. M aternal aunt: alive, anxiety, CAD- [place].?Siblings: alive. C hildren: alive. 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 * Medications: T aking Amitriptyline HCl 25 MG Tablet 1 tablet at bedtime Orally Once a day , Taking Pristiq 25 MG Tablet Extended Release 24 Hour 1 tablet Orally Once a day , Taking Multivitamin VITAMIN A, D AND C LIQUID 1 ML ORALLY ONCE A DAY , Taking ZyrTEC Allergy 10 MG Tablet 1 tab(s) orally once a day , Taking Flonase Allergy Relief 50MCG PER SPRAY 2 SPRAY EACH NOSTRIL QD , Taking Famotidine 20 MG Tablet 1 tab(s) orally once a day , Taking hydrOXYzine HCl 25 MG Tablet 1 tab(s) orally 4 times a day as needed , Taking AERO CHAMBER DIRECTED INHALED DIRECTED , Taking Symbicort 160-4.5 MCG/ACT Aerosol 2 puff(s) [...] tablet Orally Once a day , Taking Ondansetron 8 MG Tablet Disintegrating 1 tablet on the tongue and allow to dissolve as needed Orally 3 times a day As needed, Medication List reviewed and reconciled with the patient * Allergies: P enicillin: rash, CEPHALOSPORIN: rash, AVACADO: rash, Pennsaid: rash. Objective: * Vitals: N urse: jl, Pain: 0, Temp: 97.6, RR: 20, HR: 104, BP: 104/76, Ht: 5 ft 2 in, Wt: 181.6, BMI:33.21. * Examination: G eneral Examination: General P leasant and Cooperative, NAD on RA,. Heart: R egular Rate and Rhythm, no murmur, rubs or gallops. HEENT: p harynx and tonsils normal, TM's normal. Lungs: L CTAB, No wheezes, crackles or rhonchi, Good air movement,. Assessment: * Assessment: 1. A cquired hypothyroidism - E03.9 (Primary) 2 . M oderate persistent asthma without complication - J45.40 3 . A dult ADHD - F90.9 Plan: * Treatment: 2. M oderate persistent asthma without complication Notes: No wheezing. No change in plan 3. A dult ADHD Notes: Stable on medication. Follow-up 3 months * Follow Up: p rn * * Sign off status: Completed true * Provider: Emmie Roebrson MD Date: 06/18/2025 Generated for Juan Pablo martínez/Nito/eTransmitting on: 06/19/2025 10:59 AM EDT History and Physical Notes * HPI (History of Present Illness) Category Sub-Category Detail Notes Category Not es Cardiology shortness of breath Overall feels good, work is more stable. Saw endocrinology at [facility]. Labs are pending from this visit that I had ordered because of some issues with licensing chest pain dizziness Examination Category Sub-Category Detail Notes Category Not es General Examination HEENT: pharynx and tonsils normal, TM's normal Heart: Regular Rate and Rhy thm, no murmur, rubs or gallops Lungs: LCTAB, No wheezes, c rackles or rhonchi, Good air movement, General Pleasant and Coopera tive, NAD on RA,
[2025-06-19] VITALS (27 sets, daily range): BP systolic 90–116; BP diastolic 45–80; PULSE 78–120; RESP 14–20; TEMP 36.5–37.1; O2SAT 96–100; BMI 19.7
--- NOTE | 2025-06-19 10:50 | ECG_ITS ---
APPROVED REPORT Exam: Resting ECG HR:72 bpm ECG Measurements Heart Rate 72 AXES OK 150 P 25 QRSd 91 QRS 21 QT 404 T 16 QTc 427 Conclusion SINUS RHYTHM LOW QRS VOLTAGE IN PRECORDIAL LEADS [QRS DEFLECTION < 1.0 mV IN CHEST LEADS] BORDERLINE ECG Electronically signed by : ANNE SCHAEFFER, 06/29/2025 08:42:47
--- OUTSIDE RECORDS SUMMARY | 2025-06-19 11:00 | XMS_ITS | Clinical Summary ---
Author Organization 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 Hypothyroidism during [...] alcohol) possibly in early before pos UPT [place] Depression Scale Answer Date Recorded [place] Depression Scale Total 5 11/02/2022 The thought [...] drink first t toya in the morning (EYE-POSITION CLASSIFIER) to steady your nerves or to get [...] 10/31/2023 10/31/2018, 07/04/2016 [facility]-Depression Screening 11/02/2023 11/02/2022 MTI-QPWXR-20 Vaccine ( - season) 2025 10/26/2022, 08/18/2021, [...] Antibody Negative Negative 03/23/2022 4:35 PM EDT [facility] Blood Venous blood specimen / Unknown Venipuncture / Unknown 03/23/2022 10:44 AM EDT 03/23/2022 10:44 AM EDT Kamla Zuñiga ASSISTANT NURSE MANAGER, DNP LAB BLOOD ORDERABLES Final Result [facility] [address] [place] [address] * HIV 1 & 2 Antibody/Antigen Screen [...] Narrative SUNQUEST - 11/06/2018 3:28 PM EST [facility] MR #: [id number] [facility] [place] [address] 1990 (Age: 28) FW Collect Date: 10/31/2018 00:00 Receipt Date: 11/01/2018 08:34 Page 1 DEPARTMENT OF PATHOLOGY AND LABORATORY MEDICINE CYTOPATHOLOGY REPORT Email: [email or web address] ATTENDING MD/Practitioner: Mary Patel M.D. Service: OBE Location: [facility] Reported: 11/06/2018 15:28 Collected: 10/31/2018 00:00 INTERPRETATION A. THIN PREP (CERVICAL/VAGINAL): NEGATIVE FOR INTRAEPITHELIAL LESION OR MALIGNANCY. SATISFACTORY FOR EVALUATION; ENDOCERVICAL/ TRANSFORMATION ZONE COMPONENT PRESENT. Slide examined with [employer] ThinPrep Imaging System but manually screened for [...] results is suggested (please call Microbiology at [phone] for results). CLINICAL INFORMATION: Menstrual History: Cyclic Date of Last Menstrual Period: 18Oct2018 Other Clinical Conditions: If ASCUS and > 24 years of age, HPV/DNA testing requested. SPECIMEN DESCRIPTION: A: THIN PREP (CERVICAL/VAGINAL) THIN PREP PROCESS CELLULAR ENHANCEMENT ICD: F: A; RT IMAGE 05127 SNOMED CODES: A; A8R130 [id number] M-25267 M-20200 In cases where a pathologist has signed out the report, the service has been rendered in part by a resident. The signing pathologist has performed and is responsible for the reported pathologic evaluation. Disha Patel MD LAB PATHOLOGY ORDERABLES [facility] Result SUNQUEST from Last 3 Months or Most Recently Relevant to Health Maintenance Additional Health Concerns Active Problems Noted Date Diagnosed Date CPM S20 PP LABOR (OBSTETRICS) 05/14/2022 Infection Onset Date Last Indicated MRSA Comment:Patient needs MRSA protocol 08/22/2020 03/02/2021 Insurance DENTAL CARE [id number] [place] [address] Advance Directives * Full Code (Latest Code [...] Patient has decision-making capacity? Yes Care Teams Plan Examiner Relationship Specialty Start Date End Date Geoffrey Bhatti MD [address] [place] [address] [phone] PCP - General 02/19/21
--- OUTSIDE RECORDS SUMMARY | 2025-06-19 11:00 | XMS_ITS | Clinical Summary ---
Author Organization [facility] Address [address] [place] [address] Care Team Providers Care Construction Rep Name Role Phone Unavailable Primary Care Provider [...] HEPATITIS C SCREENING Completed 03/23/2022, 022 Insurance [facility]
--- OUTSIDE RECORDS SUMMARY | 2025-06-19 11:00 | XMS_ITS | Encounter Summary ---
Author Organization [facility] Address [address] [place] [address] Care Team Providers Care Neck Band Setter Name Role Phone Geoffrey Bhatti MD Primary Care Provider [phone] Reason for Referral * Consultation (Routine) - Closed Specialty Diagnoses / Procedures Referred By Contac t Referred To Contact Endocrinology Diagnoses Primary adrenal deficiency (CMS/HCC) Vincent Roberson MD [address] [place] [address] Phone: tel: fax: [facility] End[facility]ology [address] [place] [address] Phone: tel: fax: Referral ID Status Reason Start Date Expiration Date V isits Requested Visits Authorized [id number] Closed Specialty Services Required 04/07/2023 10/06/2024 1 1 Encounter Details Date Type Department Care Team (Late st Contact Info) Description 04/07/2023 Community [facility] [address] [place] [address] Vincent Roberson MD [facility] [place] [address] Primary adrenal deficiency (CMS/HCC) (Primary Dx) Social History Tobacco Use Types Packs/Day Years Used Date Smoking Tobacco: Never Smokeless Tobacco: Never Alcohol Use Standard Drinks/Week Comments Not Currently 0 (1 standard drink = 0.6 oz pure alcohol) possibly in early before pos UPT [place] Depression Scale Answer Date Recorded [place] Depression Scale Total 5 11/02/2022 The thought [...] drink first t toya in the morning (EYE-INFO PRINT PRESS OPERATOR) to steady your nerves or to get [...] Assessment Author No 06/29/2022 6:37 PM EDT nAgi Astorga RN * Are you blind or [...] documented as of this encounter Care Teams Neck Band Setter Relationship Specialty Start Date End Date Geoffrey Bhatti MD [address] [place] [address] PCP - General 02/19/21 documented as of this encounter
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
--- NOTE | 2025-06-19 11:42 | HMH.EDGENADL ---
Discharge Plan Disposition Patient Disposition: Admitted Condition: Fair Clinical Impressions Clinical Impression: Muscogee disease, Acute hypotension Discharge ED Provider: Luann Lozano General Adult HPI <Daisy Franz (ED), CREDIT ASSESSMENT ANALYST - Last Filed: 06/19/25 11:49> General Chief complaint: Dizziness Stated complaint: dizzy, low b/p, confusion Time Seen by Provider: 06/19/25 11:14 Mode of Arrival: Ambulatory Source of Information: Patient and Relative Description of Symptoms (Recalled from ER Triage Doc. by RN): Patient presents to ED with parents, mother states she was called by her daughters office assistant receptionist stating she was confused and dizzy. Patient states she has Addisons and started to feel dizzy and became sweaty at work, states her BP was low as well. Patient also c/o low back pain and reports dizziness worsens with position changes. History of Present Illness HPI narrative: 34-year-old female presents to the ED today with complaint of being confused at work sweating and nausea. She does have Nacho's. She had dizziness as well. She took an extra hydrocortisone as instructed by her Endo. She started to feel dizzy and her blood pressure dropped. She also complains of low back pain. She has been very anxious recently as well. She says her stress level has been going up. 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 Related Data Home Medications ?Medication ?Instructions ?Recorded ?Confirmed fludrocortisone 0.1 mg tablet 0.1 mg PO DAILY 09/03/23 06/20/25 esomeprazole magnesium 20 mg 20 mg PO DAILY 03/16/24 06/19/25 capsule,delayed release levocetirizine 5 mg tablet (Xyzal) 5 mg PO DAILY 10/13/24 06/19/25 hydrocortisone 10 mg tablet 30 mg PO DAILY 12/23/24 06/19/25 Held on 06/20/25. Instructions: hold for 3 days hydrocortisone 5 mg tablet 5 mg PO 1500 12/23/24 06/19/25 Held on 06/20/25. Instructions: for 3 days amitriptyline 25 mg tablet 25 mg PO HS 06/19/25 06/19/25 Previous Rx's ?Medication ?Instructions ?Recorded lisdexamfetamine 40 mg capsule 40 mg PO DAILY #30 caps 06/03/25 (Vyvanse) bupropion HCl 150 mg 24 hr tablet, 150 mg PO DAILY #30 tabs 06/17/25 extended release (Wellbutrin XL) hydrocortisone 10 mg tablet 25 mg (2.5 x 10 mg) PO BID #15 tabs 06/20/25 levothyroxine 150 mcg tablet 150 mcg PO DAILY #30 tabs 06/20/25 (Synthroid) Allergies Allergy/AdvReac Type Severity Reaction Status Date / Time Penicillins Allergy Intermediate Rash Verified 06/11/25 08:12 amoxicillin Allergy Rash Verified 06/11/25 08:12 Cephalosporins AdvReac Mild Rash Verified 06/11/25 08:12 avocado AdvReac Rash Verified 06/11/25 08:12 PFS <Daisy Franz (ED), CREDIT ASSESSMENT ANALYST - Last Filed: 06/19/25 11:49> [facility] Disclaimer: The information contained in this section may have been updated after the patient was seen, as this information can be updated by other users. Medical History (Updated 06/20/25 @ 07:54 by Oscar Mccurdy MD) Addisonian crisis Mastitis Muscogee's disease Nausea & vomiting PCOS (polycystic ovarian syndrome) ADHD Muscogee disease Thyroid disease Depression Anxiety History of gastroesophageal reflux (GERD) Asthma Surgical History History of endometrial ablation History of dilation and curettage History of tympanostomy tube placement History of tonsillectomy History of section Family History Other Family history of cancer Family history of diabetes mellitus Family history of heart disease Family history of kidney disease Social History Smoking Status: Never smoker second hand exposure: No alcohol intake: never counseling given: No substance use type: denies use counseling given: No current occupational status: employed Travel in the last 8 weeks?: None adopted: No caregiver/support person: Yes foster care: No household members: spouse housing: house lives independently: Yes marital status: number of children: 2 education level: master's degree Hx Recent Travel: No sexually active: Yes caffeine: Yes physical activity: none tangela/jainism: Muslim special tangela needs: No working smoke detector in home: Yes fire extinguisher in home: Yes carbon monox detector in home: Yes firearms in home: Yes firearms unloaded and locked: Yes do you feel safe at home: Yes victim of physical abuse: No victim of emotional abuse: No victim of sexual abuse: No would you like helpful sources: No Have you lived/traveled outside [place] in past 30 days?: No Contact w/someone who lives/traveled outside US past 30 days?: No Exposure to someone with infectious disease in past 14 days?: No Do you have a fever (greater than 100.4 F or 38 C)?: No Have you tested positive for COVID-19?: No Exposed to someone with COVID-19 in past 14 days?: No Do you have a sore throat?: No Do you have a cough?: No Do you have any weakness?: No Do you have any diarrhea?: No Are you experiencing any unusual bleeding?: No Do you have any muscle aches/pain?: No Do you have any abdominal pain?: No Are you experiencing loss of taste or smell?: No Other Medical History Have you received the Flu Vaccine for this season: No Have you received the Pneumonia Vaccine: No <Daisy Franz (ED), CREDIT ASSESSMENT ANALYST - Last Filed: 06/19/25 11:49> ROS Obtained: Yes Systems reviewed as appropriate & no additional complaints except as documented Constitutional Constitutional: Reports as per HPI Physical Exam <Daisy Franz (ED), CREDIT ASSESSMENT ANALYST - Last Filed: 06/19/25 11:49> General General appearance: alert Head Head exam: normocephalic Eye Eye exam: Present PERRL and EOMI ENT ENT exam: Present mucous membranes moist Neck Neck exam: Present full ROM and trachea midline Respiratory Respiratory exam: Present normal lung sounds bilaterally Cardiovascular Cardiovascular exam: Present regular rate, normal rhythm, normal heart sounds, +S1 and +S2 Extremities Exam Extremities exam: Present normal inspection and normal capillary refill Back Exam Back exam: Present normal inspection Neurological Exam Neurological exam: Present alert and oriented X3 Skin Skin exam: Present warm and dry Medical Decision Making <Daisy Franz (ED), CREDIT ASSESSMENT ANALYST - Last Filed: 06/19/25 11:49> Medical Records Screening: Per USPSTF and CDC recommendations, given the prevalence of disease in our region, it is our hospital?s policy to screen for HIV and viral Hepatitis for all patients aged 18 and over and those with ongoing risk factors. Alejandro Inquiry Pt receiving controlled substance: No Alejandro was queried for this patient: No Vital Signs: 06/19/25 11:10 06/19/25 12:00 06/19/25 12:30 Temperature 97.7 F Temperature Source Oral Pulse Rate 89 94 H Pulse Rate [Left] 85 Respiratory Rate 19 17 17 Blood Pressure 104/66 L 97/67 L Blood Pressure [Right Arm] 109/64 L Blood Pressure Mean Blood Pressure Mean [Right Arm] 79 Blood Pressure Source Automatic Cuff Blood Pressure Source [Right Arm] Automatic Cuff Blood Pressure Position Supine Blood Pressure Position [Right Arm] Supine 02 Sat by Pulse Oximetry 100 98 99 Oxygen Delivery Method Room Air Room Air Room Air 06/19/25 12:44 06/19/25 13:10 06/19/25 13:50 Temperature Temperature Source Pulse Rate 90 92 H 87 Pulse Rate [Left] Respiratory Rate 16 18 16 Blood Pressure 101/61 L 102/58 L 100/66 L Blood Pressure [Right Arm] Blood Pressure Mean 70 Blood Pressure Mean [Right Arm] Blood Pressure Source Blood Pressure Source [Right Arm] Blood Pressure Position Blood Pressure Position [Right Arm] 02 Sat by Pulse Oximetry 100 99 99 Oxygen Delivery Method Room Air 06/19/25 14:00 06/19/25 14:18 06/19/25 14:20 Temperature Temperature Source Pulse Rate 105 H 80 78 Pulse Rate [Left] Respiratory Rate 16 19 20 Blood Pressure 98/62 L 90/53 L 93/53 L Blood Pressure [Right Arm] Blood Pressure Mean 69 60 62 Blood Pressure Mean [Right Arm] Blood Pressure Source Blood Pressure Source [Right Arm] Blood Pressure Position Blood Pressure Position [Right Arm] 02 Sat by Pulse Oximetry 98 96 96 Oxygen Delivery Method Room Air Room Air Room Air 06/19/25 14:33 06/19/25 14:42 06/19/25 14:43 Temperature Temperature Source Pulse Rate 85 97 H 80 Pulse Rate [Left] Respiratory Rate 16 20 17 Blood Pressure 95/56 L 90/45 L 90/53 L Blood Pressure [Right Arm] Blood Pressure Mean Blood Pressure Mean [Right Arm] Blood Pressure Source Blood Pressure Source [Right Arm] Blood Pressure Position Blood Pressure Position [Right Arm] 02 Sat by Pulse Oximetry 97 99 99 Oxygen Delivery Method 06/19/25 15:00 06/19/25 15:20 06/19/25 15:40 Temperature Temperature Source Pulse Rate 89 79 Pulse Rate [Left] Respiratory Rate 20 18 19 Blood Pressure 92/51 L 104/60 L 106/80 L Blood Pressure [Right Arm] Blood Pressure Mean 68 86 Blood Pressure Mean [Right Arm] Blood Pressure Source Blood Pressure Source [Right Arm] Blood Pressure Position Blood Pressure Position [Right Arm] 02 Sat by Pulse Oximetry 98 Oxygen Delivery Method Room Air 06/19/25 15:53 06/19/25 16:00 06/19/25 16:20 Temperature Temperature Source Pulse Rate 86 Pulse Rate [Left] Respiratory Rate 16 16 Blood Pressure 107/59 L 97/55 L 116/61 Blood Pressure [Right Arm] Blood Pressure Mean 75 65 Blood Pressure Mean [Right Arm] Blood Pressure Source Blood Pressure Source [Right Arm] Blood Pressure Position Blood Pressure Position [Right Arm] 02 Sat by Pulse Oximetry Oxygen Delivery Method 06/19/25 16:32 06/19/25 16:40 06/19/25 16:52 Temperature Temperature Source Pulse Rate Pulse Rate [Left] Respiratory Rate 18 17 Blood Pressure 104/54 L 102/54 L 100/50 L Blood Pressure [Right Arm] Blood Pressure Mean 70 62 54 Blood Pressure Mean [Right Arm] Blood Pressure Source Blood Pressure Source [Right Arm] Blood Pressure Position Blood Pressure Position [Right Arm] 02 Sat by Pulse Oximetry Oxygen Delivery Method 06/19/25 17:00 06/19/25 17:02 06/19/25 17:04 Temperature Temperature Source Pulse Rate Pulse Rate [Left] Respiratory Rate 19 17 19 Blood Pressure 111/62 112/60 111/70 Blood Pressure [Right Arm] Blood Pressure Mean 68 72 83 Blood Pressure Mean [Right Arm] Blood Pressure Source Blood Pressure Source [Right Arm] Blood Pressure Position Blood Pressure Position [Right Arm] 02 Sat by Pulse Oximetry Oxygen Delivery Method 06/19/25 17:20 06/19/25 17:24 06/19/25 17:49 Temperature 98.7 F Temperature Source Pulse Rate 104 H 101 H Pulse Rate [Left] Respiratory Rate 15 19 Blood Pressure 95/51 L 98/54 L Blood Pressure [Right Arm] Blood Pressure Mean 70 Blood Pressure Mean [Right Arm] Blood Pressure Source Blood Pressure Source [Right Arm] Blood Pressure Position Blood Pressure Position [Right Arm] 02 Sat by Pulse Oximetry 99 Oxygen Delivery Method Room Air Room Air Room Air Lab Data Lab Results 06/19/25 11:44: WBC 8.4, RBC 4.65, Hgb 13.2, Hct 39.9, MCV 85.8, MCH 28.4, MCHC 33.1, RDW 11.9, Plt Count 232, MPV 11.4 H, Neut % (Auto) 62.2, Lymph % (Auto) 25.1, [place] % (Auto) 6.8, Eos % (Auto) 5.1, Baso % (Auto) 0.6, Neut # (Auto) 5.3, Lymph # (Auto) 2.1, [place] # (Auto) 0.6, Eos # (Auto) 0.4, Baso # (Auto) 0.1, Sodium 134 L, Potassium 4.1, Chloride 101, Carbon Dioxide 29, Anion Gap 8.1, BUN 19 H, Creatinine 0.80, Estimated Creat Clear 76, Estimated GFR 82, Est GFR ( Amer) 99, Glucose 104 H, Calcium 9.5, Magnesium 1.7, Total Bilirubin 0.5, AST 41 H, ALT 24, Alkaline Phosphatase 49, Troponin I < 0.01, Total Protein 7.3, Albumin 4.2, Globulin 3.1, Albumin/Globulin Ratio 1.4, Lipase 255, Cortisol 24.0 H 06/20/25 05:26 06/20/25 05:26 Orders (Tests/Meds): ED MEDICATIONS Discontinued Medications Generic Name Dose Route Start Last Admin Trade Name Freq PRN Reason Stop Dose Admin Acetaminophen 650 mg 06/19/25 18:29 Acetaminophen 325mg Tab PO 07/19/25 18:28 Q4HP PRN Fever or Mild Pain (1-3) Amitriptyline HCl 25 mg 06/19/25 21:00 06/19/25 21:05 Amitriptyline 25mg Tablet PO 07/19/25 20:59 25 mg HS TIMUR Administration Bupropion HCl 150 mg 06/20/25 09:00 06/20/25 09:06 Bupropion Hcl Sr 150mg Tab PO 07/20/25 08:59 150 mg DAILY TIMUR Administration Diazepam 2.5 mg 06/19/25 11:28 06/19/25 11:53 Diazepam 10mg/2ml Syringe IV 06/19/25 11:29 2.5 mg ONCE ONE Administration Enoxaparin Sodium 40 mg 06/20/25 09:00 06/20/25 09:00 Enoxaparin 40mg/0.4ml Syringe SUBCUT 07/20/25 08:59 Not Given DAILY TIMUR Hydrocortisone Sodium Succinate 50 mg 06/19/25 11:28 06/19/25 11:53 Hydrocortisone Sod Succinate 100mg Vial IV 06/19/25 11:29 50 mg ONCE ONE Administration Hydrocortisone Sodium Succinate 50 mg 06/19/25 13:27 06/19/25 13:47 Hydrocortisone Sod Succinate 100mg Vial IV 06/19/25 13:28 50 mg ONCE ONE Administration Hydrocortisone Sodium Succinate 50 mg 06/19/25 21:00 06/20/25 09:06 Hydrocortisone Sod Succinate 100mg Vial IV 07/19/25 20:59 50 mg Q6H TIMUR Administration Lactated Ringer's 500 mls @ 999 mls/hr 06/19/25 11:39 06/19/25 13:50 Lactated Ringer's 1000 Ml Bag IV 06/19/25 12:09 Infused .Q31M ONE Infusion Lactated Ringer's 500 mls @ 999 mls/hr 06/19/25 13:26 06/19/25 15:08 Lactated Ringer's 1000 Ml Bag IV 06/19/25 13:56 Infused .Q31M ONE Infusion Lactated Ringer's 500 mls @ 999 mls/hr 06/19/25 14:51 06/19/25 16:07 Lactated Ringer's 1000 Ml Bag IV 06/19/25 15:21 Infused .Q31M ONE Infusion Lactated Ringer's 1,000 mls @ 100 mls/hr 06/19/25 18:30 06/20/25 04:57 Lactated Ringer's 1000 Ml Bag IV 07/19/25 18:29 100 mls/hr .Q10H TIMUR Administration Magnesium Sulfate 2 gm in 50 mls @ 50 mls/hr 06/19/25 19:15 06/19/25 22:20 Magnesium Sulfate 2gm/50ml Premix IV 06/19/25 21:14 Infused Q1H TIMUR Infusion Ondansetron HCl 4 mg 06/19/25 18:29 Ondansetron 4mg/2ml Vial IV 07/19/25 18:28 Q6HP PRN Nausea Sodium Chloride 10 ml 06/19/25 18:29 Sodium Chloride 0.9% 10ml Flush Syringe IV 07/19/25 18:28 NEEDED PRN Maintain IV Site ORDERS Category Date Time Status CBC [Complete Blood Count Auto Diff] Stat Lab 06/19/25 11:44 Completed Comprehensive Metabolic Panel Stat Lab 06/19/25 11:44 Completed Cortisol Stat Lab 06/19/25 11:44 Completed Lipase Stat Lab 06/19/25 11:44 Completed Magnesium Stat Lab 06/19/25 11:44 Completed Trop I [Troponin I] Stat Lab 06/19/25 11:44 Completed Troponin I Q3H Lab 06/19/25 18:48 Completed Troponin I Q3H Lab 06/19/25 22:14 Completed Blood Culture Stat Micro 06/19/25 17:40 Results Medical Decision Narrative: patient is a 34-year-old female presenting to the emergency department for evaluation of confusion sweating and nausea. 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 Patient is hemodynamically stable and nontoxic-appearing upon arrival, afebrile. Differential diagnosis includes symptoms from Nacho's disease, electrolyte disturbance, anxiety. Workup will be conducted with hematologic labs. Initial inventions include crystalloid bolus, analgesics. Initial workup reviewed by me [hematologic labs are remarkable for:]. [Imaging informally interpreted by me and remarkable for:] [Formal imaging read remarkable for:] Upon repeat evaluation [patient's pain is improved, appears better perfused, appears the same, appears worse, etc.]. Due to this [additional interventions, patient is appropriate for discharge, patient requires admission, etc.]. <Luann Lozano MD - Last Filed: 06/19/25 15:25> Vital Signs: 06/19/25 11:10 06/19/25 12:00 06/19/25 12:30 Temperature 97.7 F Temperature Source Oral Pulse Rate 89 94 H Pulse Rate [Left] 85 Respiratory Rate 19 17 17 Blood Pressure 104/66 L 97/67 L Blood Pressure [Right Arm] 109/64 L Blood Pressure Mean Blood Pressure Mean [Right Arm] 79 Blood Pressure Source Automatic Cuff Blood Pressure Source [Right Arm] Automatic Cuff Blood Pressure Position Supine Blood Pressure Position [Right Arm] Supine 02 Sat by Pulse Oximetry 100 98 99 Oxygen Delivery Method Room Air Room Air Room Air 06/19/25 12:44 06/19/25 13:10 06/19/25 13:50 Temperature Temperature Source Pulse Rate 90 92 H 87 Pulse Rate [Left] Respiratory Rate 16 18 16 Blood Pressure 101/61 L 102/58 L 100/66 L Blood Pressure [Right Arm] Blood Pressure Mean 70 Blood Pressure Mean [Right Arm] Blood Pressure Source Blood Pressure Source [Right Arm] Blood Pressure Position Blood Pressure Position [Right Arm] 02 Sat by Pulse Oximetry 100 99 99 Oxygen Delivery Method Room Air 06/19/25 14:00 06/19/25 14:18 06/19/25 14:20 Temperature Temperature Source Pulse Rate 105 H 80 78 Pulse Rate [Left] Respiratory Rate 16 19 20 Blood Pressure 98/62 L 90/53 L 93/53 L Blood Pressure [Right Arm] Blood Pressure Mean 69 60 62 Blood Pressure Mean [Right Arm] Blood Pressure Source Blood Pressure Source [Right Arm] Blood Pressure Position Blood Pressure Position [Right Arm] 02 Sat by Pulse Oximetry 98 96 96 Oxygen Delivery Method Room Air Room Air Room Air 06/19/25 14:33 06/19/25 14:42 06/19/25 14:43 Temperature Temperature Source Pulse Rate 85 97 H 80 Pulse Rate [Left] Respiratory Rate 16 20 17 Blood Pressure 95/56 L 90/45 L 90/53 L Blood Pressure [Right Arm] Blood Pressure Mean Blood Pressure Mean [Right Arm] Blood Pressure Source Blood Pressure Source [Right Arm] Blood Pressure Position Blood Pressure Position [Right Arm] 02 Sat by Pulse Oximetry 97 99 99 Oxygen Delivery Method 06/19/25 15:00 06/19/25 15:20 06/19/25 15:40 Temperature Temperature Source Pulse Rate 89 79 Pulse Rate [Left] Respiratory Rate 20 18 19 Blood Pressure 92/51 L 104/60 L 106/80 L Blood Pressure [Right Arm] Blood Pressure Mean 68 86 Blood Pressure Mean [Right Arm] Blood Pressure Source Blood Pressure Source [Right Arm] Blood Pressure Position Blood Pressure Position [Right Arm] 02 Sat by Pulse Oximetry 98 Oxygen Delivery Method Room Air 06/19/25 15:53 06/19/25 16:00 06/19/25 16:20 Temperature Temperature Source Pulse Rate 86 Pulse Rate [Left] Respiratory Rate 16 16 Blood Pressure 107/59 L 97/55 L 116/61 Blood Pressure [Right Arm] Blood Pressure Mean 75 65 Blood Pressure Mean [Right Arm] Blood Pressure Source Blood Pressure Source [Right Arm] Blood Pressure Position Blood Pressure Position [Right Arm] 02 Sat by Pulse Oximetry Oxygen Delivery Method 06/19/25 16:32 06/19/25 16:40 06/19/25 16:52 Temperature Temperature Source Pulse Rate Pulse Rate [Left] Respiratory Rate 18 17 Blood Pressure 104/54 L 102/54 L 100/50 L Blood Pressure [Right Arm] Blood Pressure Mean 70 62 54 Blood Pressure Mean [Right Arm] Blood Pressure Source Blood Pressure Source [Right Arm] Blood Pressure Position Blood Pressure Position [Right Arm] 02 Sat by Pulse Oximetry Oxygen Delivery Method 06/19/25 17:00 06/19/25 17:02 06/19/25 17:04 Temperature Temperature Source Pulse Rate Pulse Rate [Left] Respiratory Rate 19 17 19 Blood Pressure 111/62 112/60 111/70 Blood Pressure [Right Arm] Blood Pressure Mean 68 72 83 Blood Pressure Mean [Right Arm] Blood Pressure Source Blood Pressure Source [Right Arm] Blood Pressure Position Blood Pressure Position [Right Arm] 02 Sat by Pulse Oximetry Oxygen Delivery Method 06/19/25 17:20 06/19/25 17:24 06/19/25 17:49 Temperature 98.7 F Temperature Source Pulse Rate 104 H 101 H Pulse Rate [Left] Respiratory Rate 15 19 Blood Pressure 95/51 L 98/54 L Blood Pressure [Right Arm] Blood Pressure Mean 70 Blood Pressure Mean [Right Arm] Blood Pressure Source Blood Pressure Source [Right Arm] Blood Pressure Position Blood Pressure Position [Right Arm] 02 Sat by Pulse Oximetry 99 Oxygen Delivery Method Room Air Room Air Room Air Lab Data Lab Results 06/19/25 11:44: WBC 8.4, RBC 4.65, Hgb 13.2, Hct 39.9, MCV 85.8, MCH 28.4, MCHC 33.1, RDW 11.9, Plt Count 232, MPV 11.4 H, Neut % (Auto) 62.2, Lymph % (Auto) 25.1, [place] % (Auto) 6.8, Eos % (Auto) 5.1, Baso % (Auto) 0.6, Neut # (Auto) 5.3, Lymph # (Auto) 2.1, [place] # (Auto) 0.6, Eos # (Auto) 0.4, Baso # (Auto) 0.1, Sodium 134 L, Potassium 4.1, Chloride 101, Carbon Dioxide 29, Anion Gap 8.1, BUN 19 H, Creatinine 0.80, Estimated Creat Clear 76, Estimated GFR 82, Est GFR ( Amer) 99, Glucose 104 H, Calcium 9.5, Magnesium 1.7, Total Bilirubin 0.5, AST 41 H, ALT 24, Alkaline Phosphatase 49, Troponin I < 0.01, Total Protein 7.3, Albumin 4.2, Globulin 3.1, Albumin/Globulin Ratio 1.4, Lipase 255, Cortisol 24.0 H Orders (Tests/Meds): ED MEDICATIONS Discontinued Medications Generic Name Dose Route Start Last Admin Trade Name Freq PRN Reason Stop Dose Admin Acetaminophen 650 mg 06/19/25 18:29 Acetaminophen 325mg Tab PO 07/19/25 18:28 Q4HP PRN Fever or Mild Pain (1-3) Amitriptyline HCl 25 mg 06/19/25 21:00 06/19/25 21:05 Amitriptyline 25mg Tablet PO 07/19/25 20:59 25 mg HS TIMUR Administration Bupropion HCl 150 mg 06/20/25 09:00 06/20/25 09:06 Bupropion Hcl Sr 150mg Tab PO 07/20/25 08:59 150 mg DAILY TIMUR Administration Diazepam 2.5 mg 06/19/25 11:28 06/19/25 11:53 Diazepam 10mg/2ml Syringe IV 06/19/25 11:29 2.5 mg ONCE ONE Administration Enoxaparin Sodium 40 mg 06/20/25 09:00 06/20/25 09:00 Enoxaparin 40mg/0.4ml Syringe SUBCUT 07/20/25 08:59 Not Given DAILY TIMUR Hydrocortisone Sodium Succinate 50 mg 06/19/25 11:28 06/19/25 11:53 Hydrocortisone Sod Succinate 100mg Vial IV 06/19/25 11:29 50 mg ONCE ONE Administration Hydrocortisone Sodium Succinate 50 mg 06/19/25 13:27 06/19/25 13:47 Hydrocortisone Sod Succinate 100mg Vial IV 06/19/25 13:28 50 mg ONCE ONE Administration Hydrocortisone Sodium Succinate 50 mg 06/19/25 21:00 06/20/25 09:06 Hydrocortisone Sod Succinate 100mg Vial IV 07/19/25 20:59 50 mg Q6H TIMUR Administration Lactated Ringer's 500 mls @ 999 mls/hr 06/19/25 11:39 06/19/25 13:50 Lactated Ringer's 1000 Ml Bag IV 06/19/25 12:09 Infused .Q31M ONE Infusion Lactated Ringer's 500 mls @ 999 mls/hr 06/19/25 13:26 06/19/25 15:08 Lactated Ringer's 1000 Ml Bag IV 06/19/25 13:56 Infused .Q31M ONE Infusion Lactated Ringer's 500 mls @ 999 mls/hr 06/19/25 14:51 06/19/25 16:07 Lactated Ringer's 1000 Ml Bag IV 06/19/25 15:21 Infused .Q31M ONE Infusion Lactated Ringer's 1,000 mls @ 100 mls/hr 06/19/25 18:30 06/20/25 04:57 Lactated Ringer's 1000 Ml Bag IV 07/19/25 18:29 100 mls/hr .Q10H TIMUR Administration Magnesium Sulfate 2 gm in 50 mls @ 50 mls/hr 06/19/25 19:15 06/19/25 22:20 Magnesium Sulfate 2gm/50ml Premix IV 06/19/25 21:14 Infused Q1H TIMUR Infusion Ondansetron HCl 4 mg 06/19/25 18:29 Ondansetron 4mg/2ml Vial IV 07/19/25 18:28 Q6HP PRN Nausea Sodium Chloride 10 ml 06/19/25 18:29 Sodium Chloride 0.9% 10ml Flush Syringe IV 07/19/25 18:28 NEEDED PRN Maintain IV Site ORDERS Category Date Time Status CBC [Complete Blood Count Auto Diff] Stat Lab 06/19/25 11:44 Completed Comprehensive Metabolic Panel Stat Lab 06/19/25 11:44 Completed Cortisol Stat Lab 06/19/25 11:44 Completed Lipase Stat Lab 06/19/25 11:44 Completed Magnesium Stat Lab 06/19/25 11:44 Completed Trop I [Troponin I] Stat Lab 06/19/25 11:44 Completed Troponin I Q3H Lab 06/19/25 18:48 Completed Troponin I Q3H Lab 06/19/25 22:14 Completed Blood Culture Stat Micro 06/19/25 17:40 Results Medical Decision Narrative: patient is a 34-year-old female presenting to the emergency department for evaluation of confusion sweating and nausea. 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 Patient is hemodynamically stable and nontoxic-appearing upon arrival, afebrile. Differential diagnosis includes symptoms from Muscogee's disease, electrolyte disturbance, anxiety. Workup will be conducted with hematologic labs. Initial inventions include crystalloid bolus, analgesics. Initial workup reviewed by me [hematologic labs are remarkable for:]. [Imaging informally interpreted by me and remarkable for:] [Formal imaging read remarkable for:] Upon repeat evaluation [patient's pain is improved, appears better perfused, appears the same, appears worse, etc.]. Due to this [additional interventions, patient is appropriate for discharge, patient requires admission, etc.]. I was consulted by the [facility], and we discussed the complexity of problems being addressed. I approved the treatment and management plan for this patient's care in the emergency department, thus performing a substantial portion of the medical decision making. Luann Lozano MD At 3 PM handoff given to Dr. Lin to follow-up with [facility] improvement of patient's blood pressure after third fluid bolus. <Victor M Lin, DO - Last Filed: 06/21/25 16:21> Medical Records Medical records reviewed: Yes I reviewed the patient's medical records. Vital Signs: 06/19/25 11:10 06/19/25 12:00 06/19/25 12:30 Temperature 97.7 F Temperature Source Oral Pulse Rate 89 94 H Pulse Rate [Left] 85 Respiratory Rate 19 17 17 Blood Pressure 104/66 L 97/67 L Blood Pressure [Right Arm] 109/64 L Blood Pressure Mean Blood Pressure Mean [Right Arm] 79 Blood Pressure Source Automatic Cuff Blood Pressure Source [Right Arm] Automatic Cuff Blood Pressure Position Supine Blood Pressure Position [Right Arm] Supine 02 Sat by Pulse Oximetry 100 98 99 Oxygen Delivery Method Room Air Room Air Room Air 06/19/25 12:44 06/19/25 13:10 06/19/25 13:50 Temperature Temperature Source Pulse Rate 90 92 H 87 Pulse Rate [Left] Respiratory Rate 16 18 16 Blood Pressure 101/61 L 102/58 L 100/66 L Blood Pressure [Right Arm] Blood Pressure Mean 70 Blood Pressure Mean [Right Arm] Blood Pressure Source Blood Pressure Source [Right Arm] Blood Pressure Position Blood Pressure Position [Right Arm] 02 Sat by Pulse Oximetry 100 99 99 Oxygen Delivery Method Room Air 06/19/25 14:00 06/19/25 14:18 06/19/25 14:20 Temperature Temperature Source Pulse Rate 105 H 80 78 Pulse Rate [Left] Respiratory Rate 16 19 20 Blood Pressure 98/62 L 90/53 L 93/53 L Blood Pressure [Right Arm] Blood Pressure Mean 69 60 62 Blood Pressure Mean [Right Arm] Blood Pressure Source Blood Pressure Source [Right Arm] Blood Pressure Position Blood Pressure Position [Right Arm] 02 Sat by Pulse Oximetry 98 96 96 Oxygen Delivery Method Room Air Room Air Room Air 06/19/25 14:33 06/19/25 14:42 06/19/25 14:43 Temperature Temperature Source Pulse Rate 85 97 H 80 Pulse Rate [Left] Respiratory Rate 16 20 17 Blood Pressure 95/56 L 90/45 L 90/53 L Blood Pressure [Right Arm] Blood Pressure Mean Blood Pressure Mean [Right Arm] Blood Pressure Source Blood Pressure Source [Right Arm] Blood Pressure Position Blood Pressure Position [Right Arm] 02 Sat by Pulse Oximetry 97 99 99 Oxygen Delivery Method 06/19/25 15:00 06/19/25 15:20 06/19/25 15:40 Temperature Temperature Source Pulse Rate 89 79 Pulse Rate [Left] Respiratory Rate 20 18 19 Blood Pressure 92/51 L 104/60 L 106/80 L Blood Pressure [Right Arm] Blood Pressure Mean 68 86 Blood Pressure Mean [Right Arm] Blood Pressure Source Blood Pressure Source [Right Arm] Blood Pressure Position Blood Pressure Position [Right Arm] 02 Sat by Pulse Oximetry 98 Oxygen Delivery Method Room Air 06/19/25 15:53 06/19/25 16:00 06/19/25 16:20 Temperature Temperature Source Pulse Rate 86 Pulse Rate [Left] Respiratory Rate 16 16 Blood Pressure 107/59 L 97/55 L 116/61 Blood Pressure [Right Arm] Blood Pressure Mean 75 65 Blood Pressure Mean [Right Arm] Blood Pressure Source Blood Pressure Source [Right Arm] Blood Pressure Position Blood Pressure Position [Right Arm] 02 Sat by Pulse Oximetry Oxygen Delivery Method 06/19/25 16:32 06/19/25 16:40 06/19/25 16:52 Temperature Temperature Source Pulse Rate Pulse Rate [Left] Respiratory Rate 18 17 Blood Pressure 104/54 L 102/54 L 100/50 L Blood Pressure [Right Arm] Blood Pressure Mean 70 62 54 Blood Pressure Mean [Right Arm] Blood Pressure Source Blood Pressure Source [Right Arm] Blood Pressure Position Blood Pressure Position [Right Arm] 02 Sat by Pulse Oximetry Oxygen Delivery Method 06/19/25 17:00 06/19/25 17:02 06/19/25 17:04 Temperature Temperature Source Pulse Rate Pulse Rate [Left] Respiratory Rate 19 17 19 Blood Pressure 111/62 112/60 111/70 Blood Pressure [Right Arm] Blood Pressure Mean 68 72 83 Blood Pressure Mean [Right Arm] Blood Pressure Source Blood Pressure Source [Right Arm] Blood Pressure Position Blood Pressure Position [Right Arm] 02 Sat by Pulse Oximetry Oxygen Delivery Method 06/19/25 17:20 06/19/25 17:24 06/19/25 17:49 Temperature 98.7 F Temperature Source Pulse Rate 104 H 101 H Pulse Rate [Left] Respiratory Rate 15 19 Blood Pressure 95/51 L 98/54 L Blood Pressure [Right Arm] Blood Pressure Mean 70 Blood Pressure Mean [Right Arm] Blood Pressure Source Blood Pressure Source [Right Arm] Blood Pressure Position Blood Pressure Position [Right Arm] 02 Sat by Pulse Oximetry 99 Oxygen Delivery Method Room Air Room Air Room Air Lab Data Lab Results 06/19/25 11:44: WBC 8.4, RBC 4.65, Hgb 13.2, Hct 39.9, MCV 85.8, MCH 28.4, MCHC 33.1, RDW 11.9, Plt Count 232, MPV 11.4 H, Neut % (Auto) 62.2, Lymph % (Auto) 25.1, [place] % (Auto) 6.8, Eos % (Auto) 5.1, Baso % (Auto) 0.6, Neut # (Auto) 5.3, Lymph # (Auto) 2.1, [place] # (Auto) 0.6, Eos # (Auto) 0.4, Baso # (Auto) 0.1, Sodium 134 L, Potassium 4.1, Chloride 101, Carbon Dioxide 29, Anion Gap 8.1, BUN 19 H, Creatinine 0.80, Estimated Creat Clear 76, Estimated GFR 82, Est GFR ( Amer) 99, Glucose 104 H, Calcium 9.5, Magnesium 1.7, Total Bilirubin 0.5, AST 41 H, ALT 24, Alkaline Phosphatase 49, Troponin I < 0.01, Total Protein 7.3, Albumin 4.2, Globulin 3.1, Albumin/Globulin Ratio 1.4, Lipase 255, Cortisol 24.0 H Orders (Tests/Meds): ED MEDICATIONS Discontinued Medications Generic Name Dose Route Start Last Admin Trade Name Butch PRN Reason Stop Dose Admin Acetaminophen 650 mg 06/19/25 18:29 Acetaminophen 325mg Tab PO 07/19/25 18:28 Q4HP PRN Fever or Mild Pain (1-3) Amitriptyline HCl 25 mg 06/19/25 21:00 06/19/25 21:05 Amitriptyline 25mg Tablet PO 07/19/25 20:59 25 mg HS TIMUR Administration Bupropion HCl 150 mg 06/20/25 09:00 06/20/25 09:06 Bupropion Hcl Sr 150mg Tab PO 07/20/25 08:59 150 mg DAILY TIMUR Administration Diazepam 2.5 mg 06/19/25 11:28 06/19/25 11:53 Diazepam 10mg/2ml Syringe IV 06/19/25 11:29 2.5 mg ONCE ONE Administration Enoxaparin Sodium 40 mg 06/20/25 09:00 06/20/25 09:00 Enoxaparin 40mg/0.4ml Syringe SUBCUT 07/20/25 08:59 Not Given DAILY TIMUR Hydrocortisone Sodium Succinate 50 mg 06/19/25 11:28 06/19/25 11:53 Hydrocortisone Sod Succinate 100mg Vial IV 06/19/25 11:29 50 mg ONCE ONE Administration Hydrocortisone Sodium Succinate 50 mg 06/19/25 13:27 06/19/25 13:47 Hydrocortisone Sod Succinate 100mg Vial IV 06/19/25 13:28 50 mg ONCE ONE Administration Hydrocortisone Sodium Succinate 50 mg 06/19/25 21:00 06/20/25 09:06 Hydrocortisone Sod Succinate 100mg Vial IV 07/19/25 20:59 50 mg Q6H TIMUR Administration Lactated Ringer's 500 mls @ 999 mls/hr 06/19/25 11:39 06/19/25 13:50 Lactated Ringer's 1000 Ml Bag IV 06/19/25 12:09 Infused .Q31M ONE Infusion Lactated Ringer's 500 mls @ 999 mls/hr 06/19/25 13:26 06/19/25 15:08 Lactated Ringer's 1000 Ml Bag IV 06/19/25 13:56 Infused .Q31M ONE Infusion Lactated Ringer's 500 mls @ 999 mls/hr 06/19/25 14:51 06/19/25 16:07 Lactated Ringer's 1000 Ml Bag IV 06/19/25 15:21 Infused .Q31M ONE Infusion Lactated Ringer's 1,000 mls @ 100 mls/hr 06/19/25 18:30 06/20/25 04:57 Lactated Ringer's 1000 Ml Bag IV 07/19/25 18:29 100 mls/hr .Q10H TIMUR Administration Magnesium Sulfate 2 gm in 50 mls @ 50 mls/hr 06/19/25 19:15 06/19/25 22:20 Magnesium Sulfate 2gm/50ml Premix IV 06/19/25 21:14 Infused Q1H TIMUR Infusion Ondansetron HCl 4 mg 06/19/25 18:29 Ondansetron 4mg/2ml Vial IV 07/19/25 18:28 Q6HP PRN Nausea Sodium Chloride 10 ml 06/19/25 18:29 Sodium Chloride 0.9% 10ml Flush Syringe IV 07/19/25 18:28 NEEDED PRN Maintain IV Site ORDERS Category Date Time Status CBC [Complete Blood Count Auto Diff] Stat Lab 06/19/25 11:44 Completed Comprehensive Metabolic Panel Stat Lab 06/19/25 11:44 Completed Cortisol Stat Lab 06/19/25 11:44 Completed Lipase Stat Lab 06/19/25 11:44 Completed Magnesium Stat Lab 06/19/25 11:44 Completed Trop I [Troponin I] Stat Lab 06/19/25 11:44 Completed Troponin I Q3H Lab 06/19/25 18:48 Completed Troponin I Q3H Lab 06/19/25 22:14 Completed Blood Culture Stat Micro 06/19/25 17:40 Results Medical Decision Narrative: patient is a 34-year-old female presenting to the emergency department for evaluation of confusion sweating and nausea. 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 Patient is hemodynamically stable and nontoxic-appearing upon arrival, afebrile. Differential diagnosis includes symptoms from Muscogee's disease, electrolyte disturbance, anxiety. Workup will be conducted with hematologic labs. Initial inventions include crystalloid bolus, analgesics. I was consulted by the CORY, and we discussed the complexity of problems being addressed. I approved the treatment and management plan for this patient's care in the emergency department, thus performing a substantial portion of the medical decision making. Luann Lozano MD At 3 PM handoff given to Dr. Lin to follow-up with CORY improvement of patient's blood pressure after third fluid bolus. Victor M Lin DO I recieved care of this patient at 1500 and continued caring for this patient in conjunction with midlevel provider. The patient's labs were personally reviewed by me and demonstrated no actionable abnormalities. There was no changes in her sodium or potassium. The patient steroids prior to arrival and received additional hydrocortisone here in the emergency department. We also treated the patient with 3 L of lactated Ringer's and she remained mildly hypotensive. I did discuss with the patient's that she would benefit from norepinephrine admission. She would like to avoid vasopressors unless absolutely necessary. She is not profoundly hypotensive so we did not initiate norepinephrine at this time. However, I do feel that she would benefit from admission for Q6 and continuous telemetry oximetry. Therefore I had an interactive discussion with the internal medicine service who agreed to evaluate the patient the emergency department. After our discussion their evaluation and agreed to admit the patient to their service and accept primary responsibility of the patient moving forward. Critical Care <Luann Lozano MD - Last Filed: 06/19/25 15:25> Critical Care Time Critical Care Time: No
[2025-06-19 11:52] LABS: Hematocrit 39.9 % (37.0-47.0); Hemoglobin 13.2 g/dL (12.2-16.2); Immature Granulocytes % 0.2 %; Mean Corpuscular HGB Conc 33.1 g/dL (31.8-35.4); Mean Corpuscular Hemoglobin 28.4 pg (27.0-31.2); Mean Corpuscular Volume 85.8 fl (81-99); Nucleated Red Blood Cells % 0 %; Platelet Count 232 K/mm3 (142-424); Red Blood Count 4.65 M/mm3 (4.20-5.40); Red Cell Distribution Width-SD 37.4 fL; White Blood Count 8.4 K/mm3 (4.8-10.8)
[2025-06-19] MEDS: diazePAM 10MG/2ML SYRINGE 2.5 MG IV (11:53)
[2025-06-19] MEDS: LACTATED RINGERS 1000ML 500 ML 999 ML IV ×3 (11:53→15:12)
[2025-06-19] MEDS: HYDROCORTISONE SOD SUCCINATE 100MG VIAL 50 MG IV ×3 (11:53→21:06)
[2025-06-19 12:01] LABS: Alanine Aminotransferase 24 U/L (12-78); Albumin Level 4.2 g/dl (3.5-5.0); Albumin/Globulin Ratio 1.4 (1.1-1.8); Alkaline Phosphatase 49 U/L (38-126); Anion Gap 8.1 mEq/L (5-15); Aspartate Amino Transferase 41 U/L (14-36); Bilirubin,Total 0.5 mg/dl (0.2-1.3); Blood Urea Nitrogen 19 mg/dl (7-17); Calcium 9.5 mg/dl (8.4-10.2); Carbon Dioxide 29 mmol/L (22.0-30.0); Chloride 101 mmol/L (98-107); Creatinine Clearance Estimated 76 mL/min (50-200); Creatinine,Serum 0.80 mg/dl (0.52-1.04); Estimated Glomerular Filt Rate 82 ml/min (>60); GFR (African American) 99 ML/MIN (>60); Globulin 3.1 g/dL (1.3-3.2); Glucose 104 mg/dl (74-100); Lipase 255 U/L (23-300); Magnesium 1.7 mg/dl (1.6-2.3); Potassium 4.1 mmoL/L (3.5-5.1); Sodium 134 mmol/L (136-145); Total Protein,Serum 7.3 g/dl (6.3-8.2)
[2025-06-19 14:55] LABS: Troponin I < 0.01 ng/ml (0.00-0.034)
--- NOTE | 2025-06-19 17:11 | PC.NURSE ---
foreman or supervisor and operator contacted regarding bed.
--- NOTE | 2025-06-19 17:29 | PC.NURSE ---
Patient report called to CLAUDIA Moore.
--- NOTE | 2025-06-19 18:29 | EXP.HP ---
History of Present Illness *Admission Date: 06/19/25 *Reason for visit:: Dizziness, weakness *History of present illness: Lindsay Ferrari is a 34-year-old female with a medical history significant for Tuscarora's disease, hypothyroidism, anxiety who presented for progressive dizziness, weakness. Patient states she has been under a lot of stress recently and began experiencing dizziness, weakness last night. She takes hydrocortisone 10 mg in the morning, 5 mg at 3 PM in addition to fludrocortisone 0.1 mg every other day. She took an additional hydrocortisone 10 mg last night. Today, she was at work but continues to have intermittent dizziness and weakness that progressively became worse. She was then brought to the ED. On arrival, patient's systolics were in the 90s with ongoing symptoms of weakness, dizziness. She was given IV hydrocortisone 50 mg x 2 in addition to 3 L of LR with only slight improvement in symptoms. CBC, CMP otherwise unremarkable. Given these findings, ED provider discussed case with me and I decided to admit patient for adrenal crisis. Of note, TSH less than 0.02 on 06/18/2025. Will follow-up on free T4. [facility] Disclaimer: The information contained in this section may have been updated after the patient was seen, as this information can be updated by other users. Medical History (Updated 06/20/25 @ 07:54 by Oscar Mccurdy MD) Addisonian crisis Mastitis Tuscarora's disease Nausea & vomiting PCOS (polycystic ovarian syndrome) ADHD Tuscarora disease Thyroid disease Depression Anxiety History of gastroesophageal reflux (GERD) Asthma Surgical History History of endometrial ablation History of dilation and curettage History of tympanostomy tube placement History of tonsillectomy History of section Family History Other Family history of cancer Family history of diabetes mellitus Family history of heart disease Family history of kidney disease Social History Smoking Status: Never smoker second hand exposure: No alcohol intake: never counseling given: No substance use type: denies use counseling given: No current occupational status: employed Travel in the last 8 weeks?: None adopted: No caregiver/support person: Yes foster care: No household members: spouse housing: house lives independently: Yes marital status: number of children: 2 education level: master's degree Hx Recent Travel: No sexually active: Yes caffeine: Yes physical activity: none tangela/anglican: Yazidi special tangela needs: No working smoke detector in home: Yes fire extinguisher in home: Yes carbon monox detector in home: Yes firearms in home: Yes firearms unloaded and locked: Yes do you feel safe at home: Yes victim of physical abuse: No victim of emotional abuse: No victim of sexual abuse: No would you like helpful sources: No Have you lived/traveled outside [place] in past 30 days?: No Contact w/someone who lives/traveled outside [place] past 30 days?: No Exposure to someone with infectious disease in past 14 days?: No Do you have a fever (greater than 100.4 F or 38 C)?: No Have you tested positive for COVID-19?: No Exposed to someone with COVID-19 in past 14 days?: No Do you have a sore throat?: No Do you have a cough?: No Do you have any weakness?: No Do you have any diarrhea?: No Are you experiencing any unusual bleeding?: No Do you have any muscle aches/pain?: No Do you have any abdominal pain?: No Are you experiencing loss of taste or smell?: No Other Medical History Have you received the Flu Vaccine for this season: No Have you received the Pneumonia Vaccine: No Meds Home Medications and Allergies Home Medications ?Medication ?Instructions ?Recorded ?Confirmed ?Type fludrocortisone 0.1 mg tablet 0.1 mg PO QODHS 09/03/23 06/19/25 History esomeprazole magnesium 20 mg 20 mg PO DAILY 03/16/24 06/19/25 History capsule,delayed release levothyroxine 200 mcg tablet 200 mcg PO DAILY 04/05/24 06/19/25 History levocetirizine 5 mg tablet (Xyzal) 5 mg PO DAILY 10/13/24 06/19/25 History hydrocortisone 10 mg tablet 30 mg PO DAILY 12/23/24 06/19/25 History hydrocortisone 5 mg tablet 5 mg PO 1500 12/23/24 06/19/25 History albuterol 90 mcg/actuation aerosol 0 mcg inhalation QID PRN Asthma 03/07/25 06/19/25 History inhaler lisdexamfetamine 40 mg capsule 40 mg PO DAILY #30 caps 06/03/25 06/19/25 Rx (Vyvanse) bupropion HCl 150 mg 24 hr tablet, 150 mg PO DAILY #30 tabs 06/17/25 06/19/25 Rx extended release (Wellbutrin XL) amitriptyline 25 mg tablet 25 mg PO HS 06/19/25 06/19/25 History New Prescriptions to Start Prescriptions: Allergies Allergy/AdvReac Type Severity Reaction Status Date / Time Penicillins Allergy Intermediate Rash Verified 06/11/25 08:12 amoxicillin Allergy Rash Verified 06/11/25 08:12 Cephalosporins AdvReac Mild Rash Verified 06/11/25 08:12 avocado AdvReac Rash Verified 06/11/25 08:12 Exam Data for Last 24 hours Vital signs and Labs for Last 24 Hours: Temp Pulse Resp BP Pulse Ox O2 Del Method 98.7 F 101 H 19 98/54 L 99 Room Air 06/19/25 17:49 06/19/25 17:49 06/19/25 17:49 06/19/25 17:49 06/19/25 17:20 06/19/25 17:49 Laboratory Results - last 24 hr 06/19/25 11:44: WBC 8.4, RBC 4.65, Hgb 13.2, Hct 39.9, MCV 85.8, MCH 28.4, MCHC 33.1, RDW 11.9, Plt Count 232, MPV 11.4 H, Neut % (Auto) 62.2, Lymph % (Auto) 25.1, [place] % (Auto) 6.8, Eos % (Auto) 5.1, Baso % (Auto) 0.6, Neut # (Auto) 5.3, Lymph # (Auto) 2.1, [place] # (Auto) 0.6, Eos # (Auto) 0.4, Baso # (Auto) 0.1, Sodium 134 L, Potassium 4.1, Chloride 101, Carbon Dioxide 29, Anion Gap 8.1, BUN 19 H, Creatinine 0.80, Estimated Creat Clear 76, Estimated GFR 82, Est GFR ( Amer) 99, Glucose 104 H, Calcium 9.5, Magnesium 1.7, Total Bilirubin 0.5, AST 41 H, ALT 24, Alkaline Phosphatase 49, Troponin I < 0.01, Total Protein 7.3, Albumin 4.2, Globulin 3.1, Albumin/Globulin Ratio 1.4, Lipase 255 I & O for Last 24 hours: Intake & Output 06/16/25 06/17/25 06/18/25 06/19/25 23:59 23:59 23:59 23:59 Intake Total 1500 / 1500 Balance 1500 / 1500 Weight 48.988 kg Constitutional Constitutional: no acute distress and obese *Routine HEENT Exam Head: Present normocephalic Eye: Present EOMI and PERRL ENT: Present mucous membranes moist *Routine Neck Exam Neck: Present supple; Absent lymphadenopathy *Routine Respiratory Exam Respiratory: Present CTA bilaterally *Routine Cardiovascular Exam Cardiovascular: Present RRR *Routine Abdominal Exam Abdominal: Present soft and normoactive bowel sounds; Absent tenderness *Routine Rectal Exam Rectal:: deferred *Routine Genitalia Exam Genitalia:: deferred *Routine Extremities Exam Extremities: Absent cyanosis, clubbing or edema *Routine Skin Exam Skin: Present warm; Absent rash *Routine Neurological Exam Neurological: Present alert and oriented X3 Assessment and Plan *Assessment and plan (1) Addisonian crisis: Status: Acute Category: Medical Code(s): E27.2 - Addisonian crisis Plan Lindsay Ferrari is a 34-year-old female with a medical history significant for Nacho's disease, hypothyroidism, anxiety who presented for progressive dizziness, weakness. Patient states she has been under a lot of stress recently and began experiencing dizziness, weakness last night. She takes hydrocortisone 10 mg in the morning, 5 mg at 3 PM in addition to fludrocortisone 0.1 mg every other day. She took an additional hydrocortisone 10 mg last night. Today, she was at work but continues to have intermittent dizziness and weakness that progressively became worse. She was then brought to the ED. On arrival, patient's systolics were in the 90s with ongoing symptoms of weakness, dizziness. She was given IV hydrocortisone 50 mg x 2 in addition to 3 L of LR with only slight improvement in symptoms. CBC, CMP otherwise unremarkable. Given these findings, ED provider discussed case with me and I decided to admit patient for adrenal crisis. Of note, TSH less than 0.02 on 06/18/2025. Will follow-up on free T4. #Nacho's/adrenal crisis ? Presented with dizziness, weakness, systolics in the 90s. History of Tuscarora's crisis. ? Given IV hydrocortisone 50 mg x 2 in addition to 3L of LR with only slight improvement in symptoms. ? On my evaluation of patient, she looks more comfortable without acute distress. Continues to endorse dizziness however. ? BP currently 98/54. ? Started IV hydrocortisone 50 mg every 6 hours. ? Started LR at 100 mL/h. ? Continue home fludrocortisone 0.1 mg starting 06/20/2025. ? Every 4 vital checks. ? Follow-up morning CBC, CMP. #Hypothyroidism #Significantly low TSH ? TSH on 06/18/2025 undetectable, less than 0.02. Follow-up free T4. ? Hold home levothyroxine 200 mcg. #Anxiety ? Continue home bupropion 150 mg. #GERD ? Continue home PPI. Full code DVT prophylaxis: Lovenox 40 mg
[2025-06-19] MEDS: LACTATED RINGERS 1000ML 1,000 ML 100 ML IV (18:45)
[2025-06-19 19:27] LABS: Adenovirus,PCR Not Detected (NotDetected); Chlamydophila Pneumoniae, PCR Not Detected (NotDetected); Coronavirus 19, PCR Not Detected (NotDetected); Coronovirus HKU1,PCR Not Detected (NotDetected); Influenza A, PCR Not Detected (NotDetected); Influenza AH1, 2009 Not Detected (NotDetected); Influenza AH1, PCR Not Detected (NotDetected); Influenza AH3,PCR Not Detected (NotDetected); Influenza B, PCR Not Detected (NotDetected); Mycoplasma Pneumoniae, PCR Not Detected (NotDetected); Parainfluenza 1, PCR Not Detected (NotDetected); Parainfluenza 2, PCR Not Detected (NotDetected); Parainfluenza 3, PCR Not Detected (NotDetected); Parainfluenza 4, PCR Not Detected (NotDetected)
[2025-06-19 19:35] LABS: Free T4 (Free Thyroxine) 2.24 ng/dl (0.78-2.19)
[2025-06-19 19:38] LABS: Troponin I < 0.01 ng/ml (0.00-0.034)
[2025-06-19] MEDS: MAGNESIUM SULFATE IN WATER 2 GM/50 ML PIGGYBACK IV ×2 (19:41→21:16)
[2025-06-19] MEDS: AMITRIPTYLINE 25MG TABLET 25 MG PO (21:05)
[2025-06-19 22:59] LABS: Troponin I < 0.01 ng/ml (0.00-0.034)
[2025-06-20] VITALS: BP 96/74; PULSE 88; RESP 16; TEMP 37.1; O2SAT 97
[2025-06-20 03:00] VITALS: PULSE 75
[2025-06-20] MEDS: HYDROCORTISONE SOD SUCCINATE 100MG VIAL 50 MG IV ×2 (03:16→09:06)
[2025-06-20 04:00] VITALS: BP 92/47; PULSE 68; PULSE 80; RESP 14; TEMP 37.1; O2SAT 97; BMI 35.1
[2025-06-20] MEDS: LACTATED RINGERS 1000ML 1,000 ML 100 ML IV (04:57)
--- NOTE | 2025-06-20 05:54 | PC.NURSE ---
Pt. is alert and orientated x 4. Pt. is on room air. Pt. was admitted with hypotension, dizziness and weakness. . Pt. has been on IV fluids. Pt. remains hypotnsive. She states runs a low BP at times. Pt. has been up to bathroom to void with minimal dizziness. No weakness. Pt's at bedside. Pt. slept off and on this shift. Personal items and call grant in reach. Bed in low and locked position. Safety measures in place.
[2025-06-20 05:59] LABS: Hematocrit 31.9 % (37.0-47.0); Immature Granulocytes % 0.3 %; Mean Corpuscular HGB Conc 33.2 g/dL (31.8-35.4); Mean Corpuscular Hemoglobin 28.5 pg (27.0-31.2); Mean Corpuscular Volume 85.8 fl (81-99); Nucleated Red Blood Cells % 0 %; Platelet Count 215 K/mm3 (142-424); Red Blood Count 3.72 M/mm3 (4.20-5.40); Red Cell Distribution Width-SD 37.4 fL; White Blood Count 10.0 K/mm3 (4.8-10.8)
[2025-06-20 06:07] LABS: Hemoglobin 10.7 g/dL (12.2-16.2)
[2025-06-20 06:14] LABS: Alanine Aminotransferase 17 U/L (12-78); Albumin Level 3.0 g/dl (3.5-5.0); Albumin/Globulin Ratio 1.2 (1.1-1.8); Alkaline Phosphatase 47 U/L (38-126); Anion Gap 5.7 mEq/L (5-15); Aspartate Amino Transferase 25 U/L (14-36); Bilirubin,Total 0.2 mg/dl (0.2-1.3); Blood Urea Nitrogen 14 mg/dl (7-17); Calcium 8.3 mg/dl (8.4-10.2); Carbon Dioxide 26 mmol/L (22.0-30.0); Chloride 110 mmol/L (98-107); Creatinine Clearance Estimated 134 mL/min (50-200); Creatinine,Serum 0.80 mg/dl (0.52-1.04); Estimated Glomerular Filt Rate 82 ml/min (>60); GFR (African American) 99 ML/MIN (>60); Globulin 2.5 g/dL (1.3-3.2); Glucose 119 mg/dl (74-100); Magnesium 2.2 mg/dl (1.6-2.3); Potassium 3.7 mmoL/L (3.5-5.1); Sodium 138 mmol/L (136-145); Total Protein,Serum 5.5 g/dl (6.3-8.2)
[2025-06-20 08:00] VITALS: PULSE 104
--- NOTE | 2025-06-20 08:23 | HMH.PHAINT1 ---
Pharmacy Intervention Comments: MEDICATION RECONCILIATION COMPLETED ON PATIENT USING EXTERNAL FILL HISTORY FROM PHARMACY AND LIST FROM BEHAVIORAL HEALTH. -ALEX KANG, ZANDERD
[2025-06-20 08:24] VITALS: BP 92/64; PULSE 116; RESP 16; TEMP 36.7; O2SAT 99
--- NOTE | 2025-06-20 09:12 | P.DS_ITS ---
<Statement entered by Oscar Mccurdy MD - 06/23/25 12:07> Personally evaluated patient and agree with the plan of care as outlined by the SCHOOL PSYCHOLOGICAL EXAMINER. General Admission date:: 06/19/25 Discharge date: 06/20/25 HPI HPI HPI: Lindsay Ferrari is a 34-year-old female with a medical history significant for Erie's disease, hypothyroidism, anxiety who presented for progressive dizziness, weakness. Patient states she has been under a lot of stress recently and began experiencing dizziness, weakness last night. She takes hydrocortisone 10 mg in the morning, 5 mg at 3 PM in addition to fludrocortisone 0.1 mg every other day. She took an additional hydrocortisone 10 mg last night. Today, she was at work but continues to have intermittent dizziness and weakness that progressively became worse. She was then brought to the ED. On arrival, patient's systolics were in the 90s with ongoing symptoms of weakness, dizziness. She was given IV hydrocortisone 50 mg x 2 in addition to 3 L of LR with only slight improvement in symptoms. CBC, CMP otherwise unremarkable. Given these findings, ED provider discussed case with me and I decided to admit patient for adrenal crisis. Of note, TSH less than 0.02 on 06/18/2025. Will follow-up on free T4. Hospital Course Hospital Course Hospital Course: Lindsay Ferrari is a 34-year-old female who presented to the emergency department with complaints of weakness, dizziness that started Monday evening. She endorses being under a lot of stress recently. She has a primary medical history of Erie's disease, hypothyroidism, anxiety. She currently takes a regimen of hydrocortisone 10 mg in the morning and 5 mg at 3 PM. She also takes fludrocortisone 0.1 mg every other day. She states she felt the symptoms coming on 2 nights ago and took an additional hydrocortisone 10 mg. She still complained of intermittent dizziness and weakness that had gotten worse. She was brought to the emergency department where she was found to have soft blood pressure, systolics of 90s. She was given hydrocortisone 50 mg IV x 2 and 3 L of LR; which did improve symptoms. Lab work was unremarkable. Hospital medicine was consulted for admission for adrenal crisis. Plan of care was as follows: #Erie's/adrenal crisis ? Patient originally presented with dizziness and weakness. Assessment this morning reveals that she is feeling much better, back to baseline. She states she is feeling fatigued but denies dizziness and weakness at this time. Patient received 3 L bolus in the emergency department and maintenance fluids of LR at 100 mL/H during admission. She also received hydrocortisone 50 mg IV every 6 hours. Patient's blood pressure at discharge 117/66, pulse 85. She states her blood pressure does normally run on the lower side. Repeat lab work this morning continues to be unremarkable. ? Patient will complete a stress course of steroids at discharge x 3 days. Hydrocortisone 25 mg twice daily patient should then continue home regimen of hydrocortisone. Discussed with patient going home with close monitoring of blood pressure and continuing of home Erie's medication, hydrocortisone 30 mg in the a.m., hydrocortisone 5 mg at 3 PM and fludrocortisone 0.1 mg every other day. 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 #Hypothyroidism #Significantly low TSH ? TSH on 06/18/2025 undetectable, less than 0.02. Free T4 2.24. ? Held home levothyroxine 200 mcg this morning, repeat TSH is continues to be less than 0.02. Changing dose from 200 mcg daily to 150 mcg daily. ? Patient does follow with Dr. Nagel, endocrinology, patient should follow-up in 4 to 6 weeks for repeat TSH. Total time spent on discharge 32 minutes in counseling, documentation, chart review, and direct care with patient. Exam Data for Last 24 hours Vital signs and Labs for Last 24 Hours: Temp Pulse Resp BP Pulse Ox O2 Del Method 98.1 F 116 H 16 92/64 L 99 Room Air 06/20/25 08:24 06/20/25 08:24 06/20/25 08:24 06/20/25 08:24 06/20/25 08:24 06/20/25 08:24 Laboratory Results - last 24 hr 06/19/25 11:44: WBC 8.4, RBC 4.65, Hgb 13.2, Hct 39.9, MCV 85.8, MCH 28.4, MCHC 33.1, RDW 11.9, Plt Count 232, MPV 11.4 H, Neut % (Auto) 62.2, Lymph % (Auto) 25.1, [place] % (Auto) 6.8, Eos % (Auto) 5.1, Baso % (Auto) 0.6, Neut # (Auto) 5.3, Lymph # (Auto) 2.1, [place] # (Auto) 0.6, Eos # (Auto) 0.4, Baso # (Auto) 0.1, Sodium 134 L, Potassium 4.1, Chloride 101, Carbon Dioxide 29, Anion Gap 8.1, BUN 19 H, Creatinine 0.80, Estimated Creat Clear 76, Estimated GFR 82, Est GFR ( Amer) 99, Glucose 104 H, Calcium 9.5, Magnesium 1.7, Total Bilirubin 0.5, AST 41 H, ALT 24, Alkaline Phosphatase 49, Troponin I < 0.01, Total Protein 7.3, Albumin 4.2, Globulin 3.1, Albumin/Globulin Ratio 1.4, Lipase 255 06/19/25 18:03: Chlamy pneumoniae PCR Not detected, Adenovirus (PCR) Not detected, B. pertussis DNA (PCR) Not detected, Coronavirus OC43 (PCR) Not detected, Coronavirus HKU1 (PCR) Not detected, Coronavirus 229E (PCR) Not detected, SARS-CoV-2 (PCR) Not detected, Coronavirus NL63 (PCR) Not detected, Human Metapneumovir PCR Not detected, Influenza A (H1) PCR Not detected, Influ A (H1N1/09) PCR Not detected, Influenza A (H3) PCR Not detected, Influenza Type A (PCR) Not detected, Influenza Type B (PCR) Not detected, M. pneumoniae (PCR) Not detected, Parainfluenza 1 (PCR) Not detected, Parainfluenza 2 (PCR) Not detected, Parainfluenza 3 (PCR) Not detected, Parainfluenza 4 (PCR) Not detected, RSV (PCR) Not detected, Entero/Rhino (PCR) Not detected 06/19/25 18:48: Troponin I < 0.01, Free T4 2.24 H 06/19/25 22:14: Troponin I < 0.01 06/20/25 05:26: WBC 10.0, RBC 3.72 L, Hgb 10.7 L D, Hct 31.9 L, MCV 85.8, MCH 28.5, MCHC 33.2, RDW 11.9, Plt Count 215, MPV 11.9 H, Neut % (Auto) 78.7, Lymph % (Auto) 17.2, [place] % (Auto) 3.2, Eos % (Auto) 0.4, Baso % (Auto) 0.2, Neut # (Auto) 7.9 H, Lymph # (Auto) 1.7, [place] # (Auto) 0.3, Eos # (Auto) 0.0, Baso # (Auto) 0.0, Sodium 138, Potassium 3.7, Chloride 110 H, Carbon Dioxide 26, Anion Gap 5.7, BUN 14 D, Creatinine 0.80, Estimated Creat Clear 134, Estimated GFR 82, Est GFR ( Amer) 99, Glucose 119 H, Calcium 8.3 L, Magnesium 2.2 D, Total Bilirubin 0.2, AST 25 D, ALT 17 D, Alkaline Phosphatase 47, Total Protein 5.5 L, Albumin 3.0 L D, Globulin 2.5, Albumin/Globulin Ratio 1.2 I & O for Last 24 hours: Intake & Output 06/17/25 06/18/25 06/19/25 06/20/25 23:59 23:59 23:59 23:59 Intake Total 1839 / 1959 1600 / 1600 Output Total 0 / 0 0 / 0 Balance 1839 1600 / 1600 Weight 48.988 kg 86.545 kg Constitutional Constitutional: no acute distress *Routine HEENT Exam Head: Present normocephalic Eye: Present EOMI and PERRL ENT: Present mucous membranes moist *Routine Neck Exam Neck: Present supple; Absent lymphadenopathy Routine Chest/Breast/Axilla Exam Chest wall: Absent tenderness Breast: Absent tenderness *Routine Respiratory Exam Respiratory: Present CTA bilaterally; Absent rhonchi, wheezes or crackles *Routine Cardiovascular Exam Cardiovascular: Present RRR *Routine Abdominal Exam Abdominal: Present soft and normoactive bowel sounds; Absent tenderness *Routine Rectal Exam Patient deferred: visual exam *Routine Exam Patient deferred: external exam *Routine Extremities Exam Extremities: Absent cyanosis, clubbing or edema *Routine Skin Exam Skin: Present intact and warm; Absent rash *Routine Neurological Exam Neurological: Present alert, oriented X3 and moving all extremities; Absent altered mental status Results Data Completed and Pending Labs on day of discharge: Labs from last 24 hours 06/20/25 06/19/25 06/19/25 05:26 22:14 18:48 WBC 10.0 RBC 3.72 L Hgb 10.7 L D Hct 31.9 L MCV 85.8 MCH 28.5 MCHC 33.2 RDW 11.9 Plt Count 215 MPV 11.9 H Neut % (Auto) 78.7 Lymph % (Auto) 17.2 [place] % (Auto) 3.2 Eos % (Auto) 0.4 Baso % (Auto) 0.2 Neut # (Auto) 7.9 H Lymph # (Auto) 1.7 [place] # (Auto) 0.3 Eos # (Auto) 0.0 Baso # (Auto) 0.0 Sodium 138 Potassium 3.7 Chloride 110 H Carbon Dioxide 26 Anion Gap 5.7 BUN 14 D Creatinine 0.80 Estimated Creat Clear 134 Estimated GFR 82 Est GFR ( Amer) 99 Glucose 119 H Calcium 8.3 L Magnesium 2.2 D Total Bilirubin 0.2 AST 25 D ALT 17 D Alkaline Phosphatase 47 Troponin I < 0.01 < 0.01 Total Protein 5.5 L Albumin 3.0 L D Globulin 2.5 Albumin/Globulin Ratio 1.2 Lipase Free T4 2.24 H Chlamy pneumoniae PCR Adenovirus (PCR) B. pertussis DNA (PCR) Coronavirus OC43 (PCR) Coronavirus HKU1 (PCR) Coronavirus 229E (PCR) SARS-CoV-2 (PCR) Coronavirus NL63 (PCR) Human Metapneumovir PCR Influenza A (H1) PCR Influ A (H1N1/09) PCR Influenza A (H3) PCR Influenza Type A (PCR) Influenza Type B (PCR) M. pneumoniae (PCR) Parainfluenza 1 (PCR) Parainfluenza 2 (PCR) Parainfluenza 3 (PCR) Parainfluenza 4 (PCR) RSV (PCR) Entero/Rhino (PCR) 06/19/25 06/19/25 18:03 11:44 WBC 8.4 RBC 4.65 Hgb 13.2 Hct 39.9 MCV 85.8 MCH 28.4 MCHC 33.1 RDW 11.9 Plt Count 232 MPV 11.4 H Neut % (Auto) 62.2 Lymph % (Auto) 25.1 [place] % (Auto) 6.8 Eos % (Auto) 5.1 Baso % (Auto) 0.6 Neut # (Auto) 5.3 Lymph # (Auto) 2.1 [place] # (Auto) 0.6 Eos # (Auto) 0.4 Baso # (Auto) 0.1 Sodium 134 L Potassium 4.1 Chloride 101 Carbon Dioxide 29 Anion Gap 8.1 BUN 19 H Creatinine 0.80 Estimated Creat Clear 76 Estimated GFR 82 Est GFR ( Amer) 99 Glucose 104 H Calcium 9.5 Magnesium 1.7 Total Bilirubin 0.5 AST 41 H ALT 24 Alkaline Phosphatase 49 Troponin I < 0.01 Total Protein 7.3 Albumin 4.2 Globulin 3.1 Albumin/Globulin Ratio 1.4 Lipase 255 Free T4 Chlamy pneumoniae PCR Not detected Adenovirus (PCR) Not detected B. pertussis DNA (PCR) Not detected Coronavirus OC43 (PCR) Not detected Coronavirus HKU1 (PCR) Not detected Coronavirus 229E (PCR) Not detected SARS-CoV-2 (PCR) Not detected Coronavirus NL63 (PCR) Not detected Human Metapneumovir PCR Not detected Influenza A (H1) PCR Not detected Influ A (H1N1/09) PCR Not detected Influenza A (H3) PCR Not detected Influenza Type A (PCR) Not detected Influenza Type B (PCR) Not detected M. pneumoniae (PCR) Not detected Parainfluenza 1 (PCR) Not detected Parainfluenza 2 (PCR) Not detected Parainfluenza 3 (PCR) Not detected Parainfluenza 4 (PCR) Not detected RSV (PCR) Not detected Entero/Rhino (PCR) Not detected DS: Diagnosis Discharge Diagnosis (1) Addisonian crisis: Status: Acute Code(s): E27.2 - Addisonian crisis Meds Home Medications and Allergies Home Medications ?Medication ?Instructions ?Recorded ?Confirmed ?Type fludrocortisone 0.1 mg tablet 0.1 mg PO DAILY 09/03/23 06/20/25 History esomeprazole magnesium 20 mg 20 mg PO DAILY 03/16/24 0 06/19/25 History capsule,delayed release levocetirizine 5 mg tablet (Xyzal) 5 mg PO DAILY 10/1306/19/25 History hydrocortisone 10 mg tablet 30 mg PO DAILY 12/23/24 History Held on 06/20/25. Instructions: hold for 3 days hydrocortisone 5 mg tablet 5 mg PO 1500 12/23/2406/19 History Held on 06/20/25. Instructions: for 3 days lisdexamfetamine 40 mg capsule 40 mg PO DAILY #30 caps 06/03/25 06/19/25 Rx (Vyvanse) bupropion HCl 150 mg 24 hr tablet, 150 mg PO DAILY #30 tabs 06/17/25 06/19/25 Rx extended release (Wellbutrin XL) amitriptyline 25 mg tablet 25 mg PO HS 06/19/25 History hydrocortisone 10 mg tablet 25 mg (2.5 x 10 mg) PO BID #15 tabs 06/20/25 Rx levothyroxine 150 mcg tablet 150 mcg PO DAILY #30 tabs 06/20/25 Rx (Synthroid) New Prescriptions to Start Prescriptions: hydrocortisone Selam Moe levothyroxine [Synthroid] Selam Moe Allergies Allergy/AdvReac Type Severity Reaction Status Date / Time Penicillins Allergy Intermediate Rash Verified 06/11/25 08:12 amoxicillin Allergy Rash Verified 06/11/25 08:12 Cephalosporins AdvReac Mild Rash Verified 06/11/25 08:12 avocado AdvReac Rash Verified 06/11/25 08:12 Discharge Plan Disposition Patient Disposition: Home, Self-Care Condition: Fair Follow up Plan Follow up with: Vincent Roberson MD [Primary Care Provider, Internal Medicine] - Enter time for follow up Referral Note: patient to make her own follow up appointment Ari Coffey MD [Staff Physician, Endocrinology] - Enter time for follow up Referral Note: 4-6 weeks patient to make her own follow up appointment Prescriptions/Medication Reconciliation: New levothyroxine [Synthroid] 150 mcg tablet 150 mcg PO DAILY Qty: 30 0RF hydrocortisone 10 mg tablet 25 mg PO BID Qty: 15 0RF Continued bupropion HCl [Wellbutrin XL] 150 mg tablet extended release 24 hr 150 mg PO DAILY Qty: 30 2RF lisdexamfetamine [Vyvanse] 40 mg capsule 40 mg PO DAILY Qty: 30 0RF levocetirizine [Xyzal] 5 mg Tablet 5 mg PO DAILY amitriptyline 25 mg tablet 25 mg PO HS fludrocortisone 0.1 mg tablet 0.1 mg PO DAILY esomeprazole magnesium 20 mg Capsule,Delayed Release(Dr/Ec) 20 mg PO DAILY Held hydrocortisone 5 mg tablet 5 mg PO 1500 Hold Instructions: for 3 days hydrocortisone 10 mg tablet 30 mg PO DAILY Hold Instructions: hold for 3 days Patient Comments: take 1 AND 1/2 TO 2 tablets BY MOUTH EVERY MORNING Discontinued levothyroxine 200 mcg Tablet 200 mcg PO DAILY Problem Reconciliation Problems Reviewed?: Yes Patient Discharge Instructions ACTIVITY: Continue current activity DIET: continue same diet Patient Instructions: DI for Addisons Disease, DI for Hypotension Print Language: Djiboutian Providers Primary Care Provider: Vincent Roberson Admcarmela Provider: Oscar Mccurdy Attending Provider: Oscar Mccurdy
[2025-06-20 10:08] LABS: Thyroid Stimulating Hormone < 0.02 uIU/mL (0.465-4.68)
--- NOTE | 2025-06-24 10:18 | SW/DCPLANNER ---
Phoned patient x2. Left message with name and a call back number. Magaly Moya
--- NOTE | 2025-06-24 10:24 | SW/DCPLANNER ---
Spoke with patient on the phone. Patient stated that she is doing good. patient stated that she is calling to schedule her follow up appointments. 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 Patient stated that she has no concerns or questions at this time. Magaly Moya
== END 2025-06-20 11:45 | disposition home or self-care (01) ==
LOC: ER 17:10 → 2ND 18:39
PROVIDERS: Nurse Practitioner; Admitting Provider Student in an Organized Health Care Education/Training Program; Emergency Provider Student in an Organized Health Care Education/Training Program; PCP Internal Medicine Adolescent Medicine; Visit Provider Student in an Organized Health Care Education/Training Program
DX: E27.2 Addisonian crisis (principal); E03.9 Hypothyroidism, unspecified; F41.9 Anxiety disorder, unspecified; E05.90 Thyrotoxicosis, unspecified without thyrotoxic crisis or storm; K21.9 Gastro-esophageal reflux disease without esophagitis; F90.9 Attention-deficit hyperactivity disorder, unspecified type; F32.A Depression, unspecified; Z88.0 Allergy status to penicillin; Z88.1 Allergy status to other antibiotic agents; Z91.018 Allergy to other foods; Z79.52 Long term (current) use of systemic steroids; Z79.899 Other long term (current) drug therapy
CPT/HCPCS: 0223U; 36415; 80053; 82533; 83690; 83735; 84439; 84443; 84484; 85025; 87040; 93005; 96361; 96365; 96366; 96375; 96376; 99284; G0378; J1720; J3360; J3475; J7120

== ENCOUNTER 2025-09-03 13:45 | Outpatient (CLI) | payer OTHER, SELFPAY ==
--- OUTSIDE RECORDS SUMMARY | 2025-09-03 13:49 | XMS_ITS | Clinical Summary ---
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 ADHD (attention deficit hyperactivity disorder) 09/14/2016 Seasonal allergies 09/14/2016 Asthma 05/02/2016 Resolved Problems Problem Noted Date Diagnosed Date Resolved Date Previous section co mplicating 08/16/2022 06/29/2025 Overview (08/16/2022): Added automatically from request for surgery [id number] Shortness of breath 06/27/2022 06/28/20 22 Immunizations Immunization Administration Dates Next Due Hep A, Unspecified 11/07/2019,08/16/2018 Hep B, adult 11/18/1998,05/12/1998,04/16/1998 Influenza, Unspecified 07/09/2020,2018,06/24/2018,07/18,07/17/2016,07/22/2015,08/20/2014 Influenza, injectable, quadr ivalent, preservative free 08/15/2022,07/15/2021 MMR 04/08/1998,02/16/1991 [employer] COVID-19 Vac cine (Purple Cap) 12+ 10/22/2020,09/30/2020 [...] alcohol) possibly in early before pos UPT Boston Depression Scale Answer Date Recorded Boston Depression Scale Total 5 11/02/2022 The thought [...] drink 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 Blood Venous blood specimen / Unknown Venipuncture / Unknown 03/23/2022 10:44 AM EDT 03/23/2022 10:44 AM EDT Kamla Zuñiga FLIGHT CONTROL MANAGER, DNP LAB BLOOD ORDERABLES Final Result [facility] [address] [place] [address] * HIV 1 & 2 Antibody/Antigen Screen [...] Narrative SUNQUEST - 11/06/2018 3:28 PM EST [facility] MR #: [id number] [facility] [address] 1990 (Age: 28) FW Collect Date: 10/31/2018 00:00 Receipt Date: 11/01/2018 08:34 Page 1 DEPARTMENT OF PATHOLOGY AND LABORATORY MEDICINE CYTOPATHOLOGY REPORT Email: [email or web address] [phone] ATTENDING MD/Practitioner: Mary Patel M.D. Service: OBE Location: [facility] Reported: 11/06/2018 15:28 Collected: 10/31/2018 00:00 INTERPRETATION A. THIN PREP (CERVICAL/VAGINAL): NEGATIVE FOR INTRAEPITHELIAL LESION OR MALIGNANCY. SATISFACTORY FOR EVALUATION; ENDOCERVICAL/ TRANSFORMATION ZONE COMPONENT PRESENT. Slide examined with [email or web address] ThinPrep Imaging System but manually screened for [...] results is suggested (please call Microbiology at [phone] for results). CLINICAL INFORMATION: Menstrual History: Cyclic Date of Last Menstrual Period: 18Oct2018 Other Clinical Conditions: If ASCUS and > 24 years of age, HPV/DNA testing requested. SPECIMEN DESCRIPTION: A: THIN PREP (CERVICAL/VAGINAL) THIN PREP PROCESS CELLULAR ENHANCEMENT ICD: F: A; RT IMAGE [id number] SNOMED CODES: A; [id number] In cases where a pathologist has signed out the report, the service has been rendered in part by a resident. The signing pathologist has performed and is responsible for the reported pathologic evaluation. Disha Patel MD LAB PATHOLOGY ORDERABLES [facility] Result SUNQUEST from Last 3 Months or Most Recently Relevant to Health Maintenance Additional Health Concerns Active Problems Noted Date Diagnosed Date CPM S20 PP LABOR (OBSTETRICS) 05/14/2022 Infection Onset Date Last Indicated MRSA Comment:Patient needs MRSA protocol 08/22/2020 03/02/2021 Insurance DENTAL CARE [id number] [place] [id number] Advance Directives * Full Code (Latest Code [...] Patient has decision-making capacity? Yes Care Teams Group Home Manager Relationship Specialty Start Date End Date Geoffrey Bhatti MD [address] [place] [id number] PCP - General 02/19/21
--- OUTSIDE RECORDS SUMMARY | 2025-09-03 13:49 | XMS_ITS | Clinical Summary ---
Author Organization [facility] Address [address] [place] [address] Care Team Providers Care Pond Tender Name Role Phone Unavailable Primary Care Provider [...] 2 - PCV) 2008 ANNUAL PHYSICAL 03/21/2016 INFLUENZA VACCINE 05/09/2025 08/15/2022, , 07/09/2020, Additional history exists TDAP/TD VACCINES (4 - Td or Tdap) 08/15/2032 08/15/2022, 05/22/2020, 06/19/2009 HEPATITIS C SCREENING Completed 03/23/2022, 022 Insurance R
--- OUTSIDE RECORDS SUMMARY | 2025-09-03 13:49 | XMS_ITS | Encounter Summary ---
Author Organization [facility] Address [address] [place] [address] Care Team Providers Care Senior Mobile Application Developer Name Role Phone Geoffrey Bhatti MD Primary Care Provider [phone] Reason for Referral * Consultation (Routine) - Closed Specialty Diagnoses / Procedures Referred By Contac t Referred To Contact Endocrinology Diagnoses Primary adrenal deficiency Vincent Roberson MD [address] [place] [address] Phone: tel: fax: [facility] Endocrinology [address] [place] [phone] Phone: tel: fax: Referral ID Status Reason Start Date Expiration Date V isits Requested Visits Authorized [id number] Closed Specialty Services Required 04/07/2023 10/06/2024 1 1 Encounter Details Date Type Department Care Team (Late st Contact Info) Description 04/07/2023 Community Orders Community [facility] [address] [place] [address] Vincent Roberson MD [address] [place] [address] Primary adrenal deficiency (CMS/HCC) (Primary Dx) Social History Tobacco Use Types Packs/Day Years Used Date Smoking Tobacco: Never Smokeless Tobacco: Never Alcohol Use Standard Drinks/Week Comments Not Currently 0 (1 standard drink = 0.6 oz pure alcohol) possibly in early before pos UPT Stanford Depression Scale Answer Date Recorded Stanford Depression Scale Total 5 11/02/2022 The thought [...] drink first t toya in 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 Author Delayed Delivery Care Plan CPM S20 PP LABOR (OBSTETRICS) No Open Scheduling, Background documented as of this encounter Visit Diagnoses Diagnosis Primary adrenal deficiency- Primary Glucocorticoid deficiency documented in this encounter Additional Health Concerns Active Problems Noted Date Diagnosed Date CPM S20 PP LABOR (OBSTETRICS) 05/14/2022 Infection Onset Date Last Indicated Resolved Time MRSA Comment:Patient needs MRSA protocol 08/22/2020 03/02/2021 documented as of this encounter Care Teams Senior Mobile Application Developer Relationship Specialty Start Date End Date Geoffrey Bhatti MD [address] [place] [address] PCP - General 02/19/21 documented as of this encounter
[2025-09-03 14:28] LABS: Cholesterol 160 mg/dl (140-200); HDL Cholesterol 42 mg/dl (40-60); Triglycerides 195 mg/dl (30-150)
[2025-09-03 14:46] LABS: Free T4 (Free Thyroxine) 2.03 ng/dl (0.78-2.19)
[2025-09-03 14:59] LABS: Thyroid Stimulating Hormone 0.14 uIU/mL (0.465-4.68)
[2025-09-03 15:54] LABS: Vitamin B12 709 pg/mL (239-931)
== END 2025-09-03 23:59 | disposition home or self-care (01) ==
LOC: LAB 13:46
PROVIDERS: PCP Internal Medicine Adolescent Medicine; Visit Provider Student in an Organized Health Care Education/Training Program
DX: E27.1 Primary adrenocortical insufficiency (principal); E03.9 Hypothyroidism, unspecified; E66.9 Obesity, unspecified
CPT/HCPCS: 36415; 80061; 82607; 83519; 84439; 84443; 86341